=== PATIENT | female | born 1990 | race Caucasian/White ===

== ENCOUNTER → 2018-01-28 09:31 | Outpatient (CLI) | payer OTHER, BC, SELFPAY ==
[2018-01-28 10:11] LABS: Absolute Lymphocyte Count 1.48 X10^3/ul (0.83-4.51); Absolute Neutrophil Count 5.7 X10^3/uL (2.0-7.7); Basophil# 0.02 X10^3/uL; Basophil% 0.2 % (0-1); Eosinophil# 0.05 X10^3/uL; Eosinophils% 0.6 % (0-5); Hematocrit 38.3 % (37-47); Hemoglobin 12.7 g/dl (12.0-15.0); Lymphocyte # 1.48 X10^3/ul (4.0); Lymphocyte % 18.2 % (19-41); Mean Corp Hgb Conc 33.2 g/gl (32-36); Mean Corpuscular Hgb 28.6 pg (27.0-32.0); Mean Corpuscular Volume 86.3 fL (81-99); Mean Platelet Vol. 8.9 fl (6.2-12.0); Monocyte# 0.92 X10^3/uL; Monocyte% 11.3 % (0-10); Neutrophil # 5.67 X10^3/uL (2.7-7.7); Neutrophil % 69.6 % (47-70); POSITIVE COUNT NO; POSITIVE DIFFERENTIAL NO; POSITIVE MORPHOLOGY NO; Platelet Count 272 K/mm3 (150-450); RBC Distribution Width CV 13.3 % (11.6-14.6); RBC Distribution Width SD 41.1 fl (35.1-43.9); Red Blood Count 4.44 M/mm3 (4.2-5.4); White Blood Count 8.2 K/mm3 (4.4-11.0)
[2018-01-28 11:19] LABS: HIV - WCH Non-Reactive (Nonreactive); Rubella IgG 54.1 IU/mL
[2018-01-28 18:50] LABS: Chlamydia Trachomatis by PCR Negative (Negative); Neisserai gonorrhoeae by PCR Negative (Negative); Probe Check PASS; Sample Adequacy Control PASS; Specimen Processing Control PASS
[2018-01-29 13:47] LABS: HEPATITIS B SURFACE AG Negative (Negative)
[2018-01-30 02:59] LABS: Rapid Plasmin Reagin (RPR) NONREACTIVE (NONREACTIVE)
[2018-02-03 14:41] LABS: HPV Reflexed? NOT INDICATED
== END ==
PROVIDERS: Family Provider Family Medicine; PCP Family Medicine; Referring Provider Obstetrics & Gynecology; Visit Provider Obstetrics & Gynecology
DX: Z12.4 Encounter for screening for malignant neoplasm of cervix (principal); Z34.90 Encounter for supervision of normal pregnancy, unspecified, unspecified trimester
CPT/HCPCS: 36415; 85025; 86592; 86703; 86762; 86850; 86900; 87086; 87088; 87340; 87491; 87591; 88175; G0145

== ENCOUNTER → 2018-02-18 12:10 | Outpatient (CLI) | payer OTHER, BC, SELFPAY | PROVIDERS: Family Provider Family Medicine; PCP Family Medicine; Referring Provider Obstetrics & Gynecology; Visit Provider Obstetrics & Gynecology | DX: Z34.81 Encounter for supervision of other normal pregnancy, first trimester (principal) | CPT/HCPCS: 36415 ==

== ENCOUNTER → 2018-04-01 10:49 | Outpatient (CLI) | payer OTHER, BC, SELFPAY ==
[2018-04-01 10:17] VITALS: BMI 24.7
== END ==
PROVIDERS: Family Provider Family Medicine; Referring Provider Nurse Practitioner Women's Health; Visit Provider Nurse Practitioner Women's Health
DX: Z36.9 Encounter for antenatal screening, unspecified (principal)
CPT/HCPCS: 36415

== ENCOUNTER → 2018-04-17 07:57 | Outpatient (CLI) | payer OTHER, BC, SELFPAY ==
[2018-04-01 10:17] VITALS: BMI 24.7
--- NOTE | 2018-04-17 08:00 | US_ITS ---
STUDY: SECOND AND THIRD TRIMESTER OBSTETRICAL ULTRASOUND REASON FOR EXAM: Female, 27 years old. , assessment LMP: December 05, 2017 TECHNIQUE: Transabdominal imaging of the pelvis was performed using real-time ultrasound. PRIOR ULTRASOUND: None. FINDINGS: There is a single intrauterine fetus. The fetus is in a cephalic presentation. There is demonstrated cardiac activity with a heart rate of 152 bpm. There is a normal amniotic fluid volume. The largest amniotic fluid pocket measures 3.3 cm. The placenta is anterior in location and is not low lying. There are Grade 0 placental changes. The cervix measures 3.2 cm in length. The bilateral adnexal regions show no significant abnormalities. BIOMETRY: BPD: 4.47 cm: 19 weeks, 4 days HC: 16.37 cm: 19 weeks, 1 days AC: 13.47 cm: 19 weeks, 0 days FL: 3.00 cm: 19 weeks, 2 days CI: 78% FL/BPD: 67% FL/HC: FL/AC: 22% HC/AC: 1.22 age by current US: 19 weeks, 2 days. TYRONE by current US: September 09, 2018. Estimated weight: 274 grams, +/- 40 grams, 52 %. age by prior US: weeks, days. TYRONE by prior US: . Age by LMP: 19 weeks, 0 days. TYRONE by LMP: September 11, 2018. ANATOMY: Gender: Female Cranium: Normal lateral ventricles. A cyst was measured in the choroid plexus measuring 8.2 x 5.5 x 3.7 mm. Normal cerebellum. Normal cisterna magna. Normal face, nose and lips. The facial profile was not seen. Chest: Normal 4-chamber heart. Abdomen/Pelvis: Normal diaphragm. Normal stomach. Normal abdominal wall. Normal cord insertion. Normal 3 vessel cord. Normal kidneys. Normal bladder. Spine: Normal cervical spine. Normal thoracic spine. Normal lumbar spine. Extremities: Normal bilateral upper extremities. Normal bilateral lower extremities. US/OB Anatomy Scan IMPRESSION: There is a viable intrauterine with estimated gestational age of 19 weeks 2 days by the current ultrasound. Measurements are given above. A small cyst was measured in the choroid plexus. The facial profile was not seen due to positioning of the fetus. A follow-up ultrasound can be obtained for these structures. Electronically Signed: Maye Clemens MD at 18:47 EST Tel Direct: [phone], Service support ,
== END ==
PROVIDERS: Family Provider Family Medicine; Referring Provider Obstetrics & Gynecology; Visit Provider Obstetrics & Gynecology
DX: Z36.89 Encounter for other specified antenatal screening (principal)
CPT/HCPCS: 76805

== ENCOUNTER → 2018-06-12 13:39 | Outpatient (CLI) | payer OTHER, BC, SELFPAY ==
[2018-06-12 13:12] VITALS: BMI 24.7
[2018-06-12 14:37] LABS: Absolute Lymphocyte Count 0.86 X10^3/ul (0.83-4.51); Absolute Neutrophil Count 6.9 X10^3/uL (2.0-7.7); Basophil# 0.02 X10^3/uL; Basophil% 0.2 % (0-1); Eosinophil# 0.06 X10^3/uL; Eosinophils% 0.7 % (0-5); Hematocrit 34.1 % (37-47); Hemoglobin 10.7 g/dl (12.0-15.0); Lymphocyte # 0.86 X10^3/ul (4.0); Lymphocyte % 10.1 % (19-41); Mean Corp Hgb Conc 31.4 g/gl (32-36); Mean Corpuscular Hgb 27.9 pg (27.0-32.0); Mean Corpuscular Volume 88.8 fL (81-99); Mean Platelet Vol. 8.4 fl (6.2-12.0); Monocyte# 0.63 X10^3/uL; Monocyte% 7.4 % (0-10); Neutrophil # 6.94 X10^3/uL (2.7-7.7); Neutrophil % 81.1 % (47-70); POSITIVE COUNT NO; POSITIVE DIFFERENTIAL NO; POSITIVE MORPHOLOGY NO; Platelet Count 201 K/mm3 (150-450); RBC Distribution Width CV 13.3 % (11.6-14.6); RBC Distribution Width SD 41.6 fl (35.1-43.9); Red Blood Count 3.84 M/mm3 (4.2-5.4); White Blood Count 8.6 K/mm3 (4.4-11.0)
[2018-06-12 14:43] LABS: Glucose Challenge Gest 1H 50g 126 mg/dL (70-140)
== END ==
PROVIDERS: Family Provider Family Medicine; PCP Family Medicine; Visit Provider Obstetrics & Gynecology
DX: Z34.90 Encounter for supervision of normal pregnancy, unspecified, unspecified trimester (principal)
CPT/HCPCS: 36415; 82950; 85025

== ENCOUNTER → 2018-08-14 09:56 | Outpatient (CLI) | payer OTHER, BC, SELFPAY ==
[2018-08-14 09:43] VITALS: BMI 29.2
[2018-08-14 11:12] LABS: Absolute Lymphocyte Count 1.75 X10^3/ul (0.83-4.51); Absolute Neutrophil Count 8.9 X10^3/uL (2.0-7.7); Basophil# 0.01 X10^3/uL; Basophil% 0.1 % (0-1); Eosinophil# 0.09 X10^3/uL; Eosinophils% 0.8 % (0-5); Hematocrit 36.2 % (37-47); Hemoglobin 11.3 g/dl (12.0-15.0); Lymphocyte # 1.75 X10^3/ul (4.0); Lymphocyte % 14.6 % (19-41); Mean Corp Hgb Conc 31.2 g/gl (32-36); Mean Corpuscular Hgb 27.2 pg (27.0-32.0); Monocyte# 1.12 X10^3/uL; Monocyte% 9.4 % (0-10); Neutrophil # 8.93 X10^3/uL (2.7-7.7); Neutrophil % 74.5 % (47-70); Platelet Count 193 K/mm3 (150-450); RBC Distribution Width SD 47.4 fl (35.1-43.9); Red Blood Count 4.16 M/mm3 (4.2-5.4)
[2018-08-14 11:22] LABS: POSITIVE COUNT NO; POSITIVE DIFFERENTIAL NO; POSITIVE MORPHOLOGY NO
== END ==
PROVIDERS: Family Provider Family Medicine; PCP Family Medicine; Referring Provider Obstetrics & Gynecology; Visit Provider Obstetrics & Gynecology
DX: O99.013 Anemia complicating pregnancy, third trimester (principal); Z3A.36 36 weeks gestation of pregnancy
CPT/HCPCS: 36415; 85025; 87081

== ENCOUNTER 2018-09-05 07:50 | Inpatient (IN) | payer OTHER, BC, SELFPAY ==
[2018-09-04 10:08] VITALS: BMI 30.7
[2018-09-05 08:49] VITALS: BMI 30.7
[2018-09-05] MEDS: Lactated Ringers 1,000 ML 50 ML IV ×2 (09:00→10:27)
[2018-09-05 09:13] LABS: Absolute Lymphocyte Count 0.54 X10^3/ul (0.83-4.51); Absolute Neutrophil Count 12.4 X10^3/uL (2.0-7.7); Basophil# 0.01 X10^3/uL; Basophil% 0.1 % (0-1); Eosinophil# 0.01 X10^3/uL; Eosinophils% 0.1 % (0-5); Hematocrit 36.5 % (37-47); Hemoglobin 11.8 g/dl (12.0-15.0); Lymphocyte # 0.54 X10^3/ul (4.0); Lymphocyte % 3.9 % (19-41); Mean Corp Hgb Conc 32.3 g/gl (32-36); Mean Corpuscular Hgb 27.7 pg (27.0-32.0); Mean Corpuscular Volume 85.7 fL (81-99); Mean Platelet Vol. 8.8 fl (6.2-12.0); Monocyte# 0.91 X10^3/uL; Monocyte% 6.5 % (0-10); Neutrophil # 12.42 X10^3/uL (2.7-7.7); Neutrophil % 89.2 % (47-70); Platelet Count 156 K/mm3 (150-450); RBC Distribution Width CV 15.1 % (11.6-14.6); Red Blood Count 4.26 M/mm3 (4.2-5.4); White Blood Count 13.9 K/mm3 (4.4-11.0)
[2018-09-05 09:15] LABS: Differential Indicated SCAN CRITERIA MET; POSITIVE COUNT NO; POSITIVE DIFFERENTIAL YES; POSITIVE MORPHOLOGY NO
--- NOTE | 2018-09-05 09:27 | HP.PCM_ITS ---
- Problem List (1) Active labor at term Status: Acute (2) Anemia affecting Status: Acute Qualifiers: Comment: iron. cbc at 36 weeks (3) Supervision of normal Status: Acute Qualifiers: Comment: PRR TYRONE 09/05/18 girl Lilian Foster Ryle[place] (4) Status: Acute Qualifiers: Comment: NT done. NIPT-Low risk, Female. carrier screening declined. AFP negative. Anatomy US normal. History Date of Admission: 09/05/18 Final TYRONE: 09/05/18 Gestational age: 40 Weeks and 0 Days History of this : This is a 28 year-old, at 39 weeks gestational age presetns IAL 5 cm dilated. she has had an uncomplicated denies any vb or lof admits good fm. Allergies No Known Allergies Allergy (Verified 09/04/18 09:32) Home Medications: Home Medications vitamin,calcium,prdqafjr-geqd-ncsuu acid tablet 1 tab PO DAILY 01/28/18 Ferrous Sulfate 325 mg PO 09/05/18 Smoking Status: Never smoker Number of Fetus(es): 1 Heart Tracin-170 moderate variability cat II tracing reactive no decels regular ctx q 3-4 History Past Pregnancies: Past PregnanciesPregancy History 2 Elective abortions Hx Para 1 Spontaneous abortions Hx # Term Pregnancies Ectopic pregnancies Hx # Pregnancies Multiple births # of living children 1 Past Pregnancies Del. Date Name GA/Weeks Outcome Route Bth Weight Gen Labor Lgth Anesthesia Del Locatn Provider FOB 08/24/15 Cristian 41 live - full term 9 lbs 3 oz. Male [address] Cook [place] Delivery Date: 08/24/15 On 06/26/18 @ 09:57 Jenniffer Chacko difficult labor Labs: Mom's Problem List Problem Status Onset Code Active labor at term Acute Mom's Labs & Results 09/05/18 09/05/18 08:55 08:55 WBC 13.9 H RBC 4.26 Hgb 11.8 L Hct 36.5 L MCV 85.7 MCH 27.7 MCHC 32.3 RDW 15.1 H RDW Differential 47.0 H Plt Count 156 MPV 8.8 Immature Gran % (Auto) 0.200 Neut % (Auto) 89.2 H Lymph % (Auto) 3.9 L [place] % (Auto) 6.5 Eos % (Auto) 0.1 Baso % (Auto) 0.1 Absolute Neuts (auto) 12.4 H Absolute Lymphs (auto) 0.54 L Total Counted Pending Blood Type Pending Antibody Screen Pending Course Did the patient receive Yes care? Labs Blood Type: O RH: POSITIVE RPR/VDRL/Syphilis Nonreactive Rubella status Immune HbSAg Negative Date Done: 01/28/18 Chlamydia Negative Gonorrhea Negative HIV/AIDS Non-Reactive Group B Strep: Negative Current Obstetrical History Gestational Diabetes No Incompetent Cervix No Infertility No IUGR No Macrosomia No Hypertension/Pre-eclampsia No Placenta Previa/Abruption No PTL/PROM No Uterine anomaly No Oligohydramnios No Polyhydramnios No Multiple gestation No Past Medical History Asthma No Diabetes No Hypertension No Heart disease No Mitral valve prolapse No Neurologic/Seizure disorder/ No Migraines Kidney disease No Liver disease No Varicosities No Clotting disorders/Hx of DVT No Thyroid Dysfunction No Other medical diseases No Psychiatric disorders No Major trauma No Abnormal PAP smear No Sleep apnea No Mammogram in the last 2 years No Social History Marital Status: Alleged father [place] Hx Smoking No Smoking Status Never smoker Expected Delivery Method: Spontaneous Vaginal Review of Systems Constitutional: Denies: Fever, Malaise Eyes: Denies: Blurred vision, Vision Change HEENT: Denies: Head Aches, Visual Changes Cardiovascular: Denies: Chest Pain, Palpitations Respiratory: Denies: Cough, Shortness of Breath, Wheezing Gastrointestinal: Denies: Abdominal Pain, Diarrhea, Nausea, Vomiting Genitourinary: Denies: Dysuria, Hematuria Musculoskeletal: Denies: Joint Pain, Muscle pain Skin: Denies: Lesions, Rash Neurological: Denies: Blurred vision, Focal weakness, Headaches Psychiatric: Denies: Anxiety, Depression Endocrine: Denies: Heat/ Cold Intolerance Hematologic/ Lymphatic: Denies: Easy Bruising, Easy Bleeding Physical Exam General: Alert, Cooperative, No apparent distress HEENT: Atraumatic, Normocephalic. Negative for: Thyromegaly, Lymphadenopathy Cardiovascular: Regular rate Lungs: Normal air movement Abdomen: Soft, Non Tender, Gravid Neurological: Deep Tendon Reflexes 2+/4 and Symmetrical, Neuro grossly intact. Negative for: Clonus REDUCING SYSTEM OPERATOR: Normal external genitalia. Negative for: Vulvar lesions Estimated gestational size: Appropriate for gestational size Presentation: Cephalic Cervix Dilation (cm): 5 Station: -1 Effacement (%): 80 Assessment/Plan All Active Problems (Last Reviewed 09/04/18 @ 09:32 by Omaira Lees) Active labor at term (Acute) Anemia affecting (Acute) Supervision of normal (Acute) (Acute) screening encounter (Resolved) Choroid plexus cyst (Resolved) This is a 28 year-old, , at 40 weeks gestational age presents IAL Patient presents IAL, plan expectant management for , pitocin/AROM PRN if needed. Pain management: Plans epidural. GBS negative. Management of any complications: None I have reviewed the [facility] and made any clinically relevant updates.
[2018-09-05 09:59] LABS: Differential Comment SCANNED; Platelet Estimate ADEQUATE (ADEQ)
[2018-09-05] MEDS: fentaNYL-bupivacaine (epidural) 100 ML BAG EPIDURAL (10:15)
[2018-09-05] MEDS: Oxytocin 30 units/NS 500 ml 30 UNITS/500 ML IV.SOLN 334 UNITS IV (13:05)
[2018-09-05] MEDS: Methylergonovine 0.2 MG/ML Ampul IM (13:11)
--- NOTE | 2018-09-05 13:17 | PCM.OPRPT ---
Problem List (1) Active labor at term Status: Acute (2) Anemia affecting Status: Acute Qualifiers: Comment: iron. cbc at 36 weeks (3) Supervision of normal Status: Acute Qualifiers: Comment: PRR TYRONE 09/05/18 girl Lilian Foster Ryley (4) Status: Acute Qualifiers: Comment: NT done. NIPT-Low risk, Female. carrier screening declined. AFP negative. Anatomy US normal. Vaginal Delivery Maternal Presentation: Active Labor ial 40 weeks Amniotic Membrane Rupture Type: Artificial Amniotic Fluid Description: Clear Final TYRONE: 09/05/18 Gestational age: 40 Weeks and 0 Days Date of Procedure: 09/05/18 Pre-Operative Diagnosis: ial Post-Operative Diagnosis: same Surgery/ Procedure Performed: Spontaneous Vaginal Delivery Type of Anesthesia: Epidural Description of Procedure: Patient began pushing and delivered the head in the JOSE presentation. The head was delivered atraumatically and a loose nuchal cord ?1 was identified and easily reduced over the infant's head. The anterior and posterior shoulders delivered without complication followed by the rest of the and the was placed on the maternal abdomen. Delayed cord clamping was employed for approximately 60 seconds. Cord was clamped and cut and gentle traction was applied to the cord and the placenta delivered spontaneously immediately following it was noted to be intact with three-vessel cord. The perineum and vagina were inspected and noted to have no significant laceration. EBL was 400 cc and there was some mild uterine atony due to the enlarged uterus. The cervix and uterus were significantly prolapsed down and at the introitus with enlarged genital hiatus. Patient and tolerated delivery well. Presentation: JOSE Placental Delivery Description: Spontaneous Placenta Disposition: [facility] Cord Vessel Description: 3 Vessels Cord Entanglement: Around neck x 1, loose Drain: Zhang to straight drain Estimated Blood Loss: 400 Infant A gender: Female Episiotomy Description: None Laceration: None Medications given after delivery: IV Pitocin, IM [place]hergin Complications: None
[2018-09-05] MEDS: Oxytocin 30 units/NS 500 ml 30 UNITS/500 ML IV.SOLN 167 UNITS IV (13:36)
[2018-09-05 16:30] VITALS: PULSE 117
[2018-09-05 16:32] VITALS: BP 128/79; PULSE 117; RESP 18; TEMP 36.9; O2SAT 100
[2018-09-05] MEDS: Naproxen 250 MG Tablet 500 MG PO (19:37)
[2018-09-05 19:40] VITALS: BP 131/78; PULSE 137; RESP 20; TEMP 36.9
[2018-09-06] VITALS: BP 111/71; PULSE 100; RESP 16; TEMP 36.3
[2018-09-06 05:00] VITALS: BP 111/64; PULSE 96; RESP 16; TEMP 35.8
[2018-09-06 07:49] VITALS: BP 111/72; PULSE 94; RESP 18; TEMP 36.1; O2SAT 99
--- NOTE | 2018-09-06 08:53 | PCM.PN.OB ---
Patient Problems: Active and Suspected Problems (Last Reviewed 09/04/18 @ 09:32 by Omaira Lees) Active labor at term (Acute) Subjective: doing well no complaints pain controlled no CP SOB N V ambulating well tolerating po lochia moderate, going well - Physical Exam General: Alert, Oriented x3 Abdomen: Soft, Non Tender, - - FF below U Vital Signs Temp Pulse Resp BP Pulse Ox 96.9 F L 94 18 111/72 99 09/06/18 07:49 09/06/18 07:49 09/06/18 07:49 09/06/18 07:49 09/06/18 07:49 Oxygen Delivery Method Room Air Weight: 190 lb Body Mass Index (BMI) 30.7 Intake and Output for Last 24 Hours 09/04/18 09/05/18 09/06/18 23:59 23:59 23:59 Intake Total 1956 Output Total 1200 / 1200 Balance 757 / 757 Laboratory Tests Past 24 Hrs 09/05/18 09/05/18 08:55 08:55 WBC 13.9 H RBC 4.26 Hgb 11.8 L Hct 36.5 L MCV 85.7 MCH 27.7 MCHC 32.3 RDW 15.1 H RDW Differential 47.0 H Plt Count 156 MPV 8.8 Immature Gran % (Auto) 0.200 Neut % (Auto) 89.2 H Lymph % (Auto) 3.9 L [place] % (Auto) 6.5 Eos % (Auto) 0.1 Baso % (Auto) 0.1 Absolute Neuts (auto) 12.4 H Absolute Lymphs (auto) 0.54 L Total Counted Not Reportable Differential Comment SCANNED Platelet Estimate ADEQUATE Blood Type O POSITIVE Antibody Screen NEGATIVE Medical Necessity - Tobacco Use Smoking Status: Never smoker Assessment/Plan All Active Problems (Last Reviewed 09/04/18 @ 09:32 by Omaira Lees) Active labor at term (Acute) Anemia affecting (Acute) Supervision of normal (Acute) (Acute) screening encounter (Resolved) Choroid plexus cyst (Resolved) s/p PPD # 1 1. routine post delivery care 2. breast feeding- support given 3. rh positive 4. rubella immune 5. Plans home today
--- NOTE | 2018-09-06 08:54 | DCINST_ITS ---
Additional Instructions: If you experience any of the following, contact your healthcare provider. * Bleeding that soaks a pad every hour for 2 hours * Fever 100.4 or higher * Unrelieved incision or abdominal pain * Swelling, redness, discharge or bleeding from your incision or episiotomy site * Your incision begins to separate * Problems urinating (including inability to urinate or burning while urinating). * Visual changes * Severe headache * Flu-like symptoms * Pain or redness in one of both of your breasts * Pain, warmth, tenderness or swelling in your legs, especially the calf area * Frequent nausea and vomiting * Symptoms of depression or anxiety If you experience any of the following, call 911 or go to the nearest Emergency Room. * Chest pain * Problems breathing * Seizure activity * Partial or complete paralysis of a body part, slurred speech, weakness or drooping of the face, or a sudden inability to walk or hold your balance Allergies/Adverse Reactions: Allergies No Known Allergies Allergy (Verified 09/04/18 09:32) Medications to take at Discharge vitamin,calcium,ckjhmrpe-qaaf-uewsg acid tablet 1 tab PO DAILY 01/28/18 Ferrous Sulfate 325 mg PO 09/05/18 Primary Care Physician: Elvis Lopes MD [Primary Care Provider] - Test Results: Test results from this visit will be discussed in further detail at your follow- up appointment, if applicable.
--- NOTE | 2018-09-06 08:54 | PCM.DCVAG ---
Additional Instructions: If you experience any of the following, contact your healthcare provider. Bleeding that soaks a pad every hour for 2 hours Fever 100.4 or higher Unrelieved incision or abdominal pain Swelling, redness, discharge or bleeding from your incision or episiotomy site Your incision begins to separate Problems urinating (including inability to urinate or burning while urinating). Visual changes Severe headache Flu-like symptoms Pain or redness in one of both of your breasts Pain, warmth, tenderness or swelling in your legs, especially the calf area Frequent nausea and vomiting Symptoms of depression or anxiety If you experience any of the following, call 911 or go to the nearest Emergency Room. Chest pain Problems breathing Seizure activity Partial or complete paralysis of a body part, slurred speech, weakness or drooping of the face, or a sudden inability to walk or hold your balance Allergies/Adverse Reactions: Allergies No Known Allergies Allergy (Verified 09/04/18 09:32) Medications to take at Discharge vitamin,calcium,gecmdwcn-uyzs-thlnh acid tablet 1 tab PO DAILY 01/28/18 Ferrous Sulfate 325 mg PO 09/05/18 Primary Care Physician: Elvis Lopes MD [Primary Care Provider] - Test Results: Test results from this visit will be discussed in further detail at your follow-up appointment, if applicable.
[2018-09-06 12:00] VITALS: BP 116/73; PULSE 100; RESP 18; TEMP 36; O2SAT 97
[2018-09-06 19:30] VITALS: BP 121/87; PULSE 82; RESP 18; TEMP 36.7
--- NOTE | 2018-09-10 16:30 | NURSING ---
follow up call done, patient denies questions , needs or complcations and was satisfied with her care going well
== END 2018-09-06 21:25 | disposition home or self-care (01) | DRG 807 ==
PROVIDERS: Admitting Provider Obstetrics & Gynecology; Family Provider Family Medicine; PCP Family Medicine; Referring Provider Obstetrics & Gynecology; Visit Provider Obstetrics & Gynecology
DX: O99.02 Anemia complicating childbirth (principal); D64.9 Anemia, unspecified; O69.81X0 Labor and delivery complicated by cord around neck, without compression, not applicable or unspecified; Z79.899 Other long term (current) drug therapy; Z3A.40 40 weeks gestation of pregnancy; Z37.0 Single live birth
CPT/HCPCS: 59025; 59050; 85025; 86850; 86900; 99218; J7120; G0378

== ENCOUNTER → 2020-11-07 | Outpatient (CLI) | payer BC, SELFPAY ==
[2020-11-07 16:49] VITALS: BMI 27.6
[2020-11-11 11:49] LABS: HPV Reflexed? NOT INDICATED
== END | disposition home or self-care (01) ==
LOC: LABSPEC 16:51
PROVIDERS: PCP Family Medicine; Referring Provider Obstetrics & Gynecology; Visit Provider Obstetrics & Gynecology
DX: Z12.4 Encounter for screening for malignant neoplasm of cervix (principal)
CPT/HCPCS: 88175; G0145

== ENCOUNTER → 2021-03-01 | Outpatient (CLI) | payer OTHER, SELFPAY ==
[2021-03-01 13:45] LABS: Amphetamine Urine VISTA NEGATIVE (<1000 ng/mL); Barbiturate Urine VISTA NEGATIVE (< 200 ng/mL); Benzodiazepine Urine VISTA NEGATIVE (< 200 ng/mL); Cocaine Urine VISTA NEGATIVE (< 300 ng/mL); Ecstacy Urine VISTA NEGATIVE (< 500 ng/mL); Methadone Urine VISTA NEGATIVE (< 300 ng/mL); PCP Urine VISTA NEGATIVE (< 25 ng/mL); THC Urine VISTA NEGATIVE (< 50 ng/mL); Vista UDS pH Range 6
[2021-03-01 14:43] LABS: Chlamydia Trachomatis by PCR Negative (Negative)
[2021-03-01 14:44] LABS: Neisserai gonorrhoeae by PCR Negative (Negative); Probe Check PASS; Sample Adequacy Control PASS; Specimen Processing Control PASS
== END | disposition home or self-care (01) ==
LOC: LABSPEC 11:28
PROVIDERS: PCP Family Medicine; Referring Provider Obstetrics & Gynecology; Visit Provider Obstetrics & Gynecology
DX: Z34.91 Encounter for supervision of normal pregnancy, unspecified, first trimester (principal); Z3A.09 9 weeks gestation of pregnancy
CPT/HCPCS: 80307; 87086; 87491; 87591

== ENCOUNTER → 2021-03-09 11:50 | Outpatient (CLI) | payer OTHER, SELFPAY ==
[2021-03-09 12:26] LABS: Absolute Lymphocyte Count 1.69 X10^3/uL (0.83-4.51); Absolute Neutrophil Count 6.7 X10^3/uL (2.0-7.7); Basophil# 0.04 X10^3/uL; Basophil% 0.4 % (0-1); Eosinophil# 0.07 X10^3/uL; Eosinophils% 0.8 % (0-5); Hematocrit 38.1 % (37-47); Hemoglobin 12.3 g/dL (12.0-15.0); Lymphocyte # 1.69 X10^3/ul (0.83-4.51); Lymphocyte % 18.7 % (19-41); Mean Corp Hgb Conc 32.3 g/dL (32-36); Mean Corpuscular Hgb 28.1 pg (27.0-32.0); Mean Platelet Vol. 8.9 fl (6.2-12.0); Monocyte# 0.59 X10^3/uL; Monocyte% 6.5 % (0-10); NRBC Flagged by Analyzer 0 % (0-5); Neutrophil # 6.65 X10^3/uL (2.7-7.7); Neutrophil % 73.4 % (47-70); Platelet Count 293 K/mm3 (150-450); RBC Distribution Width CV 12.3 % (11.6-14.6); RBC Distribution Width SD 39.7 fl (35.1-43.9); Red Blood Count 4.38 M/mm3 (4.2-5.4); White Blood Count 9.1 K/mm3 (4.4-11.0)
[2021-03-09 13:13] LABS: NATERA MAILED SPECIMEN
[2021-03-09 13:30] LABS: HIV - WCH Non-Reactive (Nonreactive); Hepatitis B Surface Antigen Non-Reactive (Nonreactive); Hepatitis C Antibody Non-Reactive (Nonreactive); Syphilis Antibodies Non-reactive
== END ==
PROVIDERS: PCP Family Medicine; Referring Provider Obstetrics & Gynecology; Visit Provider Obstetrics & Gynecology
DX: Z34.81 Encounter for supervision of other normal pregnancy, first trimester (principal); Z31.430 Encounter of female for testing for genetic disease carrier status for procreative management; Z3A.09 9 weeks gestation of pregnancy
CPT/HCPCS: 36415; 85025; 86703; 86762; 86780; 86803; 86850; 86900; 86901; 87340

== ENCOUNTER → 2021-04-26 09:20 | Outpatient (CLI) | payer OTHER, BC, SELFPAY | PROVIDERS: PCP Family Medicine; Referring Provider Nurse Practitioner Women's Health; Visit Provider Nurse Practitioner Women's Health | DX: Z36.9 Encounter for antenatal screening, unspecified (principal) | CPT/HCPCS: 36415 ==

== ENCOUNTER 2021-07-19 08:55 | Outpatient (CLI) | payer BC, SELFPAY ==
[2021-07-19 09:25] LABS: Absolute Neutrophil Count 8.6 X10^3/uL (2.0-7.7); Basophil# 0.03 X10^3/uL; Basophil% 0.3 % (0-1); Eosinophil# 0.06 X10^3/uL; Eosinophils% 0.6 % (0-5); Hematocrit 34.5 % (37-47); Hemoglobin 10.9 g/dL (12.0-15.0); Lymphocyte % 11.5 % (19-41); Mean Corp Hgb Conc 31.6 g/dL (32-36); Mean Corpuscular Volume 88.7 fL (81-99); Mean Platelet Vol. 8.1 fl (6.2-12.0); Monocyte# 0.48 X10^3/uL; Monocyte% 4.6 % (0-10); NRBC Flagged by Analyzer 0 % (0-5); Neutrophil % 82.4 % (47-70); Platelet Count 207 K/mm3 (150-450); RBC Distribution Width CV 13.4 % (11.6-14.6); RBC Distribution Width SD 43.6 fl (35.1-43.9); Red Blood Count 3.89 M/mm3 (4.2-5.4); White Blood Count 10.4 K/mm3 (4.4-11.0)
[2021-07-19 09:48] LABS: Glucose Challenge Gest 1H 50g 141 mg/dL (70-140)
== END 2021-07-19 23:59 | disposition home or self-care (01) ==
LOC: PAVLAB 08:57
PROVIDERS: PCP Family Medicine; Referring Provider Obstetrics & Gynecology; Visit Provider Obstetrics & Gynecology
DX: Z34.90 Encounter for supervision of normal pregnancy, unspecified, unspecified trimester (principal); Z3A.24 24 weeks gestation of pregnancy
CPT/HCPCS: 36415; 82950; 85025

== ENCOUNTER 2021-07-23 07:25 | Outpatient (CLI) | payer BC, SELFPAY ==
[2021-07-23 08:12] LABS: Glucose GTT-Gestation. Fasting 96 mg/dL (<105)
[2021-07-23 09:15] LABS: Glucose GTT-Gestational 1 Hr 138 mg/dL (<190)
[2021-07-23 10:25] LABS: Glucose GTT-Gestational 2 Hr 125 mg/dL (<165)
[2021-07-23 11:13] LABS: Glucose GTT-Gestational 3 Hr 118 L (<145)
== END 2021-07-23 23:59 | disposition home or self-care (01) ==
LOC: LAB 07:27
PROVIDERS: PCP Family Medicine; Referring Provider Nurse Practitioner Women's Health; Visit Provider Nurse Practitioner Women's Health
DX: O99.810 Abnormal glucose complicating pregnancy (principal)
CPT/HCPCS: 36415; 82951; 82952

== ENCOUNTER → 2021-08-31 | Outpatient (CLI) | payer BC, SELFPAY ==
[2021-08-31 11:46] LABS: Absolute Lymphocyte Count 1.27 X10^3/uL (0.83-4.51); Absolute Neutrophil Count 8.7 X10^3/uL (2.0-7.7); Basophil# 0.03 X10^3/uL; Basophil% 0.3 % (0-1); Eosinophil# 0.07 X10^3/uL; Eosinophils% 0.6 % (0-5); Hematocrit 34.2 % (37-47); Hemoglobin 10.8 g/dL (12.0-15.0); Lymphocyte # 1.27 X10^3/ul (0.83-4.51); Lymphocyte % 11.5 % (19-41); Mean Corp Hgb Conc 31.6 g/dL (32-36); Mean Corpuscular Hgb 27.7 pg (27.0-32.0); Mean Corpuscular Volume 87.7 fL (81-99); Mean Platelet Vol. 8.4 fl (6.2-12.0); Monocyte# 0.91 X10^3/uL; Monocyte% 8.3 % (0-10); NRBC Flagged by Analyzer 0 % (0-5); Neutrophil # 8.68 X10^3/uL (2.7-7.7); Neutrophil % 78.7 % (47-70); Platelet Count 210 K/mm3 (150-450); RBC Distribution Width CV 14.2 % (11.6-14.6); RBC Distribution Width SD 45.1 fl (35.1-43.9)
== END | disposition home or self-care (01) ==
LOC: PAVLAB 11:34
PROVIDERS: PCP Family Medicine; Referring Provider Obstetrics & Gynecology; Visit Provider Obstetrics & Gynecology
DX: O99.019 Anemia complicating pregnancy, unspecified trimester (principal)
CPT/HCPCS: 36415; 85025

== ENCOUNTER → 2021-09-14 | Outpatient (CLI) | payer BC, SELFPAY | END | disposition home or self-care (01) | LOC: LABSPEC 17:00 | PROVIDERS: PCP Family Medicine; Referring Provider Obstetrics & Gynecology; Visit Provider Obstetrics & Gynecology | DX: Z34.80 Encounter for supervision of other normal pregnancy, unspecified trimester (principal) | CPT/HCPCS: 87081 ==

== ENCOUNTER 2021-09-27 15:02 | Outpatient (CLI) | payer BC, SELFPAY ==
[2021-09-27 15:09] VITALS: BMI 34.2
[2021-09-27 15:17] VITALS: BP 116/76; PULSE 97
--- NOTE | 2021-09-27 17:11 | OB.TRI.PN_ITS ---
Progress Notes Date of Service: 09/27/21 Progress Note: Patient presents for triage evaluation secondary to contractions false labor FHT: 130 Moderate variability reactive no decelerations category I tracing [place]: q 2-5 Contractions Assessment and plan: false labor Reactive NST, reassuring maternal and sta tus patient discharged to home to follow-up as shceduled no cervical change. See problem list details for additional plan information. Charges/Coding Procedures Urinary/Genital [id number]: [id number] non-stress test Interp
== END 2021-09-27 16:05 | disposition home or self-care (01) ==
LOC: WPOUT 15:04 → WP 15:05
PROVIDERS: PCP Family Medicine; Visit Provider Obstetrics & Gynecology
DX: O47.9 False labor, unspecified (principal); Z3A.00 Weeks of gestation of pregnancy not specified
CPT/HCPCS: 59025; 59050; 99218; G0378

== ENCOUNTER 2021-10-05 12:00 | Inpatient (IN) | payer BC, SELFPAY ==
[2021-09-27 15:16] VITALS: TEMP 36.1; O2SAT 98
[2021-10-05] VITALS (37 sets, daily range): BP systolic 101–175; BP diastolic 56–91; PULSE 82–115; RESP 16–18; TEMP 36.1–36.6; O2SAT 99–100; BMI 34.4
[2021-10-05] MEDS: Lactated Ringers 1,000 ML 50 ML IV (12:31)
[2021-10-05] MEDS: Oxytocin 30 units/NS 500 ml 30 UNITS/500 ML IV.SOLN IV (12:42)
[2021-10-05 12:44] LABS: Absolute Lymphocyte Count 1.32 X10^3/uL (0.83-4.51); Absolute Neutrophil Count 6.7 X10^3/uL (2.0-7.7); Basophil# 0.02 X10^3/uL; Basophil% 0.2 % (0-1); Eosinophil# 0.04 X10^3/uL; Eosinophils% 0.4 % (0-5); Hematocrit 35.4 % (37-47); Hemoglobin 11.1 g/dL (12.0-15.0); Lymphocyte # 1.32 X10^3/ul (0.83-4.51); Lymphocyte % 14.8 % (19-41); Mean Corp Hgb Conc 31.4 g/dL (32-36); Mean Corpuscular Hgb 27.4 pg (27.0-32.0); Mean Corpuscular Volume 87.4 fL (81-99); Mean Platelet Vol. 9.4 fl (6.2-12.0); Monocyte# 0.78 X10^3/uL; Monocyte% 8.8 % (0-10); NRBC Flagged by Analyzer 0 % (0-5); Neutrophil # 6.67 X10^3/uL (2.7-7.7); Neutrophil % 75.1 % (47-70); Platelet Count 211 K/mm3 (150-450); RBC Distribution Width CV 14.8 % (11.6-14.6); RBC Distribution Width SD 46.9 fl (35.1-43.9); Red Blood Count 4.05 M/mm3 (4.2-5.4); White Blood Count 8.9 K/mm3 (4.4-11.0)
--- NOTE | 2021-10-05 13:12 | HP.PCM.OB_ITS ---
HPI - General General Date of Admission: 10/05/21 HPI Narrative ON BARBOZA, is a 31 y/o @ 39 weeks 3 days who presents for elective induction of labor secondary to maternal exhaustion and advanced cervical dilation Maternal Data Information TYRONE Calculator Estimated Delivery Date Method Current WG Current Estimate 10/09/21 Ultrasound #1 39w 3d Other Estimates 10/02/21 LMP (Certain) 40w 3d PFSH PFS Medical History H/O depression, currently Home Medications multivitamin no.47-iron fum 27 mg-folate no.1 1 mg-dha 300 mg capsule 1 cap PO DAILY 02/21/21 [History Last Taken 09/26/21 21:00] ferrous sulfate [iron] 325 mg PO DAILY 09/27/21 [History Last Taken 09/27/21] Allergy/AdvReac Type Severity Reaction Status Date / Time No Known Allergies Allergy Verified 10/04/21 09:25 Family History Mother Diabetes Father Hypertension Grandmother Breast cancer Social History household members: family housing: house number of children: 2 current occupational status: employed 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 Smoking Status: Never smoker alcohol intake: never substance use type: does not use caffeine: Yes what type of physical activity do you participate in: none seatbelt use: always do you feel safe at home: Yes additional social history: Ryley History 3 Elective abortions Hx Para 2 Spontaneous abortions Hx # Term Pregnancies Ectopic pregnancies Hx # Pregnancies Multiple births # of living children 2 Past Pregnancies Del. Date Name GA/Weeks Outcome Route Bth Weight Infant Gen Labor Lgth Anesthesia Del Locatn Provider FOB 08/24/15 Cristian 41 live - full term 9 lbs 3 oz. Male 1 6 hours epidural Vijaya Cook [place] 09/05/18 Lilian 40 live - full term 9lb 11oz Female epidural [facility] Ryley Delivery Date: 08/24/15 difficult labor Jenniffer Chacko Delivery Date: 09/05/18 No notes to display Visit Details Expected Delivery Route/Plan Labor Preferences- labor support person: Ryley labor intervention preferences: [] pain management options preferred: epidural cut cord/dad catch: cord : yes PP control planned: discussed/prefers pill discussed possible routes of delivery and associated risks: [] special requests: [] Plans Covid status: counseled regarding risk of covid in vs vaccination and declined vaccination; had covid prior to Flu vaccine: given Tdap vaccine:given Rhogam: na LARC form signed: yes Problem list reviewed and updated with the most current plan of care details and appropriate orders placed. Relevant counseling for the gestational age provided. Continue routine care and follow up unless otherwise noted in visit notes/problem list details OB Flowsheet Initial Weight: 169 lb Date -?-?-?-?-?-?-?-?-?-?-?-?- EGA Weight BP Urine Prot -?-?-?-?-?-?-?-?-?-?-?-?- Glucose FHR FuHt Pres Dilation -?-?-?-?-?-?-?-?-?-?-?-?- Effaced St Visit Note 03/01/21 -?-?-?-?-?-?-?-?-?-?-?-?- 8w 2d 169 lb (+0 oz) 120/88 -?-?-?-?-?-?-?-?-?-?-?-?- 160 -?-?-?-?-?-?-?-?-?-?-?-?- SM- CRL 1.6cm N OT cons with LMP 04/04/21 -?-?-?-?-?-?-?-?-?-?-?-?- 13w 1d 168 lb 8 oz (-8 oz) 118/64 Negative -?-?-?-?-?-?-?-?-?-?-?-?- Negative 158 -?-?-?-?-?-?-?-?-?-?-?-?- MH-Doing well. N o VB, LOF. Brief US to confirm FHT. 04/26/21 -?-?-?-?-?-?-?-?-?-?-?-?- 16w 2d 167 lb 6 oz (-1 lb 10 oz) 128/78 Negative -?-?-?-?-?-?--?-?-?-?-?-?- Negative 161 -?-?-?-?-?-?-?-?-?-?-?-?- -No Vb, LOF. M FM US sched 05/17. AFP today 05/24/21 -?-?-?-?-?-?-?-?-?-?-?-?- 20w 2d 176 lb 4 oz (+7 lb 4 oz) 110/68 Negative -?-?-?-?-?-?-?-?-?-?-?-?- Negative 160 -?-?-?-?-?-?-?-?-?-?-?-?- JV- pt lost her job due to refusing covid vaccine. She wears a mask and has no symptoms. No lof, vaginal bleeding, or dec fm. 06/22/21 -?-?-?-?-?-?-?-?-?-?-?-?- 24w 3d 183 lb (+14 lb) 102/88 Negative -?-?-?-?-?-?-?-?-?-?-?-?- Negative 155 25 -?-?-?-?-?-?-?-?-?-?-?-?- Sm- no vb lof go od fm no regular ctx but having some alexander carroll 07/19/21 -?-?-?-?-?-?-?-?-?-?-?-?- 28w 2d 190 lb 2 oz (+21 lb 2 oz) 138/82 118/68 Negative -?-?-?-?-?-?-?-?-?-?-?-?- Negative 161 29 -?-?-?-?-?-?-?-?-?-?-?-?- -No VB, LOF. G ood FM. 28 wk labs, tdap, larc 08/02/21 -?-?-?-?-?-?-?-?-?-?-?-?- 30w 2d 195 lb (+26 lb) 124/80 -?-?-?-?-?-?-?-?-?-?-?-?- 150 30 -?-?-?-?-?-?-?-?-?-?-?-?- SM- no vb lof go od fm n oregular ctx 08/17/21 -?-?-?-?-?-?-?-?-?-?-?-?- 32w 3d 199 lb (+30 lb) 112/60 Negative -?-?-?-?-?-?-?-?-?-?-?-?- Negative 148 34 Cephalic -?-?-?-?-?-?-?-?-?-?-?-?- JV- no lof, vagi nal bleeding or dec fm JV- no lof, vaginal bleeding or dec fm. needs rpt cbc 08/31/21 -?-?-?-?-?-?-?-?-?-?-?-?- 34w 3d 202 lb 6 oz (+33 lb 6 oz) 110/68 Negative -?-?-?-?-?-?-?-?-?-?-?-?- Negative 138 35 Cephalic -?-?-?-?-?-?-?-?-?-?-?-?- MH-No VB, LOF. G ood Fm. No S&S depression. 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 internal os now with the external os. labor precautions discussed. 09/28/21 -?-?-?-?-?-?-?-?-?-?-?-?- 38w 3d 212 lb 4 oz (+43 lb 4 oz) 120/87 Negative -?-?-?-?-?-?-?-?-?-?-?-?- Negative 155 40 Cephalic 4 -?-?-?-?-?-?-?-?-?-?-?-?- 80 -2 JV- no lof , vaginal bleeding ,or dec fm. states was on l&D last night around 4 and staff was rude to her. not sure of the situation. told her they could not find her cx. cx is anterior just posterior to urethra and bladder and is 80/-2 10/04/21 -?-?-?-?-?-?-?-?-?-?-?-?- 39w 2d 217 lb (+48 lb) 120/86 Negative -?-?-?-?-?-?-?-?-?-?-?-?- Negative 154 40 Cephalic 4 -?-?-?-?-?-?-?-?-?-?-?-?- 70 -2 JV- pt sta anuradha that she feels miserable like she is always sitting on the baby's head and is requesting IOL 10/05/21 -?-?-?-?-?-?-?-?-?-?-?-?- 39w 3d 213 lb 13.574 oz (+44 lb 13.574 oz) 133/91 -?-?-?-?-?-?-?-?-?-?-?-?- -?-?-?-?-?-?-?-?-?-?-?-?- ROS Constitutional Constitutional: Denies change in weight, fatigue, fever(s), headache(s), poor appetite or weakness Eyes Eyes: Denies blurry vision, change in vision, seeing flashes or spots in vision ENT HEENT: Denies dizziness, headache(s), loss taste/smell or sore throat Cardiovascular Cardiovascular: Denies chest pain, dizziness, dyspnea, irregular heart rhythm, leg edema, palpitations, rapid heart rate or vomiting Respiratory/Chest Respiratory/Chest: Denies chest tightness, cough, dyspnea or breast pain Gastrointestinal Gastrointestinal: Denies abdominal pain, anorexia, constipation, cramping, diarrhea, hemorrhoids, vomiting or weight changes Genitourinary Genitourinary: Denies dysuria, flank pain, genital lesions, genital pain, urinary frequency or urinary urgency Musculoskeletal Musculoskeletal: Denies back pain, difficulty walking, joint pain, limited range of motion, muscle cramps or numbness Integumentary Integumentary: Denies lesions or unusual bruising Neurologic Neurologic: Denies abnormal movements, abnormal speech, dizziness, numbness, seizure-like activity or syncope Psychiatric Psychiatric: Denies anxiety, behavioral changes, change in appetite, change in libido, cognitive impairment, confusion, depression, difficulty concentrating, hallucinations or suicidal thoughts Endocrine Endocrinology: Denies excessive sweating, polydipsia or polyuria Hematologic/Lymphatic Hematologic/Lymphatic: Denies easy bleeding, easy bruising or lymphadenopathy Allergic/Immunologic Allergic/Immunologic: Denies itchy eyes, lip swelling, seasonal rhinorrhea, rhinitis, throat swelling, tongue swelling, eczemia, wheezing or asthma Vital Signs Vital Signs Vital Signs: 10/05/21 12:19 Temperature 97.5 F L Temperature Source Temporal Pulse Rate 102 H Blood Pressure 133/91 H BP Systolic 133 BP Diastolic 91 Weight Weight: 213 lb 13.574 oz Body Mass Index (BMI) 34.4 Physical Exam Const alert, oriented x3, no apparent distress and healthy appearing General Appearance: cooperative; Negative for anxious HEENT normocephalic Face and Sinus: normal facial exam Eyes EOMs intact bilaterally and no scleral icterus General Eye: normal appearance of both eyes Neck full ROM and supple Lymph Lymphatic: no lymphadenopathy noted Chest Chest: abnormal inspection of the chest Resp normal respiratory effort Effort and Inspection: able to speak in complete sentences Cardio regular rate GI soft to palpation and non-tender Inspection: gravid Palpation: soft; Negative for tender external exam normal Back/Spine no CVA tenderness Extremity normal to inspection, full ROM and no clubbing, cyanosis or edema General Extremity: Negative for calf tenderness or edema Skin Lesions: no lesions Rashes: no rashes Psych mental status grossly normal Labs Labs Labs: Blood Type O POSITIVE Antibody Screen NEGATIVE Hct 35.4 % (37-47) L Hgb 11.1 g/dL (12.0-15.0) L Obstetrics US Syphilis Total Ab Non-reactive Rubella IgG Antibody 54.1 IU/mL Hep Bs Antigen Non-Reactive (Nonreactive) HIV 1&2 Antibody Non-Reactive (Nonreactive) Glucose 1 Hr 50 gm 141 mg/dL (70-140) H Rhogam given: No Miscellaneous Test Assessment & Plan (1) Abnormal glucose affecting : COMMENT: Normal 3hr GTT (2) Anemia in preg-unspec: QUALIFIERS: Trimester: third trimester Qualified Code(s): O99.013 - Anemia complicating , third trimester COMMENT: add FE (3) History of tetanus, diphtheria, and acellular pertussis booster vaccination (Tdap): COMMENT: 07/19/21 (4) Supervision of other normal : COMMENT: PRR TYRONE: 10/09/21 PC: Lilian Foster Spouse: Ryley (5) : QUALIFIERS: Weeks of gestation: 39 weeks Qualified Code(s): Z3A.39 - 39 weeks gestation of COMMENT: low risk NIPT male, carrier neg AFP negative. Overall normal anatomy with right choroid plexus cyst. NIPT low risk. No further follow-up needed. GBS neg (6) H/O depression, currently : COMMENT: patient had a life style change, she is doing great;considering med at 37 wk PLAN: Patient presents IOL, plan management for with pitocin/AROM. Pain management: plans epidural. GBS negative. Management of any complications: none I have reviewed the [facility] and made any clinically relevant updates.
[2021-10-05] MEDS: LACTATED RINGERS 500 ML 999 ML IV (15:45)
[2021-10-05] MEDS: fentaNYL-bupivacaine (epidural) 100 ML BAG EPIDURAL (16:23)
[2021-10-05] MEDS: Oxytocin 30 units/NS 500 ml 30 UNITS/500 ML IV.SOLN 999 UNITS IV (17:45)
--- NOTE | 2021-10-05 17:54 | EX.PCM.OBRPT ---
Assessment & Plan (1) Abnormal glucose affecting : COMMENT: Normal 3hr GTT (2) Anemia in preg-unspec: QUALIFIERS: Trimester: third trimester Qualified Code(s): O99.013 - Anemia complicating , third trimester COMMENT: add FE (3) History of tetanus, diphtheria, and acellular pertussis booster vaccination (Tdap): COMMENT: 07/19/21 (4) Choroid plexus cyst of fetus: COMMENT: NIPT low risk. No further follow-up needed. (5) Supervision of other normal : COMMENT: PRR TYRONE: 10/09/21 PC: Lilina Foster Spouse: Ryley (6) : QUALIFIERS: Weeks of gestation: 39 weeks Qualified Code(s): Z3A.39 - 39 weeks gestation of COMMENT: low risk NIPT male, carrier neg AFP negative. Overall normal anatomy with right choroid plexus cyst. NIPT low risk. No further follow-up needed. GBS neg (7) H/O depression, currently : COMMENT: patient had a life style change, she is doing great;considering med at 37 wk Maternal Data Information TYRONE Calculator Estimated Delivery Date Method Current WG Current Estimate 10/09/21 Ultrasound #1 39w 3d Other Estimates 10/02/21 LMP (Certain) 40w 3d Vaginal Delivery Maternal Presentation Maternal Presentation: Elective Induction Type of Induction: Pitocin and Amniotomy Operative Information Date of Procedure: 10/05/21 Pre-Operative Diagnosis: 39 weeks, , advanced cervical dilation, maternal exhaustion Post-Operative Diagnosis: 39 weeks, , advanced cervical dilation, maternal exhaustion Surgery / Procedure Performed: Spontaneous Vaginal Delivery Type of Anesthesia: Epidural Estimated Blood Loss: 200cc Findings Description of Procedure: Patient began pushing and delivered the head in the JOSE presentation. The head was delivered atraumatically and a loose nuchal cord ?1 was identified and easily reduced over the 's head. The anterior and posterior shoulders delivered without complication followed by the rest of the infant and the was placed on the maternal abdomen. Delayed cord clamping was employed for approximately 60 seconds. Cord was clamped and cut and gentle traction was applied to the cord and the placenta delivered spontaneously immediately following it was noted to be intact with three-vessel cord. The perineum and vagina were inspected and noted to have no laceration. EBL was 200cc. Patient and tolerated delivery well. Presentation: Vertex Amniotic Fluid Description: Clear Cord Vessel Description: 3 Vessels Cord Entanglement: Around neck x 1, loose Nuchal Cord Compression: Without compression Infant A Gender: Male (1 minute): 8 (5 minute): 9 Delayed Cord Clamping: Yes Post Vaginal Delivery Medications Given After Delivery: IV Pitocin Episiotomy Description: None Laceration: None Complication Complications: None Multi Select Codes Urinary/Genital Urinary/Genital CPT Codes: 85720 Vaginal Delivery [facility]
--- NOTE | 2021-10-05 17:56 | PCM.DC ---
Discharge Instructions Diet Discharge Diet: No restrictions Activity Discharge Activity: Return to Normal Activity, May Not Drive (while taking narcotic pain medications.) and May Shower May resume sexual activity in: 4-6 weeks Dressing / Incision Call your doctor if your incision/area has: Continuous Slow Oozing, Sudden Increased Bleeding, Increased Pain/ Swelling, Increased Redness and Foul Smelling Discharge Follow Up Care Please Follow Up With: Maye Woody DO When: Call [phone] to make an appointment with your doctor in 6 weeks. If you had elevated blood pressure or 4th degree laceration, you will need to be seen in 2 weeks. Test Results: Test results from this visit will be discussed in further detail at your follow-up appointment, if applicable. Discharge Plan Admission Admit Date/Time: 10/05/21 12:00 Primary Reason for Your Visit: vaginal delivery Attending Provider: Maye Woody Primary Care Provider: Elvis Lopes Discharge Orders/Prescriptions Prescriptions: Continued PNV-DHA 27 mg iron-1 mg -300 mg capsule 1 cap PO DAILY RF: 0 ferrous sulfate [iron] 325 mg (65 mg iron) Tablet 325 mg PO DAILY RF: 0 Referrals / Follow Up: Elvis Lopes MD [Primary Care Provider] - Disposition Disposition (needs filled in before D/C Order can be placed): Home, Self Care
--- NOTE | 2021-10-05 23:27 | NURSING ---
This RN discussed PPD with mother and questioned how she felt about this time around, if she was worried about PPD and if she knew available resources if PPD developed again. Mother states she was not aware with last child that she had PPD but probably would not utilize any resources given to her here. Mother states she knows what to do in the event of developing PPD again. This RN informed mother that social workers available to help if she has any needs or questions. Mother verbalizes understanding.
[2021-10-06] MEDS: Acetaminophen 500 MG Tablet 1000 MG PO ×2 (01:14→11:35)
[2021-10-06 04:12] VITALS: BP 101/55; PULSE 86; RESP 16; TEMP 36.4
--- NOTE | 2021-10-06 08:22 | PCM.PN.OB ---
Subjective Subjective Patient doing well without complaints. Tolerating PO. Ambulating and voiding without difficulty. Feeding well. Denies chest pain, shortness of breath, calf pain/swelling, fevers, chills, lightheadedness. She states that she wants to stay another night in order for the baby to have all tests done and circumcision Objective Data Objective Data Vital Signs: Vital Signs Temp Pulse Resp BP Pulse Ox 97.6 F L 86 16 101/55 L 100 10/06/21 04:12 10/06/21 04:12 10/06/21 04:12 10/06/21 04:12 10/05/21 21:14 Oxygen Delivery Method Room Air Weight: 213 lb 13.574 oz Body Mass Index (BMI) 34.4 Intake & Output: Intake and Output for Last 24 Hours 10/04/21 10/05/21 10/06/21 23:59 23:59 23:59 Intake Total 1463.44 / 1463.44 Output Total 600 / 600 Balance 863.44 / 863.44 Lab / Micro Data Result Diagrams: 10/05/21 12:30 Labs: Laboratory Results - last 24 hr 10/05/21 12:30: WBC 8.9, RBC 4.05 L, Hgb 11.1 L, Hct 35.4 L, MCV 87.4, MCH 27.4, MCHC 31.4 L, RDW Std Deviation 46.9 H, RDW Coeff of Homero 14.8 H, Plt Count 211, MPV 9.4, Immature Gran % (Auto) 0.700, Neut % (Auto) 75.1 H, Lymph % (Auto) 14.8 L, [place] % (Auto) 8.8, Eos % (Auto) 0.4, Baso % (Auto) 0.2, Absolute Neuts (auto) 6.7, Absolute Lymphs (auto) 1.32, Nucleated RBC % 0 10/05/21 12:30: Blood Type O POSITIVE, Antibody Screen NEGATIVE Micro: Microbiology 10/05/21 12:30 Nasal Secretion SARS-CoV-2 Antigen (Rapid) - Final ROS Constitutional Constitutional: Denies chills, fatigue, fever(s), poor appetite or weakness Eyes Eyes: Denies blurry vision, change in vision, seeing flashes or spots in vision ENT HEENT: Denies dizziness, headache(s), loss taste/smell or sore throat Cardiovascular Cardiovascular: Denies chest pain, dizziness, dyspnea, irregular heart rhythm, palpitations or rapid heart rate Respiratory/Chest Respiratory/Chest: Denies chest tightness, cough, dyspnea or breast pain Gastrointestinal Gastrointestinal: Denies abdominal pain, constipation or vomiting Genitourinary Genitourinary: Denies dysuria or flank pain Musculoskeletal Musculoskeletal: Denies difficulty walking, joint pain, limited range of motion or numbness Neurologic Neurologic: Denies abnormal movements, abnormal speech, dizziness, numbness, seizure-like activity or syncope Psychiatric Psychiatric: Denies anxiety, behavioral changes, change in appetite, confusion, depression or suicidal thoughts Physical Exam Const alert, oriented x3 and no apparent distress General Appearance: cooperative and comfortable Resp normal respiratory effort Cardio regular rate GI normal to inspection, nondistended, normoactive bowel sounds GI Narrative: uterus is firm below umbilicus Palpation: soft Back/Spine no CVA tenderness and thoraco-lumbar ROM normal Extremity normal to inspection, no clubbing, cyanosis or edema, no calf tenderness and no pedal edema Psych mental status grossly normal, thought process normal, cooperative, affect normal, speech normal, activity/motor behavior normal, denies homicidal ideation and denies suicidal ideation Assessment & Plan (1) Status post vaginal delivery: COMMENT: 10/05/21- luis FUENTES PLAN: s/p PPD # 1 1. routine post delivery care 2. breast feeding- support given 3. rh positive 4. rubella immune 5. plan for dc to home tomorrow
[2021-10-06 08:44] VITALS: BP 121/80; PULSE 87; RESP 14; TEMP 36.2; O2SAT 99
[2021-10-06] MEDS: Senna/Docusate Sodium 1 Tablet PO (11:35)
[2021-10-06 11:38] VITALS: BP 128/81; PULSE 96; RESP 16; TEMP 36.8; O2SAT 98
[2021-10-06 17:21] VITALS: BP 116/74; PULSE 88; RESP 16; TEMP 36.2; O2SAT 98
[2021-10-06 19:50] VITALS: BP 125/80; PULSE 83; RESP 16; TEMP 36.6; O2SAT 99
[2021-10-07 02:40] VITALS: BP 114/74; PULSE 90; RESP 16; TEMP 36.3; O2SAT 96
[2021-10-07 07:53] VITALS: BP 111/75; PULSE 94; RESP 18; TEMP 36.8; O2SAT 98
--- NOTE | 2021-10-07 09:46 | PCM.PN.OB ---
Subjective Subjective Patient doing well without complaints. Tolerating PO. Ambulating and voiding without difficulty. Feeding well. Denies chest pain, shortness of breath, calf pain/swelling, fevers, chills, lightheadedness. Objective Data Objective Data Vital Signs: Vital Signs Temp Pulse Resp BP Pulse Ox 98.2 F 94 18 111/75 98 10/07/21 07:53 10/07/21 07:53 10/07/21 07:53 10/07/21 07:53 10/07/21 07:53 Oxygen Delivery Method Room Air Weight: 213 lb 13.574 oz Body Mass Index (BMI) 34.4 Intake & Output: Intake and Output for Last 24 Hours 10/05/21 10/06/21 10/07/21 23:59 23:59 23:59 Intake Total 1463.44 / 1463.44 Output Total 600 / 600 Balance 863.44 / 863.44 Lab / Micro Data Result Diagrams: 10/05/21 12:30 Micro: Microbiology 10/05/21 12:30 Nasal Secretion SARS-CoV-2 Antigen (Rapid) - Final ROS Constitutional Constitutional: Denies chills, fatigue, fever(s), poor appetite or weakness Eyes Eyes: Denies blurry vision, change in vision, seeing flashes or spots in vision ENT HEENT: Denies dizziness, headache(s), loss taste/smell or sore throat Cardiovascular Cardiovascular: Denies chest pain, dizziness, dyspnea, irregular heart rhythm, palpitations or rapid heart rate Respiratory/Chest Respiratory/Chest: Denies chest tightness, cough, dyspnea or breast pain Gastrointestinal Gastrointestinal: Denies abdominal pain, constipation or vomiting Genitourinary Genitourinary: Denies dysuria or flank pain Musculoskeletal Musculoskeletal: Denies difficulty walking, joint pain, limited range of motion or numbness Neurologic Neurologic: Denies abnormal movements, abnormal speech, dizziness, numbness, seizure-like activity or syncope Psychiatric Psychiatric: Denies anxiety, behavioral changes, change in appetite, confusion, depression or suicidal thoughts Physical Exam Const alert, oriented x3 and no apparent distress General Appearance: cooperative and comfortable Resp normal respiratory effort Cardio regular rate GI normal to inspection, nondistended, normoactive bowel sounds GI Narrative: uterus is firm below umbilicus Palpation: soft Bimanual Exam - Adnexa, Other: Negative for cul-de-sac fullness Back/Spine no CVA tenderness and thoraco-lumbar ROM normal Extremity normal to inspection, no clubbing, cyanosis or edema, no calf tenderness and no pedal edema Psych mental status grossly normal, thought process normal, cooperative, affect normal, speech normal, activity/motor behavior normal, denies homicidal ideation and denies suicidal ideation Assessment & Plan (1) Status post vaginal delivery: COMMENT: 10/05/21- luis FUENTES PLAN: s/p PPD # 2 1. routine post delivery care 2. breast feeding- support given 3. rh positive 4. rubella immune 5. disharge planning today
--- NOTE | 2021-10-12 18:15 | NURSING ---
Follow up phone call attempt, no answer, LVM
== END 2021-10-07 10:23 | disposition home or self-care (01) | DRG 807 ==
PROVIDERS: Admitting Provider Obstetrics & Gynecology; PCP Family Medicine; Visit Provider Obstetrics & Gynecology
DX: O75.81 Maternal exhaustion complicating labor and delivery (principal); Z37.0 Single live birth; D64.9 Anemia, unspecified; O69.81X0 Labor and delivery complicated by cord around neck, without compression, not applicable or unspecified; O99.02 Anemia complicating childbirth; Z3A.39 39 weeks gestation of pregnancy; Z86.16 Personal history of COVID-19
CPT/HCPCS: 59025; 59050; 85025; 86850; 86900; 86901; 87426; 99218; J7120; G0378

== ENCOUNTER → 2023-01-06 | Outpatient (CLI) | payer OTHER, BC, SELFPAY ==
[2023-01-09 09:09] LABS: Chlamydia By Nucleic Acid AMP Negative (Negative); Gonococcus By Nucleic Acid AMP Negative (Negative)
== END | disposition home or self-care (01) ==
PROVIDERS: PCP Family Medicine; Referring Provider Advanced Practice Midwife; Visit Provider Advanced Practice Midwife
DX: Z34.90 Encounter for supervision of normal pregnancy, unspecified, unspecified trimester (principal)
CPT/HCPCS: 87086; 87491; 87591

== ENCOUNTER → 2023-01-20 | Outpatient (CLI) | payer OTHER, BC, SELFPAY ==
[2023-01-20 12:10] LABS: Absolute Lymphocyte Count 1.45 X10^3/uL (0.83-4.51); Absolute Neutrophil Count 5.6 X10^3/uL (2.0-7.7); Basophil# 0.03 X10^3/uL; Basophil% 0.4 % (0-1); Eosinophil# 0.03 X10^3/uL; Eosinophils% 0.4 % (0-5); Hematocrit 38.4 % (37-47); Hemoglobin 12.4 g/dL (12.0-15.0); Lymphocyte # 1.45 X10^3/ul (0.83-4.51); Lymphocyte % 18.9 % (19-41); Mean Corp Hgb Conc 32.3 g/dL (32-36); Mean Corpuscular Hgb 28.1 pg (27.0-32.0); Mean Corpuscular Volume 86.9 fL (81-99); Mean Platelet Vol. 8.5 fl (6.2-12.0); Monocyte# 0.51 X10^3/uL; Monocyte% 6.6 % (0-10); NRBC Flagged by Analyzer 0 % (0-5); Neutrophil # 5.63 X10^3/uL (2.7-7.7); Neutrophil % 73.4 % (47-70); Platelet Count 264 K/mm3 (150-450); RBC Distribution Width CV 13.3 % (11.6-14.6); RBC Distribution Width SD 42.1 fl (35.1-43.9); Red Blood Count 4.42 M/mm3 (4.2-5.4); White Blood Count 7.7 K/mm3 (4.4-11.0)
[2023-01-20 12:55] LABS: NATERA MAILED SPECIMEN
[2023-01-20 19:06] LABS: HIV - WCH Non-Reactive (Nonreactive); Hepatitis B Surface Antigen Non-Reactive (Nonreactive); Hepatitis C Antibody Non-Reactive (Nonreactive); Rubella IgG Reactive (Nonreactive); Syphilis Antibodies Non-reactive
== END | disposition home or self-care (01) ==
LOC: PAVLAB 11:53
PROVIDERS: PCP Family Medicine; Visit Provider Advanced Practice Midwife
DX: Z34.81 Encounter for supervision of other normal pregnancy, first trimester (principal); Z3A.00 Weeks of gestation of pregnancy not specified
CPT/HCPCS: 36415; 85025; 86703; 86762; 86780; 86803; 86850; 86900; 86901; 87340

== ENCOUNTER → 2023-04-01 | Outpatient (CLI) | payer OTHER, BC, SELFPAY ==
--- NOTE | 2023-04-01 09:22 | US_ITS ---
STUDY: SECOND AND THIRD TRIMESTER OBSTETRICAL ULTRASOUND REASON FOR EXAM: Female, 32 years old routine survey LMP: Unknown. TECHNIQUE: Transabdominal and Transvaginal TECHNICAL QUALITY: Adequate. PRIOR ULTRASOUND: None. FINDINGS: There is a single intrauterine fetus. The fetus is in a cephalic presentation. There is demonstrated cardiac activity with a heart rate of 150 bpm. There is a subjectively normal amniotic fluid volume. The largest amniotic fluid pocket measures 5.7 cm. . The placenta is anterior and fundal, not low-lying There are Grade 0 placental changes. The cervix measures 3.6 cm in length. The adnexal regions are not visualized. BIOMETRY: BPD: 4.9 centimeter: 20 weeks, 6 days HC: 18.2 cm: 20 weeks, 4 days AC: 15.9 cm: 21 weeks, 0 days FL: 3.3 cm: 20 weeks, 2 days age by current US: 20 weeks, 3 days. TYRONE by current US: 08/16/2023. Estimated weight: 373 grams, +/- 56 grams, 76.6 %. ANATOMY: Gender: Female Cranium: Normal lateral ventricles. Choroid plexuses unremarkable, there is a choroid plexus cyst measuring 0.7 cm. Normal cerebellum. Normal cisterna magna. Normal face, nose and lips. Chest: Normal 4-chamber heart. Abdomen/Pelvis: Normal diaphragm. Normal stomach. Normal abdominal wall. Normal cord insertion. Normal 3 vessel cord. Normal kidneys. Normal bladder. Spine: Normal cervical spine. Normal thoracic spine. Normal lumbar spine. Normal sacrum. Extremities: Normal bilateral upper extremities. Normal bilateral lower extremities. US/OB Anatomy Scan IMPRESSION: Single live intrauterine at 20 weeks, 3 days by current ultrasound with TYRONE of 08/16/2023. Heart rate of 150 bpm. No suspicious sonographic findings. Electronically Signed: Yves Madera MD at 9:52 EST ,
== END | disposition home or self-care (01) ==
LOC: OPUS 09:21
PROVIDERS: PCP Family Medicine; Referring Provider Obstetrics & Gynecology; Visit Provider Obstetrics & Gynecology
DX: Z34.90 Encounter for supervision of normal pregnancy, unspecified, unspecified trimester (principal)
CPT/HCPCS: 76805; 76817

== ENCOUNTER → 2023-05-20 | Outpatient (CLI) | payer OTHER, BC, SELFPAY ==
--- OUTSIDE RECORDS SUMMARY | 2023-05-20 07:34 | XMS RPT_ITS | CCD ---
Author Name Unknown Address [address] [place] [address] Organization [facility] Care Team Providers Care Gas Regulator Repairer Name Role Phone Elvis Ndiaye MD Primary Care Provider ELVIS NDIAYE Primary Care Unavailable ELVIS NDIAYE Primary Care Unavailable ELVIS NDIAYE Primary Care Unavailable ELVIS NDIAYE Primary Care Unavailable Medications Current Medications Medication Drug Class(es) Dates Sig (Normalized) Sig (Original) amoxicillin 500 mg oral capsule (1 source) Penicillin-class Antibacterial Start: 06-13-2022 End: 06-23-2022 take 1 capsule by mouth twice daily amoxicillin (POLYMOX, AMOXIL) 500 mg capsule Indications: Strep throat Take 1 capsule by mouth twice daily for 10 days. 20 capsule 0 06/13/2022 06/23/2022 Active Completed/Discontinued Medications Medication Drug Class(es) Dates Sig (Normalized) Sig (Original) CHOLECALCIFEROL, VITAMIN D3, (D3-1999 ORAL) (4 sources) CHOLECALCIFEROL, VITAMIN D3, (D3-2000 ORAL) Take by mouth. 0 Active Problems Problem Classification Problem Date Documented Da te Episodic/Chronic Allergic reactions (1 source) Urticaria; Translations: [Urticaria, unspecified] Episodic Other upper respiratory infections (5 sources) Streptococcal sore throat; Translations: [Streptococcal pharyngitis] Episodic Unclassified (4 sources) NEGATIVE MEDICAL HISTORY 03-01-2017 Results Test Name Value Interpretation Reference Range Facil ity Vital Signs Date Time Vital Sign Value Performing Clinician Facility 09-08-2022 09:01-0400 Body temperature 97.5 [degF] Yasmin Coffey APRN.CNP Work Phone: [facility] 09-08-2022 09:01-0400 Body weight 77.84 kg Yasmin Coffey APRN.CNP Work Phone: [facility] 09-08-2022 09:01-0400 Diastolic blood pressure 92 mm[Hg] Yasmin Praisler-Wood GLUE COOK.COMMERCIAL SINGER Work Phone: [facility] 09-08-2022 09:01-0400 Heart rate 80 /min Yasmin Praisler-Wood GLUE COOK.COMMERCIAL SINGER Work Phone: [facility] 09-08-2022 09:01-0400 Respiratory rate 20 /min Yasmin Praisler-Wood GLUE COOK.COMMERCIAL SINGER Work Phone: [facility] 09-08-2022 09:01-0400 SaO2% (BldA) [Mass fraction] 98 % Yasmin Praisler-Wood GLUE COOK.COMMERCIAL SINGER Work Phone: [facility] 09-08-2022 09:01-0400 Systolic blood pressure 128 mm[Hg] Yasmin Praisler-Wood GLUE COOK.COMMERCIAL SINGER Work Phone: [facility] 07-21-2022 10:56-0400 Body temperature 100.09 [degF] Sandeep Pendlebury GLUE COOK.COMMERCIAL SINGER Work Phone: [facility] 07-21-2022 10:56-0400 Body weight 78.11 kg Sandeep Pendlebury GLUE COOK.COMMERCIAL SINGER Work Phone: [facility] 07-21-2022 10:56-0400 Diastolic blood pressure 82 mm[Hg] Sandeep Pendlebury GLUE COOK.COMMERCIAL SINGER Work Phone: [facility] 07-21-2022 10:56-0400 Heart rate 131 /min Sandeep Pendlebury GLUE COOK.COMMERCIAL SINGER Work Phone: [facility] 07-21-2022 10:56-0400 Respiratory rate 16 /min Sandeep Pendlebury GLUE COOK.COMMERCIAL SINGER Work Phone: [facility] 07-21-2022 10:56-0400 SaO2% (BldA) [Mass fraction] 100 % Sandeep Pendlebury GLUE COOK.COMMERCIAL SINGER Work Phone: [facility] 07-21-2022 10:56-0400 Systolic blood pressure 128 mm[Hg] Sandeep Kauffman GLUE COOK.COMMERCIAL SINGER Work Phone: [facility] 06-13-2022 15:16-0500 Body temperature 97 [degF] Yasmin Praisler-Wood GLUE COOK.COMMERCIAL SINGER Work Phone: [facility] 06-13-2022 15:16-0500 Body weight 82.64 kg Yasmin Praisler-Wood GLUE COOK.COMMERCIAL SINGER Work Phone: [facility] 06-13-2022 15:16-0500 Diastolic blood pressure 78 mm[Hg] Yasmin Praisler-Wood GLUE COOK.COMMERCIAL SINGER Work Phone: [facility] 06-13-2022 15:16-0500 Heart rate 91 /min Yasmin Praisler-Wood GLUE COOK.COMMERCIAL SINGER Work Phone: [facility] 06-13-2022 15:16-0500 Respiratory rate 16 /min Yasmin Praisler-Wood GLUE COOK.COMMERCIAL SINGER Work Phone: [facility] 06-13-2022 15:16-0500 SaO2% (BldA) [Mass fraction] 99 % Yasmin Praisler-Wood GLUE COOK.COMMERCIAL SINGER Work Phone: [facility] 06-13-2022 15:16-0500 Systolic blood pressure 110 mm[Hg] Yasmin Praisler-Wood GLUE COOK.COMMERCIAL SINGER Work Phone: [facility] 04-06-2022 13:09-0500 Body temperature 98.6 [degF] Gilbert Marion MD Work Phone: [facility] 04-06-2022 13:09-0500 Body weight 81.65 kg Gilbert Marion MD Work Phone: [facility] 04-06-2022 13:09-0500 Diastolic blood pressure 68 mm[Hg] Gilbert Marion MD Work Phone: [facility] 04-06-2022 13:09-0500 Heart rate 116 /min Gilbert Marion MD Work Phone: [facility] 04-06-2022 13:0500 Respiratory rate 16 /min Gilbert Marion MD Work Phone: [facility] 04-06-2022 13:0500 SaO2% (BldA) [Mass fraction] 99 % Gilbert Marion MD Work Phone: [facility] 04-06-2022 13:0500 Systolic blood pressure 110 mm[Hg] Gilbert Marion MD Work Phone: [facility] Encounters Encounter Date Encounter Type Care Provider Facility Start: 09-08-2022 End: 09-08-2022 ambulatory ELVIS NDIAYE Facility:[facility] Start: 09-08-2022 End: 09-08-2022 Patient encounter procedure Yamsin Coffey APRN.CNP Work Phone: [facility] Procedures Date Procedure Procedure Detail Performing Clinician Start: 06-13-2022 STREP A MOLECULAR (POC) Jason Reeves APRN.COMMERCIAL SINGER Work Phone: Start: 04-06-2022 STREP A MOLECULAR (POC) Yasmin Coffey APRN.COMMERCIAL SINGER Work Phone: Plan of Treatment Date Care Activity Detail Author Start: 06-01-2025 Urine microalbumin profile DTAP,TDAP,TD (2 - Td or Tdap) [facility] Start: 12-27-2022 Influenza vaccination INFLUENZA (Season Ended) [facility] vanessa Start: 2022 HPV TESTING HPV TESTING [facility] Start: 04-28-2022 DEPRESSION ASSESSMENT DEPRESSION ASSESSMENT [facility] Start: 12-27-2021 Influenza vaccination INFLUENZA (#1) [facility] Start: 04-28-2021 DEPRESSION ASSESSMENT DEPRESSION ASSESSMENT [facility] Start: 01-24-2020 PAP TESTING PAP TESTING [facility] Start: 01-23-2018 PAP TESTING PAP TESTING [facility] Start: 1992 COVID-19 VACCINE (#1) COVID-19 VACCINE (#1) [facility] Start: 1992 HEPATITIS B (1 of 3 - 3-dose series) HEPATITIS B (1 of 3 - 3-dose series) [facility] STREP A MOLECULAR (POC) STREP A MOLECULAR (POC) Microbiology Routine Sore throat Ordered: 07/21/2022 [facility] Work Phone: Immunizations Immunization Date Immunization Notes Care Provider Rohit [email or web address] 06-01-2015 tetanus toxoid, redu yrn diphtheria toxoid, and acellular pertussis vaccine, adsorbed Gilbert Marion MD Work Phone: [facility] 01-23-2015 influenza, injectabl e, quadrivalent, contains preservative Gilbert Marion MD Work Phone: [facility] Payers Date Payer Category Payer Unknown [employer] PPO OOS [id number] 2018-Present [phone] [address] [place] [address] PPO [id number] 2018 Unknown [id number] Social History Date Type Detail Facility Start: 01-23-2015 Tobacco smoking stat [facility] Never smoked tobacco [facility] Start: 01-23-2015 Tobacco use and exposure Smoke less tobacco non-user [facility] Start: 04-06-2022 End: 09-08-2022 Alcohol intake Current non-drinker of alcohol (finding) [facility] Start: 1990 Sex Assigned At Not on file [facility] Clinical Notes 08-24-2015 to 09-08-2022 Yasmin Coffey APRN.RADHA - 09/08/2022 9:14 AM EDTPatient Omega Kauffman APRN.CNP - 07/21/2022 11:08 AM EDTPatient Santhosh Marion MD - 04/06/2022 1:22 PM EST Note Date & Type Note Facility 09-08-2022 Note HNO ID: [id number] Author: Yasmin Coffey APRN.COMMERCIAL SINGER Service: ? Author Type: Nurse Practitioner Type: Progress Notes Filed: 09/08/2022 9:32 AM Note Text: Subjective Rash Pertinent negatives include no congestion, cough, fever, shortness of breath or sore throat. No Barboza is a 32 year old female who presents with widespread hives. This started yesterday after being outside and she believes she was bit by an insect. She took Benadryl. She denies sore throat or associated URI symptoms. She has not had a fever. She took Benadryl. Review of Systems Constitutional: Negative for chills and fever. HENT: Negative for congestion, ear pain and sore throat. Respiratory: Negative for cough and shortness of breath. Cardiovascular: Negative. Skin: Positive for rash. BP 128/92 Pulse 80 Temp 36.4 ?C (97.5 ?F) Resp 20 Wt 77.8 kg (171 lb 9.6 oz) LMP 02/04/2017 SpO2 98% BMI 28.56 kg/m? PAST MEDICAL HISTORY Diagnosis Date NEGATIVE MEDICAL HISTORY PAST SURGICAL HISTORY Procedure Laterality Date NONE ALLERGIES Patient has no allergy information on record. MEDICATIONS norgestimate 0.25 mg-ethinyl estradiol 35 mcg (SPRINTEC) 0.25-35 mg-mcg per tablet Take 1 tablet by mouth once daily. Take only active pills, use in a continuous fashion for scheduled amenorrhea. predniSONE (DELTASONE) 10 mg tablet Take 4 tabs daily for 3 days, then 2 tabs daily for 3 days, then 1 tab daily for 3 days with food. CHOLECALCIFEROL, VITAMIN D3, (D3-2000 ORAL) Take by mouth. (Patient not taking: Reported on 04/06/2022) RIBOFLAVIN (VITAMIN B-2 ORAL) Take by mouth. (Patient not taking: Reported on 04/06/2022) MAGNESIUM ORAL Take by mouth. (Patient not taking: Reported on 04/06/2022) FAMILY HISTORY Problem Relation Age of Onset Breast Cancer Maternal Grandmother No Family History No Family History colon/prostate CA Social History Tobacco Use Smoking status: Never Smokeless tobacco: Never Substance Use Topics Alcohol use: No Drug use: No Objective Physical Exam Vitals and nursing note reviewed. Constitutional: Appearance: Normal appearance. HENT: Mouth/Throat: Mouth: Mucous membranes are moist. Pharynx: Oropharynx is clear. Uvula midline. No oropharyngeal exudate or posterior oropharyngeal erythema. Cardiovascular: Rate and Rhythm: Normal rate and regular rhythm. Heart sounds: Normal heart sounds. Pulmonary: Effort: Pulmonary effort is normal. No respiratory distress. Breath sounds: Normal breath sounds. No wheezing or rales. Musculoskeletal: Cervical back: Neck supple. Lymphadenopathy: Cervical: No cervical adenopathy. Skin: General: Skin is warm and dry. Findings: Erythema and rash present. Neurological: Mental Status: She is alert. ASSESSMENT/PLAN: 1. Hives - ICD9: 708.9, ICD10: L50.9 - Likely viral or allergic etiology discussed with patient - Follow up if symptoms persist or worsen. - PREDNISONE 10 MG TABLET - Follow-up with your PCP in 3-5 days if symptoms have not improved or sooner if symptoms worsen - Discussed red flags and need for immediate medical evaluation if any occur. - Discussed supportive care treatment with fluids, rest and analgesia. - Discussed expected course of illness Yasmin Coffey APRN.[facility] 09-08-2022 History of Presen t illness Narrative Images from the original note were not included. Subjective Rash Pertinent negatives include no congestion, cough, fever, shortness of breath or sore throat. No Barboza is a 32 year old female who presents with widespread hives. This started yesterday after being outside and she believes she was bit by an insect. She took Benadryl. She denies sore throat or associated URI symptoms. She has not had a fever. She took Benadryl. Review of Systems Constitutional: Negative for chills and fever. HENT: Negative for congestion, ear pain and sore throat. Respiratory: Negative for cough and shortness of breath. Cardiovascular: Negative. Skin: Positive for rash. BP 128/92 Pulse 80 Temp 36.4 C (97.5 F) Resp 20 Wt 77.8 kg (171 lb 9.6 oz) LMP 02/04/2017 SpO2 98% BMI 28.56 kg/m PAST MEDICAL HISTORY Diagnosis Date NEGATIVE MEDICAL HISTORY PAST SURGICAL HISTORY Procedure Laterality Date NONE ALLERGIES Patient has no allergy information on record. MEDICATIONS norgestimate 0.25 mg-ethinyl estradiol 35 mcg (SPRINTEC) 0.25-35 mg-mcg per tablet Take 1 tablet by mouth once daily. Take only active pills, use in a continuous fashion for scheduled amenorrhea. predniSONE (DELTASONE) 10 mg tablet Take 4 tabs daily for 3 days, then 2 tabs daily for 3 days, then 1 tab daily for 3 days with food. CHOLECALCIFEROL, VITAMIN D3, (D3-2000 ORAL) Take by mouth. (Patient not taking: Reported on 04/06/2022) RIBOFLAVIN (VITAMIN B-2 ORAL) Take by mouth. (Patient not taking: Reported on 04/06/2022) MAGNESIUM ORAL Take by mouth. (Patient not taking: Reported on 04/06/2022) FAMILY HISTORY Problem Relation Age of Onset Breast Cancer Maternal Grandmother No Family History No Family History colon/prostate CA Social History Tobacco Use Smoking status: Never Smokeless tobacco: Never Substance Use Topics Alcohol use: No Drug use: No Objective Physical Exam Vitals and nursing note reviewed. Constitutional: Appearance: Normal appearance. HENT: Mouth/Throat: Mouth: Mucous membranes are moist. Pharynx: Oropharynx is clear. Uvula midline. No oropharyngeal exudate or posterior oropharyngeal erythema. Cardiovascular: Rate and Rhythm: Normal rate and regular rhythm. Heart sounds: Normal heart sounds. Pulmonary: Effort: Pulmonary effort is normal. No respiratory distress. Breath sounds: Normal breath sounds. No wheezing or rales. Musculoskeletal: Cervical back: Neck supple. Lymphadenopathy: Cervical: No cervical adenopathy. Skin: General: Skin is warm and dry. Findings: Erythema and rash present. Neurological: Mental Status: She is alert. ASSESSMENT/PLAN: 1. Hives - ICD9: 708.9, ICD10: L50.9 - Likely viral or allergic etiology discussed with patient - Follow up if symptoms persist or worsen. - PREDNISONE 10 MG TABLET - Follow-up with your PCP in 3-5 days if symptoms have not improved or sooner if symptoms worsen - Discussed red flags and need for immediate medical evaluation if any occur. - Discussed supportive care treatment with fluids, rest and analgesia. - Discussed expected course of illness Yasmin Coffey APRN.RADHA documented in this encounter [facility] 09-08-2022 Instructions Yasmin Coffey APRN.CNP - 09/08/2022 9:13 AM EDT ASSESSMENT/PLAN: 1. Hives - ICD9: 708.9, ICD10: L50.9 - Likely viral or allergic etiology discussed with patient - Follow up if symptoms persist or worsen. - PREDNISONE 10 MG TABLET - Follow-up with your PCP in 3-5 days if symptoms have not improved or sooner if symptoms worsen - Discussed red flags and need for immediate medical evaluation if any occur. - Discussed supportive care treatment with fluids, rest and analgesia. - Discussed expected course of illness Yasmin Coffey APRN.RADHA NONSPECIFIC RASH: Our exam shows you have a rash which has no clear cause. Rashes can result from infections, allergies, or irritation of the skin by chemicals or other environmental factors. Rashes can also result from scratching or rubbing the skin too much to relieve itching. Further medical examination may be needed to identify the specific cause and proper treatment of your skin rash. You should treat your rash as recommended by your doctor. If you have itching, you should avoid scratching as much as possible, as this further damages the skin. Ask your doctor or pharmacist if you have any questions about what topical medicines may help relieve your symptoms. Call your doctor right away if your rash is not better in 2-3 days, if it worsens, or if there are signs of infection (increased pain, redness, drainage or pus). documented in this encounter [facility] 07-21-2022 Note HNO ID: [id number] Author: Sandeep Kauffman APRN.RDAHA Service: ? Author Type: Nurse Practitioner Type: Progress Notes Filed: 07/21/2022 11:28 AM Note Text: Subjective HPI Nontoxic-appearing female presents urgent care chief complaint possible strep throat. Duration of symptoms 1 day. Associated symptoms fever headache sore throat fatigue and nasal congestion. Most bothersome symptom today is sore throat and fatigue. States felt worse yesterday and today. Feeling slightly better today. 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 History of strep throat this feels similar. Did use Tylenol this did help. Denies any trismus difficulty swallowing handling secretions decreased range of motion of neck. Denies any body aches chills productive cough chest pain shortness of breath pleuritic pain hemoptysis nausea vomiting abdominal pain change in bowel or bladder habits. Past medical history prescription medication use and allergies reviewed. .Patient presents with: Sore Throat: ST, fever and SILVA x 1 day PAST MEDICAL HISTORY Diagnosis Date NEGATIVE MEDICAL HISTORY PAST SURGICAL HISTORY Procedure Laterality Date NONE ALLERGIES Patient has no allergy information on record. MEDICATIONS CHOLECALCIFEROL, VITAMIN D3, (D3-2000 ORAL) Take by mouth. (Patient not taking: Reported on 04/06/2022) norgestimate 0.25 mg-ethinyl estradiol 35 mcg (SPRINTEC) 0.25-35 mg-mcg per tablet Take 1 tablet by mouth once daily. Take only active pills, use in a continuous fashion for scheduled amenorrhea. RIBOFLAVIN (VITAMIN B-2 ORAL) Take by mouth. (Patient not taking: Reported on 04/06/2022) MAGNESIUM ORAL Take by mouth. (Patient not taking: Reported on 04/06/2022) FAMILY HISTORY Problem Relation Age of Onset Breast Cancer Maternal Grandmother No Family History No Family History colon/prostate CA Social History Tobacco Use Smoking status: Never Smokeless tobacco: Never Substance Use Topics Alcohol use: No Drug use: No BP 128/82 Pulse (!) 131 Temp 37.8 ?C (100.1 ?F) (Tympanic) Resp 16 Wt 78.1 kg (172 lb 3.2 oz) LMP 02/04/2017 SpO2 100% BMI 28.66 kg/m? Hr 105 Review of Systems Constitutional: Positive for fever and malaise/fatigue. Negative for chills. HENT: Positive for congestion and sore throat. Negative for ear discharge, ear pain and sinus pain. Eyes: Negative for blurred vision, pain, discharge and redness. Respiratory: Negative for cough, hemoptysis, sputum production, shortness of breath, wheezing and stridor. Cardiovascular: Negative for chest pain. Gastrointestinal: Negative for abdominal pain, diarrhea, nausea and vomiting. Musculoskeletal: Negative for myalgias. Skin: Negative for itching and rash. Neurological: Positive for headaches. Negative for dizziness. Objective Physical Exam Constitutional: General: She is not in acute distress. Appearance: She is not diaphoretic. HENT: Head: Normocephalic. Jaw: No trismus, tenderness, swelling or pain on movement. Right Ear: Tympanic membrane, ear canal and external ear normal. Left Ear: Tympanic membrane, ear canal and external ear normal. Nose: Rhinorrhea present. Mouth/Throat: Lips: [place]. Mouth: Mucous membranes are moist. Pharynx: Oropharynx is clear. Uvula midline. Posterior oropharyngeal erythema present. No pharyngeal swelling, oropharyngeal exudate or uvula swelling. Tonsils: No tonsillar exudate or tonsillar abscesses. Eyes: Conjunctiva/sclera: Conjunctivae normal. Pupils: Pupils are equal, round, and reactive to light. Cardiovascular: Rate and Rhythm: Normal rate and regular rhythm. Heart sounds: Normal heart sounds. Pulmonary: Effort: Pulmonary effort is normal. No tachypnea, accessory muscle usage or respiratory distress. Breath sounds: Normal breath sounds. No stridor. No wheezing, rhonchi or rales. Abdominal: Palpations: Abdomen is soft. Tenderness: There is no abdominal tenderness. There is no guarding or rebound. Musculoskeletal: Cervical back: Normal range of motion and neck supple. No rigidity or tenderness. Lymphadenopathy: Cervical: Cervical adenopathy present. Skin: General: Skin is warm and dry. Neurological: Mental Status: She is alert and oriented to person, place, and time. ASSESSMENT/PLAN: 1. Sore throat - ICD9: 462, ICD10: J02.9 - STREP A MOLECULAR (POC) Patient diagnosed with pharyngitis. Strep test was negative. COVID-19 influenza test offered and declined testing at this time. Differentials include viral pharyngitis COVID-19 viral URI. Red flags reevaluation discussed. Patient was educated on supportive therapies. Patient will follow up with primary care provider as needed. Patient was instructed to immediately proceed to emergency room for any new, worsening, or symptoms lasting longer than anticipated. The patient's clinical presentation is otherwise unremarkable at this time. Based on exam and clinical finding, (more content not included)... [facility] 07-21-2022 History of Presen t illness Narrative Subjective HPI Nontoxic-appearing female presents urgent care chief complaint possible strep throat. Duration of symptoms 1 day. Associated symptoms fever headache sore throat fatigue and nasal congestion. Most bothersome symptom today is sore throat and fatigue. States felt worse yesterday and today. Feeling slightly better today. 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 History of strep throat this feels similar. Did use Tylenol this did help. Denies any trismus difficulty swallowing handling secretions decreased range of motion of neck. Denies any body aches chills productive cough chest pain shortness of breath pleuritic pain hemoptysis nausea vomiting abdominal pain change in bowel or bladder habits. Past medical history prescription medication use and allergies reviewed. .Patient presents with: Sore Throat: ST, fever and SILVA x 1 day PAST MEDICAL HISTORY Diagnosis Date NEGATIVE MEDICAL HISTORY PAST SURGICAL HISTORY Procedure Laterality Date NONE ALLERGIES Patient has no allergy information on record. MEDICATIONS CHOLECALCIFEROL, VITAMIN D3, (D3-2000 ORAL) Take by mouth. (Patient not taking: Reported on 04/06/2022) norgestimate 0.25 mg-ethinyl estradiol 35 mcg (SPRINTEC) 0.25-35 mg-mcg per tablet Take 1 tablet by mouth once daily. Take only active pills, use in a continuous fashion for scheduled amenorrhea. RIBOFLAVIN (VITAMIN B-2 ORAL) Take by mouth. (Patient not taking: Reported on 04/06/2022) MAGNESIUM ORAL Take by mouth. (Patient not taking: Reported on 04/06/2022) FAMILY HISTORY Problem Relation Age of Onset Breast Cancer Maternal Grandmother No Family History No Family History colon/prostate CA Social History Tobacco Use Smoking status: Never Smokeless tobacco: Never Substance Use Topics Alcohol use: No Drug use: No BP 128/82 Pulse (!) 131 Temp 37.8 C (100.1 F) (Tympanic) Resp 16 Wt 78.1 kg (172 lb 3.2 oz) LMP 02/04/2017 SpO2 100% BMI 28.66 kg/m Hr 105 Review of Systems Constitutional: Positive for fever and malaise/fatigue. Negative for chills. HENT: Positive for congestion and sore throat. Negative for ear discharge, ear pain and sinus pain. Eyes: Negative for blurred vision, pain, discharge and redness. Respiratory: Negative for cough, hemoptysis, sputum production, shortness of breath, wheezing and stridor. Cardiovascular: Negative for chest pain. Gastrointestinal: Negative for abdominal pain, diarrhea, nausea and vomiting. Musculoskeletal: Negative for myalgias. Skin: Negative for itching and rash. Neurological: Positive for headaches. Negative for dizziness. Objective Physical Exam Constitutional: General: She is not in acute distress. Appearance: She is not diaphoretic. HENT: Head: Normocephalic. Jaw: No trismus, tenderness, swelling or pain on movement. Right Ear: Tympanic membrane, ear canal and external ear normal. Left Ear: Tympanic membrane, ear canal and external ear normal. Nose: Rhinorrhea present. Mouth/Throat: Lips: [place]. Mouth: Mucous membranes are moist. Pharynx: Oropharynx is clear. Uvula midline. Posterior oropharyngeal erythema present. No pharyngeal swelling, oropharyngeal exudate or uvula swelling. Tonsils: No tonsillar exudate or tonsillar abscesses. Eyes: Conjunctiva/sclera: Conjunctivae normal. Pupils: Pupils are equal, round, and reactive to light. Cardiovascular: Rate and Rhythm: Normal rate and regular rhythm. Heart sounds: Normal heart sounds. Pulmonary: Effort: Pulmonary effort is normal. No tachypnea, accessory muscle usage or respiratory distress. Breath sounds: Normal breath sounds. No stridor. No wheezing, rhonchi or rales. Abdominal: Palpations: Abdomen is soft. Tenderness: There is no abdominal tenderness. There is no guarding or rebound. Musculoskeletal: Cervical back: Normal range of motion and neck supple. No rigidity or tenderness. Lymphadenopathy: Cervical: Cervical adenopathy present. Skin: General: Skin is warm and dry. Neurological: Mental Status: She is alert and oriented to person, place, and time. ASSESSMENT/PLAN: 1. Sore throat - ICD9: 462, ICD10: J02.9 - STREP A MOLECULAR (POC) Patient diagnosed with pharyngitis. Strep test was negative. COVID-19 influenza test offered and declined testing at this time. Differentials include viral pharyngitis COVID-19 viral URI. Red flags reevaluation discussed. Patient was educated on supportive therapies. Patient will follow up with primary care provider as needed. Patient was instructed to immediately proceed to emergency room for any new, worsening, or symptoms lasting longer than anticipated. The patient's clinical presentation is otherwise unremarkable at this time. Based on exam and clinical finding, the patient is stable for discharge. Plan of care was discussed with patient. Patient verbalizes understanding and agrees to plan of care. This note was generated using [employer] software. It may contain errors in wording, punctuation, or spelling. Sandeep Kauffman APRN.RADHA documented in this encounter [facility] 06-13-2022 Note HNO ID: [id number] Author: Yasmin Coffey APRN.COMMERCIAL SINGER Service: ? Author Type: Nurse Practitioner Type: Progress Notes Filed: 06/13/2022 3:37 PM Note Text: Subjective Sore Throat Pertinent negatives include no congestion, coughing, diarrhea, ear pain, headaches or vomiting. No Barboza is a 32 year old female who presents with sore throat since last night. Her daughter currently has a sore throat. She has not had any other symptoms. She took tylenol at home. Review of Systems Constitutional: Negative for chills and fever. HENT: Positive for sore throat. Negative for congestion and ear pain. Respiratory: Negative for cough. Cardiovascular: Negative. Gastrointestinal: Negative for diarrhea, nausea and vomiting. Musculoskeletal: Negative for myalgias. Neurological: Negative for headaches. BP 110/78 Pulse 91 Temp 36.1 ?C (97 ?F) (Tympanic) Resp 16 Wt 82.6 kg (182 lb 3.2 oz) LMP 02/04/2017 SpO2 99% BMI 30.32 kg/m? PAST MEDICAL HISTORY Diagnosis Date NEGATIVE MEDICAL HISTORY PAST SURGICAL HISTORY Procedure Laterality Date NONE ALLERGIES Patient has no known allergies. MEDICATIONS norgestimate 0.25 mg-ethinyl estradiol 35 mcg (SPRINTEC) 0.25-35 mg-mcg per tablet Take 1 tablet by mouth once daily. Take only active pills, use in a continuous fashion for scheduled amenorrhea. CHOLECALCIFEROL, VITAMIN D3, (D3-2000 ORAL) Take by mouth. (Patient not taking: Reported on 04/06/2022) RIBOFLAVIN (VITAMIN B-2 ORAL) Take by mouth. (Patient not taking: Reported on 04/06/2022) MAGNESIUM ORAL Take by mouth. (Patient not taking: Reported on 04/06/2022) FAMILY HISTORY Problem Relation Age of Onset Breast Cancer Maternal Grandmother No Family History No Family History colon/prostate CA Social History Tobacco Use Smoking status: Never Smokeless tobacco: Never Substance Use Topics Alcohol use: No Drug use: No Objective Physical Exam Vitals and nursing note reviewed. Constitutional: Appearance: Normal appearance. HENT: Right Ear: Tympanic membrane, ear canal and external ear normal. Left Ear: Tympanic membrane, ear canal and external ear normal. Nose: Nose normal. Mouth/Throat: Mouth: Mucous membranes are moist. Pharynx: Oropharynx is clear. Uvula midline. Posterior oropharyngeal erythema present. No oropharyngeal exudate. Tonsils: 2+ on the right. 2+ on the left. Cardiovascular: Rate and Rhythm: Normal rate and regular rhythm. Heart sounds: Normal heart sounds. Pulmonary: Effort: Pulmonary effort is normal. No respiratory distress. Breath sounds: Normal breath sounds. No wheezing or rales. Musculoskeletal: Cervical back: Neck supple. Lymphadenopathy: Cervical: Cervical adenopathy present. Skin: General: Skin is warm and dry. Findings: No erythema or rash. Neurological: Mental Status: She is alert. ASSESSMENT/PLAN: 1. Sore throat - ICD9: 462, ICD10: J02.9 (primary diagnosis) - Alere Strep Test positive, no culture pending - Amoxicillin for 10 days. - Discussed supportive care treatment with fluids, rest and analgesia. - The patient may also use warm salt water gargles, throat lozenges and/or OTC throat spray as needed. - Contagious dz precautions discussed- including considered contagious until on antibiotics for 24 hours - Call back if drooling, increased temperature, symptoms of dehydration and/or still sick in one week - STREP A MOLECULAR (POC) 2. Strep throat - ICD9: 034.0, ICD10: J02.0 - AMOXICILLIN 500 MG CAPSULE - Follow-up with your PCP in 3-5 days if symptoms have not improved or sooner if symptoms worsen - Discussed red flags and need for immediate medical evaluation if any occur. - Discussed supportive care treatment with fluids, rest and analgesia. - Discussed expected course of illness Yasmin Coffey APRN.RADHA [facility] 06-13-2022 Instructions Yasmin Coffey APRN.RADHA - 06/13/2022 3:31 PM EST ASSESSMENT/PLAN: 1. Sore throat - ICD9: 462, ICD10: J02.9 (primary diagnosis) - Alere Strep Test positive, no culture pending - Amoxicillin for 10 days. - Discussed supportive care treatment with fluids, rest and analgesia. - The patient may also use warm salt water gargles, throat lozenges and/or OTC throat spray as needed. - Contagious dz precautions discussed- including considered contagious until on antibiotics for 24 hours - Call back if drooling, increased temperature, symptoms of dehydration and/or still sick in one week - STREP A MOLECULAR (POC) 2. Strep throat - ICD9: 034.0, ICD10: J02.0 - AMOXICILLIN 500 MG CAPSULE - Follow-up with your PCP in 3-5 days if symptoms have not improved or sooner if symptoms worsen - Discussed red flags and need for immediate medical evaluation if any occur. - Discussed supportive care treatment with fluids, rest and analgesia. - Discussed expected course of illness Yasmin Coffey APRN.RADHA STREP INFECTIONS: Streptococcal bacteria can cause a sore throat, ear and sinus infections, and skin diseases. Strep throat is diagnosed by a special throat swab or culture test. These infections require either an antibiotic shot or an oral antibiotic medicine to get rid of all the bacteria and prevent rheumatic fever, a dangerous complication. The symptoms of Strep infection, however, usually get better after just 2-3 days of drug treatment. These infections are very contagious; any close contacts who have a fever, sore throat, or illness symptoms should see their doctor right away. Strep is no longer contagious after 24 hours of antibiotic treatment so you may return to school or work if your fever and pain are better in one day. Strep infections can cause serious complications including throat abscess, rheumatic fever and kidney disease, so be sure to take all your antibiotic medicine. See your doctor or return here if your symptoms worsen or are not improved in 3 days or for difficulty breathing or inability to swallow. documented in this encounter [facility] 06-13-2022 History of Presen t illness Narrative Subjective Sore Throat Pertinent negatives include no congestion, coughing, diarrhea, ear pain, headaches or vomiting. No Barboza is a 32 year old female who presents with sore throat since last night. Her daughter currently has a sore throat. She has not had any other symptoms. She took tylenol at home. Review of Systems Constitutional: Negative for chills and fever. HENT: Positive for sore throat. Negative for congestion and ear pain. Respiratory: Negative for cough. Cardiovascular: Negative. Gastrointestinal: Negative for diarrhea, nausea and vomiting. Musculoskeletal: Negative for myalgias. Neurological: Negative for headaches. BP 110/78 Pulse 91 Temp 36.1 C (97 F) (Tympanic) Resp 16 Wt 82.6 kg (182 lb 3.2 oz) LMP 02/04/2017 SpO2 99% BMI 30.32 kg/m PAST MEDICAL HISTORY Diagnosis Date NEGATIVE MEDICAL HISTORY PAST SURGICAL HISTORY Procedure Laterality Date NONE ALLERGIES Patient has no known allergies. MEDICATIONS norgestimate 0.25 mg-ethinyl estradiol 35 mcg (SPRINTEC) 0.25-35 mg-mcg per tablet Take 1 tablet by mouth once daily. Take only active pills, use in a continuous fashion for scheduled amenorrhea. CHOLECALCIFEROL, VITAMIN D3, (D3-2000 ORAL) Take by mouth. (Patient not taking: Reported on 04/06/2022) RIBOFLAVIN (VITAMIN B-2 ORAL) Take by mouth. (Patient not taking: Reported on 04/06/2022) MAGNESIUM ORAL Take by mouth. (Patient not taking: Reported on 04/06/2022) FAMILY HISTORY Problem Relation Age of Onset Breast Cancer Maternal Grandmother No Family History No Family History colon/prostate CA Social History Tobacco Use Smoking status: Never Smokeless tobacco: Never Substance Use Topics Alcohol use: No Drug use: No Objective Physical Exam Vitals and nursing note reviewed. Constitutional: Appearance: Normal appearance. HENT: Right Ear: Tympanic membrane, ear canal and external ear normal. Left Ear: Tympanic membrane, ear canal and external ear normal. Nose: Nose normal. Mouth/Throat: Mouth: Mucous membranes are moist. Pharynx: Oropharynx is clear. Uvula midline. Posterior oropharyngeal erythema present. No oropharyngeal exudate. Tonsils: 2+ on the right. 2+ on the left. Cardiovascular: Rate and Rhythm: Normal rate and regular rhythm. Heart sounds: Normal heart sounds. Pulmonary: Effort: Pulmonary effort is normal. No respiratory distress. Breath sounds: Normal breath sounds. No wheezing or rales. Musculoskeletal: Cervical back: Neck supple. Lymphadenopathy: Cervical: Cervical adenopathy present. Skin: General: Skin is warm and dry. Findings: No erythema or rash. Neurological: Mental Status: She is alert. ASSESSMENT/PLAN: 1. Sore throat - ICD9: 462, ICD10: J02.9 (primary diagnosis) - Alere Strep Test positive, no culture pending - Amoxicillin for 10 days. - Discussed supportive care treatment with fluids, rest and analgesia. - The patient may also use warm salt water gargles, throat lozenges and/or OTC throat spray as needed. - Contagious dz precautions discussed- including considered contagious until on antibiotics for 24 hours - Call back if drooling, increased temperature, symptoms of dehydration and/or still sick in one week - STREP A MOLECULAR (POC) 2. Strep throat - ICD9: 034.0, ICD10: J02.0 - AMOXICILLIN 500 MG CAPSULE - Follow-up with your PCP in 3-5 days if symptoms have not improved or sooner if symptoms worsen - Discussed red flags and need for immediate medical evaluation if any occur. - Discussed supportive care treatment with fluids, rest and analgesia. - Discussed expected course of illness Yasmin Coffey APRN.COMMERCIAL SINGER documented in this encounter [facility] 04-06-2022 Note HNO ID: [id number] Author: Gilbert Marion MD Service: ? Author Type: Physician Type: Progress Notes Filed: 04/06/2022 1:30 PM Note Text: Patient presents with: Sore Throat: fever x last night HPI: Feeling sick since last night. Positive symptoms: Sore throat, Post nasal drainage, Fever, Body Aches, Malaise, Headache, Negative symptoms: Cough, Nausea, Vomiting, Diarrhea, OTC: Ibuprofen MEDICATIONS: Current Outpatient Medications Medication Sig norgestimate 0.25 mg-ethinyl estradiol 35 mcg (SPRINTEC) 0.25-35 mg-mcg per tablet Take 1 tablet by mouth once daily. Take only active pills, use in a continuous fashion for scheduled amenorrhea. CHOLECALCIFEROL, VITAMIN D3, (D3-2000 ORAL) Take by mouth. (Patient not taking: Reported on 04/06/2022) RIBOFLAVIN (VITAMIN B-2 ORAL) Take by mouth. (Patient not taking: Reported on 04/06/2022) MAGNESIUM ORAL Take by mouth. (Patient not taking: Reported on 04/06/2022) No current facility-administered medications for this visit. ALLERGIES: ALLERGIES No Known Allergies VITALS: BP 110/68 Pulse 116 Temp 37 ?C (98.6 ?F) Resp 16 Wt 81.6 kg (180 lb) LMP 02/04/2017 SpO2 99% BMI 29.95 kg/m? PHYSICAL EXAM: GEN: mildly ill appearing HEENT: PERRL, EOMI, conjunctiva clear Ears: canals clear. TMs without erythema, bulge, or effusion Sinuses: non-tender frontal sinus, non-tender maxillary sinuses Throat: moist mucous membranes, pharyngeal erythema, no exudate Neck: supple, no thyromegaly, no lymphadenopathy HEART: borderline fast rate and regular rhythm, no murmurs LUNGS: clear to auscultation, no wheezes or crackles, no increased WOB ASSESSMENT/PLAN: 1. Streptococcal pharyngitis - ICD9: 034.0, ICD10: J02.0 (primary diagnosis) 2. Sore throat - ICD9: 462, ICD10: J02.9 - Discussed supportive care treatment with rest and analgesia. - Contagious dz precautions discussed- including considered contagious until on antibiotics for 24 hours - STREP A MOLECULAR (POC) positive - PENICILLIN V POTASSIUM 500 MG TABLET Gilbert Marion MD [facility] 04-06-2022 History of Presen t illness Narrative Patient presents with: Sore Throat: fever x last night HPI: Feeling sick since last night. Positive symptoms: Sore throat, Post nasal drainage, Fever, Body Aches, Malaise, Headache, Negative symptoms: Cough, Nausea, Vomiting, Diarrhea, OTC: Ibuprofen MEDICATIONS: Current Outpatient Medications Medication Sig norgestimate 0.25 mg-ethinyl estradiol 35 mcg (SPRINTEC) 0.25-35 mg-mcg per tablet Take 1 tablet by mouth once daily. Take only active pills, use in a continuous fashion for scheduled amenorrhea. CHOLECALCIFEROL, VITAMIN D3, (D3-2000 ORAL) Take by mouth. (Patient not taking: Reported on 04/06/2022) RIBOFLAVIN (VITAMIN B-2 ORAL) Take by mouth. (Patient not taking: Reported on 04/06/2022) MAGNESIUM ORAL Take by mouth. (Patient not taking: Reported on 04/06/2022) No current facility-administered medications for this visit. ALLERGIES: ALLERGIES No Known Allergies VITALS: BP 110/68 Pulse 116 Temp 37 C (98.6 F) Resp 16 Wt 81.6 kg (180 lb) [facility] 02/04/2017 SpO2 99% BMI 29.95 kg/m PHYSICAL EXAM: GEN: mildly ill appearing HEENT: PERRL, EOMI, conjunctiva clear Ears: canals clear. TMs without erythema, bulge, or effusion Sinuses: non-tender frontal sinus, non-tender maxillary sinuses Throat: moist mucous membranes, pharyngeal erythema, no exudate Neck: supple, no thyromegaly, no lymphadenopathy HEART: borderline fast rate and regular rhythm, no murmurs LUNGS: clear to auscultation, no wheezes or crackles, no increased WOB ASSESSMENT/PLAN: 1. Streptococcal pharyngitis - ICD9: 034.0, ICD10: J02.0 (primary diagnosis) 2. Sore throat - ICD9: 462, ICD10: J02.9 - Discussed supportive care treatment with rest and analgesia. - Contagious dz precautions discussed- including considered contagious until on antibiotics for 24 hours - STREP A MOLECULAR (POC) positive - PENICILLIN V POTASSIUM 500 MG TABLET Gilbert Marion MD documented in this encounter [facility] documented as of this encounter (statuses as of 04/06/2022) [facility]04-[facility]2016 History of Past illness Narrative* Problem Noted Date Resolved Date Vaginal delivery 08/24/2015 03/01/2017 Supervision of normal first 01/23/2015 03/01/2017 documented as of this encounter (statuses as of 06/13/2022) [facility] History of Past illness Narrative* Problem Noted Date Resolved Date Vaginal delivery 08/24/2015 03/01/2017 Supervision of normal first 01/23/2015 03/01/2017 documented as of this encounter (statuses as of 07/21/2022) [facility] History of Past illness Narrative* Problem Noted Date Resolved Date Vaginal delivery 08/24/2015 03/01/2017 Supervision of normal first 01/23/2015 03/01/2017 documented as of this encounter (statuses as of 09/08/2022) [facility] Diagnosis Streptococcal pharyngitis- Primary Streptococcal sore throat Sore throat Acute pharyngitis [facility] Diagnosis Sore throat- Primary Acute pharyngitis Strep throat Streptococcal sore throat documented in this encounter [facility] note* Diagnosis Sore throat- Primary Acute pharyngitis documented in this encounter [facility] note* Diagnosis Hives- Primary Urticaria, unspecified documented in this encounter [facility] Summary Purpose Family History No Family History Records FoundNo Family History Records FoundNo Family History Records Found Advance Directives No Advanced Directives Records FoundNo Advanced Directives Records FoundNo Advanced Directives Records Found Additional Source Comments INFORMATION SOURCE (unrecogn ized section and content) DATE CREATED AUTHOR AUTHOR'S ORGANIZ ATION 12/20/2021 [facility] DATE CREATED AUTHOR AUTHOR'S ORGANIZ ATION 09/09/2022 [facility] Source Comments (unrecognize d section and content) In the event this informatio n is protected by the Federal Confidentiality of Alcohol and Drug Abuse Patient Records regulations: The Federal rules restrict any use of the information to criminally investigate or prosecute any alcohol or drug abuse patient.[facility] the event this information is protected by the Federal Confidentiality of Alcohol and Drug Abuse Patient Records regulations: The Federal rules restrict any use of the information to criminally investigate or prosecute any alcohol or drug abuse patient.[facility] the event this information is protected by the Federal Confidentiality of Alcohol and Drug Abuse Patient Records regulations: The Federal rules restrict any use of the information to criminally investigate or prosecute any alcohol or drug abuse patient.[facility] the event this information is protected by the Federal Confidentiality of Alcohol and Drug Abuse Patient Records regulations: The Federal rules restrict any use of the information to criminally investigate or prosecute any alcohol or drug abuse patient.[facility] Reason for Visit (unrecogniz ed section and content) Reason Comments Sore Throat ST x 2 days Reason Comments Sore Throat ST, fever and SILVA x 1 day Reason Comments Rash Hives all over body x 1 day Care Teams (unrecognized sec tion and content) 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 This clinical summary was aggregated from multiple sources. Caution should be exercised in using it in the provision of clinical care. This summary normalizes information from multiple sources, and as a consequence, information in this document may materially change the coding, format and clinical context of patient data. In addition, data may be omitted in some cases. CLINICAL DECISIONS SHOULD BE BASED ON THE PRIMARY CLINICAL RECORDS. [facility] provides no warranty or guarantee of the accuracy or completeness of information in this document.
[2023-05-20 07:52] LABS: Absolute Lymphocyte Count 1.32 X10^3/uL (0.83-4.51); Absolute Neutrophil Count 7.6 X10^3/uL (2.0-7.7); Basophil# 0.04 X10^3/uL; Basophil% 0.4 % (0-1); Eosinophil# 0.11 X10^3/uL; Eosinophils% 1.2 % (0-5); Hematocrit 34.6 % (37-47); Hemoglobin 10.7 g/dL (12.0-15.0); Lymphocyte # 1.32 X10^3/ul (0.83-4.51); Lymphocyte % 13.8 % (19-41); Mean Corp Hgb Conc 30.9 g/dL (32-36); Mean Corpuscular Hgb 27.9 pg (27.0-32.0); Mean Corpuscular Volume 90.3 fL (81-99); Mean Platelet Vol. 8.3 fl (6.2-12.0); Monocyte# 0.47 X10^3/uL; Monocyte% 4.9 % (0-10); NRBC Flagged by Analyzer 0 % (0-5); Neutrophil # 7.56 X10^3/uL (2.7-7.7); Neutrophil % 79.2 % (47-70); Platelet Count 208 K/mm3 (150-450); RBC Distribution Width CV 14.1 % (11.6-14.6); RBC Distribution Width SD 46.5 fl (35.1-43.9); Red Blood Count 3.83 M/mm3 (4.2-5.4); White Blood Count 9.6 K/mm3 (4.4-11.0)
[2023-05-20 08:13] LABS: Glucose Challenge Gest 1H 50g 133 mg/dL (70-140)
[2023-05-20 10:00] LABS: HIV - WCH Non-Reactive (Nonreactive); Syphilis Antibodies Non-reactive
[2023-05-20 17:06] LABS: Ferritin 14 ng/mL (8-252); Iron 66 ug/dL (50-170); Iron Binding Capacity,Total 367 ug/dL (250-450)
== END | disposition home or self-care (01) ==
PROVIDERS: PCP Family Medicine; Referring Provider Nurse Practitioner Women's Health; Visit Provider Nurse Practitioner Women's Health
DX: O99.013 Anemia complicating pregnancy, third trimester (principal); Z3A.00 Weeks of gestation of pregnancy not specified
CPT/HCPCS: 36415; 82728; 82950; 83540; 83550; 85025; 86703; 86780

== ENCOUNTER 2023-05-26 12:30 | Outpatient (CLI) | payer OTHER, BC, SELFPAY ==
--- OUTSIDE RECORDS SUMMARY | 2023-05-26 12:53 | XMS RPT_ITS | CCD ---
Author Name Unknown Address [address] [place] [address] Organization [facility] Care Team Providers Care Machine Clothing Man Name Role Phone Elvis Ndiaye MD Primary [...] 97.5 [degF] Yasmin Coffey APRN.CNP Work Phone: [facility] 09-08-2022 09:01-0400 Body weight 77.84 kg Yasmin Coffey APRN.CNP Work Phone: [facility] 09-08-2022 09:01-0400 Diastolic blood pressure 92 mm[Hg] Yasmin Praisler-Wood TRIP MOTOR OPERATOR.STOREKEEPER STEWARD Work Phone: [facility] 09-08-2022 09:01-0400 Heart rate 80 /min Yasmin Praisler-Wood TRIP MOTOR OPERATOR.STOREKEEPER STEWARD Work Phone: [facility] 09-08-2022 09:01-0400 Respiratory rate 20 /min Yasmin Praisler-Wood TRIP MOTOR OPERATOR.STOREKEEPER STEWARD Work Phone: [facility] 09-08-2022 09:01-0400 SaO2% (BldA) [Mass fraction] 98 % Yasmin Praisler-Wood TRIP MOTOR OPERATOR.STOREKEEPER STEWARD Work Phone: [facility] 09-08-2022 09:01-0400 Systolic blood pressure 128 mm[Hg] Yasmin Praisler-Wood TRIP MOTOR OPERATOR.STOREKEEPER STEWARD Work Phone: [facility] 07-21-2022 10:56-0400 Body temperature 100.09 [degF] Sandeep Pendlebury TRIP MOTOR OPERATOR.STOREKEEPER STEWARD Work Phone: [facility] 07-21-2022 10:56-0400 Body weight 78.11 kg Sandeep Pendlebury TRIP MOTOR OPERATOR.STOREKEEPER STEWARD Work Phone: [facility] 07-21-2022 10:56-0400 Diastolic blood pressure 82 mm[Hg] Sandeep Pendlebury TRIP MOTOR OPERATOR.STOREKEEPER STEWARD Work Phone: [facility] 07-21-2022 10:56-0400 Heart rate 131 /min Sandeep Pendlebury TRIP MOTOR OPERATOR.STOREKEEPER STEWARD Work Phone: [facility] 07-21-2022 10:56-0400 Respiratory rate 16 /min Sandeep Pendlebury TRIP MOTOR OPERATOR.STOREKEEPER STEWARD Work Phone: [facility] 07-21-2022 10:56-0400 SaO2% (BldA) [Mass fraction] 100 % Sandeep Pendlebury TRIP MOTOR OPERATOR.STOREKEEPER STEWARD Work Phone: [facility] 07-21-2022 10:56-0400 Systolic blood pressure 128 mm[Hg] Sandeep Kauffman TRIP MOTOR OPERATOR.STOREKEEPER STEWARD Work Phone: [facility] 06-13-2022 15:16-0500 Body temperature 97 [degF] Yasmin Praisler-Wood TRIP MOTOR OPERATOR.STOREKEEPER STEWARD Work Phone: [facility] 06-13-2022 15:16-0500 Body weight 82.64 kg Yasmin Praisler-Wood TRIP MOTOR OPERATOR.STOREKEEPER STEWARD Work Phone: [facility] 06-13-2022 15:16-0500 Diastolic blood pressure 78 mm[Hg] Yasmin Praisler-Wood TRIP MOTOR OPERATOR.STOREKEEPER STEWARD Work Phone: [facility] 06-13-2022 15:16-0500 Heart rate 91 /min Yasmin Praisler-Wood TRIP MOTOR OPERATOR.STOREKEEPER STEWARD Work Phone: [facility] 06-13-2022 15:16-0500 Respiratory rate 16 /min Yasmin Praisler-Wood TRIP MOTOR OPERATOR.STOREKEEPER STEWARD Work Phone: [facility] 06-13-2022 15:16-0500 SaO2% (BldA) [Mass fraction] 99 % Yasmin Praisler-Wood TRIP MOTOR OPERATOR.STOREKEEPER STEWARD Work Phone: [facility] 06-13-2022 15:16-0500 Systolic blood pressure 110 mm[Hg] Yasmin Praisler-Wood TRIP MOTOR OPERATOR.STOREKEEPER STEWARD Work Phone: [facility] 04-06-2022 13:09-0500 Body temperature 98.6 [degF] Gilbert Marion MD Work Phone: [facility] 04-06-2022 13:09-0500 Body weight 81.65 kg Gilbert Marion MD Work Phone: [facility] 04-06-2022 13:09-0500 Diastolic blood pressure 68 mm[Hg] Gilbert Marion MD Work Phone: [facility] 04-06-2022 13:09-0500 Heart rate 116 /min Gilbert Marion MD Work Phone: [facility] 04-06-2022 13:0500 Respiratory rate 16 /min Gilbert Marion MD Work Phone: [facility] 04-06-2022 13:0500 SaO2% (BldA) [Mass fraction] 99 % Gilbert Marion MD Work Phone: [facility] 04-06-2022 13:0500 Systolic blood pressure 110 mm[Hg] Gilbert Marion MD Work Phone: [facility] Encounters Encounter Date Encounter Type Care Provider Facility Start: 09-08-2022 End: 09-08-2022 ambulatory ELVIS NDIAYE Facility:[facility] Start: 09-08-2022 End: 09-08-2022 Patient encounter procedure Yasmin Coffey APRN.CNP Work Phone: [facility] Procedures Date Procedure Procedure Detail Performing Clinician Start: 06-13-2022 STREP A MOLECULAR (POC) Jason Reeves APRN.STOREKEEPER STEWARD Work Phone: Start: 04-06-2022 STREP A MOLECULAR (POC) Yasmin Coffey APRN.STOREKEEPER STEWARD Work Phone: Plan of Treatment Date Care Activity Detail Author Start: 06-01-2025 Urine microalbumin profile DTAP,TDAP,TD (2 - Td or Tdap) [facility] Start: 12-27-2022 Influenza vaccination INFLUENZA (Season Ended) [facility] vanessa Start: 2022 HPV TESTING HPV TESTING [facility] Start: 04-28-2022 DEPRESSION ASSESSMENT DEPRESSION ASSESSMENT [facility] Start: 12-27-2021 Influenza vaccination INFLUENZA (#1) [facility] Start: 04-28-2021 DEPRESSION ASSESSMENT DEPRESSION ASSESSMENT [facility] Start: 01-24-2020 PAP TESTING PAP TESTING [facility] Start: 01-23-2018 PAP TESTING PAP TESTING [facility] Start: 1992 COVID-19 VACCINE (#1) COVID-19 VACCINE (#1) [facility] Start: 1990 HEPATITIS B (1 of 3 - 3-dose series) HEPATITIS B (1 of 3 - 3-dose series) [facility] STREP A MOLECULAR (POC) STREP A MOLECULAR (POC) Microbiology Routine Sore throat Ordered: 07/21/2022 [facility] Work Phone: Immunizations Immunization Date Immunization Notes Care Provider Rohit [email or web address] 06-01-2015 tetanus toxoid, redu yrn diphtheria toxoid, and acellular pertussis vaccine, adsorbed Gilbert Marion MD Work Phone: [facility] 01-23-2015 influenza, injectabl e, quadrivalent, contains preservative Gilbert Marion MD Work Phone: [facility] Payers Date Payer Category Payer Unknown [employer] PPO OOS [id number] 2018-Present [phone] [address] [place] [address] PPO [id number] 2018 Unknown [id number] Social History Date Type Detail Facility Start: 01-23-2015 Tobacco smoking stat [facility] Never smoked tobacco [facility] Start: 01-23-2015 Tobacco use and exposure Smoke less tobacco non-user [facility] Start: 04-06-2022 End: 09-08-2022 Alcohol intake Current non-drinker of alcohol (finding) [facility] Start: 1990 Sex Assigned At Not on file [facility] Clinical Notes 08-24-2015 to 09-08-2022 Yasmin Coffey APRN.RADHA - 09/08/2022 9:14 AM EDTPatient Omega Kauffman APRN.CNP - 07/21/2022 11:08 AM EDTPatient Santhosh Marion MD - 04/06/2022 1:22 PM EST Note Date & Type Note Facility 09-08-2022 Note HNO ID: [id number] Author: Yasmin Coffey APRN.STOREKEEPER STEWARD Service: ? Author Type: Nurse Practitioner Type: [...] Discussed expected course of illness Yasmin Coffey APRN.[facility] 09-08-2022 History of Presen t illness Narrative [...] Yasmin Coffey APRN.RADHA documented in this encounter [facility] 09-08-2022 Instructions Yasmin Coffey APRN.CNP - 09/08/2022 [...] drainage or pus). documented in this encounter [facility] 07-21-2022 Note HNO ID: [id number] Author: Sandeep Kauffman APRN.RADHA Service: ? Author Type: Nurse Practitioner Type: [...] ear normal. Nose: Rhinorrhea present. Mouth/Throat: Lips: Armstrong. Mouth: Mucous membranes are moist. Pharynx: Oropharynx [...] and clinical finding, (more content not included)... [facility] 07-21-2022 History of Presen t illness Narrative [...] ear normal. Nose: Rhinorrhea present. Mouth/Throat: Lips: Armstrong. Mouth: Mucous membranes are moist. Pharynx: Oropharynx [...] of care. This note was generated using [employer] software. It may contain errors in wording, punctuation, or spelling. Sandeep Kauffman APRN.RADHA documented in this encounter [facility] 06-13-2022 Note HNO ID: [id number] Author: Yasmin Coffey APRN.STOREKEEPER STEWARD Service: ? Author Type: Nurse Practitioner Type: [...] expected course of illness Yasmin Coffey APRN.RADHA [facility] 06-13-2022 Instructions Yasmin Coffey APRN.RADHA - 06/13/2022 [...] inability to swallow. documented in this encounter [facility] 06-13-2022 History of Presen t illness Narrative [...] Discussed expected course of illness Yasmin Coffey APRN.STOREKEEPER STEWARD documented in this encounter [facility] 04-06-2022 Note HNO ID: [id number] Author: Gilbert Marion MD Service: ? Author [...] POTASSIUM 500 MG TABLET Gilbert Marion MD [facility] 04-06-2022 History of Presen t illness Narrative [...] Resp 16 Wt 81.6 kg (180 lb) [facility] 02/04/2017 SpO2 99% BMI 29.95 kg/m PHYSICAL [...] Gilbert Marion MD documented in this encounter [facility] documented as of this encounter (statuses as of 04/06/2022) [facility]04-28-2016 History of Past illness Narrative* Problem Noted Date Resolved Date Vaginal delivery 08/24/2015 03/01/2017 Supervision of normal first 01/23/2015 03/01/2017 documented as of this encounter (statuses as of 06/13/2022) [facility]04[facility]28[facility] History of Past illness Narrative* Problem Noted Date Resolved Date Vaginal delivery 08/24/2015 03/01/2017 Supervision of normal first 01/23/2015 03/01/2017 documented as of this encounter (statuses as of 07/21/2022) [facility] History of Past illness Narrative* Problem Noted Date Resolved Date Vaginal delivery 08/24/2015 03/01/2017 Supervision of normal first 01/23/2015 03/01/2017 documented as of this encounter (statuses as of 09/08/2022) [facility] Diagnosis Streptococcal pharyngitis- Primary Streptococcal sore throat Sore throat Acute pharyngitis [facility] Diagnosis Sore throat- Primary Acute pharyngitis Strep throat Streptococcal sore throat documented in this encounter [facility] note* Diagnosis Sore throat- Primary Acute pharyngitis documented in this encounter [facility] note* Diagnosis Hives- Primary Urticaria, unspecified documented in this encounter [facility] Summary Purpose Family History No Family History Records FoundNo Family History Records FoundNo Family History Records Found Advance Directives No Advanced Directives Records FoundNo Advanced Directives Records FoundNo Advanced Directives Records Found Additional Source Comments INFORMATION SOURCE (unrecogn ized section and content) DATE CREATED AUTHOR AUTHOR'S ORGANIZ ATION 12/20/2021 [facility] DATE CREATED AUTHOR AUTHOR'S ORGANIZ ATION 09/09/2022 [facility] Source Comments (unrecognize d section and content) In the event this informatio n is protected by the Federal Confidentiality of Alcohol and Drug Abuse Patient Records regulations: The Federal rules restrict any use of the information to criminally investigate or prosecute any alcohol or drug abuse patient.[facility] the event this information is protected by the Federal Confidentiality of Alcohol and Drug Abuse Patient Records regulations: The Federal rules restrict any use of the information to criminally investigate or prosecute any alcohol or drug abuse patient.[facility] the event this information is protected by the Federal Confidentiality of Alcohol and Drug Abuse Patient Records regulations: The Federal rules restrict any use of the information to criminally investigate or prosecute any alcohol or drug abuse patient.[facility] the event this information is protected by the Federal Confidentiality of Alcohol and Drug Abuse Patient Records regulations: The Federal rules restrict any use of the information to criminally investigate or prosecute any alcohol or drug abuse patient.[facility] Reason for Visit (unrecogniz ed section and content) Reason Comments Sore Throat ST x 2 days Reason Comments Sore Throat ST, fever and SILVA x 1 day Reason Comments Rash Hives all over body x 1 day Care Teams (unrecognized sec tion and content) Machine Clothing Man Relationship Specialty Start Date End Date Elvis Ndiaye MD PCP - General Family Medicine 12/12/14 Machine Clothing Man Relationship Specialty Start Date End Date Elvis Ndiaye MD PCP - General Family Medicine 12/12/14 Machine Clothing Man Relationship Specialty Start Date End Date Elvis [...] BE BASED ON THE PRIMARY CLINICAL RECORDS. [employer] [facility] provides no warranty or guarantee of the accuracy or completeness of information in this document.
[2023-05-26] MEDS: 0.9% NaCl Peripheral Flush Adult/Peds IV (12:55)
[2023-05-26 12:59] VITALS: PULSE 90; RESP 16; TEMP 36.2
[2023-05-26] MEDS: Iron Sucrose Complex 300 MG in 0.9% Normal Saline (250mL Bag) 250 ML 177 MG IV (13:13)
[2023-05-26 15:09] VITALS: BP 110/68; PULSE 79; RESP 16
== END 2023-05-26 12:31 | disposition home or self-care (01) ==
LOC: MEDOUTP 12:31
PROVIDERS: PCP Family Medicine; Referring Provider Nurse Practitioner Women's Health; Visit Provider Nurse Practitioner Women's Health
DX: D64.9 Anemia, unspecified (principal)
CPT/HCPCS: 96365; 96366; J1756; J7050; A4216

== ENCOUNTER 2023-06-02 12:55 | Outpatient (CLI) | payer OTHER, BC, SELFPAY ==
[2023-06-02] MEDS: 0.9% NaCl Peripheral Flush Adult/Peds IV (13:05)
[2023-06-02] MEDS: Iron Sucrose Complex 300 MG in 0.9% Normal Saline (250mL Bag) 250 ML 177 MG IV (13:10)
[2023-06-02] MEDS: 0.9% NaCl IVPB Med Flush (250 mL) 15 ML IV (13:10)
[2023-06-02 13:11] VITALS: BP 114/58; PULSE 96; RESP 16; TEMP 36.6
--- OUTSIDE RECORDS SUMMARY | 2023-06-02 13:16 | XMS RPT_ITS | CCD ---
Author Name Unknown Address [address] [place] [address] Organization [facility] Care Team Providers Care Cross Enterprise Integrator Name Role Phone Elivs Ndiaye MD Primary Care Provider [phone] ELVIS NDIAYE Primary Care Unavailable ELVIS NDIAYE [...] 97.5 [degF] Yasmin Coffey APRN.CNP Work Phone: [facility] 09-08-2022 09:01-0400 Body weight 77.84 kg Yasmin Coffey APRN.CNP Work Phone: [facility] 09-08-2022 09:01-0400 Diastolic blood pressure 92 mm[Hg] Yasmin Praisler-Wood BARREL INSPECTOR TIGHT.EMBEDDED SOFTWARE ARCHITECT Work Phone: [facility] 09-08-2022 09:01-0400 Heart rate 80 /min Yasmin Praisler-Wood BARREL INSPECTOR TIGHT.EMBEDDED SOFTWARE ARCHITECT Work Phone: [facility] 09-08-2022 09:01-0400 Respiratory rate 20 /min Yasmin Praisler-Wood BARREL INSPECTOR TIGHT.EMBEDDED SOFTWARE ARCHITECT Work Phone: [facility] 09-08-2022 09:01-0400 SaO2% (BldA) [Mass fraction] 98 % Yasmin Praisler-Wood BARREL INSPECTOR TIGHT.EMBEDDED SOFTWARE ARCHITECT Work Phone: [facility] 09-08-2022 09:01-0400 Systolic blood pressure 128 mm[Hg] Yasmin Praisler-Wood BARREL INSPECTOR TIGHT.EMBEDDED SOFTWARE ARCHITECT Work Phone: [facility] 07-21-2022 10:56-0400 Body temperature 100.09 [degF] Sandeep Pendlebury BARREL INSPECTOR TIGHT.EMBEDDED SOFTWARE ARCHITECT Work Phone: [facility] 07-21-2022 10:56-0400 Body weight 78.11 kg Sandeep Pendlebury BARREL INSPECTOR TIGHT.EMBEDDED SOFTWARE ARCHITECT Work Phone: [facility] 07-21-2022 10:56-0400 Diastolic blood pressure 82 mm[Hg] Sandeep Pendlebury BARREL INSPECTOR TIGHT.EMBEDDED SOFTWARE ARCHITECT Work Phone: [facility] 07-21-2022 10:56-0400 Heart rate 131 /min Sandeep Pendlebury BARREL INSPECTOR TIGHT.EMBEDDED SOFTWARE ARCHITECT Work Phone: [facility] 07-21-2022 10:56-0400 Respiratory rate 16 /min Sandeep Pendlebury BARREL INSPECTOR TIGHT.EMBEDDED SOFTWARE ARCHITECT Work Phone: [facility] 07-21-2022 10:56-0400 SaO2% (BldA) [Mass fraction] 100 % Sandeep Pendlebury BARREL INSPECTOR TIGHT.EMBEDDED SOFTWARE ARCHITECT Work Phone: [facility] 07-21-2022 10:56-0400 Systolic blood pressure 128 mm[Hg] Sandeep Kauffman BARREL INSPECTOR TIGHT.EMBEDDED SOFTWARE ARCHITECT Work Phone: [facility] 06-13-2022 15:16-0500 Body temperature 97 [degF] Yasmin Praisler-Wood BARREL INSPECTOR TIGHT.EMBEDDED SOFTWARE ARCHITECT Work Phone: [facility] 06-13-2022 15:16-0500 Body weight 82.64 kg Yasmin Praisler-Wood BARREL INSPECTOR TIGHT.EMBEDDED SOFTWARE ARCHITECT Work Phone: [facility] 06-13-2022 15:16-0500 Diastolic blood pressure 78 mm[Hg] Yasmin Praisler-Wood BARREL INSPECTOR TIGHT.EMBEDDED SOFTWARE ARCHITECT Work Phone: [facility] 06-13-2022 15:16-0500 Heart rate 91 /min Yasmin Praisler-Wood BARREL INSPECTOR TIGHT.EMBEDDED SOFTWARE ARCHITECT Work Phone: [facility] 06-13-2022 15:16-0500 Respiratory rate 16 /min Yasmin Praisler-Wood BARREL INSPECTOR TIGHT.EMBEDDED SOFTWARE ARCHITECT Work Phone: [facility] 06-13-2022 15:16-0500 SaO2% (BldA) [Mass fraction] 99 % Yasmin Praisler-Wood BARREL INSPECTOR TIGHT.EMBEDDED SOFTWARE ARCHITECT Work Phone: [facility] 06-13-2022 15:16-0500 Systolic blood pressure 110 mm[Hg] Yasmin Praisler-Wood BARREL INSPECTOR TIGHT.EMBEDDED SOFTWARE ARCHITECT Work Phone: [facility] 04-06-2022 13:09-0500 Body temperature 98.6 [degF] Gilbert Marion MD Work Phone: [facility] 04-06-2022 13:09-0500 Body weight 81.65 kg Gilbert Marion MD Work Phone: [facility] 04-06-2022 13:09-0500 Diastolic blood pressure 68 mm[Hg] Gilbert Marion MD Work Phone: [facility] 04-06-2022 13:09-0500 Heart rate 116 /min Gilbert Marion MD Work Phone: [facility] 04-06-2022 13:0500 Respiratory rate 16 /min Gilbert Marion MD Work Phone: [facility] 04-06-2022 13:0500 SaO2% (BldA) [Mass fraction] 99 % Gilbert Marion MD Work Phone: [facility] 04-06-2022 13:0500 Systolic blood pressure 110 mm[Hg] Gilbert Marion MD Work Phone: [facility] Encounters Encounter Date Encounter Type Care Provider Facility Start: 09-08-2022 End: 09-08-2022 ambulatory ELVIS NDIAYE Facility:[facility] Start: 09-08-2022 End: 09-08-2022 Patient encounter procedure Yasmin Coffey APRN.CNP Work Phone: [facility] Procedures Date Procedure Procedure Detail Performing Clinician Start: 06-13-2022 STREP A MOLECULAR (POC) Jason Reeves APRN.EMBEDDED SOFTWARE ARCHITECT Work Phone: Start: 04-06-2022 STREP A MOLECULAR (POC) Yasmin Coffey APRN.EMBEDDED SOFTWARE ARCHITECT Work Phone: Plan of Treatment Date Care Activity Detail Author Start: 06-01-2025 Urine microalbumin profile DTAP,TDAP,TD (2 - Td or Tdap) [facility] Start: 12-27-2022 Influenza vaccination INFLUENZA (Season Ended) [facility] vanessa Start: 2022 HPV TESTING HPV TESTING [facility] Start: 04-28-2022 DEPRESSION ASSESSMENT DEPRESSION ASSESSMENT [facility] Start: 12-27-2021 Influenza vaccination INFLUENZA (#1) [facility] Start: 04-28-2021 DEPRESSION ASSESSMENT DEPRESSION ASSESSMENT [facility] Start: 01-24-2020 PAP TESTING PAP TESTING [facility] Start: 01-23-2018 PAP TESTING PAP TESTING [facility] Start: 1992 COVID-19 VACCINE (#1) COVID-19 VACCINE (#1) [facility] Start: 1990 HEPATITIS B (1 of 3 - 3-dose series) HEPATITIS B (1 of 3 - 3-dose series) [facility] STREP A MOLECULAR (POC) STREP A MOLECULAR (POC) Microbiology Routine Sore throat Ordered: 07/21/2022 [facility] Work Phone: Immunizations Immunization Date Immunization Notes Care Provider Rohit [email or web address] 06-01-2015 tetanus toxoid, redu yrn diphtheria toxoid, and acellular pertussis vaccine, adsorbed Gilbert Marion MD Work Phone: [facility] 01-23-2015 influenza, injectabl e, quadrivalent, contains preservative Gilbert Marion MD Work Phone: [facility] Payers Date Payer Category Payer Unknown [employer] PPO OOS [id number] 2018-Present [phone] [address] [place] [address] PPO [id number] 2018 Unknown [id number] Social History Date Type Detail Facility Start: 01-23-2015 Tobacco smoking stat [facility] Never smoked tobacco [facility] Start: 01-23-2015 Tobacco use and exposure Smoke less tobacco non-user [facility] Start: 04-06-2022 End: 09-08-2022 Alcohol intake Current non-drinker of alcohol (finding) [facility] Start: 1990 Sex Assigned At Not on file C [facility] Clinical Notes 08-24-2015 to 09-08-2022 Yasmin Coffey APRN.RADHA - 09/08/2022 9:14 AM EDTPatient Omega Kauffman APRN.CNP - 07/21/2022 11:08 AM EDTPatient Santhosh Marion MD - 04/06/2022 1:22 PM EST Note Date & Type Note Facility 09-08-2022 Note HNO ID: [id number] Author: Yasmin Coffey APRN.EMBEDDED SOFTWARE ARCHITECT Service: ? Author Type: Nurse Practitioner Type: [...] Discussed expected course of illness Yasmin Coffey APRN.[facility] 09-08-2022 History of Presen t illness Narrative [...] Yasmin Coffey APRN.RADHA documented in this encounter [facility] 09-08-2022 Instructions Yasmin Coffey APRN.CNP - [...] drainage or pus). documented in this encounter [facility] 07-21-2022 Note HNO ID: [id number] Author: Sandeep Kauffman APRN.RADHA Service: ? Author [...] ear normal. Nose: Rhinorrhea present. Mouth/Throat: Lips: Medulla. Mouth: Mucous membranes are moist. Pharynx: Oropharynx [...] and clinical finding, (more content not included)... [facility] 07-21-2022 History of Presen t illness Narrative [...] ear normal. Nose: Rhinorrhea present. Mouth/Throat: Lips: Medulla. Mouth: Mucous membranes are moist. Pharynx: Oropharynx [...] of care. This note was generated using [employer] software. It may contain errors in wording, punctuation, or spelling. Sandeep Kauffman APRN.RADHA documented in this encounter [facility] 06-13-2022 Note HNO ID: [id number] Author: Yasmin Coffey APRN.EMBEDDED SOFTWARE ARCHITECT Service: ? Author Type: Nurse Practitioner Type: [...] expected course of illness Yasmin Coffey APRN.RADHA [facility] 06-13-2022 Instructions Yasmin Coffey APRN.RADHA - 06/13/2022 [...] inability to swallow. documented in this encounter [facility] 06-13-2022 History of Presen t illness [...] Discussed expected course of illness Yasmin Coffey APRN.EMBEDDED SOFTWARE ARCHITECT documented in this encounter [facility] 04-06-2022 Note HNO ID: [id number] Author: Gilbert Marion MD Service: ? Author [...] POTASSIUM 500 MG TABLET Gilbert Marion MD [facility] 04-06-2022 History of Presen t illness Narrative [...] Resp 16 Wt 81.6 kg (180 lb) [facility] 02/04/2017 SpO2 99% BMI 29.95 kg/m [...] Gilbert Marion MD documented in this encounter [facility] documented as of this encounter (statuses as of 04/06/2022) [facility]04-28-2016 History of Past illness Narrative* Problem Noted Date Resolved Date Vaginal delivery 08/24/2015 03/01/2017 Supervision of normal first 01/23/2015 03/01/2017 documented as of this encounter (statuses as of 06/13/2022) [facility]04-28[facility] History of Past illness Narrative* Problem Noted Date Resolved Date Vaginal delivery 08/24/2015 03/01/2017 Supervision of normal first 01/23/2015 03/01/2017 documented as of this encounter (statuses as of 07/21/2022) [facility] History of Past illness Narrative* Problem Noted Date Resolved Date Vaginal delivery 08/24/2015 03/01/2017 Supervision of normal first 01/23/2015 03/01/2017 documented as of this encounter (statuses as of 09/08/2022) [facility] Diagnosis Streptococcal pharyngitis- Primary Streptococcal sore throat Sore throat Acute pharyngitis [facility] Diagnosis Sore throat- Primary Acute pharyngitis Strep throat Streptococcal sore throat documented in this encounter [facility] note* Diagnosis Sore throat- Primary Acute pharyngitis documented in this encounter [facility] note* Diagnosis Hives- Primary Urticaria, unspecified documented in this encounter [facility] Summary Purpose Family History No Family History Records FoundNo Family History Records FoundNo Family History Records Found Advance Directives No Advanced Directives Records FoundNo Advanced Directives Records FoundNo Advanced Directives Records Found Additional Source Comments INFORMATION SOURCE (unrecogn ized section and content) DATE CREATED AUTHOR AUTHOR'S ORGANIZ ATION 12/20/2021 [facility] DATE CREATED AUTHOR AUTHOR'S ORGANIZ ATION 09/09/2022 [facility] Source Comments (unrecognize d section and content) In the event this informatio n is protected by the Federal Confidentiality of Alcohol and Drug Abuse Patient Records regulations: The Federal rules restrict any use of the information to criminally investigate or prosecute any alcohol or drug abuse patient.[facility] the event this information is protected by the Federal Confidentiality of Alcohol and Drug Abuse Patient Records regulations: The Federal rules restrict any use of the information to criminally investigate or prosecute any alcohol or drug abuse patient.[facility] the event this information is protected by the Federal Confidentiality of Alcohol and Drug Abuse Patient Records regulations: The Federal rules restrict any use of the information to criminally investigate or prosecute any alcohol or drug abuse patient.[facility] the event this information is protected by the Federal Confidentiality of Alcohol and Drug Abuse Patient Records regulations: The Federal rules restrict any use of the information to criminally investigate or prosecute any alcohol or drug abuse patient.[facility] Reason for Visit (unrecogniz ed section and content) Reason Comments Sore Throat ST x 2 days Reason Comments Sore Throat ST, fever and SILVA x 1 day Reason Comments Rash Hives all over body x 1 day Care Teams (unrecognized sec tion and content) Cross Enterprise Integrator Relationship Specialty Start Date End Date Elvis Ndiaye MD PCP - General Family Medicine 12/12/14 [employer] Integrator Relationship Specialty Start Date End Date Elvis Ndiaye MD PCP - General Family Medicine 12/12/14 Cross Enterprise Integrator Relationship Specialty Start Date End Date Elvis [...] BE BASED ON THE PRIMARY CLINICAL RECORDS. [facility]. provides no warranty or guarantee of the accuracy or completeness of information in this document.
[2023-06-02 15:03] VITALS: BP 109/59; PULSE 84; RESP 16; TEMP 36.8; O2SAT 98
== END 2023-06-02 12:56 | disposition home or self-care (01) ==
LOC: MEDOUTP 12:55
PROVIDERS: PCP Family Medicine; Referring Provider Nurse Practitioner Women's Health; Visit Provider Nurse Practitioner Women's Health
DX: D64.9 Anemia, unspecified (principal)
CPT/HCPCS: 96365; 96366; J1756; J7050; A4216

== ENCOUNTER 2023-06-09 11:24 | Outpatient (CLI) | payer OTHER, BC, SELFPAY ==
[2023-06-09] MEDS: 0.9% NaCl Peripheral Flush Adult/Peds IV (11:43)
[2023-06-09] MEDS: Iron Sucrose Complex 300 MG in 0.9% Normal Saline (250mL Bag) 250 ML 177 MG IV (11:44)
[2023-06-09 11:47] VITALS: BP 107/59; PULSE 103; RESP 16; TEMP 36.6; O2SAT 98
[2023-06-09] MEDS: 0.9% NaCl IVPB Med Flush (250 mL) 15 ML IV (11:50)
--- OUTSIDE RECORDS SUMMARY | 2023-06-09 11:53 | XMS RPT_ITS | CCD ---
Author Name Unknown Address [address] [place] [address] Organization [facility] Care Team Providers Care Frame Polisher Name Role Phone Elvis Ndiaye MD Primary Care Provider [phone] ELVIS NDIAYE Primary Care Unavailable ELVIS NDIAYE [...] 97.5 [degF] Yasmin Coffey APRN.CNP Work Phone: [facility] 09-08-2022 09:01-0400 Body weight 77.84 kg Yasmin Coffey APRN.CNP Work Phone: [facility] 09-08-2022 09:01-0400 Diastolic blood pressure 92 mm[Hg] Yasmin Praisler-Wood SHIELD OPERATOR.LEATHER [employer]TER Work Phone: [facility] 09-08-2022 09:01-0400 Heart rate 80 /min Yasmin Praisler-Wood SHIELD OPERATOR.LEATHER [employer] C[employer]TER Work Phone: [facility] 09-08-2022 09:01-0400 Respiratory rate 20 /min Yasmin Praisler-Wood SHIELD OPERATOR.LEATHER [employer] CUTTER Work Phone: [facility] 09-08-2022 09:01-0400 SaO2% (BldA) [Mass fraction] 98 % Yasmin Praisler-Wood SHIELD OPERATOR.LEATHER [employer] CUTTER Work Phone: [facility] 09-08-2022 09:01-0400 Systolic blood pressure 128 mm[Hg] Yasmin Praisler-Wood SHIELD OPERATOR.LEATHER [employer] CUTTER Work Phone: [facility] 07-21-2022 10:56-0400 Body temperature 100.09 [degF] Sandeep Pendlebury SHIELD OPERATOR.LEATHER [employer] C[employer]TER Work Phone: [facility] 07-21-2022 10:56-0400 Body weight 78.11 kg Sandeep Pendlebury SHIELD OPERATOR.LEATHER [employer] C[employer]TER Work Phone: [facility] 07-21-2022 10:56-0400 Diastolic blood pressure 82 mm[Hg] Sandeep Pendlebury SHIELD OPERATOR.LEATHER [employer] C[employer]TER Work Phone: [facility] 07-21-2022 10:56-0400 Heart rate 131 /min Sandeep Pendlebury SHIELD OPERATOR.LE[employer]ER [employer]TER Work Phone: [facility] 07-21-2022 10:56-0400 Respiratory rate 16 /min Sandeep Pendlebury SHIELD OPERATOR.LEATHER [employer] CUTTER Work Phone: [facility] 07-21-2022 10:56-0400 SaO2% (BldA) [Mass fraction] 100 % Sandeep Pendlebury SHIELD OPERATOR.LEATHER [employer] C[employer]TER Work Phone: [facility] 07-21-2022 10:56-0400 Systolic blood pressure 128 mm[Hg] Sandeep Kauffman SHIELD OPERATOR.LEATHER [employer] C[employer]TER Work Phone: [facility] 06-13-2022 15:16-0500 Body temperature 97 [degF] Yasmin Praisler-Wood SHIELD OPERATOR.LEATHER [employer] C[employer]TER Work Phone: [facility] 06-13-2022 15:16-0500 Body weight 82.64 kg Yasmin Praisler-Wood SHIELD OPERATOR.LEATHER [employer]TER Work Phone: [facility] 06-13-2022 15:16-0500 Diastolic blood pressure 78 mm[Hg] Yasmin Praisler-Wood SHIELD OPERATOR.LEATHER [employer] C[employer]TER Work Phone: [facility] 06-13-2022 15:16-0500 Heart rate 91 /min Yasmin Praisler-Wood SHIELD OPERATOR.LEATHER [employer] C[employer]TER Work Phone: [facility] 06-13-2022 15:16-0500 Respiratory rate 16 /min Yasmin Praisler-Wood SHIELD OPERATOR.LEATHER [employer] C[employer]TER Work Phone: [facility] 06-13-2022 15:16-0500 SaO2% (BldA) [Mass fraction] 99 % Yasmin Praisler-Wood SHIELD OPERATOR.LEATHER [employer] CUTTER Work Phone: [facility] 06-13-2022 15:16-0500 Systolic blood pressure 110 mm[Hg] Yasmin Praisler-Wood SHIELD OPERATOR.LEATHER [employer] C[employer]TER Work Phone: [facility] 04-06-2022 13:09-0500 Body temperature 98.6 [degF] Gilbert Marion MD Work Phone: [facility] 04-06-2022 13:09-0500 Body weight 81.65 kg Gilbert Marion MD Work Phone: [facility] 04-06-2022 13:09-0500 Diastolic blood pressure 68 mm[Hg] Gilbert Marion MD Work Phone: [facility] 04-06-2022 13:09-0500 Heart rate 116 /min Gilbert Marion MD Work Phone: [facility] 04-06-2022 13:0500 Respiratory rate 16 /min Gilbert Marion MD Work Phone: [facility] 04-06-2022 13:0500 SaO2% (BldA) [Mass fraction] 99 % Gilbert Marion MD Work Phone: [facility] 04-06-2022 13:0500 Systolic blood pressure 110 mm[Hg] Gilbert Marion MD Work Phone: [facility] Encounters Encounter Date Encounter Type Care Provider Facility Start: 09-08-2022 End: 09-08-2022 ambulatory ELVIS NDIAYE Facility:[facility] Start: 09-08-2022 End: 09-08-2022 Patient encounter procedure Yasmin Coffey APRN.CNP Work Phone: [facility] Procedures Date Procedure Procedure Detail Performing Clinician Start: 06-13-2022 STREP A MOLECULAR (POC) Jason Reeves APRN.[employer]TER Work Phone: Start: 04-06-2022 STREP A MOLECULAR (POC) Yasmin Coffey APRN.LEATHER [employer]TER Work Phone: Plan of Treatment Date Care Activity Detail Author Start: 06-01-2025 Urine microalbumin profile DTAP,TDAP,TD (2 - Td or Tdap) [facility] Start: 12-27-2022 Influenza vaccination INFLUENZA (Season Ended) [facility] vanessa Start: 2022 HPV TESTING HPV TESTING [facility] Start: 04-28-2022 DEPRESSION ASSESSMENT DEPRESSION ASSESSMENT [facility] Start: 12-27-2021 Influenza vaccination INFLUENZA (#1) [facility] Start: 04-28-2021 DEPRESSION ASSESSMENT DEPRESSION ASSESSMENT [facility] Start: 01-24-2020 PAP TESTING PAP TESTING [facility] Start: 01-23-2018 PAP TESTING PAP TESTING [facility] Start: 1992 COVID-19 VACCINE (#1) COVID-19 VACCINE (#1) [facility] Start: 1990 HEPATITIS B (1 of 3 - 3-dose series) HEPATITIS B (1 of 3 - 3-dose series) [facility] STREP A MOLECULAR (POC) STREP A MOLECULAR (POC) Microbiology Routine Sore throat Ordered: 07/21/2022 [facility] Work Phone: Immunizations Immunization Date Immunization Notes Care Provider Rohit [email or web address] 06-01-2015 tetanus toxoid, redu yrn diphtheria toxoid, and acellular pertussis vaccine, adsorbed Gilbert Marion MD Work Phone: [facility] 01-23-2015 influenza, injectabl e, quadrivalent, contains preservative Gilbert Marion MD Work Phone: [facility] Payers Date Payer Category Payer Unknown [employer] PPO OOS [id number] 2018-Present [phone] [address] [place] [address] PPO [id number] 2018 Unknown [id number] Social History Date Type Detail Facility Start: 01-23-2015 Tobacco smoking stat [facility] Never smoked tobacco [facility] Start: 01-23-2015 Tobacco use and exposure Smoke less tobacco non-user [facility] Start: 04-06-2022 End: 09-08-2022 Alcohol intake Current non-drinker of alcohol (finding) [facility] Start: 1990 Sex Assigned At Not on file [facility] Clinical Notes 08-24-2015 to 09-08-2022 Yasmin Coffey APRN.RADHA - 09/08/2022 9:14 AM EDTPatient Omega Kauffman APRN.CNP - 07/21/2022 11:08 AM EDTPatient Santhosh Marion MD - 04/06/2022 1:22 PM EST Note Date & Type Note Facility 09-08-2022 Note HNO ID: [id number] Author: Yasmin Coffey APRN.[employer] Service: ? Author Type: Nurse Practitioner Type: [...] Discussed expected course of illness Yasmin Coffey APRN.RADAH documented in this encounter [facility] 09-08-2022 Instructions Yasmin Coffey APRN.CNP - 09/08/2022 [...] drainage or pus). documented in this encounter [facility] 07-21-2022 Note HNO ID: [id number] Author: Sandeep Kauffman APRN.RADHA Service: ? Author [...] ear normal. Nose: Rhinorrhea present. Mouth/Throat: Lips: [place]. Mouth: Mucous membranes are moist. Pharynx: Oropharynx [...] and clinical finding, (more content not included)... [facility] 07-21-2022 History of Presen t [...] ear normal. Nose: Rhinorrhea present. Mouth/Throat: Lips: [place]. Mouth: Mucous membranes are moist. Pharynx: Oropharynx [...] of care. This note was generated using POKKT software. It may contain errors in wording, punctuation, or spelling. Sandeep Kauffman APRN.RADHA documented in this encounter [facility] 06-13-2022 Note HNO ID: [id number] Author: Yasmin Coffey APRN.LE[employer] Service: ? Author Type: Nurse Practitioner Type: [...] expected course of illness Yasmin Coffey APRN.RADHA [facility] 06-13-2022 Instructions Yasmin Coffey APRN.RADHA [...] inability to swallow. documented in this encounter [facility] 06-13-2022 History of Presen t illness Narrative [...] Discussed expected course of illness Yasmin Coffey APRN.LEATHER [employer] C[employer]TER documented in this encounter [facility] 04-06-2022 Note HNO ID: [id number] Author: Gilbert Marion MD Service: ? Author [...] POTASSIUM 500 MG TABLET Gilbert Marion MD [facility] 04-06-2022 History of Presen t [...] Resp 16 Wt 81.6 kg (180 lb) [facility] 02/04/2017 SpO2 99% BMI 29.95 kg/m [...] Gilbert Marion MD documented in this encounter [facility] documented as of this encounter (statuses as of 04/06/2022) [facility] History of Past illness Narrative* Problem Noted Date Resolved Date Vaginal delivery 08/24/2015 03/01/2017 Supervision of normal first 01/23/2015 03/01/2017 documented as of this encounter (statuses as of 06/13/2022) [facility] History of Past illness Narrative* Problem Noted Date Resolved Date Vaginal delivery 08/24/2015 03/01/2017 Supervision of normal first 01/23/2015 03/01/2017 documented as of this encounter (statuses as of 07/21/2022) [facility] History of Past illness Narrative* Problem Noted Date Resolved Date Vaginal delivery 08/24/2015 03/01/2017 Supervision of normal first 01/23/2015 03/01/2017 documented as of this encounter (statuses as of 09/08/2022) [facility] Diagnosis Streptococcal pharyngitis- Primary Streptococcal sore throat Sore throat Acute pharyngitis [facility] Diagnosis Sore throat- Primary Acute pharyngitis Strep throat Streptococcal sore throat documented in this encounter [facility] note* Diagnosis Sore throat- Primary Acute pharyngitis documented in this encounter [facility] note* Diagnosis Hives- Primary Urticaria, unspecified documented in this encounter [facility] Summary Purpose Family History No Family History Records FoundNo Family History Records FoundNo Family History Records Found Advance Directives No Advanced Directives Records FoundNo Advanced Directives Records FoundNo Advanced Directives Records Found Additional Source Comments INFORMATION SOURCE (unrecogn ized section and content) DATE CREATED AUTHOR AUTHOR'S ORGANIZ ATION 12/20/2021 [facility] DATE CREATED AUTHOR AUTHOR'S ORGANIZ ATION 09/09/2022 [facility] Source Comments (unrecognize d section and content) In the event this informatio n is protected by the Federal Confidentiality of Alcohol and Drug Abuse Patient Records regulations: The Federal rules restrict any use of the information to criminally investigate or prosecute any alcohol or drug abuse patient.[facility] the event this information is protected by the Federal Confidentiality of Alcohol and Drug Abuse Patient Records regulations: The Federal rules restrict any use of the information to criminally investigate or prosecute any alcohol or drug abuse patient.[facility] the event this information is protected by the Federal Confidentiality of Alcohol and Drug Abuse Patient Records regulations: The Federal rules restrict any use of the information to criminally investigate or prosecute any alcohol or drug abuse patient.[facility] the event this information is protected by the Federal Confidentiality of Alcohol and Drug Abuse Patient Records regulations: The Federal rules restrict any use of the information to criminally investigate or prosecute any alcohol or drug abuse patient.[facility] Reason for Visit (unrecogniz ed section and content) Reason Comments Sore Throat ST x 2 days Reason Comments Sore Throat ST, fever and SILVA x 1 day Reason Comments Rash Hives all over body x 1 day Care Teams (unrecognized sec tion and content) Frame Polisher Relationship Specialty Start Date End Date Elvis Ndiaye MD PCP - General Family Medicine 12/12/14 Frame Polisher Relationship Specialty Start Date End Date Elvis Ndiaye MD PCP - General Family Medicine 12/12/14 Frame Polisher Relationship Specialty Start Date End Date Elvis [...] BE BASED ON THE PRIMARY CLINICAL RECORDS. [employer]. provides no warranty or guarantee of the accuracy or completeness of information in this document.
[2023-06-09 13:41] VITALS: BP 110/59; PULSE 95; RESP 16; TEMP 36.6
== END 2023-06-09 11:25 | disposition home or self-care (01) ==
LOC: MEDOUTP 11:24
PROVIDERS: PCP Family Medicine; Referring Provider Nurse Practitioner Women's Health; Visit Provider Nurse Practitioner Women's Health
DX: D64.9 Anemia, unspecified (principal)
CPT/HCPCS: 96365; 96366; J1756; J7050; A4216

== ENCOUNTER → 2023-07-18 | Outpatient (CLI) | payer OTHER, BC, SELFPAY ==
[2023-07-18 11:05] LABS: Absolute Neutrophil Count 10.2 X10^3/uL (2.0-7.7); Basophil# 0.06 X10^3/uL; Basophil% 0.5 % (0-1); Eosinophil# 0.15 X10^3/uL; Eosinophils% 1.1 % (0-5); Hematocrit 37.9 % (37-47); Hemoglobin 11.6 g/dL (12.0-15.0); Lymphocyte % 12.8 % (19-41); Mean Corp Hgb Conc 30.6 g/dL (32-36); Mean Corpuscular Hgb 28.1 pg (27.0-32.0); Mean Corpuscular Volume 91.8 fL (81-99); Monocyte# 1.04 X10^3/uL; Monocyte% 7.8 % (0-10); NRBC Flagged by Analyzer 0 % (0-5); Neutrophil % 76.7 % (47-70); Platelet Count 186 K/mm3 (150-450); RBC Distribution Width CV 13.9 % (11.6-14.6); RBC Distribution Width SD 46.6 fl (35.1-43.9); Red Blood Count 4.13 M/mm3 (4.2-5.4); White Blood Count 13.3 K/mm3 (4.4-11.0)
== END | disposition home or self-care (01) ==
LOC: PAVLAB 10:57
PROVIDERS: PCP Family Medicine; Referring Provider Nurse Practitioner Women's Health; Visit Provider Nurse Practitioner Women's Health
DX: O99.019 Anemia complicating pregnancy, unspecified trimester (principal); Z3A.00 Weeks of gestation of pregnancy not specified
CPT/HCPCS: 36415; 85025

== ENCOUNTER → 2023-07-21 | Outpatient (CLI) | payer OTHER, BC, SELFPAY ==
--- NOTE | 2023-07-21 12:49 | US_ITS ---
STUDY: SECOND AND THIRD TRIMESTER OBSTETRICAL ULTRASOUND - LIMITED REASON FOR EXAM: Female, 33 years old growth LMP: November 11, 2022. PRIOR ULTRASOUND: Comparison is made with prior study dated April 01, 2023. TECHNIQUE: Transabdominal TECHNICAL QUALITY: Adequate. FINDINGS: There is a single intrauterine fetus. The fetus is in a cephalic presentation. There is demonstrated cardiac activity with a heart rate of 141 bpm. There is a normal amniotic fluid volume. The largest amniotic fluid pocket measures 5.5 cm. The amniotic fluid index (CHELSEY) is 12.4 cm. The placenta is anterior in location and is not low lying. There are Grade 2 placental changes. The cervix measures 3.9 cm in length. BIOMETRY: BPD: 9.61 cm: 39 weeks, 2 days HC: 34.7 cm: 40 weeks, 1 days AC: 35.8 cm: 39 weeks, 5 days FL: 7.1 cm: 36 weeks, 3 days Age by LMP: 36 weeks, 0 days. TYRONE by LMP: August 18, 2023. age by prior US: 36 weeks, 2 days. TYRONE by prior US: August 16, 2023. age by current US: 39 weeks, 0 days. TYRONE by current US: July 28, 2023. Estimated weight: 3661 grams, +/- 549 grams, 98 percentile. US/OB Limited With Biometrics IMPRESSION: Single live intrauterine gestation with a mean gestational age of 36 weeks and 2 days. The measurements obtained today place the fetus in the 98th percentile. Electronically Signed: Farhad Ariza MD at 16:23 EDT ,
== END | disposition home or self-care (01) ==
LOC: US 12:49
PROVIDERS: PCP Family Medicine; Referring Provider Nurse Practitioner Women's Health; Visit Provider Nurse Practitioner Women's Health
DX: Z34.93 Encounter for supervision of normal pregnancy, unspecified, third trimester (principal); Z3A.36 36 weeks gestation of pregnancy
CPT/HCPCS: 76816

== ENCOUNTER → 2023-07-23 | Outpatient (CLI) | payer OTHER, BC, SELFPAY ==
[2023-07-23 12:47] LABS: Group B Strep DNA By PCR Negative (Negative); Internal Control PASS; Probe Check PASS; Specimen Processing Control PASS
== END | disposition home or self-care (01) ==
PROVIDERS: PCP Family Medicine; Referring Provider Advanced Practice Midwife; Visit Provider Advanced Practice Midwife
DX: Z34.90 Encounter for supervision of normal pregnancy, unspecified, unspecified trimester (principal); Z3A.00 Weeks of gestation of pregnancy not specified
CPT/HCPCS: 87081; 87653

== ENCOUNTER → 2023-07-24 | Outpatient (CLI) | payer OTHER, BC, SELFPAY ==
[2023-07-24 08:26] LABS: Glucose Challenge Gest 1H 50g 150 mg/dL (70-140)
== END | disposition home or self-care (01) ==
LOC: PAVLAB 07:40
PROVIDERS: PCP Family Medicine; Referring Provider Advanced Practice Midwife; Visit Provider Advanced Practice Midwife
DX: Z13.1 Encounter for screening for diabetes mellitus (principal)
CPT/HCPCS: 36415; 82950

== ENCOUNTER 2023-08-11 06:55 | Inpatient (IN) | payer OTHER, BC, SELFPAY ==
[2023-08-11] VITALS (61 sets, daily range): BP systolic 106–138; BP diastolic 59–82; PULSE 75–146; RESP 16–17; TEMP 35.9–36.6; O2SAT 93–100; BMI 32.1
[2023-08-11] MEDS: Lactated Ringers 1,000 ML 50 ML IV (07:50)
[2023-08-11 08:19] LABS: Absolute Lymphocyte Count 1.56 X10^3/uL (0.83-4.51); Absolute Neutrophil Count 6.6 X10^3/uL (2.0-7.7); Basophil# 0.04 X10^3/uL; Basophil% 0.4 % (0-1); Eosinophil# 0.09 X10^3/uL; Hematocrit 37.4 % (37-47); Hemoglobin 12.2 g/dL (12.0-15.0); Lymphocyte # 1.56 X10^3/ul (0.83-4.51); Lymphocyte % 17.2 % (19-41); Mean Corp Hgb Conc 32.6 g/dL (32-36); Mean Corpuscular Volume 88.8 fL (81-99); Mean Platelet Vol. 8.9 fl (6.2-12.0); Monocyte# 0.73 X10^3/uL; NRBC Flagged by Analyzer 0 % (0-5); Neutrophil # 6.59 X10^3/uL (2.7-7.7); Neutrophil % 72.5 % (47-70); Platelet Count 202 K/mm3 (150-450); RBC Distribution Width CV 14.1 % (11.6-14.6); RBC Distribution Width SD 45.4 fl (35.1-43.9); Red Blood Count 4.21 M/mm3 (4.2-5.4); White Blood Count 9.1 K/mm3 (4.4-11.0)
[2023-08-11] MEDS: Oxytocin 15 Units/NS 250ml 15 UNITS/250 ML IV.SOLN 2 UNITS IV (08:20)
--- NOTE | 2023-08-11 08:44 | HP.PCM.OB_ITS ---
HPI - General General Date of Admission: 08/11/23 HPI Narrative NO BARBOZA, is a 33 F who presents at 39 weeks for IOL for diet controlled GDM with LGA. pelvis proven to 9#15oz without hx of shoulder dystocia. 36 wk us-3661 grams with 39 weeks projected weight 4336 grams Maternal Data Information TYRONE Calculator Estimated Delivery Date Method Current WG Current Estimate 08/18/23 LMP (Certain) 39w 0d PFSH PFSH Medical History H/O depression, currently Home Medications PNV 178-FA 180 mcg-om3 35 mg-dha 25 mg-epa 5 mg-fish oil chew tablet 1 tab PO DAILY 01/06/23 [History Last Taken Unknown] ferrous sulfate 325 mg (65 mg iron) tablet (Feosol) 325 mg PO DAILY anemia 01/06/23 [History Last Taken Unknown] magnesium 200 mg tablet 200 mg PO DAILY sleep 01/06/23 [History Last Taken Unknown] Allergy/AdvReac Type Severity Reaction Status Date / Time No Known Allergies Allergy Verified 08/11/23 08:25 Family History Mother Diabetes Father Hypertension Grandmother Breast cancer Dementia Surgical History Status post vaginal delivery Social History adopted: No household members: family housing: house number of children: 3 current occupational status: employed current occupation: [employer] pets and animals: Yes pets and animals: cat(s) and dog(s) history of recent travel: No sexually active: Yes Smoking Status: Never smoker alcohol intake: never substance use type: does not use caffeine: No what type of physical activity do you participate in: none seatbelt use: always do you feel safe at home: Yes additional social history: [place] History 4 Elective abortions Hx Para 3 Spontaneous abortions Hx # Term Pregnancies 3 Ectopic pregnancies Hx # Pregnancies Multiple births # of living children 3 Past Pregnancies Del. Date Name GA/Weeks Outcome Route Bth Weight Gen Labor Lgth Anesthesia Del Locatn Provider FOB 08/24/15 Cristian 41 live - full term 9 lbs 3 oz. Male 1 [address] Cook Ryley 09/05/18 Lilian 40 live - full term 9lb 11oz Female epidural [facility] DESHAWN [place] 10/05/21 Reagan 39 live - full term 9 15oz Male 3 epid ural [facility] Maye Woody Ryley Delivery Date: 08/24/15 Last Updated by: Jenniffer Chacko MD difficult labor Delivery Date: 10/05/21 Last Updated by: Stephanie Fisher Elective IOL, 39weeks, , boy Reagan Visit Details Expected Delivery Route/Plan Labor Preferences- CB/BF classes: no labor support person: Ryley labor intervention preferences: [] pain management options preferred: epidural cut cord/dad catch: yes : yes PP control planned: POP, vas planned discussed possible routes of delivery and associated risks: [] special requests: [] Plans Covid status: [] Flu vaccine: declines Tdap vaccine: given Rhogam: NA LARC form signed: yes Problem list reviewed and updated with the most current plan of care details and appropriate orders placed. Relevant counseling for the gestational age provided. Continue routine care and follow up unless otherwise noted in visit notes/problem list details OB Flowsheet Initial Weight: 178 lb Date -?-?-?-?-?-?-?-?-?-?-?-?- EGA Weight BP Urine Prot -?-?-?-?-?-?-?-?-?-?-?-?- Glucose FHR FuHt Pres Dilation -?-?-?-?-?-?-?-?-?-?-?-?- Effaced St Visit Note 01/06/23 -?-?-?-?-?-?-?-?-?-?-?-?- 8w 0d 178 lb 6 oz (+6 oz) 116/76 -?-?-?-?-?-?-?-?-?-?-?-?- 160 -?-?-?-?-?-?-?-?-?-?-?-?- KW-CRL cons with dates. doing well-NIPT desired 02/05/23 -?-?-?-?-?-?-?-?-?-?-?-?- 12w 2d 178 lb 4 oz (+4 oz) 114/78 Negative -?-?-?-?-?-?-?-?-?-?-?-?- Negative 156 -?-?-?-?-?-?-?-?-?-?-?-?- JV-no cramping o r bleeding. normal NIPT, it's a girl! no complaints. rto 4 weeks 03/05/23 -?-?-?-?-?-?-?-?-?-?-?-?- 16w 2d 177 lb 6 oz (-10 oz) 111/76 Negative -?-?-?-?-?-?-?-?-?-?-?-?- Negative 150 -?-?-?-?-?-?-?-?-?-?-?-?- JV- pt signed ex emption for flu vaccine. no lof, vaginal bleeding, or cramping. no complaints today. anatomy scan ordered for 03/1904/02/23 -?-?-?-?-?-?-?-?-?-?-?-?- 20w 2d 184 lb 8 oz (+6 lb 8 oz) 109/74 Negative -?-?-?-?-?-?-?-?-?-?-?-?- Negative 161 -?-?-?-?-?-?-?-?-?-?-?-?- JV- no complaint s today. normal anatomy scan. 04/30/23 -?-?-?-?-?-?-?-?-?-?-?-?- 24w 2d 191 lb 6 oz (+13 lb 6 oz) 120/78 Negative -?-?-?-?-?-?-?-?-?-?-?-?- Negative 158 25 -?-?-?-?-?-?-?-?-?-?-?-?- MH-No VB. Donell Romero Denies concerns. Larc 05/28/23 -?-?-?-?-?-?-?-?-?-?-?-?- 28w 2d 192 lb 4 oz (+14 lb 4 oz) 119/74 Negative -?-?-?-?-?-?-?-?-?-?-?-?- Negative 155 29 -?-?-?-?-?-?-?-?-?-?-?-?- JV- had iron inf usion on Friday. no complaints. iron studies normal. 06/11/23 -?-?-?-?-?-?-?-?-?-?-?-?- 30w 2d 191 lb 8 oz (+13 lb 8 oz) 119/75 Negative -?-?-?-?-?-?-?-?-?-?-?-?- Negative 146 31 -?-?-?-?-?-?-?-?-?-?-?-?- JV- pt has flu B (wearing a mask) no shortness of breath or chest pressure. just feels like a cold. no other complaints today. + fm. 06/25/23 -?-?-?-?-?-?-?-?-?-?-?-?- 32w 2d 195 lb 8 oz (+17 lb 8 oz) 110/73 Negative -?-?-?-?-?-?-?-?-?-?-?-?- Negative 145 34 Cephalic -?-?-?-?-?-?-?-?-?-?-?-?- LC- no vb/ctx/lo f. good fm. hx of 9lb 15oz with previous son. LC- no vb/ctx/lof. good fm. hx of 9lb 15oz with previous son. if >2cm ahead next visit plan on growth scan. 07/09/23 -?-?-?-?-?-?-?-?-?-?-?-?- 34w 2d 199 lb 8 oz (+21 lb 8 oz) 106/73 Negative -?-?-?-?-?-?-?-?-?-?-?-?- Negative 142 35 36 Cephalic -?-?-?-?-?-?-?-?-?-?-?-?- -No VB, LOF. G ood FM. 36 wk growth US. 07/23/23 -?-?-?-?--?-?-?-?-?-?-?-?- 36w 2d 199 lb (+21 lb) 105/74 -?-?-?-?-?-?-?-?-?-?-?-?- 150 39 Cephalic 3 -?-?-?-?-?-?-?-?-?-?-?-?- 60 -1 kw-no vb/l of/ctx. good fm. kw-no vb/lof/ctx. good fm. D iscussed with SM needs 39 week IOL for LGA. repeat glucose-AC 99.99% projected EFW at 40 weeks 4500+ 07/30/23 -?-?-?-?--?-?-?-?-?-?-?-?- 37w 2d 205 lb (+27 lb) 122/84 Negative -?-?-?-?-?-?-?-?-?-?-?-?- Negative 155 39 Cephalic 2 .5 -?-?-?-?-?-?-?-?-?-?--?-?- 60 -2 LC- no vb/ ctx/lof.good fm. IOL to be set up for 08/10. all fasting and pp in normal range. 08/06/23 -?-?-?-?-?-?-?-?-?-?-?-?- 38w 2d 203 lb 2 oz (+25 lb 2 oz) 136/76 Negative -?-?-?-?-?-?-?-?-?-?-?-?- Negative 135 38 Cephalic 3 -?-?-?-?-?-?-?-?-?-?-?-?- 60 -2 LC- no vb/ ctx/lof. good fm. has IOL set up for friday. glucose stable. NST FHR Rate Baby A Baseline: 150 Variability:: Moderate Accelerations:: 15 x 15 Decelerations:: None NST Reactive:: Yes FHR Category:: Category I Uterine Activity:: 11 minutes ROS Cardiovascular Cardiovascular: Denies abdominal pain, chest pain, diaphoresis or dyspnea Respiratory/Chest Respiratory/Chest: Denies change in mental status, chest congestion, chest tightness, cough, shortness of breath at rest, shortness of breath with exertion, breast mass, breast pain, breast skin changes, breast swelling, change in breast shape or nipple discharge Genitourinary Genitourinary: Reports change in urinary stream Musculoskeletal Musculoskeletal: Reports none Integumentary Integumentary: Reports none Neurologic Neurologic: Reports none Psychiatric Psychiatric: Reports none Endocrine Endocrinology: Reports none Hematologic/Lymphatic Hematologic/Lymphatic: Reports none Allergic/Immunologic Allergic/Immunologic: Reports none Vital Signs Vital Signs Vital Signs: 08/11/23 07:56 08/11/23 07:56 08/11/23 07:58 Temperature Temperature Source Temporal Pulse Rate 94 Respiratory Rate Blood Pressure 117/82 H BP Systolic 117 BP Diastolic 82 08/11/23 07:58 08/11/23 07:58 Temperature 97.6 F L Temperature Source Pulse Rate Respiratory Rate 16 Blood Pressure BP Systolic BP Diastolic Weight Weight: 199 lb 4 oz Body Mass Index (BMI) 32.1 Physical Exam Const alert, oriented x3 and no apparent distress General Appearance: cooperative, comfortable and well kempt Orientation / Consciousness: awake and oriented to person Exam Limitations: no limitations HEENT normocephalic Neck full ROM Chest inspection of chest normal Resp normal respiratory effort, normal air movement and no retractions Effort and Inspection: able to speak in complete sentences and symmetric chest movement Cardio regular rate Peripheral Pulses: pulses 2+ throughout GI normal to inspection, nondistended, normoactive bowel sounds Inspection: gravid no CVA tenderness and appearance of the vagina normal External Female Exam: normal appearance of the urethra; Negative for external lesion OB / External & Speculum: external exam normal Manual OB Exam: estimated gestational size appropriate and presentation cephalic Uterus Palpation: Negative for uterus tender Extremity normal to inspection Skin no rashes or lesions noted Neuro deep tendon reflexes 2+ bilaterally and gait normal Motor Exam: strength 5/5 throughout and clonus absent Psych Activity / Motor Behavior: appropriate eye contact Speech: normal speech Labs Labs Labs: Blood Type O POSITIVE Antibody Screen NEGATIVE Hct 37.4 % (37-47) Hgb 12.2 g/dL (12.0-15.0) Obstetrics Ultrasound Syphilis Total Ab Non-reactive Rubella IgG Antibody Reactive (Nonreactive) Hep Bs Antigen Non-Reactive (Nonreactive) Hepatitis C Antibody Non-Reactive (Nonreactive) Chlamydia DNA (JULIANO) Negative (Negative) N.gonorrhoeae DNA (JULIANO) Negative (Negative) HIV 1&2 Antibody Non-Reactive (Nonreactive) Glucose 1 Hr 50 gm 150 mg/dL (70-140) H Gest Glucose Tolerance MG/DL Group B Strep DNA Negative (Negative) Rhogam given: No Miscellaneous Test Assessment & Plan (1) Gestational diabetes mellitus (GDM) affecting , antepartum: COMMENT: dx at repeat at 36 weeks (2) LGA (large for gestational age) fetus: COMMENT: 36 wk us-3661 grams AC 99.99% rescreen glucose at 39 weeks projected weight 4336 grams at 40 weeks projected weight 4561 grams Discussed with SM. 39 week IOL (3) Anemia in preg-unspec: QUALIFIERS: Trimester: third trimester Qualified Code(s): O99.013 - Anemia complicating , third trimester COMMENT: add FE; CBC-improved (4) Supervision of normal : QUALIFIERS: Normal : other normal Trimester: second trimester Qualified Code(s): Z34.82 - Encounter for supervision of other normal , second trimester COMMENT: [id number] TYRONE 08/18/23 Girl: Lilian Prescott Dawson Ryley (5) H/O depression, currently : COMMENT: after 2nd child. No meds. Considering and planning on encapsulating placenta. No sx now. (6) Encounter for induction of labor: COMMENT: at 39 weeks IOL GDM and LGA. routine admission orders pitocin for induction. plan AROM PLAN: Plan -Dr. Zamorano updated on admission, exam and poc. agrees with management. co- management for GDM, diet controlled.
[2023-08-11 09:31] LABS: Syphilis Antibodies Non-reactive
[2023-08-11 09:40] LABS: Bedside Glucose 105 mg/dL (74-106)
[2023-08-11 10:29] LABS: Bedside Glucose 78 mg/dL (74-106)
[2023-08-11] MEDS: LACTATED RINGERS 500 ML 999 ML IV (12:41)
--- NOTE | 2023-08-11 12:54 | CON.PCM_ITS ---
Consult Date of Consult: 08/11/23 Assessment & Plan Assessment/Plan (1) Encounter for induction of labor: PLAN: Plan at 39 weeks current tracin with accels FHT: Moderate variability reactive no decelerations category I tracing Success: q2-3 Contractions reviewed tracing abnormalities since last note: A/P: AROMd for mec fluid -plan pedi at delivery -active labor- anticipate -epidural when desires
[2023-08-11 13:08] LABS: Bedside Glucose 96 mg/dL (74-106)
[2023-08-11] MEDS: fentaNYL-bupivacaine (epidural) 100 ML BAG EPIDURAL (13:30)
[2023-08-11 14:13] LABS: Bedside Glucose 85 mg/dL (74-106)
[2023-08-11 14:56] LABS: Bedside Glucose 113 mg/dL (74-106)
[2023-08-11] MEDS: Oxytocin 15 Units/NS 250ml 15 UNITS/250 ML IV.SOLN 83 UNITS IV (16:08)
--- NOTE | 2023-08-11 16:35 | EX.PCM.OBRPT ---
Assessment & Plan (1) (spontaneous vaginal delivery): COMMENT: LC IOL: 39 weeks GDM. girl: Philomena Maternal Data Information TYRONE Calculator Estimated Delivery Date Method Current WG Current Estimate 08/18/23 LMP (Certain) 39w 0d Final TYRONE: 08/18/23 Final TYRONE Source: LMP Gestational age: 39 Vaginal Delivery Maternal Presentation Maternal Presentation: Medically Indicated Induction Maternal Presentation: at 39 weeks presented for IOL for GDM with LGA, induced with Pitocin. AROM for mec fluid. Type of Induction: Pitocin Operative Information Date of Procedure: 08/11/23 Pre-Operative Diagnosis: see problem list Post-Operative Diagnosis: Surgery / Procedure Performed: Spontaneous Vaginal Delivery Estimated Blood Loss: 250 Time of Delivery: 15:25 Findings Description of Procedure: Patient began pushing and delivered the head in the JOSE presentation. The head was delivered atraumatically and a tigh nuchal cord ?1 was identified. The anterior and posterior shoulders delivered without complication followed by the rest of the infant and infant was somersaulted over cord and the was placed on the maternal abdomen. Delayed cord clamping was employed for approximately 60 seconds. Cord was clamped and cut and gentle traction was applied to the cord and the placenta delivered spontaneously immediately following it was noted to be intact with three-vessel cord. The perineum and vagina were inspected and noted to have no laceration. EBL was 250cc. Patient and infant tolerated delivery well. Presentation: JOSE Amniotic Membrane Rupture Type: Artificial Amniotic Fluid Description: Moderate meconium Placental Delivery Description: Spontaneous Placenta Disposition: [facility] Cord Vessel Description: 3 Vessels Cord Entanglement: None A Gender: Female (1 minute): 8 (5 minute): 9 Delayed Cord Clamping: Yes Post Vaginal Delivery Medications Given After Delivery: IV Pitocin Episiotomy Description: None Laceration: 2nd degree Procedures Urinary/Genital [id number]: [id number] Vaginal Delivery [facility]
[2023-08-11 18:05] LABS: Bedside Glucose 85 mg/dL (74-106)
--- NOTE | 2023-08-11 21:02 | DCINST_ITS ---
Discharge Instructions Diet Discharge Diet: No restrictions Activity Discharge Activity: May Not Drive and May Shower May resume sexual activity in: 6 weeks Weight Bearing Status: Full weight bearing Dressing / Incision Call your doctor if your incision/area has: Sudden Increased Bleeding, Increased Pain/ Swelling and Foul Smelling Discharge Call your doctor if you observe: Fever of 101 or Higher, Numbness or Tingling, Change in Color, Inability to urinate, Inability to have a bowel movement, Using more than 1 pad per hour, Shortness of breath, Dizziness, Fainting spells, Chest pain, Calf discomfort and Uncontrolled pain Follow Up Care Please Follow Up With: Tammy Romero CNM When: 6 weeks , please call office to make an appointment. Congratulations on the of your baby! Test Results: Test results from this visit will be discussed in further detail at your follow- up appointment, if applicable. Discharge Plan Admission Admit Date/Time: 08/11/23 06:55 Attending Provider: Tammy Romero Primary Care Provider: Elvis Lopes Discharge Orders/Prescriptions Prescriptions: No Action ferrous sulfate [Feosol] 325 mg (65 mg iron) tablet 325 mg PO DAILY magnesium 200 mg tablet 200 mg PO DAILY PNV [id number] 180 mcg-35 mg- 25 mg-5 mg tablet,chewable 1 tab PO DAILY Referrals / Follow Up: Elvis Lopes MD [Primary Care Provider] -
[2023-08-12 05:15] VITALS: BP 121/72; PULSE 91; RESP 16; TEMP 36.4; O2SAT 96
[2023-08-12 05:16] VITALS: BP 121/72; PULSE 89
[2023-08-12 05:41] LABS: Bedside Glucose 72 mg/dL (74-106)
--- NOTE | 2023-08-12 07:46 | PCM.PN.OB ---
Subjective Subjective Patient doing well without complaints. Tolerating PO. Ambulating and voiding without difficulty. Feeding well. Denies chest pain, shortness of breath, calf pain/swelling, fevers, chills, lightheadedness. Objective Data Objective Data Vital Signs: Vital Signs Temp Pulse Resp BP Pulse Ox O2 Del Method 97.6 F L 89 16 121/72 H 96 Room Air 08/12/23 05:15 08/12/23 05:16 08/12/23 05:15 08/12/23 05:16 08/12/23 05:15 08/12/23 05:15 Oxygen Delivery Method Room Air Weight: 199 lb 4 oz Body Mass Index (BMI) 32.1 Intake & Output: Intake and Output for Last 24 Hours 08/10/23 08/11/23 08/12/23 23:59 23:59 23:59 Intake Total 1848.67 / 1848.67 Output Total 1800 / 1800 Balance 48.67 / 48.67 Lab / Micro Data Attestation: I reviewed the patient's lab results. 08/11/23 07:50 Labs: Laboratory Results - last 24 hr 08/11/23 07:50: WBC 9.1, RBC 4.21, Hgb 12.2, Hct 37.4, MCV 88.8, MCH 29.0, MCHC 32.6, RDW Std Deviation 45.4 H, RDW Coeff of Homero 14.1, Plt Count 202, MPV 8.9, Immature Gran % (Auto) 0.900, Neut % (Auto) 72.5 H, Lymph % (Auto) 17.2 L, [place] % (Auto) 8.0, Eos % (Auto) 1.0, Baso % (Auto) 0.4, Absolute Neuts (auto) 6.6, Absolute Lymphs (auto) 1.56, Nucleated RBC % 0, Syphilis Total Ab Non-reactive, Blood Type O POSITIVE, Antibody Screen NEGATIVE 08/11/23 08:52: POC Glucose 105 08/11/23 09:49: POC Glucose 78 08/11/23 12:48: POC Glucose 96 08/11/23 13:46: POC Glucose 85 08/11/23 14:35: POC Glucose 113 H 08/11/23 17:37: POC Glucose 85 08/12/23 05:21: POC Glucose 72 L ROS Constitutional Constitutional: Reports systems reviewed and no addt'l complaints, except as documented; Denies anorexia or headache(s) Cardiovascular Cardiovascular: Reports systems reviewed and no addt'l complaints, except as documented; Denies dizziness, dyspnea, nausea or tachypnea Respiratory/Chest Respiratory/Chest: Reports systems reviewed and no addt'l complaints, except as documented; Denies cough, dyspnea, shortness of breath at rest or tachypnea Gastrointestinal Gastrointestinal: Reports systems reviewed and no addt'l complaints, except as documented; Denies abdominal pain, constipation or nausea Genitourinary Genitourinary: Reports systems reviewed and no addt'l complaints, except as documented; Denies burning urination, difficulty urinating, dysuria, urinary frequency or urinary incontinence Musculoskeletal Musculoskeletal: Reports systems reviewed and no addt'l complaints, except as documented Integumentary Integumentary: Reports systems reviewed and no addt'l complaints, except as documented Neurologic Neurologic: Reports systems reviewed and no addt'l complaints, except as documented; Denies abnormal speech, dizziness or headache(s) Psychiatric Psychiatric: Reports systems reviewed and no addt'l complaints, except as documented Endocrine Endocrinology: Reports systems reviewed and no addt'l complaints, except as documented Hematologic/Lymphatic Hematologic/Lymphatic: Reports systems reviewed and no addt'l complaints, except as documented Physical Exam Const alert, oriented x3 and no apparent distress Neck full ROM Resp normal respiratory effort, normal air movement and no retractions Effort and Inspection: able to speak in complete sentences and symmetric chest movement GI soft to palpation Bladder / Kidney Exam: bladder normal to palpation Uterus Palpation: uterus fundus firm Extremity normal to inspection and full ROM Psych mental status grossly normal, thought process normal and cooperative Assessment & Plan (1) (spontaneous vaginal delivery): COMMENT: LC IOL: 39 weeks GDM. girl: Philomena PLAN: s/p PPD # 1 1. routine post delivery care 2. breast feeding- support given 3. rh positive 4. rubella immune 5. Discharge Home (2) Encounter for induction of labor: COMMENT: at 39 weeks IOL GDM and LGA. routine admission orders pitocin for induction. plan AROM (3) Gestational diabetes mellitus (GDM) affecting , antepartum: COMMENT: dx at repeat at 36 weeks (4) LGA (large for gestational age) fetus: COMMENT: 36 wk us-3661 grams AC 99.99% rescreen glucose at 39 weeks projected weight 4336 grams at 40 weeks projected weight 4561 grams Discussed with SM. 39 week IOL (5) H/O depression, currently : COMMENT: after 2nd child. No meds. Considering and planning on encapsulating placenta. No sx now. Charges/Coding Multi Select Codes Urinary/Genital Urinary/Genital CPT Codes: No Charge
[2023-08-12 09:15] VITALS: BP 110/68; PULSE 100
[2023-08-12 09:33] VITALS: BP 110/68; PULSE 100; RESP 16; TEMP 36.7
[2023-08-12 11:57] VITALS: BP 122/77; PULSE 91
[2023-08-12 12:06] VITALS: BP 122/77; PULSE 90; RESP 16; TEMP 36.4
--- NOTE | 2023-08-12 14:54 | CASEMGMT ---
Social Work Assessment Labor and Delivery Unit Patient Address:[address] [place] [id number] Phone number: [phone] Date of Referral: 08/12/23 Time of Referral:? 929 Referred By: Tammy Romero Date of Intervention: ??08/12/23 Time of Intervention:? 1300 Reason for Referral:? history of depression Sw completed chart review and acknowledged social work consult due to maternal mental health history positive for depression. Sw presented to bedside and introduced self to mother of baby (MOB- [place]) and father of baby (FOB- [place]). Sw explained reason for sw involvement and completed psychosocial assessment. Sw asked MOB to complete Dubberly Depression Scale. History obtained from: medical records, MOB and FOB Household composition: Parents state that they recently put their house on the market and sold it within five days. Following the sale of their home they moved in with maternal grandparents. So currently living in the home is MOB, FOB, MOB's parents, and MOB and FOBandar's three older children (Cristian- 8, Lilian- 4, and Kirk- 1). Parents deny any issues or concerns with housing at this time. Patient's parent/guardian status:? ?MOB and FOB state that they met at a relatives wedding and have been together for 9 years. No concerns of domestic violence or intimate partner violence at this time. Baby is fourth baby of parents together. Medical History: ?TRAN is 33 year old female who is 4, para 3- now 4 following labor and delivery of . TRAN received routine care during with [place]. TRAN presented to hospital on 08/11/23 for induction of labor and delivered baby via vaginal delivery at 39 weeks gestation. Baby girl, named Philomena Irwin, was born weighing 9lb 4oz with apgars of 8 and 9 at one and five minutes of life, respectfully. TRAN states that she is breast feeding and it is going well. TRAN states that baby will be followed by Dr. Ruiz for pediatrics. Educational Status:? Both parents graduated from high school and attended some college but did not obtain degrees. No concerns with reading, learning or comprehension. Financial Status: Both parents are gainfully employed outside of the home. TRAN works in [employer] at [employer]. MARINA works as a contract driver for [employer]. Supplies:?Parents have obtained all necessary baby supplies, including: car seat, safe sleep space, clothes, diapers and wipes. Childcare/Caregiver(s):?MOB will be the primary caregiver to baby along with FOB when he is not at work and maternal grandparents. Transportation:?? Both parents have their drivers license and reliable means of transportation. No barriers at this time. Programs/Agencies Involved: Parents are not connected to any community resources that help them financially at this time. ??? Children Services/Legal Issues:?No history of children services involvement, no issues or concerns warranting referral to be made at this time. ? Behavioral Health Issues: ??Mental Health History: FOBandar denies mental health history. MOB states that she has not been diagnosed with anxiety or depression, but did experience depression after the delivery of her second child. MOB states that at that time she was rageful and had bouts of anger. MOB completed Dubberly Depression Scale, her score was a 3. Sw provided education and support. ??? Substance Use History:?MOB denies substance use prior to and during . ? Family History:?MOB states that her father's family does have history of alcoholism. ? Drug Screens: No drug screens observed during chart review. Depression/Shaken Baby/Safe Sleeping: Sw educated parents on signs and symptoms of baby blues and depression. Parents express understanding. FOB states that the last time MOB struggled, she was not able to recognize that she was struggling and family had to bring this issue to her attention. MOB states that she feels better prepared for her period at this time. Sw educated parents on shaken baby prevention and ABCs of safe sleep. Parents express understanding. ASSESSMENT: MOB and baby admitted following labor and delivery of . MOB and FOB both present and participated in completion of psychosocial assessment. Neither parent with significant mental health history aside from MOB experiencing depression/ rage after the delivery of her second baby in 2019. MOB states that she feels prepared to manage her mental health during this period. Parents were polite and talkative. Parents were receptive to sw and literature/ support provided: shaken baby info, safe sleep info, mental health signs and symptoms, Help Me Grow and [facility]. PLAN: MOB and baby to be discharged when medically ready. ?No other services requested or indicated. Yumiko Farris MSW, CASHIER CLERK
== END 2023-08-12 17:15 | disposition home or self-care (01) | DRG 807 ==
PROVIDERS: Admitting Provider Registered Nurse; PCP Family Medicine; Visit Provider Registered Nurse
DX: O24.420 Gestational diabetes mellitus in childbirth, diet controlled (principal); Z37.0 Single live birth; O36.63X0 Maternal care for excessive fetal growth, third trimester, not applicable or unspecified; O77.0 Labor and delivery complicated by meconium in amniotic fluid; O99.02 Anemia complicating childbirth; Z3A.39 39 weeks gestation of pregnancy; Z79.899 Other long term (current) drug therapy
CPT/HCPCS: 59025; 59050; 82962; 85025; 86780; 86850; 86900; 86901; 99221; J7120; G0378

== ENCOUNTER 2023-11-14 14:25 | Outpatient (CLI) | payer OTHER, BC, SELFPAY | END 2023-11-14 14:40 | disposition home or self-care (01) | LOC: WPOUT 14:27 → WP 14:27 | PROVIDERS: PCP Family Medicine; Referring Provider Obstetrics & Gynecology; Visit Provider Obstetrics & Gynecology | DX: N64.4 Mastodynia (principal) ==

== ENCOUNTER → 2024-10-04 | Outpatient (CLI) | payer BC, SELFPAY ==
--- OUTSIDE RECORDS SUMMARY | 2024-10-05 00:10 | XMS RPT_ITS | CCD ---
Author Organization [facility] Care Team Providers Care Order Expediter Name Role Phone Dr. Elvis Ndiaye Primary Care Provider Dr. Elvis Ndiaye Referring Provider [phone] Kim EXPORT FREIGHT CLERKAVA-Garry Mandujano Attending Provider [phone] Dr. Maye Woody Attending Provider [phone] Dr. Jenniffer Chacko Attending Provider [phone] Dr. Elvis Ndiaye Primary Care Provider Dr. Elvis Ndiaye Referring Provider [phone] Kim ESCALANTE NP-Garry Mandujano Attending Provider [phone] Dr. Elvis Ndiaye Primary Care Provider [phone] Dr. Elvis Ndiaye Referring Provider [phone] Dr. Maye Woody Attending Provider [phone] Dr. Jenniffer Chacko Other Provider [phone] Dr. Maye Woody Admit Provider Dr. Maye Woody Other Provider Elvis Ndiaye MD Primary Care Provider [phone] Dr. Elvis Ndiaye Primary Care Provider [phone] Dr. Elvis Ndiaye Referring Provider [phone] ISMAEL Merritt Attending Provider Dr. Maye Woody Attending Provider [phone] QUEENIE Hilton Attending Provider [phone] Dr. Elvis Ndiaye Primary Care Provider [phone] Dr. Elvis Ndiaye Referring Provider [phone] QUEENIE Hilton Attending Provider Dr. Maye Woody Attending Provider Dr. Elvis Ndiaye Primary Care Provider [phone] Dr. Elvis Ndiaye Referring Provider [phone] Kim EXPORT FREIGHT CLERK, AVA-Garry Mandujano Attending Provider Dr. Elvis Ndiaye Primary Care Provider [phone] Dr. Elvis Ndiaye Referring Provider [phone] Dr. Maye Woody Attending Provider [phone] Dr. Elvis Ndiaye Primary Care Provider [phone] Dr. Elvis Ndiaye Referring Provider [phone] Dr. Maye Woody Attending Provider [phone] Kim EXPORT FREIGHT CLERK, AVA-Garry Mandujano Attending Provider QUEENIE Romero Attending Provider QUEENIE Hilton Attending Provider [phone] Dr. Elvis Ndiaye Primary Care Provider Dr. Elvis Ndiaye Referring Provider [phone] Maye Woody Attending Provider QUEENIE Romero Admit Provider QUEENIE Romero Other Provider Elvis Ndiaye MD Primary Care Provider [phone] ELVIS NDIAYE Primary Care Unavailable Maye Woody Attending UnavailMaye Massey Referring Unavailabl e Elvis Ndiaye Primary Care Unavailable Jenniffer Chacko Attending Unavailable Jenniffer Chacko Referring Unavailable Elvis Ndiaye Primary Care Unavailable Elvis Ndiaye Referring Unavailable Arielle Hilton Attending Unavailable Elvis Ndiaye Primary Care Unavailable Elvis Ndiaye Primary Care Unavailable Arielle Hilton Referring Unavailable Arielle Hilton Attending Unavailable Elvis Ndiaye Primary Care Unavailable Arielle Hilton Attending Unavailable Arielle Hilton Referring Unavailable Arielle Hilton Attending Unavailable Yobani, Arielle Referring Unavailable Ndiaye, Elvis Primary Care Unavailable Tammy Romero Attending Unavailable Romero, Tammy Admitting Unavailable Ndiaye, Elvis Primary Care Unavailable Arielle Hilton Attending Unavailable Ndiaye, Elvis Primary Care Unavailable Renetta Velcatalino, Maye Attending Unavailabl e Ndiaye, Elvis Referring Unavailable Ndiaye, Elvis Primary Care Unavailable Ndiaye, Elvis Referring Unavailable Arielle Hilton Attending Unavailable Ndiaye, Elvis Primary Care Unavailable Renetta Hagen, Maye Attending Unavailabl e Ndiaye, Elvis Referring Unavailable Ndiaye, Elvis Primary Care Unavailable Vande Velde, Maye Attending Unavailabl e Ndiaye, Elvis Referring Unavailable Ndiaye, Elvis Primary Care Unavailable Romero, Tammy Attending Unavailable Ndiaye, Elvis Referring Unavailable Ndiaye, Elvis Primary Care Unavailable Kim EXPORT FREIGHT CLERK, Nazia Referring Unavailable Ndiaye, Elvis Primary Care Unavailable Kim EXPORT FREIGHT CLERK, Nazia Attending Unavailable Kim EXPORT FREIGHT CLERK, Nazia Referring Unavailable [place] EXPORT FREIGHT CLERK, Nazia Attending Unavailable Ndiaye, Elvis Primary Care Unavailable [place] EXPORT FREIGHT CLERK, Nazia Referring Unavailable Kim EXPORT FREIGHT CLERK, Nazia Attending Unavailable Ndiaye, Elvis Primary Care Unavailable [place] EXPORT FREIGHT CLERK, Nazia Referring Unavailable Kim EXPORT FREIGHT CLERK, Nazia Attending Unavailable Ndaiye, Elvis Primary Care Unavailable Maye Woody Attending Unavailabl e Ndiaye, Elvis Referring Unavailable Ndiaye, Elvis Primary Care Unavailable Ndiaye, Elvis Referring Unavailable Ndiaye, Elvis Primary Care Unavailable Arielle Hilton Attending Unavailable Tammy Romero Attending Unavailable Ndiaye, Elvis Referring Unavailable Ndiaye, Elvis Primary Care Unavailable RomeroTammy Attending Unavailable Ndiaye, Elvis Referring Unavailable Ndiaye, Elvis Primary Care Unavailable Kim EXPORT FREIGHT CLERK, Nazia Attending Unavailable Ndiaye, Elvis Referring Unavailable Ndiaye, Elvis Primary Care Unavailable Ndiaye, Elvis Primary Care Unavailable [place] EXPORT FREIGHT CLERK, Nazia Attending Unavailable [place] EXPORT FREIGHT CLERK, Nazia Referring Unavailable Maye Woody Attending Unavailabl e Ndiaye, Elvis Referring Unavailable Ndiaye, Elvis Primary Care Unavailable [place] EXPORT FREIGHT CLERK, Nazia Attending Unavailable Ndiaye, Elvis Referring Unavailable Ndiaye, Elvis Primary Care Unavailable Renetta Velcatalino, Maye Attending Unavailabl e Ndiaye, Elvis Referring Unavailable Ndiaye, Elvis Primary Care Unavailable Tammy Romero Consulting Unavailable Tammy Romero Attending Unavailable Romero, Tammy Admitting Unavailable Ndiaye, Elvis Primary Care Unavailable Arielle Hilton Attending Unavailable Nazia Alvarez NP Referring Unavailable Kim ESCALANTE, Nazia Attending Unavailable Elvis Ndiaye Primary Care Unavailable Moses NOE, Dr. Leal Primary Care Provider Dr. Elvis Ndiaye MD Referring Provider Arielle Hilton CNM Attending Provider [phone] Medications Current Medications Medication Drug Class(es) Dates Sig (Normalized) Sig (Original) amoxicillin 875 mg oral tablet (2 sources) Penicillin-class Antibacterial Start: 09-30-2023 End: 10-07-2023 take 1 tablet by mouth twice daily amoxicillin (AMOXIL) 875 mg tablet Indications: Rhinosinusitis Take 1 tablet by mouth two times a day for 7 days. 14 tablet 0 09/30/2023 10/07/2023 Active Start: 06-13-2022 End: 06-23-2022 take 1 capsule by mouth twice daily amoxicillin (POLYMOX, AMOXIL) 500 mg capsule Indications: Strep throat Take 1 capsule by mouth twice daily for 10 days. 20 capsule 0 06/13/2022 06/23/2022 Active Comment on above: Take 1 capsule by [facility] twice daily for 10 days. buPROPion (1 source) Aminoketone Start: 10-04-2024 Wellbutrin Active PO October 04, 2024 1:42pm CHOLECALCIFEROL, VITAMIN D3, (D3-2000 ORAL) (5 sources) CHOLECALCIFEROL, VITAMIN D3, (D3-2000 ORAL) Take by mouth. 0 Active Comment on above: Take by mouth. ferrous sulfate 325 mg oral tablet (20 sources) Start: 01-06-2023 take 1 tablet by mouth once daily Ferrous Sulfate (Feosol) 325 mg (65 mg iron) tablet Active 325 mg PO DAILY January 06, 2023 12:00am Start: 09-27-2021 End: 11-21-2021 take 1 tablet by mouth once daily Ferrous Sulfate (Iron) 325 mg (65 mg iron) Tablet Discontinued 325 mg PO DAILY September 27, 2021 12:00am November 21, 2021 1:47pm Start: 09-05-2018 End: 10-14-2018 Ferrous Sulfate 325 MG table t Discontinued 325 mg PO September 05, 2018 12:00am October 14, 2018 4:28pm Magnesium (17 sources) Start: 01-06-2023 take 1 tablet by jaylyn th once daily Magnesium 200 mg tablet Active 200 mg PO DAILY January 06, 2023 12:00am Start: 01-06-2023 take 200 mg by mouth once tom y Magnesium Active 200 MG PO DAILY January 05, 2023 11:00pm Start: 01-06-2023 take 200 mg by mouth once tom y Magnesium Active 200 MG PO DAILY January 06, 2023 12:00am MAGNESIUM ORAL T terra by mouth. 0 Active Comment on above: Take by mouth. Multivit 46-Tkkg-Kjvexa 1-Dha (Pnv-Dha) 27 mg iron-1 mg -300 mg capsule (17 sources) Start: 02-21-2021 take 1 capsule by mouth once daily Multivit 24-Jnsr-Vskknk 1-Dha (Pnv-Dha) 27 mg iron-1 mg -300 mg capsule Active 1 CAP PO DAILY February 21, 2021 9:43am Start: 02-21-2021 Multivit 47-Ir on-Folate 1-Dha (Pnv-Dha) 27 mg iron-1 mg -300 mg capsule Active CAP PO February 21, 2021 9:43am Start: 02-21-2021 End: 11-28-2022 Multivit 49-Anyf-Pyijve 1-Dh a (Pnv-Dha) 27 mg iron-1 mg -300 mg capsule Discontinued 1 NMA PO DAILY February 21, 2021 12:00am November 28, 2022 8:39am Start: 02-21-2021 End: 11-28-2022 take 1 capsule by mouth once daily Multivit 01-Dwsn-Qkkxhu 1-Dha (Pnv-Dha) 27 mg iron-1 mg -300 mg capsule Discontinued 1 CAP PO DAILY February 20, 2021 11:00pm November 28, 2022 7:39am Start: 02-21-2021 End: 11-28-2022 take 1 capsule by mouth once daily Multivit 79-Bewm-Fsyery 1-Dha (Pnv-Dha) 27 mg iron-1 mg -300 mg capsule Discontinued 1 CAP PO DAILY February 21, 2021 12:00am November 28, 2022 8:39am Mv-Mn 550-Ys-Wp2-Gjp-Vbj-Ecnc 180 mcg-35 mg- 25 mg-5 mg tablet,chewable (1 source) Start: 01-06-2023 Mv-Mn 410-Qr-Ya4-Wxp-Vbm-Tgad 180 mcg-35 mg- 25 mg-5 mg tablet,chewable Active 1 {tbl} PO DAILY January 06, 2023 12:00am penicillin v potassium 500 mg oral tablet (1 source) Start: 04-06-2022 End: 04-16-2022 take 1 tablet by mouth twice daily penicillin V potassium (V-CILLIN, VEETIDS) 500 mg tablet Indications: Streptococcal pharyngitis Take 1 tablet by mouth twice daily for 10 days. 20 tablet 0 04/06/2022 04/16/2022 Active Comment on above: Take 1 tablet by jaylyn th twice daily for 10 days. Pnv No.643-Ta-Du1-Bsx-Rei-Ygan (11 sources) Start: 01-06-2023 take 1 tablet by mouth once daily Pnv No.198-Vz-At1-Dyp-Tht-Hpkl Active 1 TABLET PO DAILY January 06, 2023 12:00am Start: 01-06-2023 take 1 tablet by jaylyn th once daily Pnv No.501-Bh-Ym6-Rab-Ehz-Szfx Active 1 TABLET PO DAILY January 05, 2023 11:00pm Start: 01-06-2023 Pnv No.178-Fa- Dn6-Xxe-Wfw-Fish Active TABLET PO January 05, 2023 11:00pm Start: 01-06-2023 Pnv No.178-Fa- Gj7-Pik-Qzb-Fish Active TABLET PO January 06, 2023 12:00am predniSONE 10 mg oral tablet (1 source) Start: 09-08-2022 End: 09-17-2022 predniSONE (DELTASONE) 10 mg tablet Indications: Hives Take 4 tabs daily for 3 days, then 2 tabs daily for 3 days, then 1 tab daily for 3 days with food. 21 tablet 0 09/08/2022 09/17/2022 Active Comment on above: Take 4 tabs daily fo r 3 days, then 2 tabs daily for 3 days, then 1 tab daily for 3 days with food. Riboflavin (5 sources) RIBOFLAVIN (ARIANA MIN B-2 ORAL) Take by mouth. 0 Active Comment on above: Take by mouth. Completed/Discontinued Medications Medication Drug Class(es) Dates Sig (Normalized) Sig (Original) busPIRone (1 source) Start: 10-04-2024 End: 10-04-2024 Buspirone Discontinued PO October 04, 2024 12:00am October 04, 2024 1:42pm cephalexin 500 mg oral capsule (20 sources) Cephalosporin Antibacterial Start: 11-21-2021 End: 11-28-2022 take 1 capsule by mouth every eight hours Cephalexin 500 mg capsule Discontinued 500 mg PO Q8H November 21, 2021 12:00am November 28, 2022 8:39am cholecalciferol 0.125 mg oral capsule (12 sources) Vitamin D Start: 01-06-2023 End: 05-26-2023 take 1 capsule by mouth once daily Cholecalciferol (Vitamin D3) 125 mcg (5,000 unit) capsule Discontinued 125 ug PO DAILY January 06, 2023 12:00am May 26, 2023 2:02pm dicloxacillin 500 mg oral capsule (17 sources) Penicillin-class Antibacterial Start: 11-11-2018 End: 11-25-2018 take 1 capsule by mouth every six hours Dicloxacillin 500 mg capsule Discontinued 500 mg PO EVERY 6 HOURS 56 November 11, 2018 12:00am November 24, 2018 12:00am November 25, 2018 12:06am Norgestimate-Ethinyl Estradiol (20 sources) Progestin, Estrogen Start: 06-28-2024 End: 10-04-2024 Norgestimate-Ethinyl Estradiol (Sprintec (28)) 0.25-35 mg-mcg tablet Discontinued 1 {tbl} PO daily June 28, 2024 1:00am October 04, 2024 1:36pm Start: 11-28-2022 End: 01-06-2023 Norgestimate-Ethinyl Estradi ol (Sprintec (28)) 0.25-35 mg-mcg tablet Discontinued 1 {tbl} PO DAILY November 28, 2022 12:00am January 06, 2023 11:13am Start: 11-28-2022 End: 01-06-2023 take 1 tablet by mouth once daily Norgestimate-Ethinyl Estradiol (Sprintec (28)) 0.25-35 mg-mcg tablet Discontinued 1 TABLET PO DAILY November 27, 2022 11:00pm January 06, 2023 10:13am Start: 11-28-2022 End: 01-06-2023 take 1 tablet by mouth once daily Norgestimate-Ethinyl Estradiol (Sprintec (28)) 0.25-35 mg-mcg tablet Discontinued 1 TABLET PO DAILY November 28, 2022 12:00am January 06, 2023 11:13am Start: 11-07-2020 End: 02-21-2021 Norgestimate-Ethinyl Estradi ol (Sprintec (28)) 0.25-35 mg-mcg tablet Discontinued 1 {tbl} PO .COMPLEX November 07, 2020 8:43am February 21, 2021 9:43am 1 tab PO active pills only for continuous cycling; Start: 11-07-2020 End: 02-21-2021 Norgestimate-Ethinyl Estradi ol (Sprintec (28)) 0.25-35 mg-mcg tablet Discontinued 1 TABLET PO .COMPLEX November 07, 2020 7:43am February 21, 2021 8:43am 1 tab PO active pills only for continuous cycling; Start: 11-07-2020 End: 02-21-2021 Norgestimate-Ethinyl Estradi ol (Sprintec (28)) 0.25-35 mg-mcg tablet Discontinued 1 TABLET PO .COMPLEX November 07, 2020 8:43am February 21, 2021 9:43am 1 tab PO active pills only for continuous cycling; Start: 10-20-2019 End: 11-07-2020 Norgestimate-Ethinyl Estradi ol (Sprintec (28)) 0.25-35 mg-mcg tablet Discontinued 1 TABLET PO .COMPLEX October 20, 2019 10:41am November 07, 2020 8:43am 1 tab PO active pills only for continuous cycling; Start: 10-20-2019 End: 11-07-2020 Norgestimate-Ethinyl Estradi ol (Sprintec (28)) 0.25-35 mg-mcg tablet Discontinued 1 {tbl} PO .COMPLEX October 20, 2019 12:00am November 07, 2020 8:43am 1 tab PO active pills only for continuous cycling; Start: 10-20-2019 End: 11-07-2020 Norgestimate-Ethinyl Estradi ol (Sprintec (28)) 0.25-35 mg-mcg tablet Discontinued 1 TABLET PO .COMPLEX 84 October 19, 2019 11:00pm November 07, 2020 7:43am 1 tab PO active pills only for continuous cycling; Start: 10-20-2019 End: 11-07-2020 Norgestimate-Ethinyl Estradi ol (Sprintec (28)) 0.25-35 mg-mcg tablet Discontinued 1 TABLET PO .COMPLEX October 20, 2019 12:00am November 07, 2020 8:43am 1 tab PO active pills only for continuous cycling; Start: 02-25-2017 take 1 tablet by jaylyn th once daily norgestimate 0.25 mg-ethinyl estradiol 35 mcg (SPRINTEC) 0.25-35 mg-mcg per tablet Take 1 tablet by mouth once daily. Take only active pills, use in a continuous fashion for scheduled amenorrhea. 4 Package 4 02/25/2017 Active Comment on above: Take 1 tablet by jaylyn th once daily. Take only active pills, use in a continuous fashion for scheduled amenorrhea. Flucelvax Quad (flu vac qs (6 ms up) CD) 60 mcg (15 mcg x (5 sources) Start: End: inject 15 ug by intramuscular injection once Flucelvax Quad (flu vac qs (6 ms up) CD) 60 mcg (15 mcg x Discontinued 60 MCG IM ONCE 0.5 March 01, 2021 9:11am March 01, 2021 10:11am norethindrone 0.35 mg oral tablet (20 sources) Start: 024 End: take 1 tablet by mouth once daily Norethindrone (Contraceptive) 0.35 mg tablet Discontinued 0.35 mg PO DAILY September 29, 2023 12:00am June 28, 2024 4:15pm Start: 11-21-2021 End: 11-28-2022 take 1 tablet by mouth once daily Norethindrone (Contraceptive) (Ortho Micronor) 0.35 mg tablet Discontinued 0.35 mg PO DAILY 90 90 November 21, 2021 12:00am November 28, 2022 8:55am Start: 10-14-2018 End: 10-20-2019 Norethindrone (Contraceptive ) (Zenaida) 0.35 mg tablet Discontinued 0 .ROUTE .COMPLEX 84 August 20, 2019 8:38am October 20, 2019 10:41am TAKE 1 TABLET BY MOUTH ONCE DAILY START DAY 1 OF MENSTRUAL CYCLE Prenat.Vits,Attila,Uii-Lqqk-Wev ic (16 sources) Start: 01-28-2018 End: 10-20-2019 take 1 tablet by mouth once daily Prenat.Vits,Attila,Ryl-Uuxi-Zaddw Discontinued 1 TABLET PO DAILY January 28, 2018 8:27am October 20, 2019 10:28am Start: 01-28-2018 End: 10-20-2019 take 1 tablet by mouth once daily Prenat.Vits,Attila,Dtj-Okys-Wetpt Discontin ued 1 TABLET PO DAILY January 27, 2018 11:00pm October 20, 2019 9:28am Start: 01-28-2018 End: 10-20-2019 take 1 tablet by mouth once daily Prenat.Vits,Attila,Goz-Kxhm-Ziapv Discontin ued 1 TABLET PO DAILY January 28, 2018 12:00am October 20, 2019 10:28am Prenat.Vits,Attila,Zbg-Czvd-Cxl ic tablet (1 source) Start: 01-28-2018 End: 10-20-2019 Prenat.Vits,Attila,Itw-Ukbm-Myb ic tablet Discontinued 1 {tbl} PO DAILY January 28, 2018 12:00am October 20, 2019 10:28am promethazine hydrochloride 1 2.5 mg oral tablet (11 sources) Phenot hiazin e Start: 03-05-2023 End: 05-26-2023 take 1 tablet by mouth every six hours as needed for nausea and vomiti ng Promethazine 12.5 mg tablet Discontinued 12.5 mg PO EVERY 6 HOURS as needed for nausea and vomiting 60 March 05, 2023 1:00am May 26, 2023 2:02pm Triamcinolone (1 source) Cortic ostero id Start: 11-14-2023 End: 10-04-2024 Triamcinolone Acetonide 0.1 % cream Discontinued 1 NMA TOPICAL THREE TIMES A DAY 80 November 14, 2023 12:00am October 04, 2024 1:37pm Problems Active Problems Problem Classification Problem Date Documented Date Episodic/Chronic Allergic reactions (1 source) Urticaria; Translations: [Urticaria, unspecified] Episodic Attention-deficit, conduct, and disruptive behavior disorders (1 source) Attention deficit hyperactivity disorder; Translations: [Attention-deficit hyperactivity disorder, unspecified type] 10-04-2024 Chronic Diabetes or abnormal glucose tolerance complicating ; childbirth; or the puerperium (20 sources) Abnormal glucose level; Translations: [Abnormal glucose complicating ] Onset: 08-06-2023 Episodic Comment on above: Normal 3hr GTT dx at repeat at 36 w eeks Nonmalignant breast conditions (1 source) Mastodynia; Translations: [Mastodynia] Onset: 11-27-2023 Episodic Other complications of ; puerperium affecting management of mother (1 source) Large for gestation age fetus 08-14-2023 Episodic Comment on above: 36 wk us-3661 grams AC 99.99% rescreen glucoseat 39 weeks projected weight 4336 gramsat 40 weeks projected weight 4561 grams Discussed with SM. 39 week IOL Other complications of (20 sources) Anemia of ; Translations: [Anemia complicating , unspecified trimester] 10-14-2018 Chronic Comment on above: iron recheck 4 wk add FE; CBC-improved Other complications of (20 sources) Anemia complicating , unspecified trimester; Translations: [Anemia of mother, unspecified as to episode of care or not applicable] Onset: 07-24-2023 Chronic Other complications of (2 sources) Anemia complicating , third trimester; Translations: [Anemia complicating , third trimester] Onset: 08-06-2023 Chronic Other complications of (20 sources) H/O: depression; Translations: [History of depression, currently ] Episodic Comment on above: after 2nd child. No meds. Considering and planning on encapsulating placenta. No sx now. Other female genital disorders (14 sources) History of past delivery; Translations: [Status post vaginal delivery] Episodic Comment on above: 10/05/21- bb boy Daws on- JV Other nervous system disorders (17 sources) Choroid plexus cyst; Translations: [Cerebral cysts] 09-05-2018 Chronic Comment on above: normal genetic testi ng. recommend repeat us at 28 weeks to evaluate facies. Other conditions (1 source) choroid plexus cyst 10-05-2021 Episodic Comment on above: NIPT low risk. No fu rther follow-up needed. Other and delivery including normal (20 sources) Normal ; Translations: [Encounter for supervision of normal , unspecified, unspecified trimester] Onset: 01-23-2015 Resolved: 03-01-2017 Episodic Comment on above: at 39 weeks IOL GDM and LGA. routine admission orderspitocin for induction. plan AROM [id number] TYRONE 08/18/23 Girl: Philomena PC Lilian Foster Dawson Ryley LC IOL: 39 weeks GDM. girl: Philomena PRR TYRONE: 2 PC: Lilian Foster Spouse: Ryley NT done. NIPT-Low ri sk, Female. carrier screening declined. AFP negative. Anatomy US normal. low risk NIPT male, carrier neg AFP negative. Overall normal anatomy with right choroid plexus cyst. NIPT low risk. No further follow-up needed. GBS neg GBS neg, NIPT low ri sk Other screening for suspected conditions (not mental disorders or infectious disease) (19 sources) Patient encounter status; Translations: [Encounter for screening, unspecified] Onset: 07-30-2023 09-05-2018 Episodic Comment on above: Sequential screening normal. AFP negative Other upper respiratory infections (1 source) Chronic sinusitis, unspecified; Translations: [Unspecified sinusitis (chronic)] 09-30-2023 Chronic Other upper respiratory infections (5 sources) Streptococcal sore throat; Translations: [Streptococcal pharyngitis] Episodic Residual codes; unclassified (17 sources) History of vaccination; Translations: [Personal history of other drug therapy] 10-05-2021 Episodic Comment on above: 07/19/21 Residual codes; unclassified (20 sources) Personal history of other drug therapy; Translations: [Other postprocedural status] Episodic Unclassified (5 sources) NEGATIVE MEDICAL HISTORY 03-01-2017 Unclassified (19 sources) Large for gestation age fetus; Translations: [Large for gestational age fetus] 07-22-2023 Unclassified (2 sources) Other specified diseases and conditions complicating ; Translations: [Other specified diseases and conditions complicating ] Onset: 08-06-2023 Past or Other Problems Problem Classification Problem Date Documented Date Episodic/Chronic Contraceptive and procreative management (1 source) Encounter for contraceptive management, unspecified; Translations: [Encounter for contraceptive management, unspecified] Onset: 09-29-2023 Episodic Deficiency and other anemia (1 source) Anemia, unspecified; Translations: [Anemia, unspecified] Onset: 06-13-2023 Episodic Immunizations and screening for infectious disease (1 source) Encounter for immunization; Translations: [Encounter for immunization] Onset: 05-28-2023 Episodic Residual codes; unclassified (1 source) 38 weeks gestation of ; Translations: [38 weeks gestation of ] Onset: 08-06-2023 Episodic Residual codes; unclassified (1 source) 36 weeks gestation of ; Translations: [36 weeks gestation of ] Onset: 07-23-2023 Episodic Residual codes; unclassified (1 source) 32 weeks gestation of ; Translations: [32 weeks gestation of ] Onset: 06-25-2023 Episodic Residual codes; unclassified (1 source) 30 weeks gestation of ; Translations: [30 weeks gestation of ] Onset: 06-11-2023 Episodic Residual codes; unclassified (1 source) 24 weeks gestation of ; Translations: [24 weeks gestation of ] Onset: 04-30-2023 Episodic Residual codes; unclassified (1 source) 20 weeks gestation of ; Translations: [20 weeks gestation of ] Onset: 04-02-2023 Episodic Screening and history of mental health and substance abuse codes (2 sources) Personal history of other mental and behavioral disorders; Translations: [Personal history of other mental and behavioral disorders] Onset: 08-06-2023 Episodic Unclassified (20 sources) choroid plexus cyst; Translations: [Choroid plexus cyst of fetus] Unclassified (16 sources) Normal labor; Translations: [Active labor at term] 10-14-2018 Results Test Name Value Interpretation Reference Range Facility CBC (INCLUDES DIFF/PLT)on ABSOLUTE BAND NEUTROPHILS Normal [facility] Comment on above: Performed By: #### 1 0231, 6399, 1005, [id number], 6700 #### [facility] of [place] [address] [address] , [address] [place] [address] Shift Superintendent Caustic Cresylate: Nba Rodriguez MD ABSOLUTE BASOPHILS Normal [facility] Comment on above: Performed By: #### 1 0231, 6399, 1005, [id number], 7600 #### [facility] [place] [address] , [address] [place] [address] Shift Superintendent Caustic Cresylate: Nba Rodriguez MD ABSOLUTE BLASTS Normal [facility] Comment on above: Performed By: #### 1 0231, 6399, 1005, 52902, 7600 #### [facility] of [address] , [address] [place] [address] Shift Superintendent Caustic Cresylate: Nba Rodriguez MD ABSOLUTE EOSINOPHILS [facility] Comment on above: Performed By: #### 1 0231, 6399, 1005, [id number], 7600 #### [facility] of [address], [address] [place] [address] Shift Superintendent Caustic Cresylate: Nba Rodriguez MD ABSOLUTE LYMPHOCYTES Normal [facility] Comment on above: Performed By: #### 1 0231, 6399, 1005, 37303, 7600 #### [facility] of [address], [address] [place] [address] Shift Superintendent Caustic Cresylate: Nba Rodriguez MD ABSOLUTE METAMYELOCYTES Normal [facility] Comment on above: Performed By: #### 1 0231, 6399, 1005, 91044, 7600 #### [facility] [place] [address] , [address] [place] [address] Shift Superintendent Caustic Cresylate: Nba Rodriguez MD ABSOLUTE MONOCYTES Normal [facility] Comment on above: Performed By: #### 1 0231, 6399, 1005, 33946, 7600 #### [facility] [place] [address] , [address] [place] [address] Shift Superintendent Caustic Cresylate: Nba Rodriguez MD ABSOLUTE MYELOCYTES Normal [facility] Comment on above: Performed By: #### 1 0231, 6399, 1005, 85967, 7600 #### [facility] [place] [address], [address] [place] [address] Shift Superintendent Caustic Cresylate: Nba Rodriguez MD ABSOLUTE NEUTROPHILS [facility] Comment on above: Performed By: #### 1 0231, 6399, 1005, 77691, 7600 #### [facility] [place] [address], [address] [place] [address] Shift Superintendent Caustic Cresylate: Nba Rodriguez MD ABSOLUTE NUCLEATED RBC Normal [facility] Comment on above: Performed By: #### 1 0231, 6399, 1005, 78880, 7600 #### [facility] [place] [address] , [address] [place] [address] Shift Superintendent Caustic Cresylate: Nba Rodriguez MD ABSOLUTE PROMYELOCYTES Normal [facility] Comment on above: Performed By: #### 1 0231, 6399, 1005, 83067, 7600 #### [facility] [place] [address] , [address] [place] [address] Shift Superintendent Caustic Cresylate: Nba Rodriguez MD BAND NEUTROPHILS Normal [facility] Comment on above: Performed By: #### 1 0231, 6399, 1005, 33863, 7600 #### [facility] [place] [address] , [address] [place] [address] Shift Superintendent Caustic Cresylate: Nba Rodriguez MD BASOPHILS Normal [facility] Comment on above: Performed By: #### 1 0231, 6399, 1005, 50851, 7600 #### [facility] [place] [address], [address] [place] [address] Shift Superintendent Caustic Cresylate: Nba Rodriguez MD BLASTS Normal [facility] Comment on above: Performed By: #### 1 0231, 6399, 1005, 02277, 7600 #### [facility] [place] [address], [address] [place] [address] Shift Superintendent Caustic Cresylate: Nba Rodriguez MD COMMENT(S) Normal [facility] Comment on above: Performed By: #### 1 0231, 6399, 1005, 33237, 7600 #### [facility] [place] [address], [address] [place] [address] Shift Superintendent Caustic Cresylate: Nba Rodriguez MD [facility] Normal [facility] Comment on above: Performed By: #### 1 0231, 6399, 1005, 88161, 7600 #### [facility] [address], [address] [place] [address] Shift Superintendent Caustic Cresylate: Nba Rodriguez MD HEMATOCRIT Normal [facility] Comment on above: Performed By: #### 1 0231, 6399, 1005, 41058, 7600 #### [facility] [address], [address] [place] [address] Shift Superintendent Caustic Cresylate: Nba Rodriguez MD HEMOGLOBIN Normal [facility] Comment on above: Performed By: #### 1 0231, 6399, 1005, 87936, 7600 #### [facility] [address], [address] [place] [address] Shift Superintendent Caustic Cresylate: Nba Rodriguez MD LYMPHOCYTES Normal [facility] Comment on above: Performed By: #### 1 0231, 6399, 1005, 53069, 7600 #### [facility] [address], [address] [place] [address] Shift Superintendent Caustic Cresylate: Nba Rodriguez MD [facility] Normal [facility] Comment on above: Performed By: #### 1 0231, 6399, 1005, 59586, 7600 #### [facility] [address], [address] [place] [address] Shift Superintendent Caustic Cresylate: Nba Rodriguez MD [facility] Normal [facility] Comment on above: Performed By: #### 1 0231, 6399, 1005, 80266, 7600 #### [facility] [address], [address] [place] [address] Shift Superintendent Caustic Cresylate: Nba Rodriguez MD MCV Normal [facility] Comment on above: Performed By: #### 1 0231, 6399, 1005, 97502, 7600 #### [facility] [address], [address] [place] [address] Shift Superintendent Caustic Cresylate: Nba Rodriguez MD METAMYELOCYTES Normal [facility] Comment on above: Performed By: #### 1 0231, 6399, 1005, 32947, 7600 #### [facility] [place] [address], [address] [place] [address] Shift Superintendent Caustic Cresylate: Nba Rodriguez MD MONOCYTES Normal [facility] Comment on above: Performed By: #### 1 0231, 6399, 1005, 17112, 7600 #### [facility] [place] [address], [address] [place] [address] Shift Superintendent Caustic Cresylate: Nba Rodriguez MD MPV Normal [facility] Comment on above: Performed By: #### 1 0231, 6399, 1005, 76552, 7600 #### [facility] [place] [address] [place] [address] Shift Superintendent Caustic Cresylate: Nba Rodriguez MD MYELOCYTES Normal [facility] Comment on above: Performed By: #### 1 0231, 6399, 1005, 25290, 7600 #### [facility] [place] [address] , [address] [place] [address] Shift Superintendent Caustic Cresylate: Nba Rodriguez MD NEUTROPHILS Normal [facility] Comment on above: Performed By: #### 1 0231, 6399, 1005, 14372, 7600 #### [facility] [place] [address] , [address] [place] [address] Shift Superintendent Caustic Cresylate: Nba Rodriguez MD NUCLEATED RBC Normal [facility] Comment on above: Performed By: #### 1 0231, 6399, 1005, 58822, 7600 #### [facility] [place] [address], [address] [place] [address] Shift Superintendent Caustic Cresylate: Nba Rodriguez MD PLATELET COUNT Normal [facility] Comment on above: Performed By: #### 1 0231, 6399, 1005, 68235, 7600 #### [facility] [address], [address] [place] [address] Shift Superintendent Caustic Cresylate: Nba Rodriguez MD PROMYELOCYTES Normal [facility] Comment on above: Performed By: #### 1 0231, 6399, 1005, 62636, 7600 #### [facility] [place] [address] , [address] [place] [address] Shift Superintendent Caustic Cresylate: Nba Rodriguez MD RDW Normal [facility] Comment on above: Performed By: #### 1 0231, 6399, 1005, 45895, 7600 #### [facility] [place] [address] , [address] [place] [address] Shift Superintendent Caustic Cresylate: Nba Rodriguez MD REACTIVE LYMPHOCYTES [facility] Comment on above: Performed By: #### 1 0231, 6399, 1005, 94555, 7600 #### [facility] [address], [address] [place] [address] Shift Superintendent Caustic Cresylate: Nba Rodriguez MD RED BLOOD CELL COUNT [facility] Comment on above: Performed By: #### 1 0231, 6399, 1005, 28640, 7600 #### [facility] [place] [address] , [address] [place] [address] Shift Superintendent Caustic Cresylate: Nba Rodriguez MD WHITE BLOOD CELL COUNT [facility] Comment on above: Performed By: #### 1 0231, 6399, 1005, 13537, 7600 #### [facility] [place] [address] , [address] [place] [address] Shift Superintendent Caustic Cresylate: Nba Rodriguez MD COMPREHENSIVE METABOLIC PANE [place] 10-04-2024 ALBUMIN Normal [facility] Comment on above: Performed By: #### 1 0231, 6399, 1005, 47165, 7600 #### [facility] [place] [address], [address] [place] [address] Shift Superintendent Caustic Cresylate: Nba Rodriguez MD ALBUMIN/GLOBULIN RATIO Normal [facility] Comment on above: Performed By: #### 1 0231, 6399, 1005, 30206, 7600 #### [facility] [place] [address] , [address] [place] [address] Shift Superintendent Caustic Cresylate: Nba Rodriguez MD ALKALINE PHOSPHATASE [facility] Comment on above: Performed By: #### 1 0231, 6399, 1005, 52231, 7600 #### [facility] [place] [address], [address] [place] [address] Shift Superintendent Caustic Cresylate: Nba Rodriguez MD ALT Normal [facility] Comment on above: Performed By: #### 1 0231, 6399, 1005, 09888, 7600 #### [facility] [place] [address], [address] [place] [address] Shift Superintendent Caustic Cresylate: Nba Rodriguez MD AST Normal [facility] Comment on above: Performed By: #### 1 0231, 6399, 1005, 78183, 7600 #### [facility] [place] [address] , [address] [place] [address] Shift Superintendent Caustic Cresylate: Nba Rodriguez MD BILIRUBIN, TOTAL Normal [facility] Comment on above: Performed By: #### 1 0231, 6399, 1005, 72232, 7600 #### [facility] [place] [address], [address] [place] [address] Shift Superintendent Caustic Cresylate: Nba Rodriguez MD BUN/CREATININE RATIO [facility] Comment on above: Performed By: #### 1 0231, 6399, 1005, 57133, 7600 #### [facility] [place] [address] [address] [place] [address] Shift Superintendent Caustic Cresylate: Nba Rodriguez MD CALCIUM Normal [facility] Comment on above: Performed By: #### 1 0231, 6399, 1005, 67234, 7600 #### [facility] [place] [address], [address] [place] [address] Shift Superintendent Caustic Cresylate: Nba Rodriguez MD CARBON DIOXIDE Normal [facility] Comment on above: Performed By: #### 1 0231, 6399, 1005, 57297, 7600 #### [facility] [address], [address] [place] [address] Shift Superintendent Caustic Cresylate: Nba Rodriguez MD CHLORIDE Normal [facility] Comment on above: Performed By: #### 1 0231, 6399, 1005, 87290, 7600 #### [facility] [address], [address] [place] [address] Shift Superintendent Caustic Cresylate: Nba Rodriguez MD CREATININE Normal [facility] Comment on above: Performed By: #### 1 0231, 6399, 1005, 83061, 7600 #### [facility] [address], [address] [place] [address] Shift Superintendent Caustic Cresylate: Nba Rodriguez MD EGFR Normal [facility] Comment on above: Performed By: #### 1 0231, 6399, 1005, 82111, 7600 #### [facility] [address], [address] [place] [address] Shift Superintendent Caustic Cresylate: Nba Rodriguez MD GLOBULIN Normal [facility] Comment on above: Performed By: #### 1 0231, 6399, 1005, 33816, 7600 #### [facility] [address], [address] [place] [address] Shift Superintendent Caustic Cresylate: Nba Rodriguez MD GLUCOSE Normal [facility] Comment on above: Performed By: #### 1 0231, 6399, 1005, 74100, 7600 #### [facility] [address], [address] [place] [address] Shift Superintendent Caustic Cresylate: Nba Rodriguez MD POTASSIUM Normal [facility] Comment on above: Performed By: #### 1 0231, 6399, 1005, 28043, 7600 #### [facility] [address], [address] [place] [address] Shift Superintendent Caustic Cresylate: Nba Rodriguez MD PROTEIN, TOTAL Normal [facility] Comment on above: Performed By: #### 1 0231, 6399, 1005, 44400, 7600 #### [facility] [address], [address] [place] [address] Shift Superintendent Caustic Cresylate: Nba Rodriguez MD SODIUM Normal [facility] Comment on above: Performed By: #### 1 0231, 6399, 1005, 24870, 7600 #### [facility] [address], [address] [place] [address] Shift Superintendent Caustic Cresylate: Nba Rodriguez MD UREA NITROGEN (BUN) Normal [facility] Comment on above: Performed By: #### 1 0231, 6399, 1005, 78470, 7600 #### [facility] [address], [address] [place] [address] Shift Superintendent Caustic Cresylate: Nba Rodriguez MD LIPID PANEL, [facility] 06-0 CHOL/HDLC RATIO Normal [facility] Comment on above: Order Comment: FASTI NG:YES FASTING: YES Performed By: #### 1 0231, 6399, 1005, 02871, 7600 #### [facility] [address], [address] [place] [address] Shift Superintendent Caustic Cresylate: Nba Rodriguez MD CHOLESTEROL, TOTAL Normal [facility] Comment on above: Order Comment: FASTI NG:YES FASTING: YES Performed By: #### 1 0231, 6399, 1005, 88221, 7600 #### [facility] [address], [address] [place] [address] Shift Superintendent Caustic Cresylate: Nba Rodriguez MD HDL CHOLESTEROL Normal [facility] Comment on above: Order Comment: FASTI NG:YES FASTING: YES Performed By: #### 1 0231, 6399, 1005, 50385, 7600 #### [facility] [address], [address] [place] [address] Shift Superintendent Caustic Cresylate: Nba Rodriguez MD LDL-CHOLESTEROL Normal [facility] Comment on above: Order Comment: FASTI NG:YES FASTING: YES Performed By: #### 1 0231, 6399, 1005, 15793, 7600 #### [facility] [address], [address] [place] [address] Shift Superintendent Caustic Cresylate: Nba Rodriguez MD NON HDL CHOLESTEROL Normal [facility] Comment on above: Order Comment: FASTI NG:YES FASTING: YES Performed By: #### 1 0231, 6399, 1005, 70636, 7600 #### [facility] [address], [address] [place] [address] Shift Superintendent Caustic Cresylate: Nba Rodriguez MD TRIGLYCERIDES Normal [facility] Comment on above: Order Comment: FASTI NG:YES FASTING: YES Performed By: #### 1 0231, 6399, 1005, 56640, 7600 #### [facility] [address], [address] [place] [address] Shift Superintendent Caustic Cresylate: Nba Rodriguez MD TEST AUTHORIZATIONon 025 CLIENT CONTACT: Normal [facility] Comment on above: Performed By: #### 1 0231, 6399, 1005, 52133, 7600 #### [facility] [address], [address] [place] [address] Shift Superintendent Caustic Cresylate: Nba Rodriguez MD COMMENT Normal [facility] Comment on above: Result Comment: Plea se have the ordering physician or his or her authorized account services representative sign a copy of this report and promptly return it by faxing it to: [phone] or by returning the form to your automation tester. Performed By: #### 1 0231, 6399, 1005, 06505, 7600 #### [facility] [address], [address] [place] [address] Shift Superintendent Caustic Cresylate: Nba Rodriguez MD REPORT ALWAYS MESSAGE SIGNATURE Normal [facility] Comment on above: Result Comment: The laboratory testing on this patient was verbally requested or confirmed by the ordering physician or his or her authorized account services representative after contact with an employee of [employer]. Federal regulations require that we maintain on file written authorization for all laboratory testing. Accordingly we are asking that the ordering physician or his or her authorized account services representative sign a copy of this report and promptly return it to the client application support engineer. Signature: Performed By: #### 1 0231, 6399, 1005, 20292, 7600 #### [facility] [address], [address] [place] [address] Shift Superintendent Caustic Cresylate: Nba Rodriguez MD TEST CODE: [id number] Normal [facility] Comment on above: Performed By: #### 1 0231, 6399, 1005, 71435, 7600 #### [facility] [address], [address] [place] [address] Shift Superintendent Caustic Cresylate: Nba Rodriguez MD TEST NAME: VITAMIN D Normal [facility] Comment on above: Performed By: #### 1 0231, 6399, 1005, 89858, 7600 #### [facility] [address], [address] [place] [address] Shift Superintendent Caustic Cresylate: Nba Rodriguez MD VITAMIN D,25-OH,TOTAL,IAon 0 10-04-2024 VITAMIN D,25-OH,TOTAL,IA Normal [facility] Comment on above: Performed By: #### 1 0231, 6399, 1005, 00669, 7600 #### [facility] [address], [address] [place] [address] Shift Superintendent Caustic Cresylate: Nba Rodriguez MD CNOVon 09-30-2023 [facility] CAIODIDIRENEE Nassar ([id number]) 1990 F Date Time Provider Department 09/30/23 10:30 AM [place] NGUYEN [facility] During your visit today, we recorded the following information about you: Temperature Pulse Respiration Blood pressure 97.2 degrees 86/minute 16/minute 110/78 Weight 78 kg [place] Nguyen APRN.[employer] 09/30/2023 10:38 AM Signed CC: Patient presents with: Cough: Cough, SILVA and ST x 1 week HPI: Renee Ritchie is a 33 year old female who presents to the office with complaint of head congestion, cough, nonproductive, sore throat, and sinus symptoms for a week. Symptoms are worsening Associated symptoms includes nasal congestion, facial pain/pressure, and headache. Denies fever, nausea, vomiting , and diarrhea. Treatments tried include nothing so far. with no relief of symptoms. Sick contacts: unknown. History of asthma, frequent episodes of bronchitis, chronic bronchitis, bronchiectasis or COPD: No Smoker: No Seasonal/environmental allergies: No The ROS is otherwise negative. The patient's pmh, medications, allergies, and past visits are reviewed. PHYSICAL EXAM: BP 110/78 Pulse 86 Temp 36.2 ?C (97.2 ?F) (Tympanic) Resp 16 Wt 78 kg (171 lb 15.3 oz) LMP 02/04/2017 SpO2 99% BMI 28.62 kg/m? General appearance: alert, cooperative, pleasant, in no acute distress Head: Normocephalic Eyes: EOM's intact, conjunctiva pink and moist, no icterus, sclera white, non-injected Ears: Right ear: External ear/canal- Normal, TM - serous effusion. Left ear: External ear/canal- Normal, TM - serous effusion Oropharynx:mild erythema, without exudates present Heart: Negative. RRR without obvious murmur, gallop, or rubs. No ectopy. Lungs: clear to auscultation, without rales or wheeze, good air exchange PAST MEDICAL HISTORY Diagnosis Date NEGATIVE MEDICAL HISTORY PAST SURGICAL HISTORY Procedure Laterality Date NONE ALLERGIES Patient has no known allergies. MEDICATIONS CHOLECALCIFEROL, VITAMIN D3, (D3-2000 ORAL) Take by mouth. (Patient not taking: Reported on 04/06/2022) norgestimate 0.25 mg-ethinyl estradiol 35 mcg (SPRINTEC) 0.25-35 mg-mcg per tablet Take 1 tablet by mouth once daily. Take only active pills, use in a continuous fashion for scheduled amenorrhea. (Patient not taking: Reported on 09/30/2023) RIBOFLAVIN (VITAMIN B-2 ORAL) Take by mouth. (Patient not taking: Reported on 04/06/2022) MAGNESIUM ORAL Take by mouth. (Patient not taking: Reported on 04/06/2022) FAMILY HISTORY Problem Relation Age of Onset Breast Cancer Maternal Grandmother No Family History No Family History colon/prostate CA Social History Tobacco Use Smoking status: Never Smokeless tobacco: Never Substance Use Topics Alcohol use: No Drug use: No ASSESSMENT/PLAN: 1. Rhinosinusitis - ICD9: 473.9, ICD10: J32.9 - AMOXICILLIN 875 MG TABLET recently delivered baby 7 weeks ago. Prescription instructions reviewed with patient as applicable. Potential red flag symptoms discussed with the patient. Reviewed appropriate action plan to take if red flag symptoms occur. Patient agreeable to treatment plan. [place] Nguyen APRN.[employer] Allergies As of Date: 09/30/2023 (No Known Allergies) Date Reviewed: 09/30/2023 Reviewed by: Mesha Montague LPN - Fully Assessed Reason for Visit: Cough [28] Cmt: Cough, SILVA and ST x 1 week Primary Visit Diagnosis:Rhinosinusiti s [J32.9] Order(s):amoxicillin (AMOXIL) 875 mg tabletTake 1 tablet by mouth two times a day for 7 days.Disp: 14 tabletRfl: 0 Prescriptions as of 09/30/2023 - amoxicillin (AMOXIL) 875 mg tablet Take 1 tablet by mouth two times a day for 7 days. - CHOLECALCIFEROL, VITAMIN D3, (D3-2000 ORAL) Take by mouth. - norgestimate 0.25 mg-ethinyl estradiol 35 mcg (SPRINTEC) 0.25-35 mg-mcg per tablet Take 1 tablet by mouth once daily. Take only active pills, use in a continuous fashion for scheduled amenorrhea. - RIBOFLAVIN (VITAMIN B-2 ORAL) Take by mouth. - MAGNESIUM ORAL Take by mouth. Problem List As Of Date 09/30/2023 Noted Resolved Supervision of normal first [Z34.00] 01/23/2015 03/01/2017 Vaginal delivery [O80] 08/24/2015 03/01/2017 NEGATIVE MEDICAL HISTORY Prescriptions ordered this encounter Disp Refills Start End AMOXICILLIN 875 MG TABLET 14 t* 0 09/30/2023 10/07/2023 Route: ORAL Sig: Take 1 tablet by mouth two times a day for 7 days. Encounter Status:Closed by ALBANIA NGUYEN on 09/30/23 Normal [facility] Office Visit Reporton 09-29-2023 [facility] Office Visit Report [facility] [address] [place] [address] [address] [place] [address] OFFICE VISIT Date of Service: 09/29/23 MR#: [id number] Acct: [id number] Name: RENEE RITCHIE Rep #: [id number] : 1990 Provider: QUEENIE Thomas ams Age/Sex: 33/F Location: [facility] Status: Signed Intake Vital Signs 08/11/23 07:33 09/29/23 13:14 09/29/23 13:16 Height 5 ft 6 in 5 ft 6 in 5 ft 6 in Weight: 173 lb 8 oz BMI 28.0 BP 114/81 H Intake Visit Reasons: visit (obstetrics) Chaplaincy Required: No Is patient in pain?: No Allergies No Known Allergies Allergy (Verified 09/29/23 13:15) Medications ???Medication ???Instructions ???Recorded ???Confirmed ???Type PNV 178-FA 180 mcg-om3 35 mg-dha 1 tab PO DAILY 01/06/23 09/29/23 History 25 mg-epa 5 mg-fish oil chew tablet ferrous sulfate 325 mg (65 mg 325 mg PO DAILY anemia 01/06/23 09/29/23 History iron) tablet (Feosol) magnesium 200 mg tablet 200 mg PO DAILY sleep 01/06/23 09/29/23 History : Yes Current gender identity: female PFSH Medical History (spontaneous vaginal delivery) macrosomia Headache Gestational diabetes H/O depression, currently Surgical History Status post vaginal delivery Family History Mother Diabetes Father Hypertension Grandmother Breast cancer Dementia Social History adopted: No household members: family housing: house number of children: 3 current occupational status: employed current occupation: [employer] pets and animals: Yes pets and animals: cat(s) and dog(s) history of recent travel: No sexually active: Yes current gender identity: female Smoking Status: Never smoker alcohol intake: never substance use type: does not use caffeine: No what type of physical activity do you participate in: none seatbelt use: always do you feel safe at home: Yes additional social history: Ryley History 4 Elective abortions Hx Para 3 Spontaneous abortions Hx # Term Pregnancies 4 Ectopic pregnancies Hx # Pregnancies Multiple births # of living children 4 Past Pregnancies Del. Date Name GA/Weeks Outcome Route Bth Weight Infant Gen Labor Lgth Anesthesia Del Locatn Provider FOB 08/24/15 Cristian 41 live - full term 9 lbs 3 oz. Male 16 hours epidural Med [address]o [address]. Cook [place] 09/05/18 Lilian 40 live - full term 9lb 11oz Female epidural [facility] DESHAWN [place] 10/05/21 Reagan 39 live - full term 9 15oz Male 3 epidural [facility] Maribel Woody [place] 08/11/23 Philomena live - full term Female [facility] Heidi Romero Delivery Date: 08/24/15 Last Updated by: Jenniffer Chacko MD difficult labor Delivery Date: 10/05/21 Last Updated by: Stephanie Fisher Elective IOL, 39weeks, , boy Reagan Depression Screen PHQ-2/9 PHQ-2 Over the last 2 weeks, how often have you been bothered by any of the following problems? 1. Little interest or pleasure in doing things: not at all 2. Feeling down, depressed, or hopeless: not at all Total score: 0 Post HPI visit (obstetrics): Details: RENEE RITCHIE is a 33 year old who presents for her post visit. Feeding: Breast Menses resumed: No [place] since delivery: No Emotional Support: Yes Last Pap:: 2020 ROS Const All systems reviewed are unremarkable except as noted in H Reports system reviewed and no additional complaints, except as documented Card Reports system reviewed and no additional complaints, except as documented GI Reports system reviewed and no additional complaints, except as documented Neuro Yes system reviewed and no additional complaints, except as documented Psych Reports system reviewed and no additional complaints, except as documented, Denies anhedonia, Denies depression, Denies homicidal ideation and Denies suicidal ideation Exam Const General: cooperative, healthy appearing and comfortable Nutritional Appearance: average body habitus Orientation: alert, awake and oriented x3 Neck Neck: normal visual inspection and full ROM Resp Effort Inspection: normal respiratory effort, able to speak in complete sentences and symmetric chest movement GI Inspection: normal to inspection Palpation: soft External Female Exam: normal external appearance and normal appearance of the urethra Urethra: normal appearance of the urethra Speculum Exam - Vagina: normal appearance of the vagina and normal vaginal discharge (more content not included)... Normal [facility] Bedside Glucoseon 08-12-2023 FINGERSTICK GLU 72 mg/dL Low 74-106 [facility] Comment on above: Result Comment: MO SANCHEZ OF PATIENT CARE PER NURSING PROTOCOL Performed By: #### L 3890.6005, L3890.6100, L509.4005, L509.8000, L3890.6300, BTS, L100.0100 #### [facility] [address] [place], [address] Thin prep Papanicolaou smear with manual screeningOrdered By: Tammy Romero on 08-12-2023 Thin prep Papanicolaou smear with manual screening 72 mg/dL 74-106 [facility] Comment on above: MANAGEMENT OF PATIEN T CARE PER NURSING PROTOCOL Absolute lymphocyte countOrd ered By: Tammy Romero on 08-11-2023 Lymphocytes Auto (Unsp spec) [#/Vol] 1.56 10*3/uL 0.83-4.51 [facility] Automated lymphocyte count a s percentage of total leukocytesOrdered By: Tammy Romero on 08-11-2023 Lymphocytes/100 WBC Auto (Unsp spec) 17.2 % 19-41 [facility] Basophil percentageOrdered B y: Tammy Romero on 08-11-2023 Basophils/100 WBC (Bld) 0.4 % 0-1 [facility] Eosinophils/100 WBC (Bld) 1.0 % 0-5 [facility] Hemoglobin (Bld) [Mass/Vol] 12.2 g/dL 12.0-15.0 [facility] Monocytes/100 WBC (Bld) 8.0 % 0-10 [facility] Neutrophils (Bld) [#/Vol] 6.6 10*3/uL 2.0-7.7 [facility] Neutrophils/100 WBC (Bld) 72.5 % 47-70 [facility] WBC (Bld) [#/Vol] 9.1 10*3/uL 4.4-11.0 [facility] Bedside Glucoseon 08-11-2023 FINGERSTICK GLU 85 mg/dL Normal 74-106 [facility] Comment on above: Result Comment: MO GEMENT OF PATIENT CARE PER NURSING PROTOCOL Performed By: #### L 3890.6005, L3890.6100, L509.4005, L509.8000, L3890.6300, BTS, L100.0100 #### [facility] [address] [place], [address] FINGERSTICK GLU 113 mg/dL High 74-106 [facility] Comment on above: Result Comment: MO GEMENT OF PATIENT CARE PER NURSING PROTOCOL Performed By: #### L 3890.6005, L3890.6100, L509.4005, L509.8000, L3890.6300, BTS, L100.0100 #### [facility] [address] [place], [address] FINGERSTICK GLU 85 mg/dL Normal 74-106 [facility] Comment on above: Result Comment: MO GEMENT OF PATIENT CARE PER NURSING PROTOCOL Performed By: #### L 3890.6005, L3890.6100, L509.4005, L509.8000, L3890.6300, BTS, L100.0100 #### [facility] [address] [place], [address] FINGERSTICK GLU 96 mg/dL Normal 74-106 [facility] Comment on above: Result Comment: MO GEMENT OF PATIENT CARE PER NURSING PROTOCOL Performed By: #### L 3890.6005, L3890.6100, L509.4005, L509.8000, L3890.6300, BTS, L100.0100 #### [facility] [address] [place], [address] FINGERSTICK GLU 78 mg/dL Normal 74-106 [facility] Comment on above: Result Comment: MO GEMENT OF PATIENT CARE PER NURSING PROTOCOL Performed By: #### L 501.080 #### [facility] [address] [place], [address] FINGERSTICK GLU 105 mg/dL Normal 74-106 [facility] Comment on above: Result Comment: MO SANCHEZ OF PATIENT CARE PER NURSING PROTOCOL Performed By: #### L 3890.6005, L3890.6100, L509.4005, L509.8000, L3890.6300, BTS, L100.0100 #### [facility] [address] [place], [address] CBC W/Diff, Automatedon 07-27 Absolute Lymph 1.56 X10 3/uL Normal 0.83-4.51 [facility] Comment on above: Performed By: #### L 3890.6005, L3890.6100, L509.4005, L509.8000, L3890.6300, BTS, L100.0100 #### [facility] [address] [place], [address] Absolute Neut 6.6 X10 3/uL Normal 2.0-7.7 [facility] Comment on above: Performed By: #### L 3890.6005, L3890.6100, L509.4005, L509.8000, L3890.6300, BTS, L100.0100 #### [facility] [address] [place], [address] Basophils/100 WBC (Bld) 0.4 % Normal 0-1 [facility] Comment on above: Performed By: #### L 3890.6005, L3890.6100, L509.4005, L509.8000, L3890.6300, BTS, L100.0100 #### [facility] [address] [place], [address] Eosinophils/100 WBC (Bld) 1.0 % Normal 0-5 [facility] Comment on above: Performed By: #### L 3890.6005, L3890.6100, L509.4005, L509.8000, L3890.6300, BTS, L100.0100 #### [facility] [address] [place], [address] Erythrocyte distribution width (RBC) [Ratio] 14.1 % Normal 11.6-14.6 [facility] Comment on above: Performed By: #### L 3890.6005, L3890.6100, L509.4005, L509.8000, L3890.6300, BTS, L100.0100 #### [facility] [address] [place], [address] Hematocrit (Bld) [Volume fraction] 37.4 % Normal 37-47 [facility] Comment on above: Performed By: #### L 3890.6005, L3890.6100, L509.4005, L509.8000, L3890.6300, BTS, L100.0100 #### [facility] [address] [place], [address] Hemoglobin (Bld) [Mass/Vol] 12.2 g/dL Normal 12.0-15.0 [facility] Comment on above: Performed By: #### L 3890.6005, L3890.6100, L509.4005, L509.8000, L3890.6300, BTS, L100.0100 #### [facility] [address] [place], [address] IG% 0.900 Normal 0.0-0.9 [facility] Comment on above: Result Comment: IG% - Immature Granulocytes (promyelocytes, myelocytes and metamyelocytes) > 1% indicates that a LEFT SHIFT is Present. Performed By: #### L 3890.6005, L3890.6100, L509.4005, L509.8000, L3890.6300, BTS, L100.0100 #### [facility] [address] [place], [address] Lymphocytes/100 WBC (Bld) 17.2 % Low 19-41 [facility] Comment on above: Performed By: #### L 3890.6005, L3890.6100, L509.4005, L509.8000, L3890.6300, BTS, L100.0100 #### [facility] [address] [place], [address] MCH (RBC) [Entitic mass] 29.0 pg Normal 27.0-32.0 [facility] Comment on above: Performed By: #### L 3890.6005, L3890.6100, L509.4005, L509.8000, L3890.6300, BTS, L100.0100 #### [facility] [address] [place], [address] MCHC (RBC) [Mass/Vol] 32.6 g/dL Normal 32-36 [facility] Comment on above: Performed By: #### L 3890.6005, L3890.6100, L509.4005, L509.8000, L3890.6300, BTS, L100.0100 #### [facility] [address] [place], [address] MCV (RBC) [Entitic vol] 88.8 fL Normal 81-99 [facility] Comment on above: Performed By: #### L 3890.6005, L3890.6100, L509.4005, L509.8000, L3890.6300, BTS, L100.0100 #### [facility] [address] [place], [address] Monocytes/100 WBC (Bld) 8.0 % Normal 0-10 [facility] Comment on above: Performed By: #### L 3890.6005, L3890.6100, L509.4005, L509.8000, L3890.6300, BTS, L100.0100 #### [facility] [address] [place], [address] Neutrophils/100 WBC (Bld) 72.5 % High 47-70 [facility] Comment on above: Performed By: #### L 3890.6005, L3890.6100, L509.4005, L509.8000, L3890.6300, BTS, L100.0100 #### [facility] [address] [place], [address] Nucleated RBC (Bld) [#/Vol] 0 10*3/uL Normal 0-5 [facility] Comment on above: Performed By: #### L 3890.6005, L3890.6100, L509.4005, L509.8000, L3890.6300, BTS, L100.0100 #### [facility] [address] [place], [address] Platelet mean volume (Bld) [Entitic vol] 8.9 fL Normal 6.2-12.0 [facility] Comment on above: Performed By: #### L 3890.6005, L3890.6100, L509.4005, L509.8000, L3890.6300, BTS, L100.0100 #### [facility] [address] [place], [address] Platelets (Bld) [#/Vol] 202 10*3/uL Normal 150-450 [facility] Comment on above: Performed By: #### L 3890.6005, L3890.6100, L509.4005, L509.8000, L3890.6300, BTS, L100.0100 #### [facility] [address] [place], [address] RBC (Bld) [#/Vol] 4.21 10*6/uL Normal 4.2-5.4 [facility] Comment on above: Performed By: #### L 3890.6005, L3890.6100, L509.4005, L509.8000, L3890.6300, BTS, L100.0100 #### [facility] [address] [place], [address] RDW SD 45.4 fl High 35.1-43.9 [facility] Comment on above: Performed By: #### L 3890.6005, L3890.6100, L509.4005, L509.8000, L3890.6300, BTS, L100.0100 #### [facility] [address] [place], [address] WBC (Bld) [#/Vol] 9.1 10*3/uL Normal 4.4-11.0 [facility] Comment on above: Performed By: #### L 3890.6005, L3890.6100, L509.4005, L509.8000, L3890.6300, BTS, L100.0100 #### [facility] [address] [place], [address] Determination of erythrocyte mean corpuscular volume (MCV)Ordered By: Tammy Romero on 08-11-2023 MCV (RBC) [Entitic vol] 88.8 fL 81-99 [facility] Discharge Instructionon 07-27 Discharge Instruction [facility] Medical Records Department [address] [facility] [address] [place] [address] Instructions for Home/Discharge Instructions 08/11/232101 MR#: [id number] Acct: [id number] Name: RENEE RITCHIE Rep #: [id number] : 1990 33 From: Tammy Romero CNM PCP: Dr. Elvis Ndiaye MD Status:ADM IN Discharge Instructions Diet Discharge Diet: No restrictions Activity Discharge Activity: May Not Drive and May Shower May resume sexual activity in: 6 weeks Weight Bearing Status: Full weight bearing Dressing / Incision Call your doctor if your incision/area has: Sudden Increased Bleeding, Increased Pain/ Swelling and Foul Smelling Discharge Call your doctor if you observe: Fever of 101 or Higher, Numbness or Tingling, Change in Color, Inability to urinate, Inability to have a bowel movement, Using more than 1 pad per hour, Shortness of breath, Dizziness, Fainting spells, Chest pain, Calf discomfort and Uncontrolled pain Follow Up Care Please Follow Up With: Tammy Romero CNM When: 6 weeks , please call office to make an appointment. Congratulations on the of your baby! Test Results: Test results from this visit will be discussed in further detail at your follow-up appointment, if applicable. Discharge Plan Admission Admit Date/Time: 08/11/23 06:55 Attending Provider: Tammy Romero Primary Care Provider: Elvis Ndiaye Discharge Orders/Prescriptions Prescriptions: No Action ferrous sulfate [Feosol] 325 mg (65 mg iron) tablet 325 mg PO DAILY magnesium 200 mg tablet 200 mg PO DAILY PNV [id number]-epa-f gray 180 mcg-35 mg- 25 mg-5 mg tablet,chewable 1 tab PO DAILY Referrals / Follow Up: Elvis Ndiaye MD [Primary Care Provider] - 08/11/232101 Tammy Romero CNM CC: Dr. Elvis Ndiaye MD Signed Normal [facility] Erythrocyte distribution wid th ratioOrdered By: Tammy Romero on 08-11-2023 Erythrocyte distribution width (RBC) [Ratio] 14.1 % 11.6-14.6 [facility] Erythrocyte distribution wid th standard deviationOrdered By: Tammy Romero on 08-11-2023 Erythrocyte distribution width (RBC) [Entitic vol] 45.4 fL 35.1-43.9 [facility] H AND P Exam - OB/GYNon 07-27 H&P Exam - [employer]ATOR [employer] [facility] Medical Records Department [address] [place] [address] H P Exam - [employer] 08/11/23 0844 MR#: [id number] Acct: [id number] Name: RENEE RITCHIE Rep #: [id number] : 1990 33 From: Tammy Romero CNM PCP: Dr. Elvis Ndiaye MD Status:ADM IN Location: KD173-5 HPI - General General Date of Admission: 08/11/23 HPI Narrative RENEE RITCHIE, is a 33 F who presents at 39 weeks for IOL for diet controlled GDM with LGA. pelvis proven to 9#15oz without hx of shoulder dystocia. 36 wk us-3661 grams with 39 weeks projected weight 4336 grams Maternal Data Information TYRONE Calculator Estimated Delivery Date Method Current WG Current Estimate 08/18/23 LMP (Certain) 39w 0d PFSH PFSH Medical History H/O depression, currently Home Medications PNV 178-FA 180 mcg-om3 35 mg-dha 25 mg-epa 5 mg-fish oil chew tablet 1 tab PO DAILY 01/06/23 [History Last Taken Unknown] ferrous sulfate 325 mg (65 mg iron) tablet (Feosol) 325 mg PO DAILY anemia 01/06/23 [History Last Taken Unknown] magnesium 200 mg tablet 200 mg PO DAILY sleep 01/06/23 [History Last Taken Unknown] Allergy/AdvReac Type Severity Reaction Status Date / Time No Known Allergies Allergy Verified 08/11/23 08:25 Family History Mother Diabetes Father Hypertension Grandmother Breast cancer Dementia Surgical History Status post vaginal delivery Social History adopted: No household members: family housing: house number of children: 3 current occupational status: employed current occupation: [employer] pets and animals: Yes pets and animals: cat(s) and dog(s) history of recent travel: No sexually active: Yes Smoking Status: Never smoker alcohol intake: never substance use type: does not use caffeine: No what type of physical activity do you participate in: none seatbelt use: always do you feel safe at home: Yes additional social history: [place] History 4 Elective abortions Hx Para 3 Spontaneous abortions Hx # Term Pregnancies 3 Ectopic pregnancies Hx # Pregnancies Multiple births # of living children 3 Past Pregnancies Del. Date Name GA/Weeks Outcome Route Bth Weight Infant Gen Labor Lgth Anesthesia Del Locatn Provider FOB 08/24/15 Cristian 41 live - full term 9 lbs 3 oz. Male 16 hours epidural Med theo Dr. Cook [place] 09/05/18 Lilian 40 live - full term 9lb 11oz Female epidural [facility] DESHAWN [place] 10/05/21 Reagan 39 live - full term 9 15oz Male 3 epidural [facility] Maribel marylujoanne Woody [place] Delivery Date: 08/24/15 Last Updated by: eJnniffer Chacko MD difficult labor Delivery Date: 10/05/21 Last Updated by: Stephanie Fisher Elective IOL, 39weeks, , boy Reagan Visit Details Expected Delivery Route/Plan Labor Preferences- CB/BF classes: no labor support person: [place] labor intervention preferences: [] pain management options preferred: epidural cut cord/dad catch: yes : yes PP control planned: POP, vas planned discussed possible routes of delivery and associated risks: [] special requests: [] Plans Covid status: [] Flu vaccine: declines Tdap vaccine: given Rhogam: NA LARC form signed: yes Problem list reviewed and updated with the most current plan of care details and appropriate orders placed. Relevant counseling for the gestational age provided. Continue routine care and follow up unless otherwise noted in visit notes/problem list details OB Flowsheet Initial Weight: 178 lb Date -???-???-???-???-???-?? ?-???-???-???-???-???-? ??- EGA Weight BP Urine Prot -???-???-???-???-???-?? ?-???-???-???-???-???-? ??- Glucose FHR FuHt Pres Dilation -???-???-???-???-???-?? ?-???-???-???-???-???-? ??- Effaced St Visit Note 01/06/23 -???-???-???-???-???-?? ?-???-???-???-???-???-? ??- 8w 0d 178 lb 6 oz (+6 oz) 116/76 -???-???-???-???-???-?? ?-???-???-???-???-???-? ??- 160 -???-???-???-???-???-?? ?-???-???-???-???-???-? ??- KW-CRL cons with dates. doing well-NIPT desired 02/05/23 -???-???-???-???-???-?? ?-???-???-???-???-???-? ??- 12w 2d 178 lb 4 oz (+4 oz) 114/78 Negative -???-???-???-???-???-?? ?-???-???-???-???-???-? ??- Negative 156 -???-???-???-???-???-?? ?-???-???-???-???-???-? ??- JV-no crampi ng or bleeding. normal NIPT, it's a girl! no complaints. rto 4 weeks 03/05/23 -???-???-???-???-???-?? ?-???-???-???-???-???-? ??- 16w 2d 177 lb 6 oz (-10 oz) 111/76 Negative -???-???-???-???-???-?? ?-???-???-???-???-???-? ??- Negative 150 -? (more content not included)... Normal [facility] Hematocrit Auto (Bld) [Volum e fraction]Ordered By: Tammy Romero on 08-11-2023 Hematocrit (Bld) [Volume fraction] 37.4 % 37-47 [facility] Immature granulocytes/100 WB C Auto (Bld)Ordered By: Tammy Romero on 08-11-2023 Immature granulocytes/100 WBC (Bld) 0.900 % 0.0-0.9 [facility] Comment on above: IG% - Immature Granu locytes (promyelocytes, myelocytes and metamyelocytes) > 1% indicates that a LEFT SHIFT is Present. L509.8000on 08-11-2023 Syphilis Abs Non-Reactive Normal [facility] Comment on above: Performed By: #### L 3890.6005, L3890.6100, L509.4005, L509.8000, L3890.6300, BTS, L100.0100 #### [facility] [address] [place], [address] Laboratory - Hematology and Cell countsOrdered By: Tammy Romero on 08-11-2023 MCH (RBC) [Entitic mass] 29.0 pg 27.0-32.0 [facility] MCHC (RBC) [Mass/Vol] 32.6 g/dL 32-36 [facility] Nucleated RBC/100 WBC (Bld) [Ratio] 0 % 0-5 [facility] Platelet mean volume (Bld) [Entitic vol] 8.9 fL 6.2-12.0 [facility] Platelets (Bld) [#/Vol] 202 10*3/uL 150-450 [facility] Operative Reporton 4 Operative Report [facility] Medical Records Department [address] [facility] [address] [place] [address] Operative Report 08/11/23 1635 MR#: [id number] Acct: [id number] Name: RENEE RITCHIE Rep #: [id number] : 1990 33 From: Tammy Romero CNM PCP: Dr. Elvis Ndiaye MD Status:ADM IN Location: ND877-3 Assessment Plan (1) (spontaneous vaginal delivery): COMMENT: LC IOL: 39 weeks GDM. girl: Philomena Maternal Data Information TYRONE Calculator Estimated Delivery Date Method Current WG Current Estimate 08/18/23 LMP (Certain) 39w 0d Final TYRONE: 08/18/23 Final TYRONE Source: LMP Gestational age: 39 Vaginal Delivery Maternal Presentation Maternal Presentation: Medically Indicated Induction Maternal Presentation: at 39 weeks presented for IOL for GDM with LGA, induced with Pitocin. AROM for mec fluid. Type of Induction: Pitocin Operative Information Date of Procedure: 08/11/23 Pre-Operative Diagnosis: see problem list Post-Operative Diagnosis: Surgery / Procedure Performed: Spontaneous Vaginal Delivery Estimated Blood Loss: 250 Time of Delivery: 15:25 Findings Description of Procedure: Patient began pushing and delivered the head in the JOSE presentation. The head was delivered atraumatically and a tigh nuchal cord ???1 was identified. The anterior and posterior shoulders d elivered without complication followed by the rest of the infant and infant was somersaulted over cord and the was placed on the maternal abdomen. Delayed cord clamping was employed for approximately 60 seconds. Cord was clamped and cut and gentle traction was applied to the cord and the placenta delivered spontaneously immediately following it was noted to be intact with three- vessel cord. The perineum and vagina were inspected and noted to have no laceration. EBL was 250cc. Patient and tolerated delivery well. Presentation: JOSE Amniotic Membrane Rupture Type: Artificial Amniotic Fluid Description: Moderate meconium Placental Delivery Description: Spontaneous Placenta Disposition: [facility] Cord Vessel Description: 3 Vessels Cord Entanglement: None A Gender: Female (1 minute): 8 (5 minute): 9 Delayed Cord Clamping: Yes Post Vaginal Delivery Medications Given After Delivery: IV Pitocin Episiotomy Description: None Laceration: 2nd degree Procedures Urinary/Genital 52xxx-59xxx: 64585 Vaginal Delivery [facility] 08/11/232104 Cosigner Signature (if applicable): CC: QUEENIE Romero; Dr. Elvis Ndiaye MD Signed Normal [facility] RBC Auto (Bld) [#/Vol]Ordere d By: Tammy Romero on 08-11-2023 RBC (Bld) [#/Vol] 4.21 10*6/uL 4.2-5.4 [facility] Serum Treponema species anti body detectionOrdered By: Tammy Romero on 08-11-2023 Treponema sp Ab Ql (S) Non-Reactive [facility] Type AND Screenon 08-11-2023 ABO and Rh group Nom (Bld) Blood group O Rh(D) positive Normal [facility] Comment on above: Order Comment: PN Performed By: #### L 3890.6005, L3890.6100, L509.4005, L509.8000, L3890.6300, BTS, L100.0100 #### [facility] [address] [place], [address] Laboratory - Chemistry and C hemistry - challengeon 08-06-2023 Glucose Ql (U) Negative [facility] Laboratory - Urinalysison Protein Ql (U) Negative [facility] Head Of Drama Office Visit Reporton 08-06-2023 Head Of Drama Office Visit Report [facility] [place] [address] [place] [address] OFFICE VISIT Date of Service: 08/06/23 MR#: [id number] Acct: [id number] Name: RENEE RITCHIE Rep #: [id number] : 1990 Provider: QUEENIE harris Age/Sex: 33/F Location: [facility] Status: Signed Intake Vital Signs 04/30/23 08:28 07/30/23 10:00 08/06/23 10:36 Height 5 ft 6 in 5 ft 6 in 5 ft 6 in Weight: 203 lb 2 oz BMI 32.8 BP 136/76 H Intake Visit Reasons: 38 WK OB Chaplaincy Required: No Is patient in pain?: No Allergies No Known Allergies Allergy (Verified 08/06/23 10:36) Medications PNV 178-FA 180 mcg-om3 35 mg-dha 25 mg-epa 5 mg-fish oil chew tablet 1 tab PO DAILY 01/06/23 [History Confirmed 08/06/23] ferrous sulfate 325 mg (65 mg iron) tablet (Feosol) 325 mg PO DAILY 01/06/23 [History Confirmed 08/06/23] magnesium 200 mg tablet 200 mg PO DAILY 01/06/23 [History Confirmed 08/06/23] Last Menstrual Period: 11/11/22 Zika: Zika virus screening: Negative : No PFSH PFSH Medical History H/O depression, currently Surgical History Status post vaginal delivery Family History Mother Diabetes Father Hypertension Grandmother Breast cancer Dementia Social History adopted: No household members: family housing: house number of children: 3 current occupational status: employed current occupation: [employer] pets and animals: Yes pets and animals: cat(s) and dog(s) history of recent travel: No sexually active: Yes Smoking Status: Never smoker alcohol intake: never substance use type: does not use caffeine: No what type of physical activity do you participate in: none seatbelt use: always do you feel safe at home: Yes additional social history: [place] History 4 Elective abortions Hx Para 3 Spontaneous abortions Hx # Term Pregnancies 3 Ectopic pregnancies Hx # Pregnancies Multiple births # of living children 3 Past Pregnancies Del. Date Name GA/Weeks Outcome Route Bth Weight Infant Gen Labor Lgth Anesthesia Del Locatn Provider FOB 08/24/15 Cristian 41 live - full term 9 lbs 3 oz. Male 16 hours epidural Med theo Dr. Cook [place] 09/05/18 Lilian 40 live - full term 9lb 11oz Female epidural [facility]WN [place] 10/05/21 Kirk 39 live - full term 9 15oz Male 3 epidural [facility] Maribel natasha Jackson Velde [place] Delivery Date: 08/24/15 Last Updated by: Jenniffer Chacko MD difficult labor Delivery Date: 10/05/21 Last Updated by: Stephanie Fisher Elective IOL, 39weeks, , boy Reagan HPI 38 WK OB Details: RENEE RITCHIE is a 33 year old who presents for routine OB visit. OB Visit TYRONE Calculator Estimated Delivery Date Method Current WG Current Estimate 08/18/23 LMP (Certain) 38w 2d Expected Delivery Route/Plan Labor Preferences- CB/BF classes: no labor support person: [place] labor intervention preferences: [] pain management options preferred: epidural cut cord/dad catch: yes : yes PP control planned: POP, vas planned discussed possible routes of delivery and associated risks: [] special requests: [] Specific Issue/Plans Covid status: [] Flu vaccine: declines Tdap vaccine: given Rhogam: NA LARC form signed: yes Problem list reviewed and updated with the most current plan of care details and appropriate orders placed. Relevant counseling for the gestational age provided. Continue routine care and follow up unless otherwise noted in visit notes/problem list details Initial Weight: 178 lb Date -???-???-???-???-???-?? ?-???-???-???-???-???-? ??- EGA Weight BP Urine Prot -???-???-???-???-???-?? ?-???-???-???-???-???-? ??- Glucose FHR FuHt Pres Dilation -???-???-???-???-???-?? ?-???-???-???-???-???-? ??- Effaced St Visit Note 01/06/23 -???-???-???-???-???-?? ?-???-???-???-???-???-? ??- 8w 0d 178 lb 6 oz (+6 oz) 116/76 -???-???-???-???-???-?? ?-???-???-???-???-???-? ??- 160 -???-???-???-???-???-?? ?-???-???-???-???-???-? ??- KW-CRL cons with dates. doing well-NIPT desired 02/05/23 -???-???-???-???-???-?? ?-???-???-???-???-???-? ??- 12w 2d 178 lb 4 oz (+4 oz) 114/78 Negative -???-???-???-???-???-?? ?-???-???-???-???-???-? ??- Negative 156 -???-???-???-???-???-?? ?-???-???-???-???-???-? ??- JV-no crampi ng or bleeding. normal NIPT, it's a girl! no complaints. rto 4 weeks 03/05/23 -???-???-???-???-???-?? ?-???-???-???-???-???-? ??- 16w 2d 177 lb 6 oz (-10 oz) 111/76 Negative -??? (more content not included)... Normal [facility] - Chemistry and C hemistry - challengeon 07-30-2023 Glucose Ql (U) Negative [facility] - Urinalysison Protein Ql (U) Negative [facility] Head Of Drama Office Visit Reporton 07-30-2023 Head Of Drama Office Visit Report [facility] [place] [address] [place] [address]. [address] [place] [address] OFFICE VISIT Date of Service: 07/30/23 MR#: [id number] Acct: [id number] Name: RENEE RITCHIE Rep #: [id number] : 1990 Provider: QUEENIE harris Age/Sex: 33/F Location: [facility] Status: Signed Intake Vital Signs 04/30/23 08:28 07/23/23 09:42 07/30/23 09:56 07/30/23 10:00 Height 5 ft 6 in 5 ft 6 in 5 ft 6 in 5 ft 6 in Weight: 205 lb BMI 33.0 BP 122/84 H Intake Visit Reasons: 37 WK OB Chaplaincy Required: No Is patient in pain?: No Allergies No Known Allergies Allergy (Verified 07/30/23 09:57) Medications PNV 178-FA 180 mcg-om3 35 mg-dha 25 mg-epa 5 mg-fish oil chew tablet 1 tab PO DAILY 01/06/23 [History Confirmed 07/30/23] ferrous sulfate 325 mg (65 mg iron) tablet (Feosol) 325 mg PO DAILY 01/06/23 [History Confirmed 07/30/23] magnesium 200 mg tablet 200 mg PO DAILY 01/06/23 [History Confirmed 07/30/23] Last Menstrual Period: 11/11/22 Zika: Zika virus screening: Negative : No PFSH PFSH Medical History H/O depression, currently Surgical History Status post vaginal delivery Family History Mother Diabetes Father Hypertension Grandmother Breast cancer Dementia Social History adopted: No household members: family housing: house number of children: 3 current occupational status: employed current occupation: [employer] pets and animals: Yes pets and animals: cat(s) and dog(s) history of recent travel: No sexually active: Yes Smoking Status: Never smoker alcohol intake: never substance use type: does not use caffeine: No what type of physical activity do you participate in: none seatbelt use: always do you feel safe at home: Yes additional social history: Ryley History 4 Elective abortions Hx Para 3 Spontaneous abortions Hx # Term Pregnancies 3 Ectopic pregnancies Hx # Pregnancies Multiple births # of living children 3 Past Pregnancies Del. Date Name GA/Weeks Outcome Route Bth Weight Infant Gen Labor Lgth Anesthesia Del Locatn Provider FOB 08/24/15 Cristian 41 live - full term 9 lbs 3 oz. Male 16 hours epidural Med theo Dr. Cook [place] 09/05/18 Lilian 40 live - full term 9lb 11oz Female epidural [facility] DESHAWN [place] 10/05/21 Reagan 39 live - full term 9 15oz Male 3 epidural [facility] Maribel Woody [place] Delivery Date: 08/24/15 Last Updated by: Jenniffer Chacko MD difficult labor Delivery Date: 10/05/21 Last Updated by: Stephanie Fisher Elective IOL, 39weeks, , boy Reagan HPI 37 WK OB Details: RENEE RITHCIE is a 33 year old who presents for routine OB visit. OB Visit TYRONE Calculator Estimated Delivery Date Method Current WG Current Estimate 08/18/23 LMP (Certain) 37w 2d Expected Delivery Route/Plan Labor Preferences- CB/BF classes: no labor support person: Ryley labor intervention preferences: [] pain management options preferred: epidural cut cord/dad catch: yes : yes PP control planned: POP, vas planned discussed possible routes of delivery and associated risks: [] special requests: [] Specific Issue/Plans Covid status: [] Flu vaccine: declines Tdap vaccine: given Rhogam: NA LARC form signed: yes Problem list reviewed and updated with the most current plan of care details and appropriate orders placed. Relevant counseling for the gestational age provided. Continue routine care and follow up unless otherwise noted in visit notes/problem list details Initial Weight: 178 lb Date -???-???-???-???-???-?? ?-???-???-???-???-???-? ??- EGA Weight BP Urine Prot -???-???-???-???-???-?? ?-???-???-???-???-???-? ??- Glucose FHR FuHt Pres Dilation -???-???-???-???-???-?? ?-???-???-???-???-???-? ??- Effaced St Visit Note 01/06/23 -???-???-???-???-???-?? ?-???-???-???-???-???-? ??- 8w 0d 178 lb 6 oz (+6 oz) 116/76 -???-???-???-???-???-?? ?-???-???-???-???-???-? ??- 160 -???-???-???-???-???-?? ?-???-???-???-???-???-? ??- KW-CRL cons with dates. doing well-NIPT desired 02/05/23 -???-???-???-???-???-?? ?-???-???-???-???-???-? ??- 12w 2d 178 lb 4 oz (+4 oz) 114/78 Negative -???-???-???-???-???-?? ?-???-???-???-???-???-? ??- Negative 156 -???-???-???-???-???-?? ?-???-???-???-???-???-? ??- JV-no crampi ng or bleeding. normal NIPT, it's a girl! no complaints. rto 4 weeks 03/05/23 -???-???-???-???-???-?? ?-???-???-???-???-???-? ??- 16w 2d 177 lb 6 oz (-10 oz) (more content not included)... Normal [facility] Rule out Beta Strep (Grp. B) on 07-25-2023 EVELINA Group B Beta Streptococcus is not isolated. Normal [facility] Comment on above: Performed By: #### L 3890.6005, L3890.6100, L509.4005, L509.8000, L3890.6300, BTS, L100.0100 #### [facility] [place], [address] Gestational diabetes screen 1-hour screen with 50g oral glucose loadOrdered By: Arielle Hilton on 07-24-2023 Glucose 1 Hr post 50 g glucose PO [Mass/Vol] 150 mg/dL 70-140 [facility] Glucose Challenge Gest 1H 50 sarah 07-24-2023 GLU GEST 50g 1H 150 mg/dL High 70-140 [facility] Comment on above: Performed By: #### L 3890.6005, L3890.6100, L509.4005, L509.8000, L3890.6300, BTS, L100.0100 #### [facility] [address] [place], [place], [id number] Group B Strep DNA By PCRon 0 07-23-2023 GBS DNA ASSAY Negative Normal Negative [facility] Comment on above: Order Comment: Vagin al-Rectal Performed By: #### L 8200.0000 #### [facility] [address] [place], [place], [id number] No Panel InformationOrdered By: Arielle Hilton on 07-23-2023 Group B Streptococcus Culture Group B Beta Streptococcus is not isolated. [facility] Specimen Comment (Misc) Not Reportable [facility] Head Of Drama Office Visit Reporton 07-23-2023 Head Of Drama Office Visit Report [facility] [place] [address] [place], [place] [address] OFFICE VISIT Date of Service: 07/23/23 MR#: [id number] Acct: [id number] Name: RENEE RITCHIE Rep #: [id number] : 1990 Provider: QUEENIE Thomas ams Age/Sex: 33/F Location: [facility] Status: Signed Intake Vital Signs 04/30/23 08:28 07/09/23 09:30 07/23/23 09:42 Height 5 ft 6 in 5 ft 6 in 5 ft 6 in Weight: 199 lb BMI 32.1 BP 105/74 Intake Visit Reasons: 36 WK OB Chaplaincy Required: No Is patient in pain?: No Allergies No Known Allergies Allergy (Verified 07/23/23 09:43) Medications PNV 178-FA 180 mcg-om3 35 mg-dha 25 mg-epa 5 mg-fish oil chew tablet 1 tab PO DAILY 01/06/23 [History Confirmed 07/23/23] ferrous sulfate 325 mg (65 mg iron) tablet (Feosol) 325 mg PO DAILY 01/06/23 [History Confirmed 07/23/23] magnesium 200 mg tablet 200 mg PO DAILY 01/06/23 [History Confirmed 07/23/23] Last Menstrual Period: 11/11/22 Zika: Zika virus screening: Negative : No PFSH PFSH Medical History H/O depression, currently Surgical History Status post vaginal delivery Family History Mother Diabetes Father Hypertension Grandmother Breast cancer Dementia Social History adopted: No household members: family housing: house number of children: 3 current occupational status: employed current occupation: [employer] pets and animals: Yes pets and animals: cat(s) and dog(s) history of recent travel: No sexually active: Yes Smoking Status: Never smoker alcohol intake: never substance use type: does not use caffeine: No what type of physical activity do you participate in: none seatbelt use: always do you feel safe at home: Yes additional social history: Ryley History 4 Elective abortions Hx Para 3 Spontaneous abortions Hx # Term Pregnancies 3 Ectopic pregnancies Hx # Pregnancies Multiple births # of living children 3 Past Pregnancies Del. Date Name GA/Weeks Outcome Route Bth Weight Infant Gen Labor Lgth Anesthesia Del Locatn Provider FOB 08/24/15 Cristian 41 live - full term 9 lbs 3 oz. Male 16 hours epidural Med theo Dr. Cook [place] 09/05/18 Lilian 40 live - full term 9lb 11oz Female epidural [facility] DESHAWN [place] 10/05/21 Reagan 39 live - full term Male epidural [facility] Maribel Woody [place] Delivery Date: 08/24/15 Last Updated by: Jenniffer Chacko MD difficult labor Delivery Date: 10/05/21 Last Updated by: Stephanie Fisher Elective IOL, 39weeks, , melissa Kirk HPI 36 WK OB Details: RENEE RITCHIE is a 33 year old who presents for routine OB visit. OB Visit TYRONE Calculator Estimated Delivery Date Method Current WG Current Estimate 08/18/23 LMP (Certain) 36w 2d Expected Delivery Route/Plan Labor Preferences- CB/BF classes: no labor support person: Ryley labor intervention preferences: [] pain management options preferred: epidural cut cord/dad catch: yes : yes PP control planned: POP, vas planned discussed possible routes of delivery and associated risks: [] special requests: [] Specific Issue/Plans Covid status: [] Flu vaccine: declines Tdap vaccine: given Rhogam: NA LARC form signed: yes Problem list reviewed and updated with the most current plan of care details and appropriate orders placed. Relevant counseling for the gestational age provided. Continue routine care and follow up unless otherwise noted in visit notes/problem list details Initial Weight: 178 lb Date -???-???-???-???-???-?? ?-???-???-???-???-???-? ??- EGA Weight BP Urine Prot -???-???-???-???-???-?? ?-???-???-???-???-???-? ??- Glucose FHR FuHt Pres Dilation -???-???-???-???-???-?? ?-???-???-???-???-???-? ??- Effaced St Visit Note 01/06/23 -???-???-???-???-???-?? ?-???-???-???-???-???-? ??- 8w 0d 178 lb 6 oz (+6 oz) 116/76 -???-???-???-???-???-?? ?-???-???-???-???-???-? ??- 160 -???-???-???-???-???-?? ?-???-???-???-???-???-? ??- KW-CRL cons with dates. doing well-NIPT desired 02/05/23 -???-???-???-???-???-?? ?-???-???-???-???-???-? ??- 12w 2d 178 lb 4 oz (+4 oz) 114/78 Negative -???-???-???-???-???-?? ?-???-???-???-???-???-? ??- Negative 156 -???-???-???-???-???-?? ?-???-???-???-???-???-? ??- JV-no crampi ng or bleeding. normal NIPT, it's a girl! no complaints. rto 4 weeks 03/05/23 -???-???-???-???-???-?? ?-???-???-???-???-???-? ??- 16w 2d 177 lb 6 oz (-10 oz) 111/76 Negative -???- (more content not included)... Normal [facility] Thin prep Papanicolaou smear with manual screeningOrdered By: Arielle Hilton on 07-23-2023 Thin prep Papanicolaou smear with manual screening Negative Negative [facility] OB Limited With Biometricson 07-21-2023 OB Limited With Biometrics [facility] Imaging Services [address] [place] [address] OB Limited With Biometrics MR#: [id number] Acct: [id number] Name: RENEE RITCHIE Rep #: [id number] : 1990 F 33 From: Farhad caballero MD PCP: Dr. Elvis Ndiaye MD Status: REG CLI Study: OB Limited With Biometrics Date of Exam: 07/20 Exam# [id number] Ordering Dr: Nazia Alvarez NP EXPORT FREIGHT CLERK -C [id number] STUDY: SECOND AND THIRD TRIMESTER OBSTETRICAL ULTRASOUND - LIMITED REASON FOR EXAM: Female, 33 years old growth LMP: November 11, 2022. PRIOR ULTRASOUND: Comparison is made with prior study dated April 01, 2023. TECHNIQUE: Transabdominal TECHNICAL QUALITY: Adequate. FINDINGS: There is a single intrauterine fetus. The fetus is in a cephalic presentation. There is demonstrated cardiac activity with a heart rate of 141 bpm. There is a normal amniotic fluid volume. The largest amniotic fluid pocket measures 5.5 cm. The amniotic fluid index (CHELSEY) is 12.4 cm. The placenta is anterior in location and is not low lying. There are Grade 2 placental changes. The cervix measures 3.9 cm in length. BIOMETRY: BPD: 9.61 cm: 39 weeks, 2 days HC: 34.7 cm: 40 weeks, 1 days AC: 35.8 cm: 39 weeks, 5 days FL: 7.1 cm: 36 weeks, 3 days Age by LMP: 36 weeks, 0 days. TYRONE by LMP: August 18, 2023. age by prior US: 36 weeks, 2 days. TYRONE by prior US: August 16, 2023. age by current US: 39 weeks, 0 days. TYRONE by current US: July 28, 2023. Estimated weight: 3661 grams, +/- 549 grams, 98 percentile. US/OB Limited With Biometrics IMPRESSION: Single live intrauterine gestation with a mean gestational age of 36 weeks and 2 days. The measurements obtained today place the fetus in the 98th percentile. Electronically Signed: Farhad Ariza MD at 16:23 EDT Reading Location ID and State: [facility] / [place] , Service support , CC: MIGUEL Alvarez; Dr. Elvis Ndiaye MD [employer] Program Director: Signed Normal [facility] Absolute lymphocyte countOrd ered By: Nazia Alvarez on 07-18-2023 Lymphocytes Auto (Unsp spec) [#/Vol] 1.70 10*3/uL 0.83-4.51 [facility] Automated lymphocyte count a s percentage of total leukocytesOrdered By: Nazia Alvarez on 07-18-2023 Lymphocytes/100 WBC Auto (Unsp spec) 12.8 % 19-41 [facility] Basophil percentageOrdered B y: Nazia Alvarez on 07-18-2023 Basophils/100 WBC (Bld) 0.5 % 0-1 [facility] Eosinophils/100 WBC (Bld) 1.1 % 0-5 [facility] Hemoglobin (Bld) [Mass/Vol] 11.6 g/dL 12.0-15.0 [facility] Monocytes/100 WBC (Bld) 7.8 % 0-10 [facility] Neutrophils (Bld) [#/Vol] 10.2 10*3/uL 2.0-7.7 [facility] Neutrophils/100 WBC (Bld) 76.7 % 47-70 [facility] WBC (Bld) [#/Vol] 13.3 10*3/uL 4.4-11.0 [facility] CBC W/Diff, Automatedon 06-27 Absolute Lymph 1.70 X10 3/uL Normal 0.83-4.51 [facility] Comment on above: Performed By: #### L 3890.6005, L3890.6100, L509.4005, L509.8000, L3890.6300, BTS, L100.0100 #### [facility] [address] [place], [place], [id number] Absolute Neut 10.2 X10 3/uL High 2.0-7.7 [facility] Comment on above: Performed By: #### L 3890.6005, L3890.6100, L509.4005, L509.8000, L3890.6300, BTS, L100.0100 #### [facility] [address] [place], [address] Basophils/100 WBC (Bld) 0.5 % Normal 0-1 [facility] Comment on above: Performed By: #### L 3890.6005, L3890.6100, L509.4005, L509.8000, L3890.6300, BTS, L100.0100 #### [facility] [address] [place], [address] Eosinophils/100 WBC (Bld) 1.1 % Normal 0-5 [facility] Comment on above: Performed By: #### L 3890.6005, L3890.6100, L509.4005, L509.8000, L3890.6300, BTS, L100.0100 #### [facility] [address] [place], [address] Erythrocyte distribution width (RBC) [Ratio] 13.9 % Normal 11.6-14.6 [facility] Comment on above: Performed By: #### L 3890.6005, L3890.6100, L509.4005, L509.8000, L3890.6300, BTS, L100.0100 #### [facility] [address] [place], [address] Hematocrit (Bld) [Volume fraction] 37.9 % Normal 37-47 [facility] Comment on above: Performed By: #### L 3890.6005, L3890.6100, L509.4005, L509.8000, L3890.6300, BTS, L100.0100 #### [facility] [address] [place], [address] Hemoglobin (Bld) [Mass/Vol] 11.6 g/dL Low 12.0-15.0 [facility] Comment on above: Performed By: #### L 3890.6005, L3890.6100, L509.4005, L509.8000, L3890.6300, BTS, L100.0100 #### [facility] [address] [place], [address] IG% 1.100 High 0.0-0.9 [facility] Comment on above: Result Comment: IG% - Immature Granulocytes (promyelocytes, myelocytes and metamyelocytes) > 1% indicates that a LEFT SHIFT is Present. Performed By: #### L 3890.6005, L3890.6100, L509.4005, L509.8000, L3890.6300, BTS, L100.0100 #### [facility] [address] [place], [address] Lymphocytes/100 WBC (Bld) 12.8 % Low 19-41 [facility] Comment on above: Performed By: #### L 3890.6005, L3890.6100, L509.4005, L509.8000, L3890.6300, BTS, L100.0100 #### [facility] [address] [place], [address] MCH (RBC) [Entitic mass] 28.1 pg Normal 27.0-32.0 [facility] Comment on above: Performed By: #### L 3890.6005, L3890.6100, L509.4005, L509.8000, L3890.6300, BTS, L100.0100 #### [facility] [address] [place], [address] MCHC (RBC) [Mass/Vol] 30.6 g/dL Low 32-36 [facility] Comment on above: Performed By: #### L 3890.6005, L3890.6100, L509.4005, L509.8000, L3890.6300, BTS, L100.0100 #### [facility] [address] [place], [address] MCV (RBC) [Entitic vol] 91.8 fL Normal 81-99 [facility] Comment on above: Performed By: #### L 3890.6005, L3890.6100, L509.4005, L509.8000, L3890.6300, BTS, L100.0100 #### [facility] [address] [place], [address] Monocytes/100 WBC (Bld) 7.8 % Normal 0-10 [facility] Comment on above: Performed By: #### L 3890.6005, L3890.6100, L509.4005, L509.8000, L3890.6300, BTS, L100.0100 #### [facility] [address] [place], [address] Neutrophils/100 WBC (Bld) 76.7 % High 47-70 [facility] Comment on above: Performed By: #### L 3890.6005, L3890.6100, L509.4005, L509.8000, L3890.6300, BTS, L100.0100 #### [facility] [address] [place], [address] Nucleated RBC (Bld) [#/Vol] 0 10*3/uL Normal 0-5 [facility] Comment on above: Performed By: #### L 3890.6005, L3890.6100, L509.4005, L509.8000, L3890.6300, BTS, L100.0100 #### [facility] [address] [place], [address] Platelet mean volume (Bld) [Entitic vol] 8.0 fL Normal 6.2-12.0 [facility] Comment on above: Performed By: #### L 3890.6005, L3890.6100, L509.4005, L509.8000, L3890.6300, BTS, L100.0100 #### [facility] [address] [place], [address] Platelets (Bld) [#/Vol] 186 10*3/uL Normal 150-450 [facility] Comment on above: Performed By: #### L 3890.6005, L3890.6100, L509.4005, L509.8000, L3890.6300, BTS, L100.0100 #### [facility] [address] [place], [address] RBC (Bld) [#/Vol] 4.13 10*6/uL Low 4.2-5.4 [facility] Comment on above: Performed By: #### L 3890.6005, L3890.6100, L509.4005, L509.8000, L3890.6300, BTS, L100.0100 #### [facility] [address] [place], [address] RDW SD 46.6 fl High 35.1-43.9 [facility] Comment on above: Performed By: #### L 3890.6005, L3890.6100, L509.4005, L509.8000, L3890.6300, BTS, L100.0100 #### [facility] [address] [place], [address] WBC (Bld) [#/Vol] 13.3 10*3/uL High 4.4-11.0 [facility] Comment on above: Performed By: #### L 3890.6005, L3890.6100, L509.4005, L509.8000, L3890.6300, BTS, L100.0100 #### [facility] [address] [place], [address] Determination of erythrocyte mean corpuscular volume (MCV)Ordered By: Nazia Alvarez on 07-18-2023 MCV (RBC) [Entitic vol] 91.8 fL 81-99 [facility] Erythrocyte distribution wid th ratioOrdered By: Naziaveda Alvarez on 07-18-2023 Erythrocyte distribution width (RBC) [Ratio] 13.9 % 11.6-14.6 [facility] Erythrocyte distribution wid th standard deviationOrdered By: Nazia Alvarez on 07-18-2023 Erythrocyte distribution width (RBC) [Entitic vol] 46.6 fL 35.1-43.9 [facility] Hematocrit Auto (Bld) [Volum e fraction]Ordered By: Nazia Alvarez on 07-18-2023 Hematocrit (Bld) [Volume fraction] 37.9 % 37-47 [facility] Immature granulocytes/100 WB C Auto (Bld)Ordered By: Naziaveda Alvarez on 07-18-2023 Immature granulocytes/100 WBC (Bld) 1.100 % 0.0-0.9 [facility] Comment on above: IG% - Immature Granu locytes (promyelocytes, myelocytes and metamyelocytes) > 1% indicates that a LEFT SHIFT is Present. Laboratory - Hematology and Cell countsOrdered By: Nazia Alvarez on 07-18-2023 MCH (RBC) [Entitic mass] 28.1 pg 27.0-32.0 [facility] MCHC (RBC) [Mass/Vol] 30.6 g/dL 32-36 [facility] Nucleated RBC/100 WBC (Bld) [Ratio] 0 % 0-5 [facility] Platelet mean volume (Bld) [Entitic vol] 8.0 fL 6.2-12.0 [facility] Platelets (Bld) [#/Vol] 186 10*3/uL 150-450 [facility] RBC Auto (Bld) [#/Vol]Ordere d By: Nazia Alvarez on 07-18-2023 RBC (Bld) [#/Vol] 4.13 10*6/uL 4.2-5.4 [facility] Laboratory - Chemistry and C hemistry - challengeon 07-09-2023 Glucose Ql (U) Negative [facility] - Urinalysison Protein Ql (U) Negative [facility] Head Of Drama Office Visit Reporton 07-09-2023 Head Of Drama Office Visit Report [facility] [address] [place] [address] OFFICE VISIT Date of Service: 07/09/23 MR#: [id number] Acct: [id number] Name: RENEE RITCHIE Rep #: [id number] : 1990 Provider: MIGUEL rivera Age/Sex: 33/F Location: [facility] Status: Signed Intake Vital Signs 04/30/23 08:28 06/25/23 10:26 07/09/23 09:30 07/09/23 09:30 Height 5 ft 6 in 5 ft 6 in 5 ft 6 in 5 ft 6 in Weight: 199 lb 8 oz BMI 32.1 BP 106/73 Intake Visit Reasons: 34 WK OB Chaplaincy Required: No Is patient in pain?: No Allergies No Known Allergies Allergy (Verified 07/09/23 09:29) Medications PNV 178-FA 180 mcg-om3 35 mg-dha 25 mg-epa 5 mg-fish oil chew tablet 1 tab PO DAILY 01/06/23 [History Confirmed 07/09/23] ferrous sulfate 325 mg (65 mg iron) tablet (Feosol) 325 mg PO DAILY 01/06/23 [History Confirmed 07/09/23] magnesium 200 mg tablet 200 mg PO DAILY 01/06/23 [History Confirmed 07/09/23] Last Menstrual Period: 11/11/22 Zika: Zika virus screening: Negative : No PFSH PFSH Medical History H/O depression, currently Surgical History Status post vaginal delivery Family History Mother Diabetes Father Hypertension Grandmother Breast cancer Dementia Social History adopted: No household members: family housing: house number of children: 3 current occupational status: employed current occupation: [employer] pets and animals: Yes pets and animals: cat(s) and dog(s) history of recent travel: No sexually active: Yes Smoking Status: Never smoker alcohol intake: never substance use type: does not use caffeine: No what type of physical activity do you participate in: none seatbelt use: always do you feel safe at home: Yes additional social history: Ryley History 4 Elective abortions Hx Para 3 Spontaneous abortions Hx # Term Pregnancies 3 Ectopic pregnancies Hx # Pregnancies Multiple births # of living children 3 Past Pregnancies Del. Date Name GA/Weeks Outcome Route Bth Weight Gen Labor Lgth Anesthesia Del Locatn Provider FOB 08/24/15 Cristian 41 live - full term 9 lbs 3 oz. Male 16 hours epidural Med theo Dr. Cook Ryley 09/05/18 Lilian 40 live - full term 9lb 11oz Female epidural [facility] DESHAWN [place] 10/05/21 Kirk 39 live - full term Male epidural [facility] Maribel nifjoanne Jackson Velde [place] Delivery Date: 08/24/15 Last Updated by: Jenniffer Chacko MD difficult labor Delivery Date: 10/05/21 Last Updated by: Stephanie Fisher Elective IOL, 39weeks, , boy Kirk HPI 34 WK OB Details: RENEE RITCHIE is a 33 year old who presents for routine OB visit. OB Visit TYRONE Calculator Estimated Delivery Date Method Current WG Current Estimate 08/18/23 LMP (Certain) 34w 2d Expected Delivery Route/Plan Labor Preferences- CB/BF classes: no labor support person: [place] labor intervention preferences: [] pain management options preferred: epidural cut cord/dad catch: yes : yes PP control planned: POP, vas planned discussed possible routes of delivery and associated risks: [] special requests: [] Specific Issue/Plans Covid status: [] Flu vaccine: declines Tdap vaccine: given Rhogam: NA LARC form signed: yes Problem list reviewed and updated with the most current plan of care details and appropriate orders placed. Relevant counseling for the gestational age provided. Continue routine care and follow up unless otherwise noted in visit notes/problem list details Initial Weight: 178 lb Date -???-???-???-???-???-?? ?-???-???-???-???-???-? ??- EGA Weight BP Urine Prot -???-???-???-???-???-?? ?-???-???-???-???-???-? ??- Glucose FHR FuHt Pres Dilation -???-???-???-???-???-?? ?-???-???-???-???-???-? ??- Effaced St Visit Note 01/06/23 -???-???-???-???-???-?? ?-???-???-???-???-???-? ??- 8w 0d 178 lb 6 oz (+6 oz) 116/76 -???-???-???-???-???-?? ?-???-???-???-???-???-? ??- 160 -???-???-???-???-???-?? ?-???-???-???-???-???-? ??- KW-CRL cons with dates. doing well-NIPT desired 02/05/23 -???-???-???-???-???-?? ?-???-???-???-???-???-? ??- 12w 2d 178 lb 4 oz (+4 oz) 114/78 Negative -???-???-???-???-???-?? ?-???-???-???-???-???-? ??- Negative 156 -???-???-???-???-???-?? ?-???-???-???-???-???-? ??- JV-no crampi ng or bleeding. normal NIPT, it's a girl! no complaints. rto 4 weeks 03/05/23 -???-???-???-???-???-?? ?-???-???-???-???-???-? ??- 16w 2d 177 lb 6 oz (more content not included)... Normal [facility] - Chemistry and C hemistry - challengeon 06-25-2023 Glucose Ql (U) Negative [facility] - Urinalysison Protein Ql (U) Negative [facility] Head Of Drama Office Visit Reporton 06-25-2023 Head Of Drama Office Visit Report [facility] [place] [address] [place] [address] OFFICE VISIT Date of Service: 06/25/23 MR#: [id number] Acct: [id number] Name: RENEE RITCHIE Rep #: [id number] : 1990 Provider: QUEENIE harris Age/Sex: 33/F Location: [facility] Status: Signed Intake Vital Signs 04/30/23 08:28 06/11/23 09:59 06/25/23 10:26 Height 5 ft 6 in 5 ft 6 in 5 ft 6 in Weight: 195 lb 8 oz BMI 31.5 BP 110/73 Intake Visit Reasons: 32 WK OB Chaplaincy Required: No Is patient in pain?: No Allergies No Known Allergies Allergy (Verified 06/11/23 10:10) Medications PNV 178-FA 180 mcg-om3 35 mg-dha 25 mg-epa 5 mg-fish oil chew tablet 1 tab PO DAILY 01/06/23 [History Confirmed 06/25/23] ferrous sulfate 325 mg (65 mg iron) tablet (Feosol) 325 mg PO DAILY 01/06/23 [History Confirmed 06/25/23] magnesium 200 mg tablet 200 mg PO DAILY 01/06/23 [History Confirmed 06/25/23] Last Menstrual Period: 11/11/22 Zika: Zika virus screening: Negative : No PFSH PFSH Medical History H/O depression, currently Surgical History Status post vaginal delivery Family History Mother Diabetes Father Hypertension Grandmother Breast cancer Dementia Social History adopted: No household members: family housing: house number of children: 3 current occupational status: employed current occupation: [employer] pets and animals: Yes pets and animals: cat(s) and dog(s) history of recent travel: No sexually active: Yes Smoking Status: Never smoker alcohol intake: never substance use type: does not use caffeine: No what type of physical activity do you participate in: none seatbelt use: always do you feel safe at home: Yes additional social history: [place] History 4 Elective abortions Hx Para 3 Spontaneous abortions Hx # Term Pregnancies 3 Ectopic pregnancies Hx # Pregnancies Multiple births # of living children 3 Past Pregnancies Del. Date Name GA/Weeks Outcome Route Bth Weight Infant Gen Labor Lgth Anesthesia Del Locatn Provider FOB 08/24/15 Cristian 41 live - full term 9 lbs 3 oz. Male 16 hours epidural Med theo Dr. Cook Ryley 09/05/18 Lilian 40 live - full term 9lb 11oz Female epidural [facility] DESHAWN [place] 10/05/21 Reagan 39 live - full term Male epidural [facility] Maribel natasha Jackson Velde [place] Delivery Date: 08/24/15 Last Updated by: Jenniffer Chacko MD difficult labor Delivery Date: 10/05/21 Last Updated by: Stephanie Fisher Elective IOL, 39weeks, , boy Kirk HPI 32 WK OB Details: RENEE RITCHIE is a 33 year old who presents for routine OB visit. OB Visit TYRONE Calculator Estimated Delivery Date Method Current WG Current Estimate 08/18/23 LMP (Certain) 32w 2d Expected Delivery Route/Plan Labor Preferences- CB/BF classes: no labor support person: [place] labor intervention preferences: [] pain management options preferred: epidural cut cord/dad catch: yes : yes PP control planned: POP, vas planned discussed possible routes of delivery and associated risks: [] special requests: [] Specific Issue/Plans Covid status: [] Flu vaccine: declines Tdap vaccine: [] Rhogam: NA LARC form signed: yes Problem list reviewed and updated with the most current plan of care details and appropriate orders placed. Relevant counseling for the gestational age provided. Continue routine care and follow up unless otherwise noted in visit notes/problem list details Initial Weight: 178 lb Date -???-???-???-???-???-?? ?-???-???-???-???-???-? ??- EGA Weight BP Urine Prot -???-???-???-???-???-?? ?-???-???-???-???-???-? ??- Glucose FHR FuHt Pres Dilation -???-???-???-???-???-?? ?-???-???-???-???-???-? ??- Effaced St Visit Note 01/06/23 -???-???-???-???-???-?? ?-???-???-???-???-???-? ??- 8w 0d 178 lb 6 oz (+6 oz) 116/76 -???-???-???-???-???-?? ?-???-???-???-???-???-? ??- 160 -???-???-???-???-???-?? ?-???-???-???-???-???-? ??- KW-CRL cons with dates. doing well-NIPT desired 02/05/23 -???-???-???-???-???-?? ?-???-???-???-???-???-? ??- 12w 2d 178 lb 4 oz (+4 oz) 114/78 Negative -???-???-???-???-???-?? ?-???-???-???-???-???-? ??- Negative 156 -???-???-???-???-???-?? ?-???-???-???-???-???-? ??- JV-no crampi ng or bleeding. normal NIPT, it's a girl! no complaints. rto 4 weeks 03/05/23 -???-???-???-???-???-?? ?-???-???-???-???-???-? ??- 16w 2d 177 lb 6 oz (-10 oz) 111/76 Negative -? (more content not included)... Normal [facility] - Chemistry and C hemistry - challengeon 06-11-2023 Glucose Ql (U) Negative [facility] - Urinalysison Protein Ql (U) Negative [facility] Head Of Drama Office Visit Reporton 06-11-2023 Head Of Drama Office Visit Report [facility] [place] [address] [place] [address] OFFICE VISIT Date of Service: 06/11/23 MR#: [id number] Acct: [id number] Name: RENEE RITCHIE Rep #: [id number] : 1990 Provider: Dr. Maye Dorsey DO Age/Sex: 33/F Location: [facility] Status: Signed Intake Vital Signs 04/30/23 08:28 06/09/23 11:47 06/11/23 09:59 Height 5 ft 6 in 5 ft 6 in 5 ft 6 in Weight: 191 lb 8 oz BMI 30.9 BP 119/75 Intake Visit Reasons: 30 WK OB Chaplaincy Required: No Is patient in pain?: No Allergies No Known Allergies Allergy (Verified 06/11/23 10:10) Medications PNV 178-FA 180 mcg-om3 35 mg-dha 25 mg-epa 5 mg-fish oil chew tablet 1 tab PO DAILY 01/06/23 [History Confirmed 06/11/23] ferrous sulfate 325 mg (65 mg iron) tablet (Feosol) 325 mg PO DAILY 01/06/23 [History Confirmed 06/11/23] magnesium 200 mg tablet 200 mg PO DAILY 01/06/23 [History Confirmed 06/11/23] Last Menstrual Period: 11/11/22 Zika: Zika virus screening: Negative : No PFSH PFSH Medical History H/O depression, currently Surgical History Status post vaginal delivery Family History Mother Diabetes Father Hypertension Grandmother Breast cancer Dementia Social History adopted: No household members: family housing: house number of children: 3 current occupational status: employed current occupation: [employer] pets and animals: Yes pets and animals: cat(s) and dog(s) history of recent travel: No sexually active: Yes Smoking Status: Never smoker alcohol intake: never substance use type: does not use caffeine: No what type of physical activity do you participate in: none seatbelt use: always do you feel safe at home: Yes additional social history: [place] History 4 Elective abortions Hx Para 3 Spontaneous abortions Hx # Term Pregnancies 3 Ectopic pregnancies Hx # Pregnancies Multiple births # of living children 3 Past Pregnancies Del. Date Name GA/Weeks Outcome Route Bth Weight Gen Labor Lgth Anesthesia Del Locatn Provider FOB 08/24/15 Cristian 41 live - full term 9 lbs 3 oz. Male 16 hours epidural Med theo Dr. Cook R[place]y 09/05/18 Lilian 40 live - full term 9lb 11oz Female epidural [facility] DESHAWN Ryley 10/05/21 Reagan 39 live - full term Male epidural [facility] Maribel Woody Ryley Delivery Date: 08/24/15 Last Updated by: Jenniffer Chacko MD difficult labor Delivery Date: 10/05/21 Last Updated by: Stephanie Fisher Elective IOL, 39weeks, , melissa Kirk HPI 30 WK OB Details: RENEE RITCHIE is a 33 year old who presents for routine OB visit. OB Visit TYRONE Calculator Estimated Delivery Date Method Current WG Current Estimate 08/18/23 LMP (Certain) 30w 2d Expected Delivery Route/Plan Labor Preferences- CB/BF classes: no labor support person: [place] labor intervention preferences: [] pain management options preferred: epidural cut cord/dad catch: yes : yes PP control planned: POP, vas planned discussed possible routes of delivery and associated risks: [] special requests: [] Specific Issue/Plans Covid status: [] Flu vaccine: declines Tdap vaccine: [] Rhogam: NA LARC form signed: yes Problem list reviewed and updated with the most current plan of care details and appropriate orders placed. Relevant counseling for the gestational age provided. Continue routine care and follow up unless otherwise noted in visit notes/problem list details Initial Weight: Not Recorded Date -???-???-???-???-???-?? ?-???-???-???-???-???-? ??- EGA Weight BP Urine Prot -???-???-???-???-???-?? ?-???-???-???-???-???-? ??- Glucose FHR FuHt Pres Dilation -???-???-???-???-???-?? ?-???-???-???-???-???-? ??- Effaced St Visit Note 01/06/23 -???-???-???-???-???-?? ?-???-???-???-???-???-? ??- 8w 0d 178 lb 6 oz 116/76 -???-???-???-???-???-?? ?-???-???-???-???-???-? ??- 160 -???-???-???-???-???-?? ?-???-???-???-???-???-? ??- KW-CRL cons with dates. doing well-NIPT desired 02/05/23 -???-???-???-???-???-?? ?-???-???-???-???-???-? ??- 12w 2d 178 lb 4 oz 114/78 Negative -???-???-???-???-???-?? ?-???-???-???-???-???-? ??- Negative 156 -???-???-???-???-???-?? ?-???-???-???-???-???-? ??- JV-no crampi ng or bleeding. normal NIPT, it's a girl! no complaints. rto 4 weeks 03/05/23 -???-???-???-???-???-?? ?-???-???-???-???-???-? ??- 16w 2d 177 lb 6 oz 111/76 Negative -???-???-???-? (more content not included)... Normal [facility] - Chemistry and C hemistry - challengeon 05-28-2023 Glucose Ql (U) Negative [facility] - Urinalysison Protein Ql (U) Negative [facility] Head Of Drama Office Visit Reporton 05-28-2023 Head Of Drama Office Visit Report [facility] [place] [address] [place] [address] OFFICE VISIT Date of Service: 05/28/23 MR#: [id number] Acct: [id number] Name: RENEE RITCHIE Rep #: [id number] : 1990 Provider: Dr. Maye Dorsey DO Age/Sex: 32/F Location: [facility] Status: Signed Intake Vital Signs 04/02/23 10:50 05/26/23 12:59 05/28/23 10:49 05/28/23 10:51 Height 5 ft 6 in 5 ft 6 in 5 ft 6 in 5 ft 6 in Weight: 192 lb 4 oz BMI 31.0 BP 119/74 Intake Visit Reasons: 28 WK OB/GLUCOSE Chaplaincy Required: No Is patient in pain?: No Allergies No Known Allergies Allergy (Verified 05/28/23 10:48) Medications PNV 178-FA 180 mcg-om3 35 mg-dha 25 mg-epa 5 mg-fish oil chew tablet 1 tab PO DAILY 01/06/23 [History Confirmed 05/28/23] ferrous sulfate 325 mg (65 mg iron) tablet (Feosol) 325 mg PO DAILY 01/06/23 [History Confirmed 05/28/23] magnesium 200 mg tablet 200 mg PO DAILY 01/06/23 [History Confirmed 05/28/23] Last Menstrual Period: 11/11/22 Zika: Zika virus screening: Negative : No PFSH PFSH Medical History H/O depression, currently Surgical History Status post vaginal delivery Family History Mother Diabetes Father Hypertension Grandmother Breast cancer Dementia Social History adopted: No household members: family housing: house number of children: 3 current occupational status: employed current occupation: [employer] pets and animals: Yes pets and animals: cat(s) and dog(s) history of recent travel: No sexually active: Yes Smoking Status: Never smoker alcohol intake: never substance use type: does not use caffeine: No what type of physical activity do you participate in: none seatbelt use: always do you feel safe at home: Yes additional social history: [place] History 4 Elective abortions Hx Para 3 Spontaneous abortions Hx # Term Pregnancies 3 Ectopic pregnancies Hx # Pregnancies Multiple births # of living children 3 Past Pregnancies Del. Date Name GA/Weeks Outcome Route Bth Weight Gen Labor Lgth Anesthesia Del Locatn Provider FOB 08/24/15 Cristian 41 live - full term 9 lbs 3 oz. Male 16 hours epidural Med theo Dr. Cook [place] 09/05/18 Lilain 40 live - full term 9lb 11oz Female epidural [facility] DESHAWN [place] 10/05/21 Reagan 39 live - full term Male epidural [facility] Maribel nifjoanne Jackson Velde [place] Delivery Date: 08/24/15 Last Updated by: Jenniffer Chacko MD difficult labor Delivery Date: 10/05/21 Last Updated by: Stephanie Fisher Elective IOL, 39weeks, , boy Kirk HPI 28 WK OB/GLUCOSE Details: RENEE RITCHIE is a 32 year old who presents for routine OB visit. OB Visit TYRONE Calculator Estimated Delivery Date Method Current WG Current Estimate 08/18/23 LMP (Certain) 28w 2d Expected Delivery Route/Plan Labor Preferences- CB/BF classes: no labor support person: [place] labor intervention preferences: [] pain management options preferred: epidural cut cord/dad catch: yes : yes PP control planned: POP, vas planned discussed possible routes of delivery and associated risks: [] special requests: [] Specific Issue/Plans Covid status: [] Flu vaccine: declines Tdap vaccine: [] Rhogam: NA LARC form signed: yes Problem list reviewed and updated with the most current plan of care details and appropriate orders placed. Relevant counseling for the gestational age provided. Continue routine care and follow up unless otherwise noted in visit notes/problem list details Initial Weight: Not Recorded Date -???-???-???-???-???-?? ?-???-???-???-???-???-? ??- EGA Weight BP Urine Prot -???-???-???-???-???-?? ?-???-???-???-???-???-? ??- Glucose FHR FuHt Pres Dilation -???-???-???-???-???-?? ?-???-???-???-???-???-? ??- Effaced St Visit Note 01/06/23 -???-???-???-???-???-?? ?-???-???-???-???-???-? ??- 8w 0d 178 lb 6 oz 116/76 -???-???-???-???-???-?? ?-???-???-???-???-???-? ??- 160 -???-???-???-???-???-?? ?-???-???-???-???-???-? ??- KW-CRL cons with dates. doing well-NIPT desired 02/05/23 -???-???-???-???-???-?? ?-???-???-???-???-???-? ??- 12w 2d 178 lb 4 oz 114/78 Negative -???-???-???-???-???-?? ?-???-???-???-???-???-? ??- Negative 156 -???-???-???-???-???-?? ?-???-???-???-???-???-? ??- JV-no crampi ng or bleeding. normal NIPT, it's a girl! no complaints. rto 4 weeks 03/05/23 -???-???-???-???-???-?? ?-???-???-???-???-???-? ??- 16w 2d 177 (more content not included)... Normal [facility] Absolute lymphocyte countOrd ered By: Nazia Alvarez on 05-20-2023 Lymphocytes Auto (Unsp spec) [#/Vol] 1.32 10*3/uL 0.83-4.51 [facility] Automated lymphocyte count a s percentage of total leukocytesOrdered By: Nazia Alvarez on 05-20-2023 Lymphocytes/100 WBC Auto (Unsp spec) 13.8 % 19-41 [facility] Basophil percentageOrdered B y: Nazia Alvarez on 05-20-2023 Basophils/100 WBC (Bld) 0.4 % 0-1 [facility] Eosinophils/100 WBC (Bld) 1.2 % 0-5 [facility] Hemoglobin (Bld) [Mass/Vol] 10.7 g/dL 12.0-15.0 [facility] Monocytes/100 WBC (Bld) 4.9 % 0-10 [facility] Neutrophils (Bld) [#/Vol] 7.6 10*3/uL 2.0-7.7 [facility] Neutrophils/100 WBC (Bld) 79.2 % 47-70 [facility] WBC (Bld) [#/Vol] 9.6 10*3/uL 4.4-11.0 [facility] CBC W/Diff, Automatedon 04-29 Absolute Lymph 1.32 X10 3/uL Normal 0.83-4.51 [facility] Comment on above: Performed By: #### L 3890.6005, L3890.6100, L509.4005, L509.8000, L3890.6300, BTS, L100.0100 #### [facility] [address] [place], [address] Absolute Neut 7.6 X10 3/uL Normal 2.0-7.7 [facility] Comment on above: Performed By: #### L 3890.6005, L3890.6100, L509.4005, L509.8000, L3890.6300, BTS, L100.0100 #### [facility] [address] [place], [address] Basophils/100 WBC (Bld) 0.4 % Normal 0-1 [facility] Comment on above: Performed By: #### L 3890.6005, L3890.6100, L509.4005, L509.8000, L3890.6300, BTS, L100.0100 #### [facility] [address] [place], [address] Eosinophils/100 WBC (Bld) 1.2 % Normal 0-5 [facility] Comment on above: Performed By: #### L 3890.6005, L3890.6100, L509.4005, L509.8000, L3890.6300, BTS, L100.0100 #### [facility] [address] [place], [address] Erythrocyte distribution width (RBC) [Ratio] 14.1 % Normal 11.6-14.6 [facility] Comment on above: Performed By: #### L 3890.6005, L3890.6100, L509.4005, L509.8000, L3890.6300, BTS, L100.0100 #### [facility] [address] [place], [address] Hematocrit (Bld) [Volume fraction] 34.6 % Low 37-47 [facility] Comment on above: Performed By: #### L 3890.6005, L3890.6100, L509.4005, L509.8000, L3890.6300, BTS, L100.0100 #### [facility] [address] [place], [address] Hemoglobin (Bld) [Mass/Vol] 10.7 g/dL Low 12.0-15.0 [facility] Comment on above: Performed By: #### L 3890.6005, L3890.6100, L509.4005, L509.8000, L3890.6300, BTS, L100.0100 #### [facility] [address] [place], [address] IG% 0.500 Normal 0.0-0.9 [facility] Comment on above: Result Comment: IG% - Immature Granulocytes (promyelocytes, myelocytes and metamyelocytes) > 1% indicates that a LEFT SHIFT is Present. Performed By: #### L 3890.6005, L3890.6100, L509.4005, L509.8000, L3890.6300, BTS, L100.0100 #### [facility] [address] [place], [address] Lymphocytes/100 WBC (Bld) 13.8 % Low 19-41 [facility] Comment on above: Performed By: #### L 3890.6005, L3890.6100, L509.4005, L509.8000, L3890.6300, BTS, L100.0100 #### [facility] [address] [place], [address] MCH (RBC) [Entitic mass] 27.9 pg Normal 27.0-32.0 [facility] Comment on above: Performed By: #### L 3890.6005, L3890.6100, L509.4005, L509.8000, L3890.6300, BTS, L100.0100 #### [facility] [address] [place], [address] MCHC (RBC) [Mass/Vol] 30.9 g/dL Low 32-36 [facility] Comment on above: Performed By: #### L 3890.6005, L3890.6100, L509.4005, L509.8000, L3890.6300, BTS, L100.0100 #### [facility] [address] [place], [address] MCV (RBC) [Entitic vol] 90.3 fL Normal 81-99 [facility] Comment on above: Performed By: #### L 3890.6005, L3890.6100, L509.4005, L509.8000, L3890.6300, BTS, L100.0100 #### [facility] [address] [place], [address] Monocytes/100 WBC (Bld) 4.9 % Normal 0-10 [facility] Comment on above: Performed By: #### L 3890.6005, L3890.6100, L509.4005, L509.8000, L3890.6300, BTS, L100.0100 #### [facility] [address] [place], [address] Neutrophils/100 WBC (Bld) 79.2 % High 47-70 [facility] Comment on above: Performed By: #### L 3890.6005, L3890.6100, L509.4005, L509.8000, L3890.6300, BTS, L100.0100 #### [facility] [address] [place], [address] Nucleated RBC (Bld) [#/Vol] 0 10*3/uL Normal 0-5 [facility] Comment on above: Performed By: #### L 3890.6005, L3890.6100, L509.4005, L509.8000, L3890.6300, BTS, L100.0100 #### [facility] [address] [place], [address] Platelet mean volume (Bld) [Entitic vol] 8.3 fL Normal 6.2-12.0 [facility] Comment on above: Performed By: #### L 3890.6005, L3890.6100, L509.4005, L509.8000, L3890.6300, BTS, L100.0100 #### [facility] [address] [place], [address] Platelets (Bld) [#/Vol] 208 10*3/uL Normal 150-450 [facility] Comment on above: Performed By: #### L 3890.6005, L3890.6100, L509.4005, L509.8000, L3890.6300, BTS, L100.0100 #### [facility] [address] [place], [address] RBC (Bld) [#/Vol] 3.83 10*6/uL Low 4.2-5.4 [facility] Comment on above: Performed By: #### L 3890.6005, L3890.6100, L509.4005, L509.8000, L3890.6300, BTS, L100.0100 #### [facility] [address] [place], [address] RDW SD 46.5 fl High 35.1-43.9 [facility] Comment on above: Performed By: #### L 3890.6005, L3890.6100, L509.4005, L509.8000, L3890.6300, BTS, L100.0100 #### [facility] [address] [place], [address] WBC (Bld) [#/Vol] 9.6 10*3/uL Normal 4.4-11.0 [facility] Comment on above: Performed By: #### L 3890.6005, L3890.6100, L509.4005, L509.8000, L3890.6300, BTS, L100.0100 #### [facility] [address] [place], [address] Determination of erythrocyte mean corpuscular volume (MCV)Ordered By: Nazia Alvarez on 05-20-2023 MCV (RBC) [Entitic vol] 90.3 fL 81-99 [facility] Erythrocyte distribution wid th ratioOrdered By: Nazia Alvarez on 05-20-2023 Erythrocyte distribution width (RBC) [Ratio] 14.1 % 11.6-14.6 [facility] Erythrocyte distribution wid th standard deviationOrdered By: Nazia Alvarez on 05-20-2023 Erythrocyte distribution width (RBC) [Entitic vol] 46.5 fL 35.1-43.9 [facility] Ferritinon 05-20-2023 Ferritin [Mass/Vol] 14 ng/mL Normal 8-252 [facility] Comment on above: Performed By: #### L 3890.6005, L3890.6100, L509.4005, L509.8000, L3890.6300, BTS, L100.0100 #### [facility] [address] [place], [address] Gestational diabetes screen 1-hour screen with 50g oral glucose loadOrdered By: Nazia Alvarez on 05-20-2023 Glucose 1 Hr post 50 g glucose PO [Mass/Vol] 133 mg/dL 70-140 [facility] Glucose Challenge Gest 1H 50 sarah 05-20-2023 GLU GEST 50g 1H 133 mg/dL Normal 70-140 [facility] Comment on above: Performed By: #### L 3890.6005, L3890.6100, L509.4005, L509.8000, L3890.6300, BTS, L100.0100 #### [facility] [address] [place], [address] HIV - WCHon 05-20-2023 HIV Non-Reactive Normal Nonreactive [facility] Comment on above: Performed By: #### L 3890.6005, L3890.6100, L509.4005, L509.8000, L3890.6300, BTS, L100.0100 #### [facility] [address] [address] [place], [place], [id number] HIV 1 and HIV-2 antibody ass ay with HIV-1 p24 antigen detectionOrdered By: Nazia Alvarez on 05-20-2023 HIV 1+2 Ab+HIV1 p24 Ag IA Ql Non-Reactive Nonreactive [facility] Hematocrit Auto (Bld) [Volum e fraction]Ordered By: Nazia Alvarez on 05-20-2023 Hematocrit (Bld) [Volume fraction] 34.6 % 37-47 [facility] Immature granulocytes/100 WB C Auto (Bld)Ordered By: Nazia Alvarez on 05-20-2023 Immature granulocytes/100 WBC (Bld) 0.500 % 0.0-0.9 [facility] Comment on above: IG% - Immature Granu locytes (promyelocytes, myelocytes and metamyelocytes) > 1% indicates that a LEFT SHIFT is Present. Iron measurement (mass/mass) Ordered By: Nazia Alvarez on 05-20-2023 Iron (Unsp spec) [Mass/Mass] 66 ug/dL 50-170 [facility] Iron+Iron Binding Capacityon 05-20-2023 Iron [Mass/Vol] 66 ug/dL Normal 50-170 [facility] Comment on above: Performed By: #### L 3890.6005, L3890.6100, L509.4005, L509.8000, L3890.6300, BTS, L100.0100 #### [facility] [address] [place], [address] IRON SATURATION 18.0 Normal 15.0-55.0 [facility] Comment on above: Performed By: #### L 3890.6005, L3890.6100, L509.4005, L509.8000, L3890.6300, BTS, L100.0100 #### [facility] [address] [place], [address] TIBC 367 ug/dL Normal 250-450 [facility] Comment on above: Performed By: #### L 3890.6005, L3890.6100, L509.4005, L509.8000, L3890.6300, BTS, L100.0100 #### [facility] [address] [place], [address] L509.8000on 05-20-2023 Syphilis Abs Non-Reactive Normal [facility] Comment on above: Performed By: #### L 3890.6005, L3890.6100, L509.4005, L509.8000, L3890.6300, BTS, L100.0100 #### [facility] [address] [place], [address] Laboratory - Chemistry and C hemistry - challengeOrdered By: Nazia Alvarez on 05-20-2023 Ferritin [Mass/Vol] 14 ng/mL 8-252 [facility] Laboratory - Hematology and Cell countsOrdered By: Nazia Alvarez on 05-20-2023 MCH (RBC) [Entitic mass] 27.9 pg 27.0-32.0 [facility] MCHC (RBC) [Mass/Vol] 30.9 g/dL 32-36 [facility] Nucleated RBC/100 WBC (Bld) [Ratio] 0 % 0-5 [facility] Platelets (Bld) [#/Vol] 208 10*3/uL 150-450 [facility] No Panel InformationOrdered By: Nazia Alvarez on 05-20-2023 Total Iron Binding Capacity 367 ug/dL 250-450 [facility] Platelet mean volume Sandro-Ec ker (Bld) [Entitic vol]Ordered By: Nazia Alvarez on 05-20-2023 Platelet mean volume (Bld) [Entitic vol] 8.3 fL 6.2-12.0 [facility] RBC Auto (Bld) [#/Vol]Ordere d By: Nazia Alvarez on 05-20-2023 RBC (Bld) [#/Vol] 3.83 10*6/uL 4.2-5.4 [facility] Serum Treponema species anti body detectionOrdered By: Nazia Alvarez on 05-20-2023 Treponema sp Ab Ql (S) Non-Reactive [facility] Serum or plasma iron saturat ion measurement (mass fraction)Ordered By: Nazia Alvarez on 05-20-2023 Iron saturation [Mass fraction] 18.0 % 15.0-55.0 [facility] Laboratory - Chemistry and C hemistry - challengeon 04-30-2023 Glucose Ql (U) Negative [facility] Laboratory - Urinalysison Protein Ql (U) Negative [facility] Head Of Drama Office Visit Reporton 04-30-2023 Head Of Drama Office Visit Report [facility] [address] [place] [address] OFFICE VISIT Date of Service: 04/30/23 MR#: [id number] Acct: [id number] Name: RENEE RITCHIE Rep #: [id number] : 1990 Provider: MIGUEL rivera Age/Sex: 32/F Location: [facility] Status: Signed Intake Vital Signs 04/02/23 10:50 04/30/23 08:28 Height 5 ft 6 in 5 ft 6 in Weight: 191 lb 6 oz BMI 30.9 BP 120/78 Intake Visit Reasons: 24 WK OB Chief Complaint: 24 Week OB Chaplaincy Required: No Is patient in pain?: No Allergies No Known Allergies Allergy (Verified 04/30/23 08:27) Medications PNV 178-FA 180 mcg-om3 35 mg-dha 25 mg-epa 5 mg-fish oil chew tablet tab PO 01/06/23 [History Confirmed 04/30/23] cholecalciferol (vitamin D3) 125 mcg (5,000 unit) capsule 125 mcg PO DAILY #1 cap 01/06/23 [Rx Confirmed 04/30/23] ferrous sulfate 325 mg (65 mg iron) tablet (Feosol) 325 mg PO DAILY 01/06/23 [History Confirmed 04/30/23] magnesium 200 mg tablet 200 mg PO DAILY 01/06/23 [History Confirmed 04/30/23] promethazine 12.5 mg tablet 12.5 mg PO Q6H PRN nausea and vomiting #60 tabs 03/05/23 [Rx Confirmed 04/30/23] Last Menstrual Period: 11/11/22 Zika: Zika virus screening: Negative : No PFSH PFSH Medical History (Updated 04/30/23 @ 08:51 by Nazia Alvarez NP, MIGUEL) H/O depression, currently Surgical History Status post vaginal delivery Family History Mother Diabetes Father Hypertension Grandmother Breast cancer Dementia Social History adopted: No household members: family housing: house number of children: 3 current occupational status: employed current occupation: [employer] pets and animals: Yes pets and animals: cat(s) and dog(s) history of recent travel: No sexually active: Yes Smoking Status: Never smoker alcohol intake: never substance use type: does not use caffeine: No what type of physical activity do you participate in: none seatbelt use: always do you feel safe at home: Yes additional social history: [place] History 4 Elective abortions Hx Para 3 Spontaneous abortions Hx # Term Pregnancies 3 Ectopic pregnancies Hx # Pregnancies Multiple births # of living children 3 Past Pregnancies Del. Date Name GA/Weeks Outcome Route Bth Weight Infant Gen Labor Lgth Anesthesia Del Locatn Provider FOB 08/24/15 Cristian 41 live - full term 9 lbs 3 oz. Male 16 hours epidural Med theo Dr. Cook [place] 09/05/18 Lilian 40 live - full term 9lb 11oz Female epidural [facility] DESHAWN [place] 10/05/21 Reagan 39 live - full term Male epidural [facility] Maribel nifjoanne Jackson Velde [place] Delivery Date: 08/24/15 Last Updated by: Jenniffer Chacko MD difficult labor Delivery Date: 10/05/21 Last Updated by: Stephanie Fisher Elective IOL, 39weeks, , boy Kirk HPI 24 WK OB Details: RENEE RITCHIE is a 32 year old who presents for routine OB visit. OB Visit TYRONE Calculator Estimated Delivery Date Method Current WG Current Estimate 08/18/23 LMP (Certain) 24w 2d Expected Delivery Route/Plan Labor Preferences- CB/BF classes: no labor support person: [place] labor intervention preferences: [] pain management options preferred: epidural cut cord/dad catch: yes : yes PP control planned: POP, vas planned discussed possible routes of delivery and associated risks: [] special requests: [] Specific Issue/Plans Covid status: [] Flu vaccine: declines Tdap vaccine: [] Rhogam: NA LARC form signed: yes Problem list reviewed and updated with the most current plan of care details and appropriate orders placed. Relevant counseling for the gestational age provided. Continue routine care and follow up unless otherwise noted in visit notes/problem list details Initial Weight: Not Recorded Date -???-???-???-???-???-?? ?-???-???-???-???-???-? ??- EGA Weight BP Urine Prot -???-???-???-???-???-?? ?-???-???-???-???-???-? ??- Glucose FHR FuHt Pres Dilation -???-???-???-???-???-?? ?-???-???-???-???-???-? ??- Effaced St Visit Note 01/06/23 -???-???-???-???-???-?? ?-???-???-???-???-???-? ??- 8w 0d 178 lb 6 oz 116/76 -???-???-???-???-???-?? ?-???-???-???-???-???-? ??- 160 -???-???-???-???-???-?? ?-???-???-???-???-???-? ??- KW-CRL cons with dates. doing well-NIPT desired 02/05/23 -???-???-???-???-???-?? ?-???-???-???-???-???-? ??- 12w 2d 178 lb 4 oz 114/78 Negative -???-???-???-???-???-?? ?-???-???-???-???-???-? ??- Negative 156 -???-???-???-???-???-?? ?-???- (more content not included)... Normal [facility] Laboratory - Chemistry and C hemistry - challengeon 04-02-2023 Glucose Ql (U) Negative [facility] Laboratory - Urinalysison Protein Ql (U) Negative [facility] Head Of Drama Office Visit Reporton 04-02-2023 Head Of Drama Office Visit Report [facility] [place] [address] [place] [address] OFFICE VISIT Date of Service: 04/02/23 MR#: [id number] Acct: [id number] Name: RENEE RITCHIE Rep #: [id number] : 1990 Provider: Dr. Maye Dorsey DO Age/Sex: 32/F Location: [facility] Status: Signed Intake Vital Signs 03/05/23 10:35 04/02/23 10:49 04/02/23 10:50 Height 5 ft 6 in 5 ft 6 in 5 ft 6 in Weight: 184 lb 8 oz BMI 29.7 BP 109/74 Intake Visit Reasons: 20 WK OB Chaplaincy Required: No Is patient in pain?: No Allergies No Known Allergies Allergy (Verified 04/02/23 10:49) Medications PNV 178-FA 180 mcg-om3 35 mg-dha 25 mg-epa 5 mg-fish oil chew tablet tab PO 01/06/23 [History Confirmed 04/02/23] cholecalciferol (vitamin D3) 125 mcg (5,000 unit) capsule 125 mcg PO DAILY #1 cap 01/06/23 [Rx Confirmed 04/02/23] ferrous sulfate 325 mg (65 mg iron) tablet (Feosol) 325 mg PO DAILY 01/06/23 [History Confirmed 04/02/23] magnesium 200 mg tablet 200 mg PO DAILY 01/06/23 [History Confirmed 04/02/23] promethazine 12.5 mg tablet 12.5 mg PO Q6H PRN nausea and vomiting #60 tabs 03/05/23 [Rx Confirmed 04/02/23] Last Menstrual Period: 11/11/22 Zika: Zika virus screening: Negative : No PFSH PFSH Medical History H/O depression, currently Surgical History Status post vaginal delivery Family History Mother Diabetes Father Hypertension Grandmother Breast cancer Dementia Social History adopted: No household members: family housing: house number of children: 3 current occupational status: employed current occupation: [employer] pets and animals: Yes pets and animals: cat(s) and dog(s) history of recent travel: No sexually active: Yes Smoking Status: Never smoker alcohol intake: never substance use type: does not use caffeine: No what type of physical activity do you participate in: none seatbelt use: always do you feel safe at home: Yes additional social history: [place] History 4 Elective abortions Hx Para 3 Spontaneous abortions Hx # Term Pregnancies 3 Ectopic pregnancies Hx # Pregnancies Multiple births # of living children 3 Past Pregnancies Del. Date Name GA/Weeks Outcome Route Bth Weight Infant Gen Labor Lgth Anesthesia Del Locatn Provider FOB 08/24/15 Cristian 41 live - full term 9 lbs 3 oz. Male 16 hours epidural Med theo Dr. Cook [place] 09/05/18 Lilian 40 live - full term 9lb 11oz Female epidural [facility] DESHAWN [place] 10/05/21 Kirk 39 live - full term Male epidural WC Maribel nifjoanne Dolle Velde [place] Delivery Date: 08/24/15 Last Updated by: Jenniffer Chacko MD difficult labor Delivery Date: 10/05/21 Last Updated by: Stephanie Fisher Elective IOL, 39weeks, , boy Kirk HPI 20 WK OB Details: RENEE RITCHIE is a 32 year old who presents for routine OB visit. OB Visit TYRONE Calculator Estimated Delivery Date Method Current WG Current Estimate 08/18/23 LMP (Certain) 20w 2d Expected Delivery Route/Plan Labor Preferences- CB/BF classes: [] labor support person: [] labor intervention preferences: [] pain management options preferred: [] cut cord/dad catch: [] : [] PP control planned: [] discussed possible routes of delivery and associated risks: [] special requests: [] Specific Issue/Plans Covid status: [] Flu vaccine: [] Tdap vaccine: [] Rhogam: [] LARC form signed: [] Problem list reviewed and updated with the most current plan of care details and appropriate orders placed. Relevant counseling for the gestational age provided. Continue routine care and follow up unless otherwise noted in visit notes/problem list details Initial Weight: Not Recorded Date -???-???-???-???-???-?? ?-???-???-???-???-???-? ??- EGA Weight BP Urine Prot -???-???-???-???-???-?? ?-???-???-???-???-???-? ??- Glucose FHR FuHt Pres Dilation -???-???-???-???-???-?? ?-???-???-???-???-???-? ??- Effaced St Visit Note 01/06/23 -???-???-???-???-???-?? ?-???-???-???-???-???-? ??- 8w 0d 178 lb 6 oz 116/76 -???-???-???-???-???-?? ?-???-???-???-???-???-? ??- 160 -???-???-???-???-???-?? ?-???-???-???-???-???-? ??- KW-CRL cons with dates. doing well-NIPT desired 02/05/23 -???-???-???-???-???-?? ?-???-???-???-???-???-? ??- 12w 2d 178 lb 4 oz 114/78 Negative -???-???-???-???-???-?? ?-???-???-???-???-???-? ??- Negative 156 -???-???-???-???-???-?? ?-???-???-???-???-???-? ??- JV-no cramp (more content not included)... Normal [facility] OB Anatomy Scanon 04-01-2023 OB Anatomy Scan [facility] [address] [place] [address] OB Anatomy Scan MR#: [id number] Acct: [id number] Name: RENEE RITCHIE Rep #: [id number] : 1990 F 32 From: Solomon Madera MD PCP: Dr. Elvis Ndiaye MD Status: REG CL Study: OB Anatomy Scan Date of Exam: 04/01/23 Exam# [id number] Ordering Dr: [place] [id number] STUDY: SECOND AND THIRD TRIMESTER OBSTETRICAL ULTRASOUND REASON FOR EXAM: Female, 32 years old routine survey LMP: Unknown. TECHNIQUE: Transabdominal and Transvaginal TECHNICAL QUALITY: Adequate. PRIOR ULTRASOUND: None. FINDINGS: There is a single intrauterine fetus. The fetus is in a cephalic presentation. There is demonstrated cardiac activity with a heart rate of 150 bpm. There is a subjectively normal amniotic fluid volume. The largest amniotic fluid pocket measures 5.7 cm. . The placenta is anterior and fundal, not low-lying There are Grade 0 placental changes. The cervix measures 3.6 cm in length. The adnexal regions are not visualized. BIOMETRY: BPD: 4.9 centimeter: 20 weeks, 6 days HC: 18.2 cm: 20 weeks, 4 days AC: 15.9 cm: 21 weeks, 0 days FL: 3.3 cm: 20 weeks, 2 days age by current US: 20 weeks, 3 days. TYRONE by current US: 08/16/2023. Estimated weight: 373 grams, +/- 56 grams, 76.6 %. ANATOMY: Gender: Female Cranium: Normal lateral ventricles. Choroid plexuses unremarkable, there is a choroid plexus cyst measuring 0.7 cm. Normal cerebellum. Normal cisterna magna. Normal face, nose and lips. Chest: Normal 4-chamber heart. Abdomen/Pelvis: Normal diaphragm. Normal stomach. Normal abdominal wall. Normal cord insertion. Normal 3 vessel cord. Normal kidneys. Normal bladder. Spine: Normal cervical spine. Normal thoracic spine. Normal lumbar spine. Normal sacrum. Extremities: Normal bilateral upper extremities. Normal bilateral lower extremities. US/OB Anatomy Scan IMPRESSION: Single live intrauterine at 20 weeks, 3 days by current ultrasound with TYRONE of 08/16/2023. Heart rate of 150 bpm. No suspicious sonographic findings. Electronically Signed: Yves Madera MD at 9:52 EST Reading Location ID and State: [address] [place] [address] , Service support , CC: Dr. Maye Woody DO; Dr. Elvis Ndiaye MD [employer] Director: Signed Normal [facility] Laboratory - Chemistry and C hemistry - challengeon 03-05-2023 Glucose Ql (U) Negative [facility] Laboratory - Urinalysison Protein Ql (U) Negative [facility] Head Of Drama Office Visit Reporton 03-05-2023 Head Of Drama Office Visit Report [facility] [place] [address] [place] [address] OFFICE VISIT Date of Service: 03/05/23 MR#: [id number] Acct: [id number] Name: RENEE RITCHIE Rep #: [id number] : 1990 Provider: Dr. Maye Dorsey DO Age/Sex: 32/F Location: [facility] Status: Signed Intake Vital Signs 02/05/23 10:13 03/05/23 10:35 Height 5 ft 6 in 5 ft 6 in Weight: 177 lb 6 oz BMI 28.6 BP 111/76 Intake Visit Reasons: 16 WK OB Chaplaincy Required: No Is patient in pain?: No Allergies No Known Allergies Allergy (Verified 03/05/23 10:36) Medications PNV 178-FA 180 mcg-om3 35 mg-dha 25 mg-epa 5 mg-fish oil chew tablet tab PO 01/06/23 [History Confirmed 03/05/23] cholecalciferol (vitamin D3) 125 mcg (5,000 unit) capsule 125 mcg PO DAILY #1 cap 01/06/23 [Rx Confirmed 03/05/23] ferrous sulfate 325 mg (65 mg iron) tablet (Feosol) 325 mg PO DAILY 01/06/23 [History Confirmed 03/05/23] magnesium 200 mg tablet 200 mg PO DAILY 01/06/23 [History Confirmed 03/05/23] promethazine 12.5 mg tablet 12.5 mg PO Q6H PRN nausea and vomiting #60 tabs 03/05/23 [Rx Confirmed 03/05/23] Last Menstrual Period: 11/11/22 Zika: Zika virus screening: Negative : No PFSH PFSH Medical History H/O depression, currently Surgical History Status post vaginal delivery Family History Mother Diabetes Father Hypertension Grandmother Breast cancer Dementia Social History adopted: No household members: family housing: house number of children: 3 current occupational status: employed current occupation: [employer] pets and animals: Yes pets and animals: cat(s) and dog(s) history of recent travel: No sexually active: Yes Smoking Status: Never smoker alcohol intake: never substance use type: does not use caffeine: No what type of physical activity do you participate in: none seatbelt use: always do you feel safe at home: Yes additional social history: [place] History 4 Elective abortions Hx Para 3 Spontaneous abortions Hx # Term Pregnancies 3 Ectopic pregnancies Hx # Pregnancies Multiple births # of living children 3 Past Pregnancies Del. Date Name GA/Weeks Outcome Route Bth Weight Gen Labor Lgth Anesthesia Del Locatn Provider FOB 08/24/15 Cristian 41 live - full term 9 lbs 3 oz. Male 16 hours epidural Med theo Dr. Cook [place] 09/05/18 Lilian 40 live - full term 9lb 11oz Female epidural [facility] DESHAWN [place] 10/05/21 Reagan 39 live - full term Male epidural [facility] Maribel natasha Jackson Velcatalino [place] Delivery Date: 08/24/15 Last Updated by: Jenniffer Chacko MD difficult labor Delivery Date: 10/05/21 Last Updated by: Stephanie Fisher Elective IOL, 39weeks, , boy Kirk HPI 16 WK OB Details: RENEE RITCHIE is a 32 year old who presents for routine OB visit. OB Visit TYRONE Calculator Estimated Delivery Date Method Current WG Current Estimate 08/18/23 LMP (Certain) 16w 2d Expected Delivery Route/Plan Labor Preferences- CB/BF classes: [] labor support person: [] labor intervention preferences: [] pain management options preferred: [] cut cord/dad catch: [] : [] PP control planned: [] discussed possible routes of delivery and associated risks: [] special requests: [] Specific Issue/Plans Covid status: [] Flu vaccine: [] Tdap vaccine: [] Rhogam: [] LARC form signed: [] Problem list reviewed and updated with the most current plan of care details and appropriate orders placed. Relevant counseling for the gestational age provided. Continue routine care and follow up unless otherwise noted in visit notes/problem list details Initial Weight: Not Recorded Date -???-???-???-???-???-?? ?-???-???-???-???-???-? ??- EGA Weight BP Urine Prot -???-???-???-???-???-?? ?-???-???-???-???-???-? ??- Glucose FHR FuHt Pres Dilation -???-???-???-???-???-?? ?-???-???-???-???-???-? ??- Effaced St Visit Note 01/06/23 -???-???-???-???-???-?? ?-???-???-???-???-???-? ??- 8w 0d 178 lb 6 oz 116/76 -???-???-???-???-???-?? ?-???-???-???-???-???-? ??- 160 -???-???-???-???-???-?? ?-???-???-???-???-???-? ??- KW-CRL cons with dates. doing well-NIPT desired 02/05/23 -???-???-???-???-???-?? ?-???-???-???-???-???-? ??- 12w 2d 178 lb 4 oz 114/78 Negative -???-???-???-???-???-?? ?-???-???-???-???-???-? ??- Negative 156 -???-???-???-???-???-?? ?-???-???-???-???-???-? ??- JV-no crampi ng or bleeding. normal (more content not included)... Normal [facility] Laboratory - Chemistry and C hemistry - challengeon 02-05-2023 Glucose Ql (U) Negative [facility] Laboratory - Urinalysison Protein Ql (U) Negative [facility] Head Of Drama Office Visit Reporton 02-05-2023 Head Of Drama Office Visit Report [facility] [address] [place] [address] OFFICE VISIT Date of Service: 02/05/23 MR#: [id number] Acct: [id number] Name: RENEE RITCHIE Rep #: [id number] : 1990 Provider: Dr. Maye Dorsey DO Age/Sex: 32/F Location: [facility] Status: Signed Intake Vital Signs 01/06/23 10:49 02/05/23 10:11 02/05/23 10:13 Height 5 ft 6 in 5 ft 6 in 5 ft 6 in Weight: 178 lb 4 oz BMI 28.8 BP 114/78 Intake Visit Reasons: 12 WK OB Chaplaincy Required: No Is patient in pain?: No Allergies No Known Allergies Allergy (Verified 02/05/23 10:11) Medications PNV 178-FA 180 mcg-om3 35 mg-dha 25 mg-epa 5 mg-fish oil chew tablet tab PO 01/06/23 [History Confirmed 02/05/23] cholecalciferol (vitamin D3) 125 mcg (5,000 unit) capsule 125 mcg PO DAILY #1 cap 01/06/23 [Rx Confirmed 02/05/23] ferrous sulfate 325 mg (65 mg iron) tablet (Feosol) 325 mg PO DAILY 01/06/23 [History Confirmed 02/05/23] magnesium 200 mg tablet 200 mg PO DAILY 01/06/23 [History Confirmed 02/05/23] Last Menstrual Period: 11/11/22 Zika: Zika virus screening: Negative : No PFSH PFSH Medical History H/O depression, currently Surgical History Status post vaginal delivery Family History Mother Diabetes Father Hypertension Grandmother Breast cancer Dementia Social History adopted: No household members: family housing: house number of children: 3 current occupational status: employed current occupation: [employer] pets and animals: Yes pets and animals: cat(s) and dog(s) history of recent travel: No sexually active: Yes Smoking Status: Never smoker alcohol intake: never substance use type: does not use caffeine: No what type of physical activity do you participate in: none seatbelt use: always do you feel safe at home: Yes additional social history: [place] History 4 Elective abortions Hx Para 3 Spontaneous abortions Hx # Term Pregnancies 3 Ectopic pregnancies Hx # Pregnancies Multiple births # of living children 3 Past Pregnancies Del. Date Name GA/Weeks Outcome Route Bth Weight Infant Gen Labor Lgth Anesthesia Del Locatn Provider FOB 08/24/15 Cristian 41 live - full term 9 lbs 3 oz. Male 16 hours epidural Med theo Dr. Cook [place] 09/05/18 Lilian 40 live - full term 9lb 11oz Female epidural [facility] DESHAWN [place] 10/05/21 Reagan 39 live - full term Male epidural [facility] Maribel nifjoanne Dolle Velde [place] Delivery Date: 08/24/15 Last Updated by: Jenniffer Chacok MD difficult labor Delivery Date: 10/05/21 Last Updated by: Stephanie Fisher Elective IOL, 39weeks, , boy Kirk HPI 12 WK OB Details: RENEE RITCHIE is a 32 year old who presents for routine OB visit. OB Visit TYRONE Calculator Estimated Delivery Date Method Current WG Current Estimate 08/18/23 LMP (Certain) 12w 2d Expected Delivery Route/Plan Labor Preferences- CB/BF classes: [] labor support person: [] labor intervention preferences: [] pain management options preferred: [] cut cord/dad catch: [] : [] PP control planned: [] discussed possible routes of delivery and associated risks: [] special requests: [] Specific Issue/Plans Covid status: [] Flu vaccine: [] Tdap vaccine: [] Rhogam: [] LARC form signed: [] Problem list reviewed and updated with the most current plan of care details and appropriate orders placed. Relevant counseling for the gestational age provided. Continue routine care and follow up unless otherwise noted in visit notes/problem list details Initial Weight: Not Recorded Date -???-???-???-???-???-?? ?-???-???-???-???-???-? ??- EGA Weight BP Urine Prot -???-???-???-???-???-?? ?-???-???-???-???-???-? ??- Glucose FHR FuHt Pres Dilation -???-???-???-???-???-?? ?-???-???-???-???-???-? ??- Effaced St Visit Note 01/06/23 -???-???-???-???-???-?? ?-???-???-???-???-???-? ??- 8w 0d 178 lb 6 oz 116/76 -???-???-???-???-???-?? ?-???-???-???-???-???-? ??- 160 -???-???-???-???-???-?? ?-???-???-???-???-???-? ??- KW-CRL cons with dates. doing well-NIPT desired 02/05/23 -???-???-???-???-???-?? ?-???-???-???-???-???-? ??- 12w 2d 178 lb 4 oz 114/78 Negative -???-???-???-???-???-?? ?-???-???-???-???-???-? ??- Negative 156 -???-???-???-???-???-?? ?-???-???-???-???-???-? ??- JV-no crampi ng or bleeding. normal NIPT, it's a girl! no complaints. rto 4 weeks ACOG First Trimester First T (more content not included)... Normal [facility] Absolute lymphocyte countOrd ered By: Arielle Yobani on 01-20-2023 Lymphocytes Auto (Unsp spec) [#/Vol] 1.45 10*3/uL 0.83-4.51 [facility] Automated blood hematocrit ( percentage)Ordered By: Arielle Hilton on 01-20-2023 Hematocrit (Bld) [Volume fraction] 38.4 % Normal 37-47 [facility] Comment on above: Performed By: #### L 3890.6005, L3890.6100, L509.4005, L509.8000, L3890.6300, BTS, L100.0100 #### [facility] [address] [place], [address] Basophil percentageOrdered B y: Arielle Hilton on 01-20-2023 Basophils/100 WBC (Bld) 0.4 % Normal 0-1 [facility] Comment on above: Performed By: #### L 3890.6005, L3890.6100, L509.4005, L509.8000, L3890.6300, BTS, L100.0100 #### [facility] [address] [place], [address] Eosinophils/100 WBC (Bld) 0.4 % Normal 0-5 [facility] Comment on above: Performed By: #### L 3890.6005, L3890.6100, L509.4005, L509.8000, L3890.6300, BTS, L100.0100 #### [facility] [address] [place], [address] Neutrophils/100 WBC (Bld) 73.4 % High 47-70 [facility] Comment on above: Performed By: #### L 3890.6005, L3890.6100, L509.4005, L509.8000, L3890.6300, BTS, L100.0100 #### [facility] [address] [place], [address] WBC (Bld) [#/Vol] 7.7 10*3/uL Normal 4.4-11.0 [facility] Comment on above: Performed By: #### L 3890.6005, L3890.6100, L509.4005, L509.8000, L3890.6300, BTS, L100.0100 #### [facility] [address] [place], [address] Neutrophils (Bld) [#/Vol] 5.6 10*3/uL 2.0-7.7 [facility] Blood erythrocytes count (nu mber/volume)Ordered By: Arielle Hilton on 01-20-2023 RBC (Bld) [#/Vol] 4.42 10*6/uL Normal 4.2-5.4 [facility] Comment on above: Performed By: #### L 3890.6005, L3890.6100, L509.4005, L509.8000, L3890.6300, BTS, L100.0100 #### [facility] [address] [place], [address] Blood hemoglobin measurement (mass/volume)Ordered By: Arielle Hilton on 01-20-2023 Hemoglobin (Bld) [Mass/Vol] 12.4 g/dL Normal 12.0-15.0 [facility] Comment on above: Performed By: #### L 3890.6005, L3890.6100, L509.4005, L509.8000, L3890.6300, BTS, L100.0100 #### [facility] [address] [place], [address] Blood lymphocytes/100 leukoc ytesOrdered By: Arielle Hilton on 01-20-2023 Lymphocytes/100 WBC (Bld) 18.9 % Low 19-41 [facility] Comment on above: Performed By: #### L 3890.6005, L3890.6100, L509.4005, L509.8000, L3890.6300, BTS, L100.0100 #### [facility] [address] [place], [address] Blood monocytes/100 leukocyt esOrdered By: Arielle Hilton on 01-20-2023 Monocytes/100 WBC (Bld) 6.6 % Normal 0-10 [facility] Comment on above: Performed By: #### L 3890.6005, L3890.6100, L509.4005, L509.8000, L3890.6300, BTS, L100.0100 #### [facility] [address] [place], [address] Blood platelet mean volumeOr dered By: Arielle Hilton on 01-20-2023 Platelet mean volume (Bld) [Entitic vol] 8.5 fL Normal 6.2-12.0 [facility] Comment on above: Performed By: #### L 3890.6005, L3890.6100, L509.4005, L509.8000, L3890.6300, BTS, L100.0100 #### [facility] [address] [place], [address] CBC W/Diff, Automatedon 12-28 Absolute Lymph 1.45 X10 3/uL Normal 0.83-4.51 [facility] Comment on above: Performed By: #### L 3890.6005, L3890.6100, L509.4005, L509.8000, L3890.6300, BTS, L100.0100 #### [facility] [address] [place], [address] Absolute Neut 5.6 X10 3/uL Normal 2.0-7.7 [facility] Comment on above: Performed By: #### L 3890.6005, L3890.6100, L509.4005, L509.8000, L3890.6300, BTS, L100.0100 #### [facility] [address] [place], [address] IG% 0.300 Normal 0.0-0.9 [facility] Comment on above: Result Comment: IG% - Immature Granulocytes (promyelocytes, myelocytes and metamyelocytes) > 1% indicates that a LEFT SHIFT is Present. Performed By: #### L 3890.6005, L3890.6100, L509.4005, L509.8000, L3890.6300, BTS, L100.0100 #### [facility] [address] [facility] [place], [address] Nucleated RBC (Bld) [#/Vol] 0 10*3/uL Normal 0-5 [facility] Comment on above: Performed By: #### L 3890.6005, L3890.6100, L509.4005, L509.8000, L3890.6300, BTS, L100.0100 #### [facility] [address] [place], [address] RDW SD 42.1 fl Normal 35.1-43.9 [facility] Comment on above: Performed By: #### L 3890.6005, L3890.6100, L509.4005, L509.8000, L3890.6300, BTS, L100.0100 #### [facility] [address] [place], [address] CBC W/Diff, AutomatedOrdered By: Arielle Hilton on 01-20-2023 Erythrocyte distribution width (RBC) [Ratio] 13.3 % Normal 11.6-14.6 [facility] Comment on above: Performed By: #### L 3890.6005, L3890.6100, L509.4005, L509.8000, L3890.6300, BTS, L100.0100 #### [facility] [address] [place], [address] MCH (RBC) [Entitic mass] 28.1 pg Normal 27.0-32.0 [facility] Comment on above: Performed By: #### L 3890.6005, L3890.6100, L509.4005, L509.8000, L3890.6300, BTS, L100.0100 #### [facility] [address] [place], [address] Determination of erythrocyte mean corpuscular volume (MCV)Ordered By: Arielle Hilton on 01-20-2023 MCV (RBC) [Entitic vol] 86.9 fL Normal 81-99 [facility] Comment on above: Performed By: #### L 3890.6005, L3890.6100, L509.4005, L509.8000, L3890.6300, BTS, L100.0100 #### [facility] [address] [place], [address] HIV - WCHon 01-20-2023 HIV Non-Reactive Normal Nonreactive [facility] Comment on above: Order Comment: Reaso n for Exam: Performed By: #### L 3890.6005, L3890.6100, L509.4005, L509.8000, L3890.6300, BTS, L100.0100 #### [facility] [address] [place], [address] HIV 1 and HIV-2 antibody ass ay with HIV-1 p24 antigen detectionOrdered By: Arielle Hilton on 01-20-2023 HIV 1+2 Ab+HIV1 p24 Ag IA Ql Non-Reactive Nonreactive [facility] Hepatitis B Surface Antigeno n 01-20-2023 HEP B Surf Ag Non-Reactive Normal [facility] Comment on above: Order Comment: Reaso n for Exam: Performed By: #### L 3890.6005, L3890.6100, L509.4005, L509.8000, L3890.6300, BTS, L100.0100 #### [facility] [address] [place], [place], [id number] Hepatitis C Antibodyon 01-20 Hepatitis C Ab Non-Reactive Normal Nonreactive [facility] Comment on above: Order Comment: Reaso n for Exam: Result Comment: Non Reactive: < 0.8 Equivocal: >/= 0.8 to < 1.0 Reactive: >/= 1.0 The [facility] recommends that a reactive/equivocal HCV antibody result be followed up by the HCV Nucleic Acid Amplification test (156954) Performed By: #### L 3890.6005, L3890.6100, L509.4005, L509.8000, L3890.6300, BTS, L100.0100 #### [facility] [address] [facility] [place], [place], [id number] L509.8000on 01-20-2023 Syphilis Abs Non-Reactive Normal [facility] Comment on above: Order Comment: Reaso n for Exam: Performed By: #### L 3890.6005, L3890.6100, L509.4005, L509.8000, L3890.6300, BTS, L100.0100 #### [facility] [address] [place], [place], [id number] Laboratory - Hematology and Cell countsOrdered By: Arielle Hilton on 01-20-2023 Erythrocyte distribution width (RBC) [Entitic vol] 42.1 fL 35.1-43.9 [facility] Immature granulocytes/100 WBC (Bld) 0.300 % 0.0-0.9 [facility] Comment on above: IG% - Immature Granu locytes (promyelocytes, myelocytes and metamyelocytes) > 1% indicates that a LEFT SHIFT is Present. Nucleated RBC/100 WBC (Bld) [Ratio] 0 % 0-5 [facility] MCHC [Mass/volume] by Automa kamille countOrdered By: Arielle Hilton on 01-20-2023 MCHC (RBC) [Mass/Vol] 32.3 g/dL Normal 32-36 [facility] Comment on above: Performed By: #### L 3890.6005, L3890.6100, L509.4005, L509.8000, L3890.6300, BTS, L100.0100 #### [facility] [address] [place], [place], [id number] NATERAon 01-20-2023 NATURA MAILED SPECIMEN Normal [facility] Comment on above: Performed By: #### L 3890.6005, L3890.6100, L509.4005, L509.8000, L3890.6300, BTS, L100.0100 #### [facility] [address] [place], [place], [address] No Panel InformationOrdered By: Arielle Hilton on 01-20-2023 Hepatitis B Surface Antigen Non-Reactive Nonreactive [facility] Hepatitis C Antibody Non-Reactive Nonreactive [facility] Comment on above: Non Reactive: < 0.8 Equivocal: >/= 0.8 to < 1.0 Reactive: >/= 1.0The CDC recommends that a reactive/equivocal HCV antibody result be followed up by the HCV Nucleic Acid Amplificationtest (906467) Rubella IgG Antibody Reactive Nonreactive [facility] Comment on above: Antibody Results Int erpretation of Immune Status Non Reactive Presumed Non-Immune Equivocal Equivocal Reactive Presumed Immune Miscellaneous Test Comment MAILED SPECIMEN [facility] Platelets bldOrdered By: Joshua Hilton on 01-20-2023 Platelets (Bld) [#/Vol] 264 10*3/uL Normal 150-450 [facility] Comment on above: Performed By: #### L 3890.6005, L3890.6100, L509.4005, L509.8000, L3890.6300, BTS, L100.0100 #### [facility] [address] [place], [place], [id number] Rubella IgGon 01-20-2023 Rubella IgG Reactive Normal Nonreactive [facility] Comment on above: Order Comment: Reaso n for Exam: Result Comment: Anti body Results Interpretation of Immune Status Non Reactive Presumed Non-Immune Equivocal Equivocal Reactive Presumed Immune Performed By: #### L 3890.6005, L3890.6100, L509.4005, L509.8000, L3890.6300, BTS, L100.0100 #### [facility] [address] [place], [address] Serum Treponema species anti body detectionOrdered By: Arielle Hilton on 01-20-2023 Treponema sp Ab Ql (S) Non-Reactive [facility] Type AND Screenon 01-20-2023 ABO and Rh group Nom (Bld) Blood group O Rh(D) positive Normal [facility] Comment on above: Order Comment: PN Performed By: #### L 3890.6005, L3890.6100, L509.4005, L509.8000, L3890.6300, BTS, L100.0100 #### [facility] [address] [place], [address] Chlamydia/GC JULIANO aptimaon CHLAMY,NUC ACID Negative Normal Negative [facility] Comment on above: Performed By: #### L 3890.6005, L3890.6100, L509.4005, L509.8000, L3890.6300, BTS, L100.0100 #### [facility] [address] [place], [address] GC BY NUC ACID Negative Normal Negative [facility] Comment on above: Result Comment: Perf ormed at: =G - [facility] [address] [id number] [place] Buncher Operator: Zelda Rowell MD, Phone: [phone] Performed By: #### L 3890.6005, L3890.6100, L509.4005, L509.8000, L3890.6300, BTS, L100.0100 #### [facility] [address] [place], [address] Urine Cultureon 01-07-2023 URC Culture exhibits no growth. Normal [facility] Comment on above: Performed By: #### L 3890.6005, L3890.6100, L509.4005, L509.8000, L3890.6300, BTS, L100.0100 #### [facility] [address] [place], [address] Chlamydia trachomatis rRNA d etection by probe and target amplification methodOrdered By: Arielle Hilton on 01-06-2023 C. trachomatis rRNA JULIANO+probe Ql (Unsp spec) Negative Negative [facility] Culture, urineOrdered By: Rafa Hilton on 01-06-2023 Bacteria identified Cx Nom (U) Culture exhibits no growth. [facility] Bacteria identified Cx Nom (U) Culture exhibits no growth. [facility] - Microbiology an d Antimicrobial susceptibilityOrdered By: Arielle Hilton on 01-06-2023 N. gonorrhoeae DNA JULIANO+probe Ql (Unsp spec) Negative Negative [facility] Comment on above: Performed at: =[address] [id number] Director: Zelda Rowell MD, Phone: [phone] Head Of Drama Office Visit Reporton 01-06-2023 Head Of Drama Office Visit Report [facility] [place] [address] [place] [address] OFFICE VISIT Date of Service: 01/06/23 MR#: [id number] Acct: [id number] Name: RENEE RITCHIE Rep #: [id number] : 1990 Provider: QUEENIE Thomas ams Age/Sex: 32/F Location: [facility] Status: Signed Intake Vital Signs 11/28/22 08:36 01/06/23 10:48 01/06/23 10:49 Height 5 ft 6 in 5 ft 6 in 5 ft 6 in Weight: 178 lb 6 oz BMI 28.8 BP 116/76 Intake Visit Reasons: NOB Chaplaincy Required: No Is patient in pain?: No Allergies No Known Allergies Allergy (Verified 01/06/23 10:48) Medications PNV 178-FA 180 mcg-om3 35 mg-dha 25 mg-epa 5 mg-fish oil chew tablet tab PO 01/06/23 [History Confirmed 01/06/23] cholecalciferol (vitamin D3) 125 mcg (5,000 unit) capsule 125 mcg PO DAILY #1 cap 01/06/23 [Rx Confirmed 01/06/23] ferrous sulfate 325 mg (65 mg iron) tablet (Feosol) 325 mg PO DAILY 01/06/23 [History Confirmed 01/06/23] magnesium 200 mg tablet 200 mg PO DAILY 01/06/23 [History Confirmed 01/06/23] Last Menstrual Period: 11/11/22 Zika: Zika virus screening: Negative : No PFSH PFSH Medical History H/O depression, currently Surgical History (Updated 01/06/23 @ 11:13 by Arielle Hilton CNM) Status post vaginal delivery Family History (Updated 01/06/23 @ 10:53 by Arielle Hilton CNM) Mother Diabetes Father Hypertension Grandmother Breast cancer Dementia Social History (Updated 01/06/23 @ 10:56 by Arielle Hilton CNM) adopted: No household members: family housing: house number of children: 3 current occupational status: employed current occupation: [employer] pets and animals: Yes pets and animals: cat(s) and dog(s) history of recent travel: No sexually active: Yes Smoking Status: Never smoker alcohol intake: never substance use type: does not use caffeine: No what type of physical activity do you participate in: none seatbelt use: always do you feel safe at home: Yes additional social history: Ryley History 4 Elective abortions Hx Para 3 Spontaneous abortions Hx # Term Pregnancies 3 Ectopic pregnancies Hx # Pregnancies Multiple births # of living children 3 Past Pregnancies Del. Date Name GA/Weeks Outcome Route Bth Weight Infant Gen Labor Lgth Anesthesia Del Locatn Provider FOB 08/24/15 Cristian 41 live - full term 9 lbs 3 oz. Male 16 hours epidural Med theo Dr. Cook [place] 09/05/18 Lilian 40 live - full term 9lb 11oz Female epidural WC DESHAWN Ryley 10/05/21 Kirk 39 live - full term Male epidural WC Marbiel Jackson Velcatalino Ryley Delivery Date: 08/24/15 Last Updated by: Jenniffer Chacko MD difficult labor Delivery Date: 10/05/21 Last Updated by: Stephanie Fisher Elective IOL, 39weeks, , melissa Kirk HPI NOB Details: RENEE RITCHIE is a 32 year old who presents for New OB visit. OB Visit TYRONE Calculator Estimated Delivery Date Method Current WG Current Estimate 08/18/23 LMP (Certain) 8w 0d Estimated Due Date: 08/18/23 Expected Delivery Route/Plan Labor Preferences- CB/BF classes: [] labor support person: [] labor intervention preferences: [] pain management options preferred: [] cut cord/dad catch: [] : [] PP control planned: [] discussed possible routes of delivery and associated risks: [] special requests: [] Specific Issue/Plans Covid status: [] Flu vaccine: [] Tdap vaccine: [] Rhogam: [] LARC form signed: [] Problem list reviewed and updated with the most current plan of care details and appropriate orders placed. Relevant counseling for the gestational age provided. Continue routine care and follow up unless otherwise noted in visit notes/problem list details Initial Weight: Not Recorded Date -???-???-???-???-???-?? ?-???-???-???-???-???-? ??- EGA Weight BP Urine Prot -???-???-???-???-???-?? ?-???-???-???-???-???-? ??- Glucose FHR FuHt Pres Dilation -???-???-???-???-???-?? ?-???-???-???-???-???-? ??- Effaced St Visit Note 01/06/23 -???-???-???-???-???-?? ?-???-???-???-???-???-? ??- 8w 0d 178 lb 6 oz 116/76 -???-???-???-???-???-?? ?-???-???-???-???-???-? ??- 160 -???-???-???-???-???-?? ?-???-???-???-???-???-? ??- KW-CRL cons with dates. doing well-NIPT desired Menstrual History Last Menstrual Period: 11/11/22 Antepartum Record Genetic Screening: Congenital Heart Defect: Other, Neural Tube Defect: Other, Hemoglobinopathy Or Carrier: Other, Cystic Fibrosis: Other, Chromosome Abnormality: Other, Sree-Sachs: Other, Hemophilia: Other, Intellectual Disability/Autism: Other, Recur (more content not included)... Normal [facility] - Microbiology an d Antimicrobial susceptibilityon 10-14-2022 SARS-CoV-2 (COVID-19) RNA JULIANO+probe Ql (Unsp spec) Detected [facility] STREP A MOLECULAR (POC)on Procedural Control Valid [facility] Strep A (POCT) Positive Abnormal Negative [facility] STREP A MOLECULAR (POC)on Procedural Control Valid [facility] Strep A (POCT) Positive Abnormal Negative [facility] Absolute lymphocyte counton 10-05-2021 Lymphocytes Auto (Unsp spec) [#/Vol] 1.32 10*3/uL 0.83-4.51 [facility] Work Phone: Basophil percentageon 2021 Basophils/100 WBC (Bld) 0.2 % 0-1 [facility] Work Phone: Eosinophils/100 WBC (Bld) 0.4 % 0-5 [facility] Work Phone: Neutrophils (Bld) [#/Vol] 6.7 10*3/uL 2.0-7.7 [facility] Work Phone: Neutrophils/100 WBC (Bld) 75.1 % 47-70 [facility] Work Phone: WBC (Bld) [#/Vol] 8.9 10*3/uL 4.4-11.0 [facility]: Blood erythrocytes count (nu mber/volume)on 10-05-2021 RBC (Bld) [#/Vol] 4.05 10*6/uL 4.2-5.4 [facility] Work Phone: [phone] Blood hemoglobin measurement (mass/volume)on 10-05-2021 Hemoglobin (Bld) [Mass/Vol] 11.1 g/dL 12.0-15.0 [facility] Work Phone: Blood lymphocytes/100 leukoc yteson 10-05-2021 Lymphocytes/100 WBC (Bld) 14.8 % 19-41 [facility] Work Phone: Blood monocytes/100 leukocyt eson 10-05-2021 Monocytes/100 WBC (Bld) 8.8 % 0-10 [facility] Work Phone: Blood platelet mean volumeon 10-05-2021 Platelet mean volume (Bld) [Entitic vol] 9.4 fL 6.2-12.0 [facility] Work Phone: Determination of erythrocyte mean corpuscular volume (MCV)on 10-05-2021 MCV (RBC) [Entitic vol] 87.4 fL 81-99 [facility] Work Phone: Hematocrit Auto (Bld) [Volum e fraction]on 10-05-2021 Hematocrit (Bld) [Volume fraction] 35.4 % 37-47 [facility] Work Phone: Laboratory - Hematology and Cell countson 10-05-2021 Erythrocyte distribution width (RBC) [Entitic vol] 46.9 fL 35.1-43.9 [facility] Work Phone: Erythrocyte distribution width (RBC) [Ratio] 14.8 % 11.6-14.6 [facility] Work Phone: Immature granulocytes/100 WBC (Bld) 0.700 % 0.0-0.9 [facility] Work Phone: Comment on above: IG% - Immature Granu locytes (promyelocytes, myelocytes and metamyelocytes) > 1% indicates that a LEFT SHIFT is Present. MCH (RBC) [Entitic mass] 27.4 pg 27.0-32.0 [facility] Work Phone: Nucleated RBC/100 WBC (Bld) [Ratio] 0 % 0-5 [facility] Work Phone: MCHC Auto (RBC) [Mass/Vol]on 10-05-2021 MCHC (RBC) [Mass/Vol] 31.4 g/dL 32-36 [facility] Work Phone: Platelets bldon 10-05-2021 Platelets (Bld) [#/Vol] 211 10*3/uL 150-450 [facility] Work Phone: Laboratory - Chemistry and C hemistry - challengeon 10-04-2021 Glucose Ql (U) Negative [facility] Work Phone: Laboratory - Urinalysison Protein Ql (U) Negative [facility] Work Phone: Laboratory - Chemistry and C hemistry - challengeon 09-28-2021 Glucose Ql (U) Negative [facility] Work Phone: Laboratory - Urinalysison Protein Ql (U) Negative [facility] Work Phone: Laboratory - Chemistry and C hemistry - challengeon 09-19-2021 Glucose Ql (U) Negative [facility] Work Phone: Laboratory - Urinalysison Protein Ql (U) Negative [facility] Work Phone: Laboratory - Chemistry and C hemistry - challengeon 09-14-2021 Glucose Ql (U) Negative [facility] Work Phone: Laboratory - Urinalysison Protein Ql (U) Negative [facility] Work Phone: No Panel Informationon 09-14 Group B Streptococcus Culture Group B Beta Streptococcus is not isolated. [facility] Work Phone: Absolute lymphocyte counton 08-31-2021 Lymphocytes Auto (Unsp spec) [#/Vol] 1.27 10*3/uL 0.83-4.51 [facility] Work Phone: Basophil percentageon 2021 Basophils/100 WBC (Bld) 0.3 % 0-1 [facility] Work Phone: Eosinophils/100 WBC (Bld) 0.6 % 0-5 [facility] Work Phone: Neutrophils (Bld) [#/Vol] 8.7 10*3/uL 2.0-7.7 [facility] Work Phone: Neutrophils/100 WBC (Bld) 78.7 % 47-70 [facility] Work Phone: WBC (Bld) [#/Vol] 11.0 10*3/uL 4.4-11.0 [facility] Work Phone: Blood erythrocytes count (nu mber/volume)on 08-31-2021 RBC (Bld) [#/Vol] 3.90 10*6/uL 4.2-5.4 [facility] Work Phone: Blood hemoglobin measurement (mass/volume)on 08-31-2021 Hemoglobin (Bld) [Mass/Vol] 10.8 g/dL 12.0-15.0 [facility] Work Phone: Blood lymphocytes/100 leukoc yteson 08-31-2021 Lymphocytes/100 WBC (Bld) 11.5 % 19-41 [facility] Work Phone: Blood monocytes/100 leukocyt eson 08-31-2021 Monocytes/100 WBC (Bld) 8.3 % 0-10 [facility] Work Phone: Blood platelet mean volumeon 08-31-2021 Platelet mean volume (Bld) [Entitic vol] 8.4 fL 6.2-12.0 [facility] Work Phone: Determination of erythrocyte mean corpuscular volume (MCV)on 08-31-2021 MCV (RBC) [Entitic vol] 87.7 fL 81-99 [facility] Work Phone: [phone] Hematocrit Auto (Bld) [Volum e fraction]on 08-31-2021 Hematocrit (Bld) [Volume fraction] 34.2 % 37-47 [facility] Work Phone: [phone] Laboratory - Chemistry and C hemistry - challengeon 08-31-2021 Glucose Ql (U) Negative [facility] Work Phone: [phone] Laboratory - Hematology and Cell countson 08-31-2021 Erythrocyte distribution width (RBC) [Entitic vol] 45.1 fL 35.1-43.9 [facility] Work Phone: [phone] Erythrocyte distribution width (RBC) [Ratio] 14.2 % 11.6-14.6 [facility] Work Phone: [phone] Immature granulocytes/100 WBC (Bld) 0.600 % 0.0-0.9 [facility] Work Phone: [phone] Comment on above: IG% - Immature Granu locytes (promyelocytes, myelocytes and metamyelocytes) > 1% indicates that a LEFT SHIFT is Present. MCH (RBC) [Entitic mass] 27.7 pg 27.0-32.0 [facility] Work Phone: [phone] Nucleated RBC/100 WBC (Bld) [Ratio] 0 % 0-5 [facility] Work Phone: [phone] Laboratory - Urinalysison Protein Ql (U) Negative [facility] Work Phone: [phone] MCHC Auto (RBC) [Mass/Vol]on 08-31-2021 MCHC (RBC) [Mass/Vol] 31.6 g/dL 32-36 [facility] Work Phone: [phone] Platelets bldon 08-31-2021 Platelets (Bld) [#/Vol] 210 10*3/uL 150-450 [facility] Work Phone: [phone] Laboratory - Chemistry and C hemistry - challengeon 08-17-2021 Glucose Ql (U) Negative [facility] Work Phone: Laboratory - Urinalysison Protein Ql (U) Negative [facility] Work Phone: Quantitative serum or plasma 3 hour gestational glucose tolerance panelon 07-23-2021 Glucose tolerance 3 hours gestational panel See comment [facility] Work Phone: Comment on above: FASTING 96 Col: 06/27 12/17 0734GLUCOSE TOLERANCE TEST FOR Reference Interval GESTATIONAL DIABETES Fasting <105 mg/dL 1 hour <190 mg/dl 2 hour <165 mg/dl 3 hour <145 mg/dl 1 HR GLU 138 Col: 07/23/21 0836 2 HR GLU 125 Col: 07/23/21 0936 3 HR GLU 118 Col: 07/23/21 1036 Absolute lymphocyte counton 07-19-2021 Lymphocytes Auto (Unsp spec) [#/Vol] 1.20 10*3/uL 0.83-4.51 [facility] Work Phone: Basophil percentageon 2021 Basophils/100 WBC (Bld) 0.3 % 0-1 [facility] Work Phone: [phone] Eosinophils/100 WBC (Bld) 0.6 % 0-5 [facility] Work Phone: Neutrophils (Bld) [#/Vol] 8.6 10*3/uL 2.0-7.7 [facility] Work Phone: Neutrophils/100 WBC (Bld) 82.4 % 47-70 [facility] Work Phone: WBC (Bld) [#/Vol] 10.4 10*3/uL 4.4-11.0 [facility] Work Phone: Blood erythrocytes count (nu mber/volume)on 07-19-2021 RBC (Bld) [#/Vol] 3.89 10*6/uL 4.2-5.4 [facility] Work Phone: Blood hemoglobin measurement (mass/volume)on 07-19-2021 Hemoglobin (Bld) [Mass/Vol] 10.9 g/dL 12.0-15.0 [facility] Work Phone: Blood lymphocytes/100 leukoc yteson 07-19-2021 Lymphocytes/100 WBC (Bld) 11.5 % 19-41 [facility] Work Phone: Blood monocytes/100 leukocyt eson 07-19-2021 Monocytes/100 WBC (Bld) 4.6 % 0-10 [facility] Work Phone: Blood platelet mean volumeon 07-19-2021 Platelet mean volume (Bld) [Entitic vol] 8.1 fL 6.2-12.0 [facility] Work Phone: Determination of erythrocyte mean corpuscular volume (MCV)on 07-19-2021 MCV (RBC) [Entitic vol] 88.7 fL 81-99 [facility] Work Phone: [phone] Gestational diabetes screen 1-hour screen with 50g oral glucose loadon 07-19-2021 Glucose 1 Hr post 50 g glucose PO [Mass/Vol] 141 mg/dL 70-140 [facility] Work Phone: Hematocrit Auto (Bld) [Volum e fraction]on 07-19-2021 Hematocrit (Bld) [Volume fraction] 34.5 % 37-47 [facility] Work Phone: Laboratory - Chemistry and C hemistry - challengeon 07-19-2021 Glucose Ql (U) Negative [facility] Work Phone: Laboratory - Hematology and Cell countson 07-19-2021 Erythrocyte distribution width (RBC) [Entitic vol] 43.6 fL 35.1-43.9 [facility] Work Phone: [phone] Erythrocyte distribution width (RBC) [Ratio] 13.4 % 11.6-14.6 [facility] Work Phone: [phone] Immature granulocytes/100 WBC (Bld) 0.600 % 0.0-0.9 [facility] Work Phone: [phone] Comment on above: IG% - Immature Granu locytes (promyelocytes, myelocytes and metamyelocytes) > 1% indicates that a LEFT SHIFT is Present. MCH (RBC) [Entitic mass] 28.0 pg 27.0-32.0 [facility] Work Phone: Nucleated RBC/100 WBC (Bld) [Ratio] 0 % 0-5 [facility] Work Phone: Laboratory - Urinalysison Protein Ql (U) Negative [facility] Work Phone: MCHC Auto (RBC) [Mass/Vol]on 07-19-2021 MCHC (RBC) [Mass/Vol] 31.6 g/dL 32-36 [facility] Work Phone: Platelets bldon 07-19-2021 Platelets (Bld) [#/Vol] 207 10*3/uL 150-450 [facility] Work Phone: Laboratory - Chemistry and C hemistry - challengeon 06-22-2021 Glucose Ql (U) Negative [facility] Work Phone: Laboratory - Urinalysison Protein Ql (U) Negative [facility] Work Phone: Laboratory - Chemistry and C hemistry - challengeon 05-24-2021 Glucose Ql (U) Negative [facility] Work Phone: Laboratory - Urinalysison Protein Ql (U) Negative [facility] Work Phone: Progress Noteon 05-17-2021 Underwriter Authentication Interface Message Text 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 Isolated CPCs are considered to be a weak marker for chromosome abnormalities, such as trisomy 18. CPCs themselves are not associated with an increased chance of neurological problems and do not require any particular follow-up. 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 Declined pamphlet information on choroid plexus cysts. Informed no other abnormalities noted, no further follow up with MFM unless primary OB desires. Continue care with primary OB. [facility] SARS-CoV-2 (COVID-19) RT-PCR on 05-03-2021 SARS-CoV-2 (COVID-19) RNA JULIANO+probe Ql (Unsp spec) Negative [facility] Comment on above: Result Comment: NEGA TIVE: SARS-CoV-2 RNA was NOT detected - Interpretation: A negative result indicates severe acute respiratory syndrome coronavirus 2 (SARS-CoV-2) RNA was not detected. Negative results do not preclude SARS-CoV-2 infection and should not be used as the sole basis for patient management decisions. Negative results must be combined with clinical observations, patient history, and epidemiological information. The possibility of a false negative result should be considered if the patient's recent exposures or clinical presentation suggest that SARS-CoV-2 infection is possible, and diagnostic tests for other causes of illness are negative. If SARS-CoV-2 infection is still suspected, re-testing should be considered. - Method: Real-time reverse transcriptase PCR amplification for the qualitative detection of the ORF1 a/b non-structural region that is unique to SARS-CoV-2 and a conserved region in the structural protein envelope E-gene for mayes-Sarbecovirus detection using the Michel SARS-CoV-2 assay on the Crist[employer] Michel 6800 System. - Comment: This test has received FDA Emergency Use Authorization (EUA) and has been verified by [facility]. This test is only authorized for the duration of the public health emergency declaration and the circumstances that exist to justify the authorization of the emergency use of in vitro diagnostic tests for the detection of SARS-CoV-2 virus and/or diagnosis of COVID-19 infection under section 564(b)(1) of the Act, 21 U.S.C. 360bbb-3(b)(1), unless the authorization is terminated or revoked sooner. This test has not been FDA cleared or approved. Results should be used in conjunction with clinical findings, and should not form the sole basis for a diagnosis or treatment decision. - Fact Sheets for this EUA can be found at the following links: For Healthcare Providers: www.fda.gov/media/295423/download For Patients: www.fda.gov/media/880633/download - Reference Value: Negative Performed By: #### C OVID #### [facility] [address] [place] [address] MICHEL SARS CoV-2 RT PCR Not detected [facility] Comment on above: Performed By: #### C OVID #### [facility] [address] [place] [address] Laboratory - Chemistry and C hemistry - challengeon 04-26-2021 Glucose Ql (U) Negative [facility] Work Phone: Laboratory - Urinalysison Protein Ql (U) Negative [facility] Work Phone: No Panel Informationon 04-26 Miscellaneous Test See comment [facility] Work Phone: Comment on above: TEST RESULT LIMITSAF P, Serum, Open Spina BifidaResults ReportTest Results: *Screen Negative*Gest. Age on Collection Date 16.3 weeksGestat. Age Based On As providedRecalculations are not recommended when gestational dating by LMP and ultrasound are within 10 days.M[age]Race CaucasianWeight 161 lbsInsulin Dep Diabetes NoMultiple Gestation NoAFP Value 40.4 ng/mLAFP MoM 1.21OSBR Risk 1 [place] 63[address]InterpretationInterpretation: Screen NegativeThis result is screen negative for OSB. The AFP MoM calculated is based on the gestational age provided. MS-AFP can identify up to 80% of open neural tube defects. Closed neural tube defects and some open defects may not be detected by this test. This test does not screen for Down Syndrome or Trisomy 18. If screening for Down Syndrome or Trisomy 18 is desired, contact [facility] [employer] to discuss available options. The [place] [employer] recommends amniocentesis be offered to women age 35 and older.Comment: Keshia Hahn, Ph.D., DABCCDirectorReferences: Available Upon Request.Multiples Of Median Cutoffs For AFP ElevationsSingleton 2.5 Black 2.8IDD 2.0 Twins 4.5 Abbreviation DefinitionsIDD - Insulin Dep DiabetesOSBR - Open Spina Bifida RiskFor further inquiries contact [facility] at [phone]. TESTING PERFORMED AT [facility]. ORIGINAL REPORT ON FILE IN LAB CONTAINS ADDITIONAL TEST SITE INFORMATION. SARS-CoV-2 (COVID-19) RT-PCR on 04-25-2021 SARS-CoV-2 (COVID-19) RNA JULIANO+probe Ql (Unsp spec) Negative [facility] Comment on above: Order Comment: ANKIT CARDONA SCREENING COVID Result Comment: NEGA TIVE: SARS-CoV-2 RNA was NOT detected - Interpretation: A negative result indicates severe acute respiratory syndrome coronavirus 2 (SARS-CoV-2) RNA was not detected. Negative results do not preclude SARS-CoV-2 infection and should not be used as the sole basis for patient management decisions. Negative results must be combined with clinical observations, patient history, and epidemiological information. The possibility of a false negative result should be considered if the patient's recent exposures or clinical presentation suggest that SARS-CoV-2 infection is possible, and diagnostic tests for other causes of illness are negative. If SARS-CoV-2 infection is still suspected, re-testing should be considered. - Method: Real-time reverse transcriptase PCR amplification for the qualitative detection of the ORF1 a/b non-structural region that is unique to SARS-CoV-2 and a conserved region in the structural protein envelope E-gene for mayes-Sarbecovirus detection using the Michel SARS-CoV-2 assay on the Crist[employer] Michel 6800 System. - Comment: This test has received FDA Emergency Use Authorization (EUA) and has been verified by [facility] [place]. This test is only authorized for the duration of the public health emergency declaration and the circumstances that exist to justify the authorization of the emergency use of in vitro diagnostic tests for the detection of SARS-CoV-2 virus and/or diagnosis of COVID-19 infection under section 564(b)(1) of the Act, 21 U.S.C. 360bbb-3(b)(1), unless the authorization is terminated or revoked sooner. This test has not been FDA cleared or approved. Results should be used in conjunction with clinical findings, and should not form the sole basis for a diagnosis or treatment decision. - Fact Sheets for this EUA can be found at the following links: For Healthcare Providers: www.fda.gov/media/343083/download For Patients: www.fda.gov/media/522120/download - Reference Value: Negative Performed By: #### C OVID #### [place] [address] MICHEL SARS CoV-2 RT PCR Not detected [facility] Comment on above: Order Comment: EMPLO CARDONA SCREENING COVID Performed By: #### C OVID #### [place] [address] SARS-CoV-2 (COVID-19) RT-PCR on 04-24-2021 Hospitalized? No [facility] Comment on above: Order Comment: EMPLO CARDONA SCREENING COVID Performed By: #### C OVID #### [place] [address] ICU? No [facility] Comment on above: Order Comment: EMPLO CARDONA SCREENING COVID Performed By: #### C OVID #### [place] [address] ? Unknown [facility] Comment on above: Order Comment: EMPLO CARDONA SCREENING COVID Performed By: #### C OVID #### [place] [address] Resident in congregate care setting? No [facility] Comment on above: Order Comment: EMPLO CARDONA SCREENING COVID Performed By: #### C OVID #### [address] [place] [address] SARS-CoV-2 (COVID-19) RT-PCR on 04-21-2021 SARS-CoV-2 (COVID-19) RNA JULIANO+probe Ql (Unsp spec) Negative [facility] Comment on above: Order Comment: ANKIT CARDONA SICK COVID 0800 Result Comment: NEGA TIVE: SARS-CoV-2 RNA was NOT detected - Interpretation: A negative result indicates severe acute respiratory syndrome coronavirus 2 (SARS-CoV-2) RNA was not detected. Negative results do not preclude SARS-CoV-2 infection and should not be used as the sole basis for patient management decisions. Negative results must be combined with clinical observations, patient history, and epidemiological information. The possibility of a false negative result should be considered if the patient's recent exposures or clinical presentation suggest that SARS-CoV-2 infection is possible, and diagnostic tests for other causes of illness are negative. If SARS-CoV-2 infection is still suspected, re-testing should be considered. - Method: Real-time reverse transcriptase PCR amplification for the qualitative detection of the ORF1 a/b non-structural region that is unique to SARS-CoV-2 and a conserved region in the structural protein envelope E-gene for mayes-Sarbecovirus detection using the Michel SARS-CoV-2 assay on the [employer] Michel 6800 System. - Comment: This test has received FDA Emergency Use Authorization (EUA) and has been verified by [facility]. This test is only authorized for the duration of the public health emergency declaration and the circumstances that exist to justify the authorization of the emergency use of in vitro diagnostic tests for the detection of SARS-CoV-2 virus and/or diagnosis of COVID-19 infection under section 564(b)(1) of the Act, 21 U.S.C. 360bbb-3(b)(1), unless the authorization is terminated or revoked sooner. This test has not been FDA cleared or approved. Results should be used in conjunction with clinical findings, and should not form the sole basis for a diagnosis or treatment decision. - Fact Sheets for this EUA can be found at the following links: For Healthcare Providers: www.fda.gov/media/134087/download For Patients: www.fda.gov/media/512997/download - Reference Value: Negative Performed By: #### C OVID #### [facility] [address] [place], [place] [id number] MICHEL SARS CoV-2 RT PCR Not detected [facility] Comment on above: Order Comment: ANKIT CARDONA SICK COVID 0800 Performed By: #### C OVID #### [facility] [address] [place] [address] SARS-CoV-2 (COVID-19) RT-PCR on 04-19-2021 SARS-CoV-2 (COVID-19) RNA JULIANO+probe Ql (Unsp spec) Negative [facility] Comment on above: Result Comment: NEGA TIVE: SARS-CoV-2 RNA was NOT detected - Interpretation: A negative result indicates severe acute respiratory syndrome coronavirus 2 (SARS-CoV-2) RNA was not detected. Negative results do not preclude SARS-CoV-2 infection and should not be used as the sole basis for patient management decisions. Negative results must be combined with clinical observations, patient history, and epidemiological information. The possibility of a false negative result should be considered if the patient's recent exposures or clinical presentation suggest that SARS-CoV-2 infection is possible, and diagnostic tests for other causes of illness are negative. If SARS-CoV-2 infection is still suspected, re-testing should be considered. - Method: Real-time reverse transcriptase PCR amplification for the qualitative detection of the ORF1 a/b non-structural region that is unique to SARS-CoV-2 and a conserved region in the structural protein envelope E-gene for mayes-Sarbecovirus detection using the Michel SARS-CoV-2 assay on the [employer] Michel 6800 System. - Comment: This test has received FDA Emergency Use Authorization (EUA) and has been verified by [facility]. This test is only authorized for the duration of the public health emergency declaration and the circumstances that exist to justify the authorization of the emergency use of in vitro diagnostic tests for the detection of SARS-CoV-2 virus and/or diagnosis of COVID-19 infection under section 564(b)(1) of the Act, 21 U.S.C. 360bbb-3(b)(1), unless the authorization is terminated or revoked sooner. This test has not been FDA cleared or approved. Results should be used in conjunction with clinical findings, and should not form the sole basis for a diagnosis or treatment decision. - Fact Sheets for this EUA can be found at the following links: For Healthcare Providers: www.fda.gov/media/414437/download For Patients: www.fda.gov/media/535798/download - Reference Value: Negative Performed By: #### C OVID #### [address] [id number] MICHEL SARS CoV-2 RT PCR Not detected [facility] Comment on above: Performed By: #### C OVID #### [address] [address] SARS-CoV-2 (COVID-19) RT-PCR on 04-17-2021 SARS-CoV-2 (COVID-19) RNA JULIANO+probe Ql (Unsp spec) Negative [facility] Comment on above: Order Comment: ANKIT CARDONA SICK COVID YU ACHP Result Comment: NEGA TIVE: SARS-CoV-2 RNA was NOT detected - Interpretation: A negative result indicates severe acute respiratory syndrome coronavirus 2 (SARS-CoV-2) RNA was not detected. Negative results do not preclude SARS-CoV-2 infection and should not be used as the sole basis for patient management decisions. Negative results must be combined with clinical observations, patient history, and epidemiological information. The possibility of a false negative result should be considered if the patient's recent exposures or clinical presentation suggest that SARS-CoV-2 infection is possible, and diagnostic tests for other causes of illness are negative. If SARS-CoV-2 infection is still suspected, re-testing should be considered. - Method: Real-time reverse transcriptase PCR amplification for the qualitative detection of the ORF1 a/b non-structural region that is unique to SARS-CoV-2 and a conserved region in the structural protein envelope E-gene for mayes-Sarbecovirus detection using the Michel SARS-CoV-2 assay on the Crist[employer] Michel [employer]0 System. - Comment: This test has received FDA Emergency Use Authorization (EUA) and has been verified by [facility]. This test is only authorized for the duration of the public health emergency declaration and the circumstances that exist to justify the authorization of the emergency use of in vitro diagnostic tests for the detection of SARS-CoV-2 virus and/or diagnosis of COVID-19 infection under section 564(b)(1) of the Act, 21 U.S.C. 360bbb-3(b)(1), unless the authorization is terminated or revoked sooner. This test has not been FDA cleared or approved. Results should be used in conjunction with clinical findings, and should not form the sole basis for a diagnosis or treatment decision. - Fact Sheets for this EUA can be found at the following links: For Healthcare Providers: www.t-Art.gov/media/698329/download For Patients: www.t-Art.gov/media/380803/download - Reference Value: Negative Performed By: #### C OVID #### [address] [address] MICHEL SARS CoV-2 RT PCR Not detected [facility] Comment on above: Order Comment: ANKIT CARDONA SICK COVID YU ACHP Performed By: #### C OVID #### [address] [address] SARS-CoV-2 (COVID-19) RT-PCR on 04-12-2021 SARS-CoV-2 (COVID-19) RNA JULIANO+probe Ql (Unsp spec) Negative [facility] Comment on above: Order Comment: Is th is order Clinic Collect?->Yes Is this specimen being sent to an external lab?->No Release to patient->Automatic [id number]&Nasal swab^\S\^Nose (source)&Nose (source) Result Comment: NEGA TIVE: SARS-CoV-2 RNA was NOT detected - Interpretation: A negative result indicates severe acute respiratory syndrome coronavirus 2 (SARS-CoV-2) RNA was not detected. Negative results do not preclude SARS-CoV-2 infection and should not be used as the sole basis for patient management decisions. Negative results must be combined with clinical observations, patient history, and epidemiological information. The possibility of a false negative result should be considered if the patient's recent exposures or clinical presentation suggest that SARS-CoV-2 infection is possible, and diagnostic tests for other causes of illness are negative. If SARS-CoV-2 infection is still suspected, re-testing should be considered. - Method: Real-time reverse transcriptase PCR amplification for the qualitative detection of the ORF1 a/b non-structural region that is unique to SARS-CoV-2 and a conserved region in the structural protein envelope E-gene for mayes-Sarbecovirus detection using the Michel SARS-CoV-2 assay on the [employer] Michel [employer] System. - Comment: This test has received FDA Emergency Use Authorization (EUA) and has been verified by [facility]. This test is only authorized for the duration of the public health emergency declaration and the circumstances that exist to justify the authorization of the emergency use of in vitro diagnostic tests for the detection of SARS-CoV-2 virus and/or diagnosis of COVID-19 infection under section 564(b)(1) of the Act, 21 U.S.C. 360bbb-3(b)(1), unless the authorization is terminated or revoked sooner. This test has not been FDA cleared or approved. Results should be used in conjunction with clinical findings, and should not form the sole basis for a diagnosis or treatment decision. - Fact Sheets for this EUA can be found at the following links: For Healthcare Providers: www.fda.gov/media/290585/download For Patients: www.fda.gov/media/111025/download - Reference Value: Negative Performed By: #### C OVID #### [address] [id number] MICHEL SARS CoV-2 RT PCR Not detected [facility] Comment on above: Order Comment: Is th is order Clinic Collect?->Yes Is this specimen being sent to an external lab?->No Release to patient->Automatic [id number]&Nasal swab^\S\^Nose (source)&Nose (source) Performed By: #### C OVID #### [address] [id number] SARS-CoV-2 (COVID-19) RT-PCR on 04-10-2021 Hospitalized? No [facility] Comment on above: Order Comment: Is th is order Clinic Collect?->Yes Is this specimen being sent to an external lab?->No Release to patient->Automatic [id number]&Nasal swab^\S\^Nose (source)&Nose (source) Performed By: #### C OVID #### [place] [address] ICU? No [facility] Comment on above: Order Comment: Is th is order Clinic Collect?->Yes Is this specimen being sent to an external lab?->No Release to patient->Automatic [id number]&Nasal swab^\S\^Nose (source)&Nose (source) Performed By: #### C OVID #### [place] [address] ? Unknown [facility] Comment on above: Order Comment: Is th is order Clinic Collect?->Yes Is this specimen being sent to an external lab?->No Release to patient->Automatic [id number]&Nasal swab^\S\^Nose (source)&Nose (source) Performed By: #### C OVID #### [place] [address] Resident in congregate care setting? No [facility] Comment on above: Order Comment: Is th is order Clinic Collect?->Yes Is this specimen being sent to an external lab?->No Release to patient->Automatic 30019&Nasal swab^\S\^Nose (source)&Nose (source) Performed By: #### C OVID #### [place] [address] SARS-CoV-2 (COVID-19) RT-PCR on 04-06-2021 SARS-CoV-2 (COVID-19) RNA JULIANO+probe Ql (Unsp spec) Negative [facility] Comment on above: Order Comment: Is th is order Clinic Collect?->Yes Is this specimen being sent to an external lab?->No Release to patient->Automatic [id number]&Nasal swab^\S\^Nose&Nose Result Comment: NEGA TIVE: SARS-CoV-2 RNA was NOT detected - Interpretation: A negative result indicates severe acute respiratory syndrome coronavirus 2 (SARS-CoV-2) RNA was not detected. Negative results do not preclude SARS-CoV-2 infection and should not be used as the sole basis for patient management decisions. Negative results must be combined with clinical observations, patient history, and epidemiological information. The possibility of a false negative result should be considered if the patient's recent exposures or clinical presentation suggest that SARS-CoV-2 infection is possible, and diagnostic tests for other causes of illness are negative. If SARS-CoV-2 infection is still suspected, re-testing should be considered. - Method: Real-time reverse transcriptase PCR amplification for the qualitative detection of the ORF1 a/b non-structural region that is unique to SARS-CoV-2 and a conserved region in the structural protein envelope E-gene for mayes-Sarbecovirus detection using the Michel SARS-CoV-2 assay on the [employer] Michel [employer] System. - Comment: This test has received FDA Emergency Use Authorization (EUA) and has been verified by [facility]. This test is only authorized for the duration of the public health emergency declaration and the circumstances that exist to justify the authorization of the emergency use of in vitro diagnostic tests for the detection of SARS-CoV-2 virus and/or diagnosis of COVID-19 infection under section 564(b)(1) of the Act, 21 U.S.C. 360bbb-3(b)(1), unless the authorization is terminated or revoked sooner. This test has not been FDA cleared or approved. Results should be used in conjunction with clinical findings, and should not form the sole basis for a diagnosis or treatment decision. - Fact Sheets for this EUA can be found at the following links: For Healthcare Providers: www.fda.gov/media/715329/download For Patients: www.fda.gov/media/982383/download - Reference Value: Negative Performed By: #### C OVID #### [address] [address] MICHEL SARS CoV-2 RT PCR Not detected [facility] Comment on above: Order Comment: Is th is order Clinic Collect?->Yes Is this specimen being sent to an external lab?->No Release to patient->Automatic [id number]&Nasal swab^\S\^Nose&Nose Performed By: #### C OVID #### [place] [address] Hospitalized? No [facility] Comment on above: Order Comment: Is th is order Clinic Collect?->Yes Is this specimen being sent to an external lab?->No Release to patient->Automatic [id number]&Nasal swab^\S\^Nose&Nose Performed By: #### C OVID #### [place] [address] ICU? No [facility] Comment on above: Order Comment: Is th is order Clinic Collect?->Yes Is this specimen being sent to an external lab?->No Release to patient->Automatic [id number]&Nasal swab^\S\^Nose&Nose Performed By: #### C OVID #### [place] [address] ? Unknown [facility] Comment on above: Order Comment: Is th is order Clinic Collect?->Yes Is this specimen being sent to an external lab?->No Release to patient->Automatic [id number]&Nasal swab^\S\^Nose&Nose Performed By: #### C OVID #### [place] [address] Resident in congrega care setting? No [facility] Comment on above: Order Comment: Is th is order Clinic Collect?->Yes Is this specimen being sent to an external lab?->No Release to patient->Automatic [id number]&Nasal swab^\S\^Nose&Nose Performed By: #### C OVID #### [place] [address] Laboratory - Chemistry and C hemistry - challengeon 04-04-2021 Glucose Ql (U) Negative [facility] Work Phone: Laboratory - Urinalysison Protein Ql (U) Negative [facility] Work Phone: SARS-CoV-2 (COVID-19) RT-PCR on 03-28-2021 SARS-CoV-2 (COVID-19) RNA JULIANO+probe Ql (Unsp spec) Negative [facility] Comment on above: Order Comment: Is th is order Clinic Collect?->Yes Is this specimen being sent to an external lab?->No Release to patient->Automatic [id number]&Nasal swab^\S\^Nose&Nose Result Comment: NEGA TIVE: SARS-CoV-2 RNA was NOT detected - Interpretation: A negative result indicates severe acute respiratory syndrome coronavirus 2 (SARS-CoV-2) RNA was not detected. Negative results do not preclude SARS-CoV-2 infection and should not be used as the sole basis for patient management decisions. Negative results must be combined with clinical observations, patient history, and epidemiological information. The possibility of a false negative result should be considered if the patient's recent exposures or clinical presentation suggest that SARS-CoV-2 infection is possible, and diagnostic tests for other causes of illness are negative. If SARS-CoV-2 infection is still suspected, re-testing should be considered. - Method: Real-time reverse transcriptase PCR amplification for the qualitative detection of the ORF1 a/b non-structural region that is unique to SARS-CoV-2 and a conserved region in the structural protein envelope E-gene for mayes-Sarbecovirus detection using the Michel SARS-CoV-2 assay on the [employer] Michel [employer] System. - Comment: This test has received FDA Emergency Use Authorization (EUA) and has been verified by [facility]. This test is only authorized for the duration of the public health emergency declaration and the circumstances that exist to justify the authorization of the emergency use of in vitro diagnostic tests for the detection of SARS-CoV-2 virus and/or diagnosis of COVID-19 infection under section 564(b)(1) of the Act, 21 U.S.C. 360bbb-3(b)(1), unless the authorization is terminated or revoked sooner. This test has not been FDA cleared or approved. Results should be used in conjunction with clinical findings, and should not form the sole basis for a diagnosis or treatment decision. - Fact Sheets for this EUA can be found at the following links: For Healthcare Providers: www.fda.gov/media/572649/download For Patients: www.t-Art.gov/media/955526/download - Reference Value: Negative Performed By: #### C OVID #### [place] [address] MICHEL SARS CoV-2 RT PCR Not detected [facility] Comment on above: Order Comment: Is th is order Clinic Collect?->Yes Is this specimen being sent to an external lab?->No Release to patient->Automatic [id number]&Nasal swab^\S\^Nose&Nose Performed By: #### C OVID #### [place] [address] SARS-CoV-2 (COVID-19) RT-PCR on 03-27-2021 Hospitalized? No [facility] Comment on above: Order Comment: Is th is order Clinic Collect?->Yes Is this specimen being sent to an external lab?->No Release to patient->Automatic [id number]&Nasal swab^\S\^Nose&Nose Performed By: #### C OVID #### [place] [address] ICU? No [facility] Comment on above: Order Comment: Is th is order Clinic Collect?->Yes Is this specimen being sent to an external lab?->No Release to patient->Automatic [id number]&Nasal swab^\S\^Nose&Nose Performed By: #### C OVID #### [place] [address] ? Unknown [facility] Comment on above: Order Comment: Is th is order Clinic Collect?->Yes Is this specimen being sent to an external lab?->No Release to patient->Automatic [id number]&Nasal swab^\S\^Nose&Nose Performed By: #### C OVID #### [address] [address] Resident in congregate care setting? No [facility] Comment on above: Order Comment: Is th is order Clinic Collect?->Yes Is this specimen being sent to an external lab?->No Release to patient->Automatic [id number]&Nasal swab^\S\^Nose&Nose Performed By: #### C OVID #### [address] [address] SARS-CoV-2 (COVID-19) RT-PCR on 03-21-2021 SARS-CoV-2 (COVID-19) RNA JULIANO+probe Ql (Unsp spec) Negative [facility] Comment on above: Order Comment: Is th is order Clinic Collect?->Yes Is this specimen being sent to an external lab?->No Release to patient->Automatic [id number]&Nasal swab^\S\^Nose&Nose Result Comment: NEGA TIVE: SARS-CoV-2 RNA was NOT detected - Interpretation: A negative result indicates severe acute respiratory syndrome coronavirus 2 (SARS-CoV-2) RNA was not detected. Negative results do not preclude SARS-CoV-2 infection and should not be used as the sole basis for patient management decisions. Negative results must be combined with clinical observations, patient history, and epidemiological information. The possibility of a false negative result should be considered if the patient's recent exposures or clinical presentation suggest that SARS-CoV-2 infection is possible, and diagnostic tests for other causes of illness are negative. If SARS-CoV-2 infection is still suspected, re-testing should be considered. - Method: Real-time reverse transcriptase PCR amplification for the qualitative detection of the ORF1 a/b non-structural region that is unique to SARS-CoV-2 and a conserved region in the structural protein envelope E-gene for mayes-Sarbecovirus detection using the Michel SARS-CoV-2 assay on the [employer] System. - Comment: This test has received FDA Emergency Use Authorization (EUA) and has been verified by [facility]. This test is only authorized for the duration of the public health emergency declaration and the circumstances that exist to justify the authorization of the emergency use of in vitro diagnostic tests for the detection of SARS-CoV-2 virus and/or diagnosis of COVID-19 infection under section 564(b)(1) of the Act, 21 U.S.C. 360bbb-3(b)(1), unless the authorization is terminated or revoked sooner. This test has not been FDA cleared or approved. Results should be used in conjunction with clinical findings, and should not form the sole basis for a diagnosis or treatment decision. - Fact Sheets for this EUA can be found at the following links: For Healthcare Providers: www.t-Art.gov/media/100683/download For Patients: www.t-Art.gov/media/991659/download - Reference Value: Negative Performed By: #### C OVID #### [place] [address] MICHEL SARS CoV-2 RT PCR Not detected [facility] Comment on above: Order Comment: Is th is order Clinic Collect?->Yes Is this specimen being sent to an external lab?->No Release to patient->Automatic [id number]&Nasal swab^\S\^Nose&Nose Performed By: #### C OVID #### [place] [address] SARS-CoV-2 (COVID-19) RT-PCR on 03-20-2021 Hospitalized? No [facility] Comment on above: Order Comment: Is th is order Clinic Collect?->Yes Is this specimen being sent to an external lab?->No Release to patient->Automatic 03886&Nasal swab^\S\^Nose&Nose Performed By: #### C OVID #### [place] [address] ICU? No [facility] Comment on above: Order Comment: Is th is order Clinic Collect?->Yes Is this specimen being sent to an external lab?->No Release to patient->Automatic 75312&Nasal swab^\S\^Nose&Nose Performed By: #### C OVID #### [address] [address] ? Unknown [facility] Comment on above: Order Comment: Is th is order Clinic Collect?->Yes Is this specimen being sent to an external lab?->No Release to patient->Automatic [id number]&Nasal swab^\S\^Nose&Nose Performed By: #### C OVID #### [address] [address] Resident in congregate care setting? No [facility] Comment on above: Order Comment: Is th is order Clinic Collect?->Yes Is this specimen being sent to an external lab?->No Release to patient->Automatic 88612&Nasal swab^\S\^Nose&Nose Performed By: #### C OVID #### [address] [address] SARS-CoV-2 (COVID-19) RT-PCR on 03-15-2021 SARS-CoV-2 (COVID-19) RNA JULIANO+probe Ql (Unsp spec) Negative [facility] Comment on above: Order Comment: Is th is order Clinic Collect?->Yes Is this specimen being sent to an external lab?->No Release to patient->Automatic [id number]&Nasal swab^\S\^Nasal Septum&Nasal Septum Result Comment: NEGA TIVE: SARS-CoV-2 RNA was NOT detected - Interpretation: A negative result indicates severe acute respiratory syndrome coronavirus 2 (SARS-CoV-2) RNA was not detected. Negative results do not preclude SARS-CoV-2 infection and should not be used as the sole basis for patient management decisions. Negative results must be combined with clinical observations, patient history, and epidemiological information. The possibility of a false negative result should be considered if the patient's recent exposures or clinical presentation suggest that SARS-CoV-2 infection is possible, and diagnostic tests for other causes of illness are negative. If SARS-CoV-2 infection is still suspected, re-testing should be considered. - Method: Real-time reverse transcriptase PCR amplification for the qualitative detection of the ORF1 a/b non-structural region that is unique to SARS-CoV-2 and a conserved region in the structural protein envelope E-gene for mayes-Sarbecovirus detection using the Michel SARS-CoV-2 assay on the [employer] Michel 6800 System. - Comment: This test has received FDA Emergency Use Authorization (EUA) and has been verified by [facility]. This test is only authorized for the duration of the public health emergency declaration and the circumstances that exist to justify the authorization of the emergency use of in vitro diagnostic tests for the detection of SARS-CoV-2 virus and/or diagnosis of COVID-19 infection under section 564(b)(1) of the Act, 21 U.S.C. 360bbb-3(b)(1), unless the authorization is terminated or revoked sooner. This test has not been FDA cleared or approved. Results should be used in conjunction with clinical findings, and should not form the sole basis for a diagnosis or treatment decision. - Fact Sheets for this EUA can be found at the following links: For Healthcare Providers: www.fda.gov/media/635946/download For Patients: www.fda.gov/media/030148/download - Reference Value: Negative Performed By: #### C OVID #### [address] [address] MICHEL SARS CoV-2 RT PCR Not detected [facility] Comment on above: Order Comment: Is th is order Clinic Collect?->Yes Is this specimen being sent to an external lab?->No Release to patient->Automatic [id number]&Nasal swab^\S\^Nasal Septum&Nasal Septum Performed By: #### C OVID #### [address] [address] SARS-CoV-2 (COVID-19) RT-PCR on 03-14-2021 Hospitalized? No [facility] Comment on above: Order Comment: Is th is order Clinic Collect?->Yes Is this specimen being sent to an external lab?->No Release to patient->Automatic [id number]&Nasal swab^\S\^Nasal Septum&Nasal Septum Performed By: #### C OVID #### [place] [address] ICU? No [facility] Comment on above: Order Comment: Is th is order Clinic Collect?->Yes Is this specimen being sent to an external lab?->No Release to patient->Automatic 72021&Nasal swab^\S\^Nasal Septum&Nasal Septum Performed By: #### C OVID #### [place] [address] ? Unknown [facility] Comment on above: Order Comment: Is th is order Clinic Collect?->Yes Is this specimen being sent to an external lab?->No Release to patient->Automatic [id number]&Nasal swab^\S\^Nasal Septum&Nasal Septum Performed By: #### C OVID #### [place] [address] Resident in congregate care setting? No [facility] Comment on above: Order Comment: Is th is order Clinic Collect?->Yes Is this specimen being sent to an external lab?->No Release to patient->Automatic [id number]&Nasal swab^\S\^Nasal Septum&Nasal Septum Performed By: #### C OVID #### [place] [address] SARS-CoV-2 (COVID-19) RT-PCR on 03-08-2021 SARS-CoV-2 (COVID-19) RNA JULIANO+probe Ql (Unsp spec) Negative [facility] Comment on above: Order Comment: ANKIT CARDONA SCREENING COVID Result Comment: NEGA TIVE: SARS-CoV-2 RNA was NOT detected - Interpretation: A negative result indicates severe acute respiratory syndrome coronavirus 2 (SARS-CoV-2) RNA was not detected. Negative results do not preclude SARS-CoV-2 infection and should not be used as the sole basis for patient management decisions. Negative results must be combined with clinical observations, patient history, and epidemiological information. The possibility of a false negative result should be considered if the patient's recent exposures or clinical presentation suggest that SARS-CoV-2 infection is possible, and diagnostic tests for other causes of illness are negative. If SARS-CoV-2 infection is still suspected, re-testing should be considered. - Method: Real-time reverse transcriptase PCR amplification for the qualitative detection of the ORF1 a/b non-structural region that is unique to SARS-CoV-2 and a conserved region in the structural protein envelope E-gene for mayes-Sarbecovirus detection using the Michel SARS-CoV-2 assay on the [employer] System. - Comment: This test has received FDA Emergency Use Authorization (EUA) and has been verified by [facility]. This test is only authorized for the duration of the public health emergency declaration and the circumstances that exist to justify the authorization of the emergency use of in vitro diagnostic tests for the detection of SARS-CoV-2 virus and/or diagnosis of COVID-19 infection under section 564(b)(1) of the Act, 21 U.S.C. 360bbb-3(b)(1), unless the authorization is terminated or revoked sooner. This test has not been FDA cleared or approved. Results should be used in conjunction with clinical findings, and should not form the sole basis for a diagnosis or treatment decision. - Fact Sheets for this EUA can be found at the following links: For Healthcare Providers: www.fda.gov/media/687573/download For Patients: www.fda.gov/media/860363/download - Reference Value: Negative Performed By: #### C OVID #### [address] [id number] MICHEL SARS CoV-2 RT PCR Not detected [facility] Comment on above: Order Comment: ANKIT CARDONA SCREENING COVID Performed By: #### C OVID #### [facility] [address] [place], [place] [id number] SARS-CoV-2 (COVID-19) RT-PCR on 02-27-2021 SARS-CoV-2 (COVID-19) RNA JULIANO+probe Ql (Unsp spec) Negative [facility] Comment on above: Order Comment: Relea se to patient->Automatic nvEMP Result Comment: NEGA TIVE: SARS-CoV-2 RNA was NOT detected - Interpretation: A negative result indicates severe acute respiratory syndrome coronavirus 2 (SARS-CoV-2) RNA was not detected. Negative results do not preclude SARS-CoV-2 infection and should not be used as the sole basis for patient management decisions. Negative results must be combined with clinical observations, patient history, and epidemiological information. The possibility of a false negative result should be considered if the patient's recent exposures or clinical presentation suggest that SARS-CoV-2 infection is possible, and diagnostic tests for other causes of illness are negative. If SARS-CoV-2 infection is still suspected, re-testing should be considered. - Method: Real-time reverse transcriptase PCR amplification for the qualitative detection of the ORF1 a/b non-structural region that is unique to SARS-CoV-2 and a conserved region in the structural protein envelope E-gene for mayes-Sarbecovirus detection using the Michel SARS-CoV-2 assay on the [employer] System. - Comment: This test has received FDA Emergency Use Authorization (EUA) and has been verified by [facility]. This test is only authorized for the duration of the public health emergency declaration and the circumstances that exist to justify the authorization of the emergency use of in vitro diagnostic tests for the detection of SARS-CoV-2 virus and/or diagnosis of COVID-19 infection under section 564(b)(1) of the Act, 21 U.S.C. 360bbb-3(b)(1), unless the authorization is terminated or revoked sooner. This test has not been FDA cleared or approved. Results should be used in conjunction with clinical findings, and should not form the sole basis for a diagnosis or treatment decision. - Fact Sheets for this EUA can be found at the following links: For Healthcare Providers: www.fda.gov/media/158986/download For Patients: www.fda.gov/media/286543/download - Reference Value: Negative Performed By: #### C OVID #### [address] [address] MICHEL SARS CoV-2 RT PCR Not detected [facility] Comment on above: Order Comment: Relea se to patient->Automatic nvEMP Performed By: #### C OVID #### [address] [address] SARS-CoV-2 (COVID-19) RT-PCR on 02-26-2021 Hospitalized? No [facility] Comment on above: Order Comment: Relea se to patient->Automatic nvEMP Performed By: #### C OVID #### [address] [address] ICU? No [facility] Comment on above: Order Comment: Relea se to patient->Automatic nvEMP Performed By: #### C OVID #### [address] [address] ? Unknown [facility] Comment on above: Order Comment: Relea se to patient->Automatic nvEMP Performed By: #### C OVID #### [address] [address] Resident in congregate care setting? No [facility] Comment on above: Order Comment: Relea se to patient->Automatic nvEMP Performed By: #### C OVID #### [address] [address] Vital Signs Date Time Vital Sign Value Performing Clinician Facility 10-04-2024 13:33-0400 Body height 167.[address] Elvis Ndiaye MD Work Phone: [facility] 10-04-2024 13:33-0400 Body mass index (BMI) [Ratio] 25.3 kg/m2 Dr. Elvis Ndiaye MD Work Phone: [facility] 10-04-2024 13:33-0400 Body weight 71.[address] Elvis Ndiaye MD Work Phone: [facility] 10-04-2024 13:33-0400 Diastolic blood pressure 74 mm[Hg] Dr. Elvis Ndiaye MD Work Phone: [facility] 10-04-2024 13:33-0400 Systolic blood pressure 118 mm[Hg] Dr. Elvis Ndiaye MD Work Phone: [facility] 09-30-2023 10:22-0400 Body mass index (BMI) [Ratio] 28.62 kg/m2 Albania Nguyen APRN.[employer] Work Phone: [facility] 09-30-2023 10:22-0400 Body temperature 97.2 [degF] Albania Nguyen APRN[employer] Work Phone: [facility] 09-30-2023 10:22-0400 Body weight 78 kg Albania Nguyen APRN[employer] Work Phone: [facility] 09-30-2023 10:22-0400 Diastolic blood pressure 78 mm[Hg] Albania Nguyen APRN[employer] Work Phone: [facility] 09-30-2023 10:22-0400 Heart rate 86 /min Albania Nguyen APRN[employer] Work Phone: [facility] 09-30-2023 10:22-0400 Respiratory rate 16 /min Albania Nguyen APRN[employer] Work Phone: [facility] 09-30-2023 10:22-0400 SaO2% (BldA) [Mass fraction] 99 % Albania Nguyen APRN[employer] Work Phone: [facility] 09-30-2023 10:22-0400 Systolic blood pressure 110 mm[Hg] Albania Nguyen APRN[employer] Work Phone: [facility] 08-12-2023 12:06-0400 Body temperature 97.5 [degF] Dr. Elvis Ndiaye Work Phone: [facility] 08-12-2023 12:06-0400 Diastolic blood pressure 77 mm[Hg] Dr. Elvis Ndiaye Work Phone: [facility] 08-12-2023 12:06-0400 Heart rate 90 /min Dr. Elvis Ndiaye Work Phone: [facility] 08-12-2023 12:06-0400 Respiratory rate 16 /min Dr. Elvis Ndiaye Work Phone: [facility] 08-12-2023 12:06-0400 Systolic blood pressure 122 mm[Hg] Dr. Elvis Ndiaye Work Phone: [facility] 08-12-2023 05:15-0400 SaO2% (BldA) [Mass fraction] 96 % Dr. Elvis Ndiaye Work Phone: [facility] 08-11-2023 07:33-0400 Body height 167.[address] Elvis Ndiaye Work Phone: [facility] 08-11-2023 07:33-0400 Body mass index (BMI) [Ratio] 32.1 kg/m2 Dr. Elvis Ndiaye Work Phone: [facility] 08-11-2023 07:33-0400 Body weight 90.[address] Elvis Ndiaye Work Phone: [facility] 08-06-2023 10:36-0400 Body mass index (BMI) [Ratio] 32.8 kg/m2 Dr. Elvis Ndiaye Work Phone: [facility] 08-06-2023 10:36-0400 Body weight 92.[address] Elvis Ndiaye Work Phone: [facility] 08-06-2023 10:36-0400 Diastolic blood pressure 76 mm[Hg] Dr. Elvis Ndiaye Work Phone: [facility] 08-06-2023 10:36-0400 Systolic blood pressure 136 mm[Hg] Dr. Elvis Ndiaye Work Phone: [facility] 07-30-2023 10:00-0400 Body height 167.[address] Elvis Ndiaye Work Phone: [facility] 07-30-2023 09:56-0400 Body mass index (BMI) [Ratio] 33 kg/m2 Dr. Elvis Ndiaye Work Phone: [facility] 07-30-2023 09:56-0400 Body weight 92.[address] Elvis Ndiaye Work Phone: [facility] 07-30-2023 09:56-0400 Diastolic blood pressure 84 mm[Hg] Dr. Elvis Ndiaye Work Phone: [facility] 07-30-2023 09:56-0400 Systolic blood pressure 122 mm[Hg] Dr. Elvis Ndiaye Work Phone: [facility] 07-23-2023 09:42-0400 Body height 167.[address] Elvis Ndiaye Work Phone: [facility] 07-23-2023 09:42-0400 Body mass index (BMI) [Ratio] 32.1 kg/m2 Dr. Elvis Ndiaye Work Phone: [facility] 07-23-2023 09:42-0400 Body weight 90.[address] Elvis Ndiaye Work Phone: [facility] 07-23-2023 09:42-0400 Diastolic blood pressure 74 mm[Hg] Dr. Elvis Ndiaye Work Phone: [facility] 07-23-2023 09:42-0400 Systolic blood pressure 105 mm[Hg] Dr. Elvis Ndiaye Work Phone: [facility] 07-09-2023 09:30-0400 Body mass index (BMI) [Ratio] 32.1 kg/m2 Dr. Elvis Ndiaye Work Phone: [facility] 07-09-2023 09:30-0400 Body weight 90.49 kg Dr. Elvis Ndiaye Work Phone: [facility] 07-09-2023 09:30-0400 Diastolic blood pressure 73 mm[Hg] Dr. Elvis Ndiaye Work Phone: [facility] 07-09-2023 09:30-0400 Systolic blood pressure 106 mm[Hg] Dr. Elvis Ndiaye Work Phone: [facility] 06-25-2023 10:26-0500 Body mass index (BMI) [Ratio] 31.5 kg/m2 Dr. Elvis Ndiaye Work Phone: [facility] 06-25-2023 10:26-0500 Body weight 88.[address] Elvis Ndiaye Work Phone: [facility] 06-25-2023 10:26-0500 Diastolic blood pressure 73 mm[Hg] Dr. Elvis Ndiaye Work Phone: [facility] 06-25-2023 10:26-0500 Systolic blood pressure 110 mm[Hg] Dr. Elvis Ndiaye Work Phone: [facility] 06-11-2023 09:59-0500 Body mass index (BMI) [Ratio] 30.9 kg/m2 Dr. Elvis Ndiaye Work Phone: [facility] 06-11-2023 09:59-0500 Body weight 86.[address] Elvis Ndiaye Work Phone: [facility] 06-11-2023 09:59-0500 Diastolic blood pressure 75 mm[Hg] Dr. Elvis Ndiaye Work Phone: [facility] 06-11-2023 09:59-0500 Systolic blood pressure 119 mm[Hg] Dr. Elvis Ndiaye Work Phone: [facility] 06-09-2023 13:41-0500 Body temperature 97.8 [degF] Dr. Elvis Ndiaye Work Phone: [facility] 06-09-2023 13:41-0500 Diastolic blood pressure 59 mm[Hg] Dr. Elvis Ndiaye Work Phone: [facility] 06-09-2023 13:41-0500 Heart rate 95 /min Dr. Elvis Ndiaye Work Phone: [facility] 06-09-2023 13:41-0500 Respiratory rate 16 /min Dr. Elvis Ndiaye Work Phone: [facility] 06-09-2023 13:41-0500 Systolic blood pressure 110 mm[Hg] Dr. Elvis Ndiaye Work Phone: [facility] 06-09-2023 11:47-0500 Body height 167.[address] Elvis Ndiaye Work Phone: [facility] 06-09-2023 11:47-0500 SaO2% (BldA) [Mass fraction] 98 % Dr. Elvis Ndiaye Work Phone: [facility] 06-02-2023 15:03-0500 Body temperature 98.3 [degF] Dr. Elvis Ndiaye Work Phone: [facility] 06-02-2023 15:03-0500 Diastolic blood pressure 59 mm[Hg] Dr. Elvis Ndiaye Work Phone: [facility] 06-02-2023 15:03-0500 Heart rate 84 /min Dr. Elvis Ndiaye Work Phone: [facility] 06-02-2023 15:03-0500 Respiratory rate 16 /min Dr. Elvis Ndiaye Work Phone: [facility] 06-02-2023 15:03-0500 SaO2% (BldA) [Mass fraction] 98 % Dr. Elvis Ndiaye Work Phone: [facility] 06-02-2023 15:03-0500 Systolic blood pressure 109 mm[Hg] Dr. Elvis Ndiaye Work Phone: [facility] 06-02-2023 13:11-0500 Body height 167.[address] Elvis Ndiaye Work Phone: [facility] 05-28-2023 10:49-0500 Body mass index (BMI) [Ratio] 31 kg/m2 Dr. Elvis Ndiaye Work Phone: [facility] 05-28-2023 10:49-0500 Body weight 87.[address] Elvis Ndiaye Work Phone: [facility] 05-28-2023 10:49-0500 Diastolic blood pressure 74 mm[Hg] Dr. Elvis Ndiaye Work Phone: [facility] 05-28-2023 10:49-0500 Systolic blood pressure 119 mm[Hg] Dr. Elvis Ndiaye Work Phone: [facility] 05-26-2023 15:09-0500 Diastolic blood pressure 68 mm[Hg] Dr. Elvis Ndiaye Work Phone: [facility] 05-26-2023 15:09-0500 Heart rate 79 /min Dr. Elvis Ndiaye Work Phone: [facility] 05-26-2023 15:09-0500 Respiratory rate 16 /min Dr. Elvis Ndiaye Work Phone: [facility] 05-26-2023 15:09-0500 Systolic blood pressure 110 mm[Hg] Dr. Elvis Ndiaye Work Phone: [facility] 05-26-2023 12:59-0500 Body height 167.[address] Elvis Ndiaye Work Phone: [facility] 05-26-2023 12:59-0500 Body temperature 97.2 [degF] Dr. Elvis Ndiaye Work Phone: [facility] 04-30-2023 08:28-0500 Body height 167.[address] Elvis Ndiaye Work Phone: [facility] 04-30-2023 08:28-0500 Body mass index (BMI) [Ratio] 30.9 kg/m2 Dr. Elvis Ndiaye Work Phone: [facility] 04-30-2023 08:28-0500 Body weight 86.[address] Elvis Ndaiye Work Phone: [facility] 04-30-2023 08:28-0500 Diastolic blood pressure 78 mm[Hg] Dr. Elvis Ndiaye Work Phone: [facility] 04-30-2023 08:28-0500 Systolic blood pressure 120 mm[Hg] Dr. Elvis Ndiaye Work Phone: [facility] 04-02-2023 10:50-0500 Body height 167.[address] Elvis Ndiaye Work Phone: [facility] 04-02-2023 10:49-0500 Body mass index (BMI) [Ratio] 29.7 kg/m2 Dr. Elvis Ndiaye Work Phone: [facility] 04-02-2023 10:49-0500 Body weight 83.[address] Elvis Ndiaye Work Phone: [facility] 04-02-2023 10:49-0500 Diastolic blood pressure 74 mm[Hg] Dr. Elvis Ndiaye Work Phone: [facility] 04-02-2023 10:49-0500 Systolic blood pressure 109 mm[Hg] Dr. Elvis Ndiaye Work Phone: [facility] 03-05-2023 10:35-0500 Body mass index (BMI) [Ratio] 28.6 kg/m2 Dr. Elvis Ndiaye Work Phone: [facility] 03-05-2023 10:35-0500 Body weight 80.[address] Elvis Ndiaye Work Phone: [facility] 03-05-2023 10:35-0500 Diastolic blood pressure 76 mm[Hg] Dr. Elvis Ndiaye Work Phone: [facility] 03-05-2023 10:35-0500 Systolic blood pressure 111 mm[Hg] Dr. Elvis Ndiaye Work Phone: [facility] 02-05-2023 10:11-0400 Body mass index (BMI) [Ratio] 28.8 kg/m2 Dr. Elvis Ndiaye Work Phone: [facility] 02-05-2023 10:11-0400 Body weight 80.[address] Elvis Ndiaye Work Phone: [facility] 02-05-2023 10:11-0400 Diastolic blood pressure 78 mm[Hg] Dr. Elvis Ndiaye Work Phone: [facility] 02-05-2023 10:11-0400 Systolic blood pressure 114 mm[Hg] Dr. Elvis Ndiaye Work Phone: [facility] 01-06-2023 10:49-0400 Body height 167.[address] Elvis Ndiaye Work Phone: [facility] 01-06-2023 10:48-0400 Body mass index (BMI) [Ratio] 28.8 kg/m2 Dr. Elvis Ndiaye Work Phone: [facility] 01-06-2023 10:48-0400 Body weight 80.[address] Elvis Ndiaye Work Phone: [facility] 01-06-2023 10:48-0400 Diastolic blood pressure 76 mm[Hg] Dr. Elvis Ndiaye Work Phone: [facility] 01-06-2023 10:48-0400 Systolic blood pressure 116 mm[Hg] Dr. Elvis Ndiaye Work Phone: [facility] 11-28-2022 08:35-0400 Body mass index (BMI) [Ratio] 28.9 kg/m2 Dr. Elvis Ndiaye Work Phone: [facility] 11-28-2022 08:35-0400 Body weight 81.[address] Elvis Ndiaye Work Phone: [facility] 11-28-2022 08:35-0400 Diastolic blood pressure 83 mm[Hg] Dr. Elvis Ndiaye Work Phone: [facility] 11-28-2022 08:35-0400 Systolic blood pressure 122 mm[Hg] Dr. Elvis Ndiaye Work Phone: [facility] 09-08-2022 09:01-0400 Body temperature 97.5 [degF] Yasmin Praisler-Wood [employer]ATE [employer]ITY [employer] Work Phone: [facility] 09-08-2022 09:01-0400 Body weight 77.84 kg Yasmin Praisler-Wood [employer]PORATE SEC[employer]ITY OFFICER[employer] Work Phone: [facility] 09-08-2022 09:01-0400 Diastolic blood pressure 92 mm[Hg] Yasmin Praisler-Wood [employer]PORATE SECURITY OFFICER[employer] Work Phone: [facility] 09-08-2022 09:01-0400 Heart rate 80 /min Yasmin Praisler-Wood [employer]PORATE SECURITY OFFICER[employer] Work Phone: [facility] 09-08-2022 09:01-0400 Respiratory rate 20 /min Yasmin Praisler-Wood [employer]PORATE SECURITY OFFICER[employer] Work Phone: [facility] 09-08-2022 09:01-0400 SaO2% (BldA) [Mass fraction] 98 % Yasmin Praisler-Wood [employer]PORATE SECURITY OFFICER[employer] Work Phone: [facility] 09-08-2022 09:01-0400 Systolic blood pressure 128 mm[Hg] Yasmin Praisler-Wood [employer]PORATE SECURITY OFFICER[employer] Work Phone: [facility] 07-21-2022 10:56-0400 Body temperature 100.09 [degF] Sandeep Pendlebury CORPORATE SECURITY OFFICER[employer] Work Phone: [facility] 07-21-2022 10:56-0400 Body weight 78.11 kg Sandeep Pendlebury CORPORATE SECURITY OFFICER[employer] Work Phone: [facility] 07-21-2022 10:56-0400 Diastolic blood pressure 82 mm[Hg] Sandeep Pendlebury [employer]PORATE SECURITY OFFICER[employer] Work Phone: [facility] 07-21-2022 10:56-0400 Heart rate 131 /min Sandeep Pendlebury CORPORATE SECURITY OFFICER[employer] Work Phone: [facility] 07-21-2022 10:56-0400 Respiratory rate 16 /min Sandeep Pendlebury [employer]PORATE SECURITY OFFICER[employer] Work Phone: [facility] 07-21-2022 10:56-0400 SaO2% (BldA) [Mass fraction] 100 % Sandeep Pendlebury [employer]PORATE SECURITY OFFICER[employer] Work Phone: [facility] 07-21-2022 10:56-0400 Systolic blood pressure 128 mm[Hg] Sandeep Pendlebury [employer]PORATE SECURITY OFFICER[employer] Work Phone: [facility] 06-13-2022 15:16-0500 Body temperature 97 [degF] Yasmin Praisler-Wood CORPORATE SECURITY OFFICER[employer] Work Phone: [facility] 06-13-2022 15:16-0500 Body weight 82.64 kg Yasmin Praisler-Wood CORPORATE SECURITY OFFICER[employer] Work Phone: [facility] 06-13-2022 15:16-0500 Diastolic blood pressure 78 mm[Hg] Yasmin Praisler-Wood CORPORATE SECURITY OFFICER[employer] Work Phone: [facility] 06-13-2022 15:16-0500 Heart rate 91 /min Yasmin Praisler-Wood [employer]PORATE SECURITY OFFICER[employer] Work Phone: [facility] 06-13-2022 15:16-0500 Respiratory rate 16 /min Yasmin Praisler-Wood [employer]PORATE SECURITY OFFICER[employer] Work Phone: [facility] 06-13-2022 15:16-0500 SaO2% (BldA) [Mass fraction] 99 % Yasmin Praisler-Wood [employer]PORATE SECURITY OFFICER[employer] Work Phone: [facility] 06-13-2022 15:16-0500 Systolic blood pressure 110 mm[Hg] Yasmin Praisler-Wood [employer]PORATE SECURITY OFFICER[employer] Work Phone: [facility] 04-06-2022 13:09-0500 Body temperature 98.6 [degF] Gilbert Marion MD Work Phone: [facility] 04-06-2022 13:09-0500 Body weight 81.65 kg Gilbert Marion MD Work Phone: [facility] 04-06-2022 13:09-0500 Diastolic blood pressure 68 mm[Hg] Gilbert Marion MD Work Phone: [facility] 04-06-2022 13:09-0500 Heart rate 116 /min Gilbert Marion MD Work Phone: [facility] 04-06-2022 13:09-0500 Respiratory rate 16 /min Gilbert Marion MD Work Phone: [facility] 04-06-2022 13:09-0500 SaO2% (BldA) [Mass fraction] 99 % Gilbert Marion MD Work Phone: [facility] 04-06-2022 13:09-0500 Systolic blood pressure 110 mm[Hg] Gilbert Marion MD Work Phone: [facility] 10-07-2021 07:53-0400 Body temperature 98.2 [degF] Dr. Elvis Ndiaye Work Phone: [facility] Work Phone: 10-07-2021 07:53-0400 Diastolic blood pressure 75 mm[Hg] Dr. Elvis Ndiaye Work Phone: [facility] Work Phone: 10-07-2021 07:53-0400 Heart rate 94 /min Dr. Elvis Ndiaye Work Phone: [facility] Work Phone: 10-07-2021 07:53-0400 Respiratory rate 18 /min Dr. Elvis Ndiaye Work Phone: [facility] Work Phone: 10-07-2021 07:53-0400 SaO2% (BldA) [Mass fraction] 98 % Dr. Elvis Ndiaye Work Phone: [facility] Work Phone: 10-07-2021 07:53-0400 Systolic blood pressure 111 mm[Hg] Dr. Elvis Ndiaye Work Phone: [facility] Work Phone: 10-05-2021 12:14-0400 Body height 167.[address] Elvis Ndiaye Work Phone: [facility] Work Phone: 10-05-2021 12:14-0400 Body mass index (BMI) [Ratio] 34.4 kg/m2 Dr. Elvis Ndiaye Work Phone: [facility] Work Phone: 10-05-2021 12:14-0400 Body weight [address] Elvis Ndiaye Work Phone: [facility] Work Phone: 10-04-2021 09:25-0400 Body mass index (BMI) [Ratio] 35 kg/m2 Dr. Elvis Ndiaye Work Phone: [facility] Work Phone: 10-04-2021 09:25-0400 Body weight 98.[address] Elvis Ndiaye Work Phone: [facility] Work Phone: 10-04-2021 09:25-0400 Diastolic blood pressure 86 mm[Hg] Dr. Elvis Ndiaye Work Phone: [facility] Work Phone: 10-04-2021 09:25-0400 Systolic blood pressure 120 mm[Hg] Dr. Elvis Ndiyae Work Phone: [facility] Work Phone: 09-28-2021 09:16-0400 Body mass index (BMI) [Ratio] 34.2 kg/m2 Dr. Elvis Ndiaye Work Phone: [facility] Work Phone: 09-28-2021 09:16-0400 Body weight 96.[address] Elvis Ndiaye Work Phone: [facility] Work Phone: 09-28-2021 09:16-0400 Diastolic blood pressure 87 mm[Hg] Dr. Elvis Ndiaye Work Phone: [facility] Work Phone: 09-28-2021 09:16-0400 Systolic blood pressure 120 mm[Hg] Dr. Elvis Ndiaye Work Phone: [facility] Work Phone: 09-27-2021 15:17-0400 Diastolic blood pressure 76 mm[Hg] Dr. Elvis Ndiaye Work Phone: [facility] Work Phone: 09-27-2021 15:17-0400 Heart rate 97 /min Dr. Elvis Ndiaye Work Phone: [facility] Work Phone: 09-27-2021 15:17-0400 Systolic blood pressure 116 mm[Hg] Dr. Elvis Ndiaye Work Phone: [facility] Work Phone: 09-27-2021 15:09-0400 Body height 167.[address] Elvis Ndiaye Work Phone: [facility] Work Phone: 09-27-2021 15:09-0400 Body mass index (BMI) [Ratio] 34.2 kg/m2 Dr. Elvis Ndiaye Work Phone: [facility] Work Phone: 09-27-2021 15:09-0400 Body weight 96.[address] Elvis Ndiaye Work Phone: [facility] Work Phone: 09-19-2021 09:44-0400 Body height 167.[address] Elvis Ndiaye Work Phone: [facility] Work Phone: 09-19-2021 09:44-0400 Body mass index (BMI) [Ratio] 33.9 kg/m2 Dr. Elvis Ndiaye Work Phone: [facility] Work Phone: 09-19-2021 09:44-0400 Body weight 95.[address] Elvis Ndiaye Work Phone: [facility] Work Phone: 09-19-2021 09:44-0400 Diastolic blood pressure 74 mm[Hg] Dr. Elvis Ndiaye Work Phone: [facility] Work Phone: 09-19-2021 09:44-0400 Systolic blood pressure 118 mm[Hg] Dr. Elvis Ndiaye Work Phone: [facility] Work Phone: 09-14-2021 10:56-0400 Body mass index (BMI) [Ratio] 33.4 kg/m2 Dr. Elvis Ndiaye Work Phone: [facility] Work Phone: 09-14-2021 10:56-0400 Body weight [address] Elvis Ndiaye Work Phone: [facility] Work Phone: 09-14-2021 10:56-0400 Diastolic blood pressure 88 mm[Hg] Dr. Elvis Ndiaye Work Phone: [facility] Work Phone: 09-14-2021 10:56-0400 Systolic blood pressure 130 mm[Hg] Dr. Elvis Ndiaye Work Phone: [facility] Work Phone: 08-31-2021 10:55-0400 Body height 167.[address] Elvis Ndiaye Work Phone: [facility] Work Phone: 08-31-2021 10:55-0400 Body mass index (BMI) [Ratio] 32.6 kg/m2 Dr. Elvis Ndiaye Work Phone: [facility] Work Phone: 08-31-2021 10:55-0400 Body weight 91.[address] Elvis Ndiaye Work Phone: [facility] Work Phone: 08-31-2021 10:55-0400 Diastolic blood pressure 68 mm[Hg] Dr. Elvis Ndiaye Work Phone: [facility] Work Phone: 08-31-2021 10:55-0400 Systolic blood pressure 110 mm[Hg] Dr. Elvis Ndiaye Work Phone: [facility] Work Phone: 08-17-2021 11:36-0400 Body mass index (BMI) [Ratio] 32.1 kg/m2 Dr. Elvis Ndiaye Work Phone: [facility] Work Phone: 08-17-2021 11:36-0400 Body weight 90.[address] Elvis Ndiaye Work Phone: [facility] Work Phone: 08-17-2021 11:36-0400 Diastolic blood pressure 60 mm[Hg] Dr. Elvis Ndiaye Work Phone: [facility] Work Phone: 08-17-2021 11:36-0400 Systolic blood pressure 112 mm[Hg] Dr. Elvis Ndiaye Work Phone: [facility] Work Phone: 08-02-2021 09:38-0400 Body mass index (BMI) [Ratio] 31.4 kg/m2 Dr. Elvis Ndiaye Work Phone: [facility] Work Phone: 08-02-2021 09:38-0400 Body weight 88.[address] Elvis Ndiaye Work Phone: [facility] Work Phone: 08-02-2021 09:38-0400 Diastolic blood pressure 80 mm[Hg] Dr. Elvis Ndiaye Work Phone: [facility] Work Phone: 08-02-2021 09:38-0400 Systolic blood pressure 124 mm[Hg] Dr. Elvis Ndiaye Work Phone: [facility] Work Phone: 07-19-2021 09:50-0400 Diastolic blood pressure 68 mm[Hg] Dr. Elvis Ndiaye Work Phone: [facility] Work Phone: 07-19-2021 09:50-0400 Systolic blood pressure 118 mm[Hg] Dr. Elvis Ndiaye Work Phone: [facility] Work Phone: 07-19-2021 09:26-0400 Body height 167.[address] Elvis Ndiaye Work Phone: [facility] Work Phone: 07-19-2021 09:26-0400 Body mass index (BMI) [Ratio] 30.7 kg/m2 Dr. Elvis Ndiaye Work Phone: [facility] Work Phone: 07-19-2021 09:26-0400 Body weight 86.[address] Elvis Ndiaye Work Phone: [facility] Work Phone: 06-22-2021 08:32-0500 Body mass index (BMI) [Ratio] 29.5 kg/m2 Dr. Elvis Ndiaye Work Phone: [facility] Work Phone: 06-22-2021 08:32-0500 Body weight [address] Elvis Ndiaye Work Phone: [facility] Work Phone: 06-22-2021 08:32-0500 Diastolic blood pressure 88 mm[Hg] Dr. Elvis Ndiaye Work Phone: [facility] Work Phone: 06-22-2021 08:32-0500 Systolic blood pressure 102 mm[Hg] Dr. Elvis Ndiaye Work Phone: [facility] Work Phone: 05-24-2021 07:31-0500 Body mass index (BMI) [Ratio] 28.4 kg/m2 Dr. Elvis Ndiaye Work Phone: [facility] Work Phone: 05-24-2021 07:31-0500 Body weight 79.[address] Elvis Ndiaye Work Phone: [facility] Work Phone: 05-24-2021 07:31-0500 Diastolic blood pressure 68 mm[Hg] Dr. Elvis Ndiaye Work Phone: [facility] Work Phone: 05-24-2021 07:31-0500 Systolic blood pressure 110 mm[Hg] Dr. Elvis Ndiaye Work Phone: [facility] Work Phone: 04-26-2021 07:52-0500 Body mass index (BMI) [Ratio] 27 kg/m2 Dr. Elvis Ndiaye Work Phone: [facility] Work Phone: 04-26-2021 07:52-0500 Body weight 75.[address] Elvis Ndiaye Work Phone: [facility] Work Phone: 04-26-2021 07:52-0500 Diastolic blood pressure 78 mm[Hg] Dr. Elvis Ndiaye Work Phone: [facility] Work Phone: 04-26-2021 07:52-0500 Systolic blood pressure 128 mm[Hg] Dr. Elvis Ndiaye Work Phone: [facility] Work Phone: 04-04-2021 07:23-0500 Body mass index (BMI) [Ratio] 27.1 kg/m2 Dr. Elvis Ndiaye Work Phone: [facility] Work Phone: 04-04-2021 07:23-0500 Body weight 76.[address] Elvis Ndiaye Work Phone: [facility] Work Phone: 04-04-2021 07:23-0500 Diastolic blood pressure 64 mm[Hg] Dr. Elvis Ndiaye Work Phone: [facility] Work Phone: 04-04-2021 07:23-0500 Systolic blood pressure 118 mm[Hg] Dr. Elvis Ndiaye Work Phone: [facility] Work Phone: Encounters Encounter Date Encounter Type Care Provider Facility Start: 10-04-2024 End: 10-04-[address] Elvis Ndiaye MD Work Phone: [facility] Work Phone: Start: 10-04-2024 End: 10-04-2024 Patient encounter procedure Arielle Hilton [facility] Work Phone: Start: 10-04-2024 End: 10-04-2024 Patient encounter status Arielle Hilton [facility] Start: 11-14-2023 End: 11-14-2023 ambulatory Jenniffer Chacko Facility:[facility] Start: 09-30-2023 End: 09-30-2023 ambulatory ELVIS NDIAYE Facility:[facility] Start: 09-30-2023 End: 09-30-2023 Patient encounter procedure Albania Nguyen APRN.CNP Work Phone: [facility] Comment on above: Rhinosinusitis (Prim eve Dx) Start: 09-29-2023 End: 09-29-2023 ambulatory Elvis Ndiaye Facility:[facility] Start: 08-13-2023 ambulatory Maye Olmstead cility:[facility] Start: 08-12-2023 Non-patient / Non-visit Dr. Jessi Ndiaye Work Phone: [facility] Start: 08-11-2023 Non-patient / Non-visit Dr. Jessi Ndiaye Work Phone: [facility] Start: 08-11-2023 ambulatory [facility] Facilit y:[facility] Start: 08-11-2023 End: 08-12-2023 Evaluation and management of inpatient Dr. Elvis Ndiaye Work Phone: [facility] Work Phone: Start: 08-06-2023 End: 08-06-[address] Elvis Ndiaye Work Phone: [facility] Work Phone: Start: 08-06-2023 End: 08-06-2023 ambulatory [facility] Facility:[facility] Start: 07-30-2023 End: 07-30-[address] Elvis Ndiaye Work Phone: [facility] Work Phone: Start: 07-30-2023 End: 07-30-2023 ambulatory [facility] [place] [facility] Facility:[facility] Start: 07-24-2023 End: 07-24-[address] Elvis Ndiaye Work Phone: [facility] Work Phone: Start: 07-24-2023 End: 07-24-[address] [facility] Start: 07-23-2023 End: 07-24-[address] Elvis Ndiaye Work Phone: [facility] Work Phone: Start: 07-23-2023 End: 07-23-[address] [facility] Work [facility]: Start: 07-23-2023 End: 07-23-[address] Elvis Ndiaye Work Phone: [facility] Work Phone: Start: 07-23-2023 End: 07-23-2023 ambulatory Elvis Ndiaye Facility:[facility] Start: 07-23-2023 End: 07-23-2023 ambulatory Elvis Ndiaye Facility:[facility] Start: 07-21-2023 End: 07-21-[address] Elvis Ndiaye Work Phone: [facility] Work Phone: Start: 07-21-2023 End: 07-21-[address] Elvis Ndiaye Work Phone: [facility] [place], [facility] Work Phone: Start: 07-21-2023 End: 07-21-2023 ambulatory Elvis Ndiaye Facility:[facility] Start: 07-18-2023 End: 07-18-[address] Elvis Ndiaye Work Phone: [facility] Work Phone: Start: 07-18-2023 End: 07-18-[address] Elvis Ndiaye Work Phone: [facility] Start: 07-18-2023 End: 07-18-2023 ambulatory Nazia Alvarez EXPORT [employer]RE[employer] CLERK Facility:[facility] Start: 07-09-2023 End: 07-09-[address] Elvis Ndiaye Work Phone: [facility] Work Phone: Start: 07-09-2023 End: 07-09-2023 ambulatory Nazia Alvarez EXPORT FREIGHT CLERK Facility:[facility] Start: 06-25-2023 End: 06-25-[address] Elvis Ndiaye Work Phone: [facility] Work Phone: Start: 06-25-2023 End: 06-25-2023 ambulatory Tammy Romero Facility:[facility] Start: 06-11-2023 End: 06-11-[address] Elvis Ndiaye Work Phone: [facility] Work Phone: Start: 06-11-2023 End: 06-11-2023 ambulatory Maye Woody Facility:[facility] Start: 06-09-2023 End: 06-09-[address] Elvis Ndiaye Work Phone: [facility] Work Phone: Start: 06-09-2023 End: 06-09-[address] Elvis Ndiaye Work Phone: [facility] Work Phone: Start: 06-02-2023 End: 06-02-[address] [facility] Start: 06-02-2023 End: 06-02-[address] Elvis Ndiaye Work Phone: [facility] Work Phone: Start: 05-28-2023 End: 05-28-[address] Elvis Ndiaye Work Phone: [facility] Work Phone: Start: 05-28-2023 End: 05-28-2023 ambulatory Maye Woody Facility:[facility] Start: 05-26-2023 End: 05-26-[address] [facility] Start: 05-26-2023 End: 05-26-[address] Elvis Ndiaye Work Phone: [facility] Work Phone: Start: 05-20-2023 End: 05-20-[address] Elvis Ndiaye Work Phone: [facility] Work Phone: Start: 05-20-2023 End: 05-20-[address] Elvis Ndiaye Work Phone: [facility] Start: 05-20-2023 End: 05-20-2023 ambulatory Nazia Alvarez EXPORT FREIGHT CLERK Facility:[facility] Start: 04-30-2023 End: 04-30-[address] Elvis Ndiaye Work Phone: [facility] Work Phone: Start: 04-30-2023 End: 04-30-2023 ambulatory Nazia Alvarez EXPORT FREIGHT CLERK Facility:[facility] Start: 04-02-2023 End: 04-02-[address] Elvis Ndiaye Work Phone: [facility] Work Phone: Start: 04-02-2023 End: 04-02-2023 ambulatory Maye Woody Facility:[facility] Start: 04-01-2023 End: 04-01-[address] Elvis Ndiaye Work Phone: [facility] Work Phone: Start: 04-01-2023 End: 04-01-[address] Elvis Ndiaye Work Phone: [facility] Work Phone: Start: 04-01-2023 End: 04-01-2023 ambulatory Maye Woody Facility:[facility] Start: 03-05-2023 End: 03-05-[address] Elvis Ndiaye Work Phone: [facility] Work Phone: Start: 03-05-2023 End: 03-05-2023 ambulatory Maye Woody Facility:[facility] Start: 02-05-2023 End: 02-05-[address] Elvis Ndiaye Work Phone: [facility] Work Phone: Start: 02-05-2023 End: 02-05-2023 ambulatory Maye Woody Facility:[facility] Start: 01-20-2023 End: 01-20-[address] Elvis Ndiaye Work Phone: [facility] Start: 01-20-2023 End: 01-20-2023 ambulatory [facility] Facility:[facility] Start: 01-06-2023 End: 01-06-[address] Elvis Ndiaye Work Phone: [facility] Work Phone: Start: 01-06-2023 End: 01-06-[address] [facility] Work Phone: Start: 01-06-2023 End: 01-06-[address] Elvis Ndiaye Work Phone: [facility] Work Phone: Start: 01-06-2023 End: 01-06-2023 ambulatory Elvis Ndiaye Facility:[facility] Start: 01-06-2023 End: 01-06-2023 ambulatory Arielle Yobani Facility:[facility] Start: 11-28-2022 End: 11-28-[address] Elvis Ndiaye Work Phone: [facility] Work Phone: Start: 10-14-2022 End: 10-14-[address] Elvis Ndiaye Work Phone: [facility] Work Phone: Start: 09-08-2022 End: 09-08-2022 Patient encounter procedure Yasmin Coffey APRN.[employer] Work Phone: [facility] Comment on above: Hives (Primary Dx) Start: 07-21-2022 End: 07-21-2022 Office outpatient visit 15 minutes Sandeep Kauffman APRN.[employer] Work Phone: [facility] Comment on above: Sore throat (Primary Dx) Start: 06-13-2022 End: 06-13-2022 Patient encounter procedure Yasmin Coffey APRN.[employer] Work Phone: [facility] Comment on above: Sore throat (Primary Dx); Strep throat Start: 04-06-2022 End: 04-06-2022 Patient encounter procedure Gilbert Marion MD Work Phone: [facility] Comment on above: Streptococcal pharyn gitis (Primary Dx); Sore throat Start: 10-07-2021 Non-patient / Non-visit Dr. Jessi Ndiaye Work Phone: [facility] Start: 10-06-2021 Non-patient / Non-visit Dr. Jessi Ndiaye Work Phone: [facility] Start: 10-05-2021 Non-patient / Non-visit Dr. Jessi Ndiaye Work Phone: [facility] Start: 10-05-2021 End: 10-07-2021 Evaluation and management of inpatient Dr. Elvis Ndiaye Work Phone: [facility] Start: 10-04-2021 End: 10-04-[address] Elvis Ndiaye Work Phone: [facility] Start: 09-28-2021 End: 09-28-[address] Elvis Ndiaye Work Phone: [facility] Start: 09-27-2021 Non-patient / Non-visit Dr. Jessi Ndiaye Work Phone: [facility] Start: 09-27-2021 End: 09-27-[address] Elvis Ndiaye Work Phone: [facility] Out[facility] Start: 09-19-2021 End: 09-19-[address] Elvis Ndiaye Work Phone: [facility] Start: 09-14-2021 End: 09-14-[address] [facility] Start: 09-14-2021 End: 09-14-[address] Elvis Ndiaye Work Phone: [facility] Start: 08-31-2021 End: 08-31-[address] Elvis Ndiaye Work Phone: [facility] Start: 08-31-2021 End: 08-31-[address] Elvis Ndiaye Work Phone: [facility] Start: 08-17-2021 End: 08-17-[address] Elvis Ndiaye Work Phone: [facility] Start: 08-02-2021 End: 08-02-[address] Elvis Ndiaye Work Phone: [facility] Start: 07-23-2021 End: 07-23-[address] [facility] Start: 07-19-2021 End: 07-19-[address] [facility]di[facility] Start: 06-22-2021 End: 06-22-[address] Elvis Ndiaye [facility] Phone[facility] Start: 05-24-2021 End: 05-24-[address] Elvis Ndiaye Work Phone: [facility] Start: 04-26-2021 End: 04-26-[address] Elvis Ndiaye Work Phone: [facility] Start: 04-04-2021 End: 04-04-[address] Elvis Ndiaye Work Phone: [facility] Procedures Date Procedure Procedure Detail Performing Clinician Start: 07-23-2023 Group B Streptococcu s Culture Dr. Elvis Ndiaye Work Phone: Start: 07-21-2023 Ultrasound scan for growth Dr. Elvis Ndiaye Work Phone: Start: 04-01-[address] Elvis Ndiaye Work Phone: Start: 01-06-[address] Karl Ndiaye Work Phone: Start: 06-13-2022 STREP A MOLECULAR (POC) Jason Reeves APRN.[employer] Work Phone: Start: 04-06-2022 STREP A MOLECULAR (POC) Yasmin Coffey APRN.[employer] Work Phone: Start: 10-05-2021 End: 10-05-[address] Elvis Ndiaye Work Phone: Start: 09-14-2021 Group B Streptococcu s Culture Dr. Elvis Ndiaye Work Phone: Plan of Treatment Date Care Activity Detail Author Start: 05-28-2033 Urine microalbumin profile DTaP,Tdap,Td Vaccine (7 - Td or Tdap) [facility] Start: 06-01-2025 Urine microalbumin profile DTAP,TDAP,TD (2 - Td or Tdap) [facility] Start: 12-28-2023 Influenza vaccination Influenz a Vaccine (Season Ended) [facility] Start: 08-12-2023 Patient discharge [facility] Start: 08-12-2023 Consultation [facility] Start: 08-11-2023 Administration of medication [facility] Start: 08-11-2023 Application of ice collar, cap or bag [facility] Start: 08-11-2023 Catheterization of vein [facility] Start: 08-11-2023 Introduction of urin eve catheter [facility] Start: 08-11-2023 Measuring intake and output [facility] Start: 08-11-2023 Notification of physician [facility] Start: 08-11-2023 Procedure discontinued [facility] Start: 08-11-2023 Provision of activit y privileges [facility] Start: 08-11-2023 Vital signs measurements [facility] Start: 08-11-2023 End: 08-11-2023 [facility] Start: 08-11-2023 Documentation procedure [facility] Start: 08-11-2023 Admission procedure [facility] Start: 07-23-2023 Group B Streptococcu s Culture Group B Streptococcus Culture [facility] Start: 07-23-2023 Streptococcus agalac tiae [Presence] in Unspecified specimen by Organism specific culture [facility] Start: 06-09-2023 Iv infusion therapy prophylaxis/dx ea hour THER/PROPH/DIAG IV INF [facility] Start: 06-09-2023 Iv infusion therapy/prophylaxis /dx 1st to 1 hr THER/PROPH/DIAG IV INF [facility] Start: 06-02-2023 Iv infusion therapy prophylaxis/dx ea hour THER/PROPH/DIAG IV INF [facility] Start: 06-02-2023 Iv infusion therapy/prophylaxis /dx 1st to 1 hr THER/PROPH/DIAG IV INF [facility] Start: 05-26-2023 Iv infusion therapy prophylaxis/dx ea hour THER/PROPH/DIAG IV INF [facility] Start: 05-26-2023 Iv infusion therapy/prophylaxis /dx 1st to 1 hr THER/PROPH/DIAG IV INF [facility] Start: 04-28-2023 Behavioral Health Screening Behavioral Health Screening [facility] Start: 12-27-2022 Covid-19 Vaccine ( season) Covid-19 Vaccine ( season) [facility] Start: 12-27-2022 Influenza vaccination INFLUENZ A (Season Ended) [facility] Start: 2022 HPV TESTING HPV TESTING [facility] Start: 2022 Screening for malign ant neoplasm of cervix HPV Testing [facility] Start: 04-28-2022 [facility] Start: 12-27-2021 Influenza vaccination INFLUENZA (#1) [facility] Start: 04-28-2021 DEPRESSION ASSESSMENT DEPRESSION ASS ESSMENT [facility] Start: 01-24-2020 PAP TESTING PAP TESTING [facility] Start: 01-24-2020 Screening for malign ant neoplasm of cervix Pap Testing [facility] Start: 01-23-2018 PAP TESTING PAP TESTING [facility] Start: 03-04-2014 HPV Vaccine (2 - 3-d ose series) HPV Vaccine (2 - 3-dose series) [facility] Start: 2011 Hepatitis B Vaccine (1 of 3 - 19+ 3-dose series) Hepatitis B Vaccine (1 of 3 - 19+ 3-dose series) [facility] Start: 1992 COVID-19 VACCINE (#1) COVID-19 VACCI NE (#1) [facility] Start: 1992 HEPATITIS B (1 of 3 - 3-dose series) HEPATITIS B (1 of 3 - 3-dose series) [facility] Beta-hemolytic Streptococcus culture [facility] CBC W Auto Different ial panel - Blood [facility] Hepatitis B surface antigen measurement [facility] Hepatitis C antibody measurement [facility] HIV 1+2 Ab+HIV1 p24 Ag [Presence] in Serum or Plasma by Immunoassay [facility] Liquid based cervica l cytology screening [facility] Patient Education [facility] Work Phone: Patient referral [facility] Work Phone: Rubella IgG measurement [facility] STREP A MOLECULAR (POC) STREP A MOLECULAR (POC) Microbiology Routine Sore throat Ordered: 07/21/2022 [facility] Work Phone: Comment on above: Ordered: 07/21/2022 Treponema sp Ab [Presence] in Serum [facility] Immunizations Immunization Date Immunization Notes Care Provider Rohit quinn 05-28-2023 tetanus toxoid, redu yrn diphtheria toxoid, and acellular pertussis vaccine, adsorbed Dr. Elvis Ndiaye Work Phone: [facility] 07-19-2021 tetanus toxoid, redu yrn diphtheria toxoid, and acellular pertussis vaccine, adsorbed Dr. Elvis Ndiaye Work Phone: [facility] 07-19-2021 diphtheria, tetanus toxoids and acellular pertussis vaccine, unspecified formulation Dr. Elvis Ndiaye Work Phone: [facility] Work Phone: 06-12-2018 tetanus toxoid, redu yrn diphtheria toxoid, and acellular pertussis vaccine, adsorbed Dr. Elvis Ndiaye Work Phone: [facility] 06-12-2018 diphtheria, tetanus toxoids and acellular pertussis vaccine, unspecified formulation Dr. Elvis Ndiaye Work Phone: [facility] Work Phone: 02-27-2018 Flucelvax Quad [id number] (PF) (flu vac qs 2018(4 yr up)CD(PF)) 60 mcg ([address] Elvis Ndiaye Work Phone: [facility] Work Phone: 06-01-2015 tetanus toxoid, redu yrn diphtheria toxoid, and acellular pertussis vaccine, adsorbed Gilbert Marion MD Work Phone: [facility] 01-23-2015 influenza, injectabl e, quadrivalent, contains preservative Gilbert Marion MD Work Phone: [facility] 01-23-2015 influenza virus vaccine, unspecified formulation Albania Nguyen APRN.CNP Work Phone: [facility] Payers Date Payer Category Payer Private Health Insurance [employer] [facility] [id number] 2023-Present [phone] [address] [place] [phone] PPO [id number] 2023 Self-pay [id number] 2023 Unknown [id number] 2022 Unknown [id number] 2018 Unknown [employer] PPO OOS [id number] 2018-Present [phone] [address] [place] [address] PPO [id number] 2018 Unknown [id number] Private Health Insurance [id number] Private Health Insurance [id number] Unknown [id number] Unknown [id number] 2.16.840.1.126730.3.579.2.4 62 Unknown [id number] 2.16.840.1.424126.3.579.2.4 62 Unknown [id number] 2.16.840.1.829608.3.579.2.4 62 Unknown [id number] 2.16.840.1.758305.3.579.2.4 62 Unknown [id number] 2.16.840.1.920733.3.579.2.4 62 Unknown [id number] 2.16.840.1.149190.3.579.2.4 62 Unknown [id number] 2.16.840.1.836163.3.579.2.4 62 Unknown [id number] 2.16.840.1.584635.3.579.2.4 62 Unknown [id number] 2.16.840.1.012386.3.579.2.4 62 Unknown [id number] 2.16.840.1.845996.3.579.2.4 62 Unknown [id number] 2.16.840.1.541668.3.579.2.4 62 Unknown [id number] 2.16.840.1.855844.3.579.2.4 62 Unknown [id number] 2.16.840.1.403304.3.579.2.4 62 Unknown [id number] 2.16.840.1.626426.3.579.2.4 62 Unknown [id number] 2.16.840.1.006106.3.579.2.4 62 Unknown [id number] 2.16.840.1.717134.3.579.2.4 62 Unknown [id number] 2.16.840.1.393119.3.579.2.4 62 Unknown [id number] 2.16.840.1.268393.3.579.2.4 62 Unknown [id number] 2.16.840.1.017711.3.579.2.4 62 Unknown [id number] 2.16.840.1.296069.3.579.2.4 62 Unknown [id number] 2.16.840.1.718913.3.579.2.4 62 Unknown [id number] 2.16.840.1.719116.3.579.2.4 62 Unknown [id number] 2.16.840.1.459630.3.579.2.4 62 Unknown [id number] 2.16.840.1.471542.3.579.2.4 62 Unknown [id number] 2.16.840.1.240278.3.579.2.4 62 Unknown [id number] 2.16.840.1.398070.3.579.2.4 62 Unknown [id number] 2.16.840.1.538416.3.579.2.4 62 Unknown [id number] 2.16.840.1.233802.3.579.2.4 62 Unknown [id number] 2.16.840.1.801807.3.579.2.4 62 Social History Date Type Detail Facility Start: 07-19-2021 End: 08-11-2023 Tobacco smoking status MIIS Unknown if ever smoked [facility] Start: 1990 Sex Assigned At Female [facility] Start: 01-23-2015 End: 10-04-2024 Tobacco smoking status MIIS Never smoked tobacco [facility] Start: 01-23-2015 Tobacco use and exposure Smokeless tobacco non-user [facility] Start: 04-06-2022 End: 09-30-2023 Alcohol intake Current non-drinker of alcohol (finding) [facility] Start: 1990 Sex Assigned At Not on file [facility] Start: 04-03-2020 End: 09-30-2023 History of Social function [facility] Start: 04-03-2020 End: 09-30-2023 Tobacco use panel [facility] National Score (1-100), lower number is lower risk Not on file [facility] Goals Date Patient Goal Desired Activity /State Functional Status Date Assessment Result Facility 10-05-2021 Functional status Activity Ability Indepe ndent [facility] Work Phone: Mental Status Date Assessment Result Facility 06-09-2023 Cognitive function Awake;Alert;A ppropriate;Fol lows Commands [facility] Work Phone: 06-02-2023 Cognitive function Awake;Alert;A ppropriate;Fol lows Commands [facility] Work Phone: 05-26-2023 Cognitive function Awake;Alert;A ppropriate;Fol lows Commands [facility] Work Phone: Clinical Notes 08-24-2015 to 10-04-2024 Albania Nguyen APRN.[employer] - 09/30/2023 10:32 AM EDT Note Date & Type Note Facility 10-04-2024 Progress note [facility] 09-30-2023 Note HNO ID: [id number] Author: ALBANIA NGUYEN APRN.[employer] Service: ? Author Type: Nurse Practitioner Type: Progress Notes Filed: 09/30/2023 10:38 Note Text: CC: Patient presents with: Cough: Cough, SILVA and ST x 1 week HPI: Renee Ritchie is a 33 year old female who presents to the office with complaint of head congestion, cough, nonproductive, sore throat, and sinus symptoms for a week. Symptoms are worsening Associated symptoms includes nasal congestion, facial pain/pressure, and headache. Denies fever, nausea, vomiting , and diarrhea. Treatments tried include nothing so far. with no relief of symptoms. Sick contacts: unknown. History of asthma, frequent episodes of bronchitis, chronic bronchitis, bronchiectasis or COPD: No Smoker: No Seasonal/environmental allergies: No The ROS is otherwise negative. The patient's pmh, medications, allergies, and past visits are reviewed. PHYSICAL EXAM: BP 110/78 Pulse 86 Temp 36.2 ?C (97.2 ?F) (Tympanic) Resp 16 Wt 78 kg (171 lb 15.3 oz) LMP 02/04/2017 SpO2 99% BMI 28.62 kg/m? General appearance: alert, cooperative, pleasant, in no acute distress Head: Normocephalic Eyes: EOM's intact, conjunctiva pink and moist, no icterus, sclera white, non-injected Ears: Right ear: External ear/canal- Normal, TM - serous effusion. Left ear: External ear/canal- Normal, TM - serous effusion Oropharynx:mild erythema, without exudates present Heart: Negative. RRR without obvious murmur, gallop, or rubs. No ectopy. Lungs: clear to auscultation, without rales or wheeze, good air exchange PAST MEDICAL HISTORY Diagnosis Date NEGATIVE MEDICAL HISTORY PAST SURGICAL HISTORY Procedure Laterality Date NONE ALLERGIES Patient has no known allergies. MEDICATIONS CHOLECALCIFEROL, VITAMIN D3, (D3-2000 ORAL) Take by mouth. (Patient not taking: Reported on 04/06/2022) norgestimate 0.25 mg-ethinyl estradiol 35 mcg (SPRINTEC) 0.25-35 mg-mcg per tablet Take 1 tablet by mouth once daily. Take only active pills, use in a continuous fashion for scheduled amenorrhea. (Patient not taking: Reported on 09/30/2023) RIBOFLAVIN (VITAMIN B-2 ORAL) Take by mouth. (Patient not taking: Reported on 04/06/2022) MAGNESIUM ORAL Take by mouth. (Patient not taking: Reported on 04/06/2022) FAMILY HISTORY Problem Relation Age of Onset Breast Cancer Maternal Grandmother No Family History No Family History colon/prostate CA Social History Tobacco Use Smoking status: Never Smokeless tobacco: Never Substance Use Topics Alcohol use: No Drug use: No ASSESSMENT/PLAN: 1. Rhinosinusitis - ICD9: 473.9, ICD10: J32.9 - AMOXICILLIN 875 MG TABLET recently delivered baby 7 weeks ago. Prescription instructions reviewed with patient as applicable. Potential red flag symptoms discussed with the patient. Reviewed appropriate action plan to take if red flag symptoms occur. Patient agreeable to treatment plan. Albania Nguyen APRN.[facility] 09-30-2023 History of Present illness Narrative CC: Patient presents with: Cough: Cough, SILVA and ST x 1 week HPI: Renee Ritchie is a 33 year old female who presents to the office with complaint of head congestion, cough, nonproductive, sore throat, and sinus symptoms for a week. Symptoms are worsening Associated symptoms includes nasal congestion, facial pain/pressure, and headache. Denies fever, nausea, vomiting , and diarrhea. Treatments tried include nothing so far. with no relief of symptoms. Sick contacts: unknown. History of asthma, frequent episodes of bronchitis, chronic bronchitis, bronchiectasis or COPD: No Smoker: No Seasonal/environmental allergies: No The ROS is otherwise negative. The patient's pmh, medications, allergies, and past visits are reviewed. PHYSICAL EXAM: BP 110/78 Pulse 86 Temp 36.2 C (97.2 F) (Tympanic) Resp 16 Wt 78 kg (171 lb 15.3 oz) LMP 02/04/2017 SpO2 99% BMI 28.62 kg/m General appearance: alert, cooperative, pleasant, in no acute distress Head: Normocephalic Eyes: EOM's intact, conjunctiva pink and moist, no icterus, sclera white, non-injected Ears: Right ear: External ear/canal- Normal, TM - serous effusion. Left ear: External ear/canal- Normal, TM - serous effusion Oropharynx:mild erythema, without exudates present Heart: Negative. RRR without obvious murmur, gallop, or rubs. No ectopy. Lungs: clear to auscultation, without rales or wheeze, good air exchange PAST MEDICAL HISTORY Diagnosis Date NEGATIVE MEDICAL HISTORY PAST SURGICAL HISTORY Procedure Laterality Date NONE ALLERGIES Patient has no known allergies. MEDICATIONS CHOLECALCIFEROL, VITAMIN D3, (D3-2000 ORAL) Take by mouth. (Patient not taking: Reported on 04/06/2022) norgestimate 0.25 mg-ethinyl estradiol 35 mcg (SPRINTEC) 0.25-35 mg-mcg per tablet Take 1 tablet by mouth once daily. Take only active pills, use in a continuous fashion for scheduled amenorrhea. (Patient not taking: Reported on 09/30/2023) RIBOFLAVIN (VITAMIN B-2 ORAL) Take by mouth. (Patient not taking: Reported on 04/06/2022) MAGNESIUM ORAL Take by mouth. (Patient not taking: Reported on 04/06/2022) FAMILY HISTORY Problem Relation Age of Onset Breast Cancer Maternal Grandmother No Family History No Family History colon/prostate CA Social History Tobacco Use Smoking status: Never Smokeless tobacco: Never Substance Use Topics Alcohol use: No Drug use: No ASSESSMENT/PLAN: 1. Rhinosinusitis - ICD9: 473.9, ICD10: J32.9 - AMOXICILLIN 875 MG TABLET recently delivered baby 7 weeks ago. Prescription instructions reviewed with patient as applicable. Potential red flag symptoms discussed with the patient. Reviewed appropriate action plan to take if red flag symptoms occur. Patient agreeable to treatment plan. Albania Nguyen APRN.[employer] documented in this encounter [facility] 08-12-2023 Progress note Note Date/Time August 12, 2023 7:48am [facility] Medical Records Department [address] [place] [address] [place] [address] Progress Note - OBGYN 08/12/23 0746 MR#: [id number] Acct: [id number] Name: RENEE RITCHIE Rep #:[id number] : 1990 33 From: Arielle Hilton CNM PCP: Dr. Elvis Ndiaye MD Status:A DM IN Location: [place] [address] Subjective Subjective Patient doing well without complaints. Tolerating PO. Ambulating and voiding without difficulty. Feeding well. Denies chest pain, shortness of breath, calf pain/swelling, fevers, chills, lightheadedness. Objective Data Objective Data Vital Signs: Vital Signs Temp Pulse Resp BP Pulse Ox O2 Del Method 97.6 F L 89 16 121/72 H 96 Room Air 08/12/23 05:15 08/12/23 05:16 08/12/23 05:15 08/12/23 05:16 08/12/23 05:08/12/23 05:15 Oxygen Delivery Method Room Air Weight: 199 lb 4 oz Body Mass Index (BMI) 32.1 Intake & Output: Intake and Output for Last 24 Hours 08/10/23 08/11/23 08/12/23 23:59 23:59 23:59 Intake Total 1848.67 / 1848.67 Output Total 1800 / 1800 Balance 48.67 / 48.67 Lab / Micro Data Attestation: I reviewed the patient's lab results. 08/11/23 07:50 Labs: Laboratory Results - last 24 hr 08/11/23 07:50: WBC 9.1, RBC 4.21, Hgb 12.2, Hct 37.4, MCV 88.8, MCH 29.0, MCHC 32.6, RDW Std Deviation 45.4 H, RDW Coeff of Homero 14.1, Plt Count 202, MPV 8.9, Immature Gran % (Auto) 0.900, Neut % (Auto) 72.5 H, Lymph % (Auto) 17.2 L, Rains % (Auto) 8.0, Eos % (Auto) 1.0, Baso % (Auto) 0.4, Absolute Neuts (auto) 6.6, Absolute Lymphs (auto) 1.56, Nucleated RBC % 0, Syphilis Total Ab Non-reactive, Blood Type O POSITIVE, Antibody Screen NEGATIVE 08/11/23 08:52: POC Glucose 105 08/11/23 09:49: POC Glucose 78 08/11/23 12:48: POC Glucose 96 08/11/23 13:46: POC Glucose 85 08/11/23 14:35: POC Glucose 113 H 08/11/23 17:37: POC Glucose 85 08/12/23 05:21: POC Glucose 72 L ROS Constitutional Constitutional: Reports systems reviewed and no addt'l complaints, except as documented; Denies anorexia or headache(s) Cardiovascular Cardiovascular: Reports systems reviewed and no addt'l complaints, except as documented; Denies dizziness, dyspnea, nausea or tachypnea Respiratory/Chest Respiratory/Chest: Reports systems reviewed and no addt'l complaints, except as documented; Denies cough, dyspnea, shortness of breath at rest or tachypnea Gastrointestinal Gastrointestinal: Reports systems reviewed and no addt'l complaints, except as documented; Denies abdominal pain, constipation or nausea Genitourinary Genitourinary: Reports systems reviewed and no addt'l complaints, except as documented; Denies burning urination, difficulty urinating, dysuria, urinary frequency or urinary incontinence Musculoskeletal Musculoskeletal: Reports systems reviewed and no addt'l complaints, except as documented Integumentary Integumentary: Reports systems reviewed and no addt'l complaints, except as documented Neurologic Neurologic: Reports systems reviewed and no addt'l complaints, except as documented; Denies abnormal speech, dizziness or headache(s) Psychiatric Psychiatric: Reports systems reviewed and no addt'l complaints, except as documented Endocrine Endocrinology: Reports systems reviewed and no addt'l complaints, except as documented Hematologic/Lymphatic Hematologic/Lymphatic: Reports systems reviewed and no addt'l complaints, exceptas documented Physical Exam Const alert, oriented x3 and no apparent distress Neck full ROM Resp normal respiratory effort, normal air movement and no retractions Effort and Inspection: able to speak in complete sentences and symmetric chest movement GI soft to palpation Bladder / Kidney Exam: bladder normal to palpation Uterus Palpation: uterus fundus firm Extremity normal to inspection and full ROM Psych mental status grossly normal, thought process normal and cooperative Assessment & Plan (1) (spontaneous vaginal delivery): COMMENT: LC IOL: 39 weeks GDM. girl: Philomena PLAN: s/p PPD # 1 1. routine post delivery care 2. breast feeding- support given 3. rh positive 4. rubella immune 5. Discharge Home (2) Encounter for induction of labor: COMMENT: at 39 weeks IOL GDM and LGA. routine admission orders pitocin for induction. plan AROM (3) Gestational diabetes mellitus (GDM) affecting , antepartum: COMMENT: dx at repeat at 36 weeks (4) LGA (large for gestational age) fetus: COMMENT: 36 wk us-3661 grams AC 99.99% rescreen glucose at 39 weeks projected weight 4336 grams at 40 weeks projected weight 4561 grams Discussed with SM. 39 week IOL (5) H/O depression, currently : COMMENT: after 2nd child. No meds. Considering and planning on encapsulating placenta. No sx now. Charges/Coding Multi Select Codes Urinary/Genital Urinary/Genital CPT Codes: No Charge 08/12/23 0748 <Electronically signed by Arielle Hilton CNM> Cosigner Signature (if applicable): CC: ~ Signed [facility] Work Phone: 1(822) 806-747104-15-2024 Discharge summary Author Tammy Romero [facility] August 11, 2023 9:02pm Note Date/Time August 11, 2023 9:0 3pm [facility] Medical Records Department [address] [place] [address] Instructions for Home/Discharge Instructions 08/11/232101 MR#: [id number] Acct: [id number] Name: RENEE RITCHIE Rep #:[id number] : 1990 33 From: Tammy Romero CNM PCP: Dr. Elvis Ndiaye MD Status:A DM IN Discharge Instructions Diet Discharge Diet: No restrictions Activity Discharge Activity: May Not Drive and May Shower May resume sexual activity in: 6 weeks Weight Bearing Status: Full weight bearing Dressing / Incision Call your doctor if your incision/area has: Sudden Increased Bleeding, IncreasedPain/ Swelling and Foul Smelling Discharge Call your doctor if you observe: Fever of 101 or Higher, Numbness or Tingling, Change in Color, Inability to urinate, Inability to have a bowel movement, Usingmore than 1 pad per hour, Shortness of breath, Dizziness, Fainting spells, Chestpain, Calf discomfort and Uncontrolled pain Follow Up Care Please Follow Up With: Tammy Romero CNM When: 6 weeks , please call office to make an appointment. Congratulations on the of your baby! Test Results: Test results from this visit will be discussed in further detail at your follow- up appointment, if applicable. Discharge Plan Admission Admit Date/Time: 08/11/23 06:55 Attending Provider: Tammy Romero Primary Care Provider: Elvis Ndiaye Discharge Orders/Prescriptions Prescriptions: No Action ferrous sulfate [Feosol] 325 mg (65 mg iron) tablet 325 mg PO DAILY magnesium 200 mg tablet 200 mg PO DAILY PNV no.[id number] 180 mcg-35 mg- 25 mg-5 mg tablet,chewable 1 tab PO DAILY Referrals / Follow Up: Elvis Ndiaye MD [Primary Care Provider] - 08/11/232101<Electronically signed by Tammy Romero CNM>Tammy Romero CNM CC: Dr. Elvis Ndiaye MD ~ Signed [facility] Work Phone: 1(179) 815-755404-15-2024 Procedure [facility] 08-11-2023 Consult note Author Tammy Romero [facility] August 11, 2023 12:56pm Note Date/Time August 11, 2023 12: 56pm [facility] Medical Records Department [address] [place] [id number] Consultation 08/11/23 1254 MR#: [id number] Acct: [id number] Name: RENEE RITCHIE Rep #:[id number] : 1990 33 From: Tammy Romero CNM PCP: Dr. Elvis Ndiaye MD Status:A DM IN Location: [id number] Consult Date of Consult: 08/11/23 Assessment & Plan Assessment/Plan (1) Encounter for induction of labor: PLAN: Plan at 39 weeks current tracin with accels FHT: Moderate variability reactive no decelerations category I tracing Osino: q2-3 Contractions reviewed tracing abnormalities since last note: A/P: AROMd for mec fluid -plan pedi at delivery -active labor- anticipate -epidural when desires 08/11/23 1256 <Electronically signed by Tammy Romero CNM> Cosigner Signature (if applicable): CC: Dr. Elvis Ndiaye MD~ Signed [facility] Work Phone: 1(347) 378-407004-15-2024 [facility] Medical Records Department [address] [place] [address] Consultation 08/11/23 1254 MR#: [id number] Acct: [id number] Name: RENEE RITCHIE Rep #: [id number] : 1990 33 From: Tammy Romero CNM PCP: Dr. Elvis Ndiaye MD Status:ADM IN [facility] Consult Date of Consult: 08/11/23 Assessment Plan Assessment/Plan (1) Encounter for induction of labor: PLAN: Plan at 39 weeks current tracin with accels FHT: Moderate variability reactive no decelerations category I tracing Osino: q2-3 Contractions reviewed tracing abnormalities since last note: A/P: AROMd for mec fluid -plan pedi at delivery -active labor- anticipate -epidural when desires 08/11/23 1256 Cosigner Signature (if applicable): CC: Dr. Elvis [facility]diaye [facility] History and physical note Author Tammy [facility] August 11, 2023 8:50am Note Date/Time August 11, 2023 8:4 9am [facility] Medical Records Department [address] [place] [address] H&P Exam - [employer] 08/11/23 0844 MR#: [id number] Acct: [id number] Name: RENEE RITCHIENDRA Rep #:[id number] : 1990 33 From: Tammy Romero CNM PCP: Dr. Elvis Ndiaye MD Status:A DM IN [facility]PI - General General Date of Admission: 08/11/23 HPI Narrative RENEE RITCHIE, is a 33 F who presents at 39 weeks for IOL for diet controlled GDM with LGA. pelvis proven to 9#15oz without hx of shoulder dystocia. 36 wk us-3661 grams with 39 weeks projected weight 4336 grams Maternal Data Information TYRONE Calculator Estimated Delivery Date Method Current WG Current Estimate 08/18/23 LMP (Certain) 39w 0d PFSH PFSH Medical History H/O depression, currently Home Medications PNV 178-FA 180 mcg-om3 35 mg-dha 25 mg-epa 5 mg-fish oil chew tablet 1 tab PO DAILY 01/06/23 [History Last Taken Unknown] ferrous sulfate 325 mg (65 mg iron) tablet (Feosol) 325 mg PO DAILY anemia 01/06/23 [History Last Taken Unknown] magnesium 200 mg tablet 200 mg PO DAILY sleep 01/06/23 [History Last Taken Unknown] Allergy/AdvReac Type Severity Reaction Status Date / Time No Known Allergies Allergy Verified 08/11/23 08:25 Family History Mother Diabetes Father Hypertension Grandmother Breast cancer Dementia Surgical History Status post vaginal delivery Social History adopted: No household members: family housing: house number of children: 3 current occupational status: employed current occupation: [employer] pets and animals: Yes pets and animals: cat(s) and dog(s) history of recent travel: No sexually active: Yes Smoking Status: Never smoker alcohol intake: never substance use type: does not use caffeine: No what type of physical activity do you participate in: none seatbelt use: always do you feel safe at home: Yes additional social history: [place] History 4 Elective abortions Hx Para 3 Spontaneous abortions Hx # Term Pregnancies 3 Ectopic pregnancies Hx # Pregnancies Multiple births # of living children 3 Past Pregnancies Del. Date Name GA/Weeks Outcome Route Bth Weight Gen Labor Lgth Anesthesia Del Locatn Provider FOB 08/24/15 Cristian 41 live - full term 9 lbs 3 oz. Male 1 [address] Cook Ryley 09/05/18 Lilian 40 live - full term 9lb 11oz Female epidural [facility] DESHAWN Ryley 10/05/21 Kirk 39 live - full term 9 15oz Male 3 epid ural [facility] Maye Woody [place] Delivery Date: 08/24/15 Last Updated by: Jenniffer Chacko MD difficult labor Delivery Date: 10/05/21 Last Updated by: Stephanie Fisher Elective IOL, 39weeks, , melissa Kirk Visit Details Expected Delivery Route/Plan Labor Preferences- CB/BF classes: no labor support person: [place] labor intervention preferences: [] pain management options preferred: epidural cut cord/dad catch: yes : yes PP control planned: POP, vas planned discussed possible routes of delivery and associated risks: [] special requests: [] Plans Covid status: [] Flu vaccine: declines Tdap vaccine: given Rhogam: NA LARC form signed: yes Problem list reviewed and updated with the most current plan of care details and appropriate orders placed. Relevant counseling for the gestational age provided. Continue routine care and follow up unless otherwise noted in visit notes/problem list details OB Flowsheet Initial Weight: 178 lb Date -?-?-?-?-?-?-?-?-?-?-?-?- EGA Weight BP Urine Prot -?-?-?-?-?-?-?-?-?-?-?-?- Glucose FHR FuHt Pres Dilation -?-?-?-?-?-?-?-?-?-?-?-?- Effaced St Visit Note 01/06/23 -?-?-?-?-?-?-?-?-?-?-?--?- 8w 0d 178 lb 6 oz (+6 oz) 116/76 -?-?-?-?-?-?-?-?-?-?-?-?- 160 -?-?-?-?-?-?-?-?-?-?-?-?- KW-CRL cons with dates. doing well-NIPT desired 02/05/23 -?-?-?-?-?-?-?-?-?-?-?-?- 12w 2d 178 lb 4 oz (+4 oz) 114/78 Negative -?-?-?-?-?-?-?-?-?-?-?-?- Negative 156 -?-?-?-?-?-?-?-?-?-?-?-?- JV-no cramping o r bleeding. normal NIPT, it's a girl! no complaints. rto 4 weeks 03/05/23 -?-?-?-?-?-?-?-?-?-?-?-?- 16w 2d 177 lb 6 oz (-10 oz) 111/76 Negative -?-?-?-?-?-?-?-?-?-?-?-?- Negative 150 -?-?-?-?-?-?-?-?-?-?-?-?- JV- pt signed ex emption for flu vaccine. no lof, vaginal bleeding, or cramping. no complaints today. anatomy scan ordered for 03/1904/02/23 -?-?-?-?-?-?-?-?-?-?-?-?- 20w 2d 184 lb 8 oz (+6 lb 8 oz) 109/74 Negative -?-?-?-?-?-?-?-?-?-?-?-?- Negative 161 -?-?-?-?-?-?-?-?-?-?-?-?- JV- no complaint s today. normal anatomy scan. 04/30/23 -?-?-?-?-?-?-?-?-?-?-?-?- 24w 2d 191 lb 6 oz (+13 lb 6 oz) 120/78 Negative -?-?-?-?-?-?-?-?-?-?-?-?- Negative 158 25 -?-?-?-?-?-?-?-?-?-?-?-?- MH-No VB. Donell Romero Denies concerns. Larc 05/28/23 -?-?-?-?-?-?-?-?-?-?-?-?- 28w 2d 192 lb 4 oz (+14 lb 4 oz) 119/74 Negative -?-?-?-?-?-?-?-?-?-?-?-?- Negative 155 29 -?-?-?-?-?-?-?-?-?-?-?-?- JV- had iron inf usion on Friday. no complaints. iron studies normal. 06/11/23 -?-?-?-?-?-?-?-?-?-?-?-?- 30w 2d 191 lb 8 oz (+13 lb 8 oz) 119/75 Negative -?-?-?-?-?-?-?--?-?-?-?-?- Negative 146 31 -?-?-?-?-?-?-?-?-?-?-?-?- JV- pt has flu B (wearing a mask) no shortness of breath or chest pressure. just feels like a cold. no other complaints today. + fm. 06/25/23 -?-?-?-?-?-?-?-?-?-?-?-?- 32w 2d 195 lb 8 oz (+17 lb 8 oz) 110/73 Negative -?-?-?-?-?-?-?-?-?-?-?-?- Negative 145 34 Cephalic -?-?-?-?-?-?-?-?-?-?-?-?- LC- no vb/ctx/lo f. good fm. hx of 9lb 15oz with previous son. LC- no vb/ctx/lof. good fm. hx of 9lb 15oz with previous son. if >2cm ahead next visit plan on growth scan. 07/09/23 -?-?-?-?-?-?-?-?-?-?-?-?- 34w 2d 199 lb 8 oz (+21 lb 8 oz) 106/73 Negative -?-?-?-?-?-?-?-?-?-?-?-?- Negative 142 35 36 Cephalic -?-?-?-?-?-?-?-?-?-?-?-?- MH-No VB, LOF. G ood FM. 36 wk growth US. 07/23/23 -?-?-?-?-?-?-?-?-?-?-?-?- 36w 2d 199 lb (+21 lb) 105/74 -?-?-?-?-?-?-?-?-?-?-?-?- 150 39 Cephalic 3 -?-?-?-?-?-?-?-?-?-?-?-?- 60 -1 kw-no vb/l of/ctx. good fm. kw-no vb/lof/ctx. good fm. D iscussed with SM needs 39 week IOL for LGA. repeat glucose-AC 99.99% projected EFW at 40 weeks 4500+ 07/30/23 -?-?-?-?-?-?-?-?-?-?-?-?- 37w 2d 205 lb (+27 lb) 122/84 Negative -?-?-?-?-?-?-?-?-?-?-?-?- Negative 155 39 Cephalic 2 .5 -?-?-?-?-?--?-?-?-?-?-?-?- 60 -2 LC- no vb/ ctx/lof.good fm. IOL to be set up for 08/10. all fasting and pp in normal range. 08/06/23 -?-?-?-?-?-?-?-?-?-?-?-?- 38w 2d 203 lb 2 oz (+25 lb 2 oz) 136/76 Negative -?-?-?-?-?-?-?-?-?-?-?-?- Negative 135 38 Cephalic 3 -?-?-?-?-?-?-?-?-?-?-?-?- 60 -2 LC- no vb/ ctx/lof. good fm. has IOL set up for friday. glucose stable. NST FHR Rate Baby A Baseline: 150 Variability:: Moderate Accelerations:: 15 x 15 Decelerations:: None NST Reactive:: Yes FHR Category:: Category I Uterine Activity:: 11 minutes ROS Cardiovascular Cardiovascular: Denies abdominal pain, chest pain, diaphoresis or dyspnea Respiratory/Chest Respiratory/Chest: Denies change in mental status, chest congestion, chest tightness, cough, shortness of breath at rest, shortness of breath with exertion, breast mass, breast pain, breast skin changes, breast swelling, change in breast shape or nipple discharge Genitourinary Genitourinary: Reports change in urinary stream Musculoskeletal Musculoskeletal: Reports none Integumentary Integumentary: Reports none Neurologic Neurologic: Reports none Psychiatric Psychiatric: Reports none Endocrine Endocrinology: Reports none Hematologic/Lymphatic Hematologic/Lymphatic: Reports none Allergic/Immunologic Allergic/Immunologic: Reports none Vital Signs Vital Signs Vital Signs: 08/11/23 07:56 08/11/23 07:56 08/11/23 07:58 Temperature Temperature Source Temporal Pulse Rate 94 Respiratory Rate Blood Pressure 117/82 H BP Systolic 117 BP Diastolic 82 08/11/23 07:58 08/11/23 07:58 Temperature 97.6 F L Temperature Source Pulse Rate Respiratory Rate 16 Blood Pressure BP Systolic BP Diastolic Weight Weight: 199 lb 4 oz Body Mass Index (BMI) 32.1 Physical Exam Const alert, oriented x3 and no apparent distress General Appearance: cooperative, comfortable and well kempt Orientation / Consciousness: awake and oriented to person Exam Limitations: no limitations HEENT normocephalic Neck full ROM Chest inspection of chest normal Resp normal respiratory effort, normal air movement and no retractions Effort and Inspection: able to speak in complete sentences and symmetric chest movement Cardio regular rate Peripheral Pulses: pulses 2+ throughout GI normal to inspection, nondistended, normoactive bowel sounds Inspection: gravid no CVA tenderness and appearance of the vagina normal External Female Exam: normal appearance of the urethra; Negative for external lesion OB / External & Speculum: external exam normal Manual OB Exam: estimated gestational size appropriate and presentation cephalic Uterus Palpation: Negative for uterus tender Extremity normal to inspection Skin no rashes or lesions noted Neuro deep tendon reflexes 2+ bilaterally and gait normal Motor Exam: strength 5/5 throughout and clonus absent Psych Activity / Motor Behavior: appropriate eye contact Speech: normal speech Labs Labs Labs: Blood Type O POSITIVE Antibody Screen NEGATIVE Hct 37.4 % (37-47) Hgb 12.2 g/dL (12.0-15.0) Obstetrics Ultrasound Syphilis Total Ab Non-reactive Rubella IgG Antibody Reactive (Nonreactive) Hep Bs Antigen Non-Reactive (Nonreactive) Hepatitis C Antibody Non-Reactive (Nonreactive) Chlamydia DNA (JULIANO) Negative (Negative) N.gonorrhoeae DNA (JULIANO) Negative (Negative) HIV 1&2 Antibody Non-Reactive (Nonreactive) Glucose 1 Hr 50 gm 150 mg/dL (70-140) H Gest Glucose Tolerance MG/DL Group B Strep DNA Negative (Negative) Rhogam given: No Miscellaneous Test Assessment & Plan (1) Gestational diabetes mellitus (GDM) affecting , antepartum: COMMENT: dx at repeat at 36 weeks (2) LGA (large for gestational age) fetus: COMMENT: 36 wk us-3661 grams AC 99.99% rescreen glucose at 39 weeks projected weight 4336 grams at 40 weeks projected weight 4561 grams Discussed with SM. 39 week IOL (3) Anemia in preg-unspec: QUALIFIERS: Trimester: third trimester Qualified Code(s): O99.013 - Anemia complicating , third trimester COMMENT: add FE; CBC-improved (4) Supervision of normal : QUALIFIERS: Normal : other normal Trimester: second trimester Qualified Code(s): Z34.82 - Encounter for supervision of other normal , second trimester COMMENT: [id number] TYRONE 08/18/23 Girl: Lilian Prescott Dawson [place] (5) H/O depression, currently : COMMENT: after 2nd child. No meds. Considering and planning on encapsulating placenta. No sx now. (6) Encounter for induction of labor: COMMENT: at 39 weeks IOL GDM and LGA. routine admission orders pitocin for induction. plan AROM PLAN: Plan -Dr. Zamorano updated on admission, exam and poc. agrees with management. co-management for GDM, diet controlled. 08/11/23 0850 <Electronically signed by Tammy Romero CNM> Cosigner Signature (if applicable): CC: QUEENIE Romero; Dr. Elvis Ndiaye MD~ Signed [facility] Work Phone: 1(842) 170-195205-14-2023 History of Present illness Narrative* Yasmin Coffey, CORPORATE SECURITY OFFICER.[employer] - 09/08/2022 9:14 AM EDT Images from the original note were not included. Subjective Rash Pertinent negatives include no congestion, cough, fever, shortness of breath or sore throat. Pedro Ritchie is a 32 year old female who [...] 0.25-35 mg-mcg per tablet Take 1 tablet bymouth once daily. Take only active pills, use [...] Discussed expected course of illness Yasmin Coffey APRN.CNP [facility] Instructions* Patient Instructions* Yasmin Coffey APRN.CNP - 09/08/2022 9:13 AM [...] Discussed expected course of illness Yasmin Coffey APRN.CNP NONSPECIFIC RASH: Our exam shows you have [...] redness, drainage or pus). [facility] History of Present illness Narrative* Sandeep Kauffman APRN.RADHA - 07/21/2022 11:08 AM EDT Subjective HPI Nontoxic-appearing female presents urgent care [...] 0.25-35 mg-mcg per tablet Take 1 tablet bymouth once daily. Take only active pills, use [...] ear normal. Nose: Rhinorrhea present. Mouth/Throat: Lips: [place]. Mouth: Mucous membranes are moist. Pharynx: Oropharynx [...] of care. This note was generated using Real Life Plus software. It may contain errors in wording, punctuation, or spelling. Sandeep Kauffman APRN.CNP documented in [facility]02-16-2023 Instructions* Patient Instructions* Yasmin Coffey APRN.CNP - 06/13/2022 3:31 PM EST ASSESSMENT/PLAN: 1. [...] Discussed expected course of illness Yasmin Coffey APRN.CNP STREP INFECTIONS: Streptococcal bacteria can cause a [...] or inability to swallow. [facility]-2023 History of Present illness Narrative* Yasmin Coffey APRN.CNP - 06/13/2022 3:21 PM EST Subjective Sore Throat Pertinent negatives include no congestion, coughing, diarrhea, ear pain, headaches or vomiting. Renee Ritchie is a 32 year old female who [...] 0.25-35 mg-mcg per tablet Take 1 tablet bymouth once daily. Take only active pills, use [...] illness Yasmin Coffey APRN.RADHA documented [facility]12-10-2022 History of Present illness Narrative* Gilbert Marion MD - 04/06/2022 1:22 PM EST Patient presents with: Sore Throat: fever x last night HPI: Feeling sick since last night. Positive symptoms: Sore throat, Post nasal drainage, Fever, Body Aches, Malaise, Headache, Negative symptoms: Cough, Nausea, Vomiting, Diarrhea, OTC: Ibuprofen MEDICATIONS: Current Outpatient Medications Medication Sig norgestimate 0.25 mg-ethinyl estradiol 35 mcg (SPRINTEC) 0.25-35 mg-mcg per tablet Take 1 tablet bymouth once daily. Take only active pills, use [...] lb) LMP 02/04/2017 SpO2 99% BMI 29.95 kg/m PHYSICAL [...] TABLET Gilbert Marion MD documented in this [facility]04-28-2016 History of Past illness Narrative* Problem Noted Date Resolved Date Vaginal delivery 08/24/2015 03/01/2017 Supervision of normal first 01/23/2015 03/01/2017 documented as of this encounter (statuses as of 04/06/2022) [address]28-2016 History of Past illness Narrative* Problem Noted Date Resolved Date Vaginal delivery 08/24/2015 03/01/2017 Supervision of normal first 01/23/2015 03/01/2017 documented as of this encounter (statuses as of 06/13/2022) [place] [id number] History of Past illness Narrative* Problem Noted Date Resolved Date Vaginal delivery 08/24/2015 03/01/2017 Supervision of normal first 01/23/2015 03/01/2017 documented as of this encounter (statuses as of 07/21/2022) [address]28-2016 History of Past illness Narrative* Problem Noted Date Resolved Date Vaginal delivery 08/24/2015 03/01/2017 Supervision of normal first 01/23/2015 03/01/2017 documented as of this encounter (statuses as of 09/08/2022) [facility] for [facility]* Chief Complaint 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 Reason for Visit Encounter for routin e gynecological examination Supervision of normal [facility] Work Phone: Evaluation note* Diagnosis Onset Date Resolution Status H/O depression, currently acute acute Supervision of other normal acute H/O depression, currently acute acute Supervision of other normal acute H/O depression, currently acute acute Supervision of other normal acute Choroid plexus cyst of fetus acute H/O depression, currently acute acute Supervision of other normal acute Choroid plexus cyst of fetus acute H/O depression, currently acute [id number] acute acute Supervision of other normal [facility] Work Phone: Evaluation note* Diagnosis Onset Date Resolution Status H/O depression, currently acute acute Supervision of other normal acute Choroid plexus cyst of fetus acute H/O depression, currently acute acute Supervision of other normal acute Choroid plexus cyst of fetus acute H/O depression, currently acute [id number] acute acute Supervision of other normal acute Abnormal glucose affecting acute Anemia in preg-unspec acute Choroid plexus cyst of fetus acute H/O depression, currently acute [id number] acute acute Supervision of other normal acute Abnormal glucose affecting acute Anemia in preg-unspec acute Choroid plexus cyst of fetus acute H/O depression, currently acute [id number] acute acute Supervision of other normal acute Anemia in preg-unspec acute Choroid plexus cyst of fetus acute H/O depression, currently acute acute Supervision of other normal [facility] Work Phone: Evaluation note* Diagnosis Onset Date Resolution Status H/O depression, currently acute acute Supervision of other normal acute Choroid plexus cyst of fetus acute H/O depression, currently acute acute Supervision of other normal acute Choroid plexus cyst of fetus acute H/O depression, currently acute [id number] acute acute Supervision of other normal acute Abnormal glucose affecting acute Anemia in preg-unspec acute Choroid plexus cyst of fetus acute H/O depression, currently acute [id number] acute acute Supervision of other normal acute Abnormal glucose affecting acute Anemia in preg-unspec acute Choroid plexus cyst of fetus acute H/O depression, currently acute [id number] acute acute Supervision of other normal acute Anemia in preg-unspec acute Choroid plexus cyst of fetus acute H/O depression, currently acute acute Supervision of other normal acute Abnormal glucose affecting acute Anemia in preg-unspec acute Choroid plexus cyst of fetus acute H/O depression, currently acute [id number] acute acute Supervision of other normal acute Abnormal glucose affecting acute Anemia in preg-unspec acute Choroid plexus cyst of fetus acute H/O depression, currently acute [id number] acute acute Supervision of other normal acute [facility] Work Phone: Evaluation note* Diagnosis Onset Date Resolution Status Choroid plexus cyst of fetus acute H/O depression, currently acute acute Supervision of other normal acute Choroid plexus cyst of fetus acute H/O depression, currently acute [id number] acute acute Supervision of other normal acute Abnormal glucose affecting acute Anemia in preg-unspec acute Choroid plexus cyst of fetus acute H/O depression, currently acute [id number] acute acute Supervision of other normal acute Abnormal glucose affecting acute Anemia in preg-unspec acute Choroid plexus cyst of fetus acute H/O depression, currently acute [id number] acute acute Supervision of other normal acute Anemia in preg-unspec acute Choroid plexus cyst of fetus acute H/O depression, currently acute acute Supervision of other normal acute Abnormal glucose affecting acute Anemia in preg-unspec acute Choroid plexus cyst of fetus acute H/O depression, currently acute [id number] acute acute Supervision of other normal acute Abnormal glucose affecting acute Anemia in preg-unspec acute Choroid plexus cyst of fetus acute H/O depression, currently acute [id number] acute acute Supervision of other normal [facility] Work Phone: Evaluation note* Diagnosis Onset Date Resolution Status Choroid plexus cyst of fetus resolved H/O depression, currently resolved resolved Supervision of other normal resolved Choroid plexus cyst of fetus resolved H/O depression, currently resolved [id number] resolved resolved Supervision of other normal resolved Abnormal glucose affecting resolved Anemia in preg-unspec resolv ed Choroid plexus cyst of fetus resolved H/O depression, currently resolved [id number] resolved resolved Supervision of other normal resolved Abnormal glucose affecting resolved Anemia in preg-unspec resolv ed Choroid plexus cyst of fetus resolved H/O depression, currently resolved [id number] resolved resolved Supervision of other normal resolved Anemia in preg-unspec resolv ed Choroid plexus cyst of fetus resolved H/O depression, currently resolved resolved Supervision of other normal resolved Abnormal glucose affecting resolved Anemia in preg-unspec resolv ed Choroid plexus cyst of fetus resolved H/O depression, currently resolved [id number] resolved resolved Supervision of other normal resolved Abnormal glucose affecting resolved Anemia in preg-unspec resolv ed Choroid plexus cyst of fetus resolved H/O depression, currently resolved [id number] resolved resolved Supervision of other normal resolved Abnormal glucose affecting resolved Anemia in preg-unspec resolv ed Choroid plexus cyst of fetus resolved H/O depression, currently resolved [id number] resolved resolved Supervision of other normal resolved Abnormal glucose affecting resolved Anemia in preg-unspec resolv ed Choroid plexus cyst of fetus resolved H/O depression, currently resolved [id number] resolved resolved Supervision of other normal resolved Status post vaginal delivery acute Abnormal glucose affecting resolved Anemia in preg-unspec resolv ed Choroid plexus cyst of fetus resolved H/O depression, currently resolved [id number] resolved resolved Supervision of other normal resolved [facility] Work Phone: Evaluation note* Diagnosis Streptococcal pharyngitis- Primary Streptococcal sore throat Sore throat Acute pharyngitis documented in this encounter [facility] [place] note* Diagnosis Sore throat- Primary Acute pharyngitis Strep throat Streptococcal sore throat documented in this encounter [facility] [place] note* Diagnosis Sore throat- Primary Acute pharyngitis documented in this encounter [facility] [place] note* Diagnosis Hives- Primary Urticaria, unspecified documented in this encounter [facility] [place] note* Diagnosis Onset Date Resolution Status Encounter for routine gynecological examination noneactive acute Supervision of normal acute [facility] Work Phone: Evaluation note* Diagnosis Onset Date Resolution Status acute Supervision of normal acute acute Supervision of normal acute acute Supervision of normal acute acute Supervision of normal acute [facility] Work Phone: Evaluation note* Diagnosis Onset Date Resolution Status acute Supervision of normal acute acute Supervision of normal acute acute Supervision of normal acute H/O depression, currently acute acute Supervision of normal acute [facility] Work Phone: evaluation note* Diagnosis Onset Date Resolution Status acute Supervision of normal acute acute Supervision of normal acute acute Supervision of normal acute H/O depression, currently acute acute Supervision of normal acute Anemia in preg-unspec acute H/O depression, currently acute acute Supervision of normal acute [facility] Work Phone: evaluation note* Diagnosis Onset Date Resolution Status acute Supervision of normal acute acute Supervision of normal acute H/O depression, currently acute acute Supervision of normal acute Anemia in preg-unspec acute H/O depression, currently acute acute Supervision of normal acute [facility] Work Phone: evaluation note* Diagnosis Onset Date Resolution Status acute Supervision of normal acute H/O depression, currently acute acute Supervision of normal acute Anemia in preg-unspec acute H/O depression, currently acute acute Supervision of normal acute Anemia in preg-unspec acute H/O depression, currently acute acute Supervision of normal acute Anemia in preg-unspec acute H/O depression, currently acute acute Supervision of normal acute Anemia in preg-unspec acute H/O depression, currently acute LGA (large for gestational age) fetus acute acute Supervision of normal acute Anemia in preg-unspec acute H/O depression, currently acute LGA (large for gestational age) fetus acute acute Supervision of normal acute [facility] Work Phone: evaluation note* Diagnosis Onset Date Resolution Status acute Supervision of normal acute H/O depression, currently acute acute Supervision of normal acute Anemia in preg-unspec acute H/O depression, currently acute acute Supervision of normal acute Anemia in preg-unspec acute H/O depression, currently acute acute Supervision of normal acute Anemia in preg-unspec acute H/O depression, currently acute acute Supervision of normal acute Anemia in preg-unspec acute H/O depression, currently acute LGA (large for gestational age) fetus acute acute Supervision of normal acute Anemia in preg-unspec acute H/O depression, currently acute LGA (large for gestational age) fetus acute acute Supervision of normal acute Anemia in preg-unspec acute Gestational diabetes mellitu s (GDM) affecting , antepartum acute H/O depression, currently acute LGA (large for gestational age) fetus acute acute Supervision of normal acute [facility] Work Phone: Evaluation note* Diagnosis Onset Date Resolution Status H/O depression, currently acute acute Supervision of normal acute Anemia in preg-unspec acute H/O depression, currently acute acute Supervision of normal acute Anemia in preg-unspec acute H/O depression, currently acute acute Supervision of normal acute Anemia in preg-unspec acute H/O depression, currently acute acute Supervision of normal acute Anemia in preg-unspec acute H/O depression, currently acute LGA (large for gestational age) fetus acute acute Supervision of normal acute Anemia in preg-unspec acute H/O depression, currently acute LGA (large for gestational age) fetus acute acute Supervision of normal acute Anemia in preg-unspec acute Gestational diabetes mellitu s (GDM) affecting , antepartum acute H/O depression, currently acute LGA (large for gestational age) fetus acute acute Supervision of normal acute Anemia in preg-unspec acute Gestational diabetes mellitu s (GDM) affecting , antepartum acute H/O depression, currently acute LGA (large for gestational age) fetus acute acute Supervision of normal acute Anemia in preg-unspec acute Encounter for induction of labor acute Gestational diabetes mellitu s (GDM) affecting , antepartum acute H/O depression, currently acute LGA (large for gestational age) fetus acute Supervision of normal acute (spontaneous vaginal delivery) acute [facility] Work Phone: Evaluation note* Diagnosis Rhinosinusitis- Primary Unspecified sinusitis (chronic) [facility] Onset Date Resolution Status Admit Date Encounter for routine gynecological examination noneactive October 042024 1:30pm [place] [employer] [facility] Work Phone: Progress note Author Arielle Hilton [facility] Note Date/Time October 04, 2024 1:54p m [facility] [address] [place] [address], [address] [place] [address] OFFICE VISIT Date of Service: 10/04/24 MR#: [id number] Acct: [id number] Name: RENEE RITCHIE Rep # : [id number] : 1990 Provider: QUEENIE Hilton Age/Sex: 34/F Location: [facility] Status: Signed Intake Vital Signs 09/29/23 13:16 10/04/24 13:33 Height 5 ft 6 in 5 ft 6 in Weight: 157 lb BMI 25.3 BP 118/74 Intake Visit Reasons: Annual ([employer]) Chaplaincy Required: No Is patient in pain?: No Allergies No Known Allergies Allergy (Verified 10/04/24 13:36) Medications ?Medication ?Instructions ?Recorded ?Confirmed ?Type ferrous sulfate 325 mg (65 mg 325 mg PO DAILY anemia 0 01/06/23 10/04/24 History iron) tablet (Feosol) magnesium 200 mg tablet 200 mg PO DAILY sleep 10/04/24 History mv-mn 110-FA 180 mcg-om3 35 mg-dha 1 tab PO DAILY preg odalis 01/06/23 10/04/24 History 25 mg-epa 5 mg-fish oil chew tablet Wellbutrin PO 10/04/24 History Is last menstrual period known: Yes Last Menstrual Period: 09/20/24 Post menopausal: No Patient : No : No PFSH Medical History (Updated 10/04/24 @ 13:38 by Nazia Spann) ADHD (spontaneous vaginal delivery) macrosomia Headache Gestational diabetes H/O depression, currently Surgical History Status post vaginal delivery Family History Mother Diabetes Father Hypertension Grandmother Breast cancer Dementia Social History (Updated 10/04/24 @ 13:39 by Nazia Spann) adopted: No household members: family housing: house number of children: 4 current occupational status: employed current occupation: [employer] pets and animals: Yes pets and animals: cat(s) and dog(s) history of recent travel: No sexually active: Yes Smoking Status: Never smoker alcohol intake: never substance use type: does not use caffeine: No what type of physical activity do you participate in: none seatbelt use: always do you feel safe at home: Yes additional social history: [place] History 4 Elective abortions Hx Para 3 Spontaneous abortions Hx # Term Pregnancies 4 Ectopic pregnancies Hx # Pregnancies Multiple births # of living children 4 Past Pregnancies Del. Date Name GA/Weeks Outcome Route Bth Weight Infant Gen Labor Lgth Anesthesia Del Locatn Provider FOB 08/24/15 Cristian 41 live - full term 9 lbs 3 oz. Male 1 [address] Cook Ryley 09/05/18 Lilian 40 live - full term 9lb 11oz Female epidural [facility] DESHAWN [place] 10/05/21 Reagan 39 live - full term 9 15oz Male 3 epid ural [facility] Jennif er Vande Velde [place] 08/11/23 Philomena live - full term Female [facility] Tammy Romero Delivery Date: 08/24/15 Last Updated by: Jenniffer Chacko MD difficult labor Delivery Date: 10/05/21 Last Updated by: Stephanie Fisher Elective IOL, 39weeks, , boy Reagan HPI Encounter for routine gynecological examination Details: RENEE RITCHIE is a 34 year old who presents for annual exam. Doing well and no concerns Last PAP: due today - unsure of last time she had PAP done History of abnormal PAP: Last mammogram: not due History of abnormal mammogram: Colon cancer screening: not due Other preventative health care screenings: PCP Dr. Ndiaye Female Reproductive History Last Menstrual Period: 09/20/24 Cycle Length: 21-35 Bleeding Duration: 5 Questions: metorrhagia: No, sexually active: Yes, dyspareunia: No and PCB: No ROS Const Constitutional: Reports system reviewed and no additional complaints, except as documented Cardio Card: Reports system reviewed and no additional complaints, except as documented Resp Resp: Reports system reviewed and no additional complaints, except as documented GI GI: Reports system reviewed and no additional complaints, except as documented : Reports system reviewed and no additional complaints, except as documented; Denies difficulty voiding, dysuria or urinary frequency Skin Skin/Breast: Reports system reviewed and no additional complaints, except as documented Neuro Neuro: Reports system reviewed and no additional complaints, except as documented Psych Psych: Reports system reviewed and no additional complaints, except as documented; Denies anhedonia, anxiety or depression Exam Const General: cooperative, healthy appearing, comfortable and no acute distress Orientation: alert, awake and oriented x3 Neck Neck: normal visual inspection and full ROM Thyroid: thyroid normal Chest Breast inspection: normal inspection of the breasts and normal inspection of theaxillae Breast palpation: normal palpation of the breasts and normal palpation of the axillae Resp Effort & Inspection: normal respiratory effort, able to speak in complete sentences and symmetric chest movement GI Inspection: normal to inspection Palpation: soft Rectal Exam: visual inspection normal External Female Exam: normal external appearance and normal appearance of the urethra Urethra: normal appearance of the urethra Speculum Exam - Vagina: normal appearance of the vagina and normal vaginal discharge Speculum Exam - Cervix: normal appearance of the cervix and nontender Bimanual Exam- Vagina & Uterus: normal bimanual exam, normal palpation, uterine size normal, No tender and non-tender Bimanual Exam- Adnexa, other: normal Pelvic Support: normal Skin General: no rashes or lesions noted Neuro General: patient alert, patient awake and patient oriented x3 Cognition: normal cognition Speech: speech normal Gait: normal gait Extrem General: normal to inspection and full ROM Psych Appearance: grossly normal and well kempt Mental Status: mental status grossly normal Affect: normal affect Speech and Movement: speech and movement normal Attitude: cooperative Thought Process: normal Thought Content: normal Judgment: judgment good Coding Level of Care Code Off vis,est,prev 18-39yrs Diagnoses Encounter for routine gynecological examination Z01.419 Assessment and Plan Assessment and Plan (1) Encounter for routine gynecological examination: Plan Details Additional Comments: Cervical cancer screening: today Breast cancer screening: age 40 STD prevention and contraceptive options including their risks, benefits, and alternatives were reviewed with the patient and she chooses: declines Encouraged maintenance of a healthy weight and active lifestyle and handout given. Calcium/vitamin D recommendations provided. Annual exam handout including recommendations for good health guidelines and basic screening information given. Problem list up to date, see problem list details for any additional plan information. follow up in one year for annual health maintenance exam or sooner if needed. 10/04/24 8920 <Electronically signed by Arielle merritt CNM> Date _ Arielle Yobani Ramosigner Signature: Date (if applicable) CC: ~ [facility] Work Phone: Reason for referral (narrative)No reason for referral information [facility] Work Phone: Summary Purpose Family History No Family History Records Found Relationship Condition Age at Onset Recorded Date/T ambreen mother Diabetes mellitus Unknown father Hypertension Unknown grandmother Malignant neoplasm of breast Unknown Relationship Condition Age at Onset Recorded Date/T ambreen mother Diabetes mellitus Unknown father Hypertension Unknown grandmother Malignant neoplasm of breast Unknown Dementia Unknown Advance Directives No Advanced Directives Records Found Advance Directive Response Recorded Date/ Time Living Will No September 05, 2018 9 :03am Power of Grease Rack Worker No September 05, 2018 9:03am Advance Directive Response Recorded Date/ Time Living Will No October 05, 2021 12:23pm Power of Grease Rack Worker No October 05 12:23pm Advance Directive Response Recorded Date/ Time Living Will No October 05, 2021 11:23am Power of Grease Rack Worker No October 05 11:23am Advance Directive Response Recorded Date/ Time Living Will No August 11, 2023 8:35am Power of Grease Rack Worker No August 10 8:35am Chief Complaint and Reason for Visit Chief Complaint 13 WK OB 16 WK OB 20 WK OB 24 WK OB 28 WK OB/GLUCOSE Reason for Visit H/O depre ssion, currently Supervision of other normal H/O depression, currently Supervision of other normal H/O depression, currently Supervision of other normal Choroid plexus cyst of fetus H/O depression, currently Supervision of other normal Choroid plexus cyst of fetus H/O depression, currently [id number] Supervision of other normal Chief Complaint 20 WK OB 24 WK OB 28 WK OB/GLUCOSE 30WK OB 32WK OB 34 WK OB Reason for Visit H/O depre ssion, currently Supervision of other normal Choroid plexus cyst of fetus H/O depression, currently Supervision of other normal Choroid plexus cyst of fetus H/O depression, currently [id number] Supervision of other normal Abnormal glucose affecting Anemia in preg-unspec Choroid plexus cyst of fetus H/O depression, currently [id number] Supervision of other normal Abnormal glucose affecting Anemia in preg-unspec Choroid plexus cyst of fetus H/O depression, currently [id number] Supervision of other normal Anemia in preg-unspec Choroid plexus cyst of fetus H/O depression, currently Supervision of other normal Chief Complaint 20 WK OB 24 WK OB 28 WK OB/GLUCOSE 30WK OB 32WK OB 34 WK OB 36 WK OB 37 WK OB Reason for Visit H/O depre ssion, currently Supervision of other normal Choroid plexus cyst of fetus H/O depression, currently Supervision of other normal Choroid plexus cyst of fetus H/O depression, currently [id number] Supervision of other normal Abnormal glucose affecting Anemia in preg-unspec Choroid plexus cyst of fetus H/O depression, currently [id number] Supervision of other normal Abnormal glucose affecting Anemia in preg-unspec Choroid plexus cyst of fetus H/O depression, currently [id number] Supervision of other normal Anemia in preg-unspec Choroid plexus cyst of fetus H/O depression, currently Supervision of other normal Abnormal glucose affecting Anemia in preg-unspec Choroid plexus cyst of fetus H/O depression, currently [id number] Supervision of other normal Abnormal glucose affecting Anemia in preg-unspec Choroid plexus cyst of fetus H/O depression, currently [id number] Supervision of other normal Chief Complaint 24 WK OB 28 WK OB/GLUCOSE 30WK OB 32WK OB 34 WK OB 36 WK OB 37 WK OB R/O LABOR Reason for Visit Choroid plexus cyst of fetus H/O depression, currently Supervision of other normal Choroid plexus cyst of fetus H/O depression, currently [id number] Supervision of other normal Abnormal glucose affecting Anemia in preg-unspec Choroid plexus cyst of fetus H/O depression, currently [id number] Supervision of other normal Abnormal glucose affecting Anemia in preg-unspec Choroid plexus cyst of fetus H/O depression, currently [id number] Supervision of other normal Anemia in preg-unspec Choroid plexus cyst of fetus H/O depression, currently Supervision of other normal Abnormal glucose affecting Anemia in preg-unspec Choroid plexus cyst of fetus H/O depression, currently [id number] Supervision of other normal Abnormal glucose affecting Anemia in preg-unspec Choroid plexus cyst of fetus H/O depression, currently [id number] Supervision of other normal Chief Complaint 24 WK OB 28 WK OB/GLUCOSE 30WK OB 32WK OB 34 WK OB 36 WK OB 37 WK OB R/O LABOR R/O LABOR 38 WK OB 39 WK OB VAGINAL DELIVERY INDUCTION VAGINAL DELIVERY VAGINAL DELIVERY Reason for Visit Choroid plexus cyst of fetus H/O depression, currently Supervision of other normal Choroid plexus cyst of fetus H/O depression, currently [id number] Supervision of other normal Abnormal glucose affecting Anemia in preg-unspec Choroid plexus cyst of fetus H/O depression, currently [id number] Supervision of other normal Abnormal glucose affecting Anemia in preg-unspec Choroid plexus cyst of fetus H/O depression, currently [id number] Supervision of other normal Anemia in preg-unspec Choroid plexus cyst of fetus H/O depression, currently Supervision of other normal Abnormal glucose affecting Anemia in preg-unspec Choroid plexus cyst of fetus H/O depression, currently [id number] Supervision of other normal Abnormal glucose affecting Anemia in preg-unspec Choroid plexus cyst of fetus H/O depression, currently [id number] Supervision of other normal Abnormal glucose affecting Anemia in preg-unspec Choroid plexus cyst of fetus H/O depression, currently [id number] Supervision of other normal Abnormal glucose affecting Anemia in preg-unspec Choroid plexus cyst of fetus H/O depression, currently [id number] Supervision of other normal Status post vaginal delivery Abnormal glucose affecting Anemia in preg-unspec Choroid plexus cyst of fetus H/O depression, currently [id number] Supervision of other normal Chief Complaint NOB eorder 12 WK OB 16 WK OB ANATOMY 20 WK OB Reason for Visit Supervision of normal Supervision of normal Supervision of normal Supervision of normal Chief Complaint 12 WK OB 16 WK OB ANATOMY 20 WK OB 24 WK OB Reason for Visit Supervision of normal Supervision of normal Supervision of normal H/O depression, currently Supervision of normal Chief Complaint 12 WK OB 16 WK OB ANATOMY 20 WK OB 24 WK OB VENOFER 300MG Reason for Visit Supervision of normal Supervision of normal Supervision of normal H/O depression, currently Supervision of normal Chief Complaint 12 WK OB 16 WK OB ANATOMY 20 WK OB 24 WK OB VENOFER 300MG 28 WK OB/GLUCOSE VENOFER 300MG Reason for Visit Supervision of normal Supervision of normal Supervision of normal H/O depression, currently Supervision of normal Anemia in preg-unspec H/O depression, currently Supervision of normal Chief Complaint 16 WK OB ANATOMY 20 WK OB 24 WK OB VENOFER 300MG 28 WK OB/GLUCOSE VENOFER 300MG VENOFER 300MG Reason for Visit Supervision of normal Supervision of normal H/O depression, currently Supervision of normal Anemia in preg-unspec H/O depression, currently Supervision of normal Chief Complaint ANATOMY 20 WK OB 24 WK OB VENOFER 300MG 28 WK OB/GLUCOSE VENOFER 300MG VENOFER 300MG 30 WK OB 32 WK OB 34 WK OB GROWTH 36 WK OB Reason for Visit Supervision of normal H/O depression, currently Supervision of normal Anemia in preg-unspec H/O depression, currently Supervision of normal Anemia in preg-unspec H/O depression, currently Supervision of normal Anemia in preg-unspec H/O depression, currently Supervision of normal Anemia in preg-unspec H/O depression, currently LGA (large for gestational age) fetus Supervision of normal Anemia in preg-unspec H/O depression, currently LGA (large for gestational age) fetus Supervision of normal Chief Complaint ANATOMY 20 WK OB 24 WK OB VENOFER 300MG 28 WK OB/GLUCOSE VENOFER 300MG VENOFER 300MG 30 WK OB 32 WK OB 34 WK OB GROWTH 36 WK OB 37 WK OB Reason for Visit Supervision of normal H/O depression, currently Supervision of normal Anemia in preg-unspec H/O depression, currently Supervision of normal Anemia in preg-unspec H/O depression, currently Supervision of normal Anemia in preg-unspec H/O depression, currently Supervision of normal Anemia in preg-unspec H/O depression, currently LGA (large for gestational age) fetus Supervision of normal Anemia in preg-unspec H/O depression, currently LGA (large for gestational age) fetus Supervision of normal Anemia in preg-unspec Gestational diabetes mellitus (GDM) affecting , antepartum H/O depression, currently LGA (large for gestational age) fetus Supervision of normal Chief Complaint 24 WK OB VENOFER 300MG 28 WK OB/GLUCOSE VENOFER 300MG VENOFER 300MG 30 WK OB 32 WK OB 34 WK OB GROWTH 36 WK OB 37 WK OB 38 WK OB VAG DELIVERY INDUCTION VAG DELIVERY Reason for Visit H/O depre ssion, currently Supervision of normal Anemia in preg-unspec H/O depression, currently Supervision of normal Anemia in preg-unspec H/O depression, currently Supervision of normal Anemia in preg-unspec H/O depression, currently Supervision of normal Anemia in preg-unspec H/O depression, currently LGA (large for gestational age) fetus Supervision of normal Anemia in preg-unspec H/O depression, currently LGA (large for gestational age) fetus Supervision of normal Anemia in preg-unspec Gestational diabetes mellitus (GDM) affecting , antepartum H/O depression, currently LGA (large for gestational age) fetus Supervision of normal Anemia in preg-unspec Gestational diabetes mellitus (GDM) affecting , antepartum H/O depression, currently LGA (large for gestational age) fetus Supervision of normal Anemia in preg-unspec Encounter for induction of labor Gestational diabetes mellitus (GDM) affecting , antepartum H/O depression, currently LGA (large for gestational age) fetus Supervision of normal (spontaneous vaginal delivery) Chief Complaint Admit Date Annual ([employer]) October 04, 2024 1:30p m Reason for Visit Admit Date Encounter for routine gynecological exam ination October 04, 2024 1:30pm Additional Source Comments INFORMATION SOURCE (unrecogn ized section and content) DATE CREATED AUTHOR 07/23/2021 [facility] DATE CREATED AUTHOR AUTHOR'S ORGANIZ ATION 10/01/2023 [facility] DATE CREATED AUTHOR AUTHOR'S ORGANIZ ATION 01/06/2024 [facility] DATE CREATED AUTHOR AUTHOR'S ORGANIZ ATION 10/04/2024 [facility] Goals (unrecognized section and content) Goals may be documented in a n alternate sectionGoals may be documented in an alternate sectionGoals may be documented in an alternate sectionGoals may be documented in an alternate sectionGoals may be documented in an alternate sectionGoals may be documented in an alternate sectionGoals may be documented in an alternate sectionGoals may be documented in an alternate sectionGoals may be documented in an alternate sectionGoals may be documented in an alternate sectionGoals may be documented in an alternate sectionGoals may be documented in an alternate sectionGoals may be documented in an alternate sectionGoals may be documented in an alternate sectionGoals may be documented in an alternate sectionGoals may be documented in an alternate section Source Comments (unrecognize d section and content) In the event this informatio n is protected by the Federal Confidentiality of Alcohol and Drug Abuse Patient Records regulations: The Federal rules restrict any use of the information to criminally investigate or prosecute any alcohol or drug abuse patient.[facility] the event this information is protected by the Federal Confidentiality of Alcohol and Drug Abuse Patient Records regulations: The Federal rules restrict any use of the information to criminally investigate or prosecute any alcohol or drug abuse patient.[facility] the event this information is protected by the Federal Confidentiality of Alcohol and Drug Abuse Patient Records regulations: The Federal rules restrict any use of the information to criminally investigate or prosecute any alcohol or drug abuse patient.[facility] the event this information is protected by the Federal Confidentiality of Alcohol and Drug Abuse Patient Records regulations: The Federal rules restrict any use of the information to criminally investigate or prosecute any alcohol or drug abuse patient.[facility] the event this information is protected by the Federal Confidentiality of Alcohol and Drug Abuse Patient Records regulations: The Federal rules restrict any use of the information to criminally investigate or prosecute any alcohol or drug abuse patient.[facility] Reason for Visit (unrecogniz ed section and content) Reason Comments Sore Throat fever x last night Reason Comments Sore Throat ST x 2 days Reason Comments Sore Throat ST, fever and SILVA x 1 day Reason Comments Rash Hives all over body x 1 day Reason Comments Cough Cough, SILVA and ST x 1 week Care Teams (unrecognized sec tion and content) Order Expediter Relationship Specialty Start Date End Date Elvis Ndiaye MD PCP - General Family Medicine 12/12/14 Order Expediter Relationship Specialty Start Date End Date Elvis Ndiaye MD PCP - General Family Medicine 12/12/14 Order Expediter Relationship Specialty Start Date End Date Elvis Ndiaye MD PCP - General Family Medicine 12/12/14 Order Expediter Relationship Specialty Start Date End Date Elvis Ndiaye MD PCP - General Family Medicine 12/12/14 Team Status: Active Member Role Status Dates Dr. Elvis Ndiaye MD Family Provider Active Dr. Elvis Ndiaye MD Primary Care Provider Active Team Status: Inactive Member Role Status Dates Dr. Elvis Ndiaye MD Primary Care Provider, Refer ring Provider Active Dr. Maye Woody DO Attending Provider Activ e Team Status: Inactive Member Role Status Dates Dr. Elvis Ndiaye MD Primary Care Provider, Refer ring Provider Active Michael Nettles PA, PA Attending Provider Active Team Status: Inactive Member Role Status Dates Dr. Elvis Ndiaye MD Primary Care Provider, Refer ring Provider Active Arielle Hilton CNM Attending Provider Active Team Status: Inactive Member Role Status Dates Dr. Elvis Ndiaye MD Primary Care Provider Active Arielle Hilton CNM Attending Provider, Referring Pro vider Active Team Status: Inactive Member Role Status Dates Dr. Elvis Ndiaye MD Primary Care Provider Active Arielle Hilton CNM Attending Provider Active Team Status: Inactive Member Role Status Dates Dr. Elvis Ndiaye MD Primary Care Provider Active Dr. Maye Woody DO Attending Provider, Refe rring Provider Active Team Status: Inactive Member Role Status Dates Dr. Elvis Ndiaye MD Primary Care Provider, Refer ring Provider Active Nazia Alvarez EXPORT FREIGHT CLERK, EXPORT FREIGHT CLERK-C Attending Provider Active Team Status: Inactive Member Role Status Dates Dr. Elvis Ndiaye MD Primary Care Provider Active Nazia Alvarez EXPORT FREIGHT CLERK, EXPORT FREIGHT CLERK-C Attending Provider, Referring Provider Active Team Status: Inactive Member Role Status Dates Dr. Elvis Ndiaye MD Primary Care Provider, Refer ring Provider Active Tammy Romero CNM Attending Provider Active Team Status: Active Member Role Status Dates Dr. Elvis Ndiaye MD Primary Care Provider Active Nazia Alvarez EXPORT FREIGHT CLERK, EXPORT FREIGHT CLERK-C Attending Provider, Referring Provider Active Team Status: Active Member Role Status Dates Dr. Elvis Ndiaye MD Primary Care Provider Active Arielle Hilton CNM Attending Provider, Referring Pro vider Active Team Status: Active Member Role Status Dates Dr. Elvis Ndiaye MD Primary Care Provider Active Tammy Romero CNM Admit Provider, At tending Provider, Other Provider Active Team Status: Active Member Role Status Dates Dr. Elvis Ndiaye MD Primary Care Provider Active Tammy Romero CNM Admit Provider, Other Provider A ctive Arielle Hilton CNM Attending Provider Active Team Status: Inactive Member Role Status Dates Dr. Elvis Ndiaye MD Primary Care Provider Active Tammy Romero CNM Admit Provider, Attending Provid er Active Order Expediter Relationship Specialty Start Date End Date Elvis Ndiaye MD PCP - General Family Medicine 12/12/14 Team Status: Active Member Role Status Dates Dr. Elvis Ndiaye MD Primary Care Provider Active Team Status: Inactive Member Role Status Dates Dr. Elvis Ndiaye MD Primary Care Provider Active Start: October 04, 2024 End: October 04, 2024 Dr. Elvis Ndiaye MD Referring Provider Active Start: October 04, 2024 End: October 04, 2024 Arielle Hilton CNM Attending Provider Active S tart: October 04, 2024 End: October 04, 2024 FOR RECORDS PERTAINING TO PATIENTS WHO ARE [...] BE BASED ON THE PRIMARY CLINICAL RECORDS. [facility] [employer] [facility]. provides no warranty or guarantee of the accuracy or completeness of information in this document.
== END | disposition home or self-care (01) ==
LOC: LABSPEC 16:13
PROVIDERS: PCP Family Medicine; Referring Provider Advanced Practice Midwife; Visit Provider Advanced Practice Midwife
DX: Z12.4 Encounter for screening for malignant neoplasm of cervix (principal)
CPT/HCPCS: 87624; 88175; G0145